=== PATIENT | female | born 1985 | race Caucasian/White ===

== ENCOUNTER → 2019-04-10 09:07 | Outpatient (CLI) | payer OTHER, SELFPAY ==
[2019-04-05 16:27] VITALS: BMI 31.4
[2019-04-10 12:51] LABS: CPK Total, Creatine Kinase 44 U/L (26-192)
== END ==
PROVIDERS: Family Provider Family Medicine; PCP Family Medicine; Referring Provider Family Medicine; Visit Provider Family Medicine
DX: M62.82 Rhabdomyolysis (principal)
CPT/HCPCS: 36415; 82550

== ENCOUNTER → 2020-04-15 12:32 | Outpatient (CLI) | payer OTHER, SELFPAY ==
[2019-06-19 09:33] VITALS: BMI 31.4
[2020-04-15 12:56] LABS: Absolute Neutrophil Count 2.8 X10^3/uL (2.0-7.7); Basophil# 0.04 X10^3/uL; Basophil% 0.8 % (0-1); Eosinophil# 0.08 X10^3/uL; Eosinophils% 1.6 % (0-5); Hematocrit 38.8 % (37-47); Hemoglobin 12.8 g/dL (12.0-15.0); Lymphocyte % 31.4 % (19-41); Mean Corpuscular Hgb 30.6 pg (27.0-32.0); Mean Corpuscular Volume 92.8 fL (81-99); Mean Platelet Vol. 9.9 fl (6.2-12.0); Monocyte# 0.53 X10^3/uL; Monocyte% 10.4 % (0-10); NRBC Flagged by Analyzer 0 % (0-5); Neutrophil # 2.83 X10^3/uL (2.7-7.7); Neutrophil % 55.6 % (47-70); Platelet Count 273 K/mm3 (150-450); RBC Distribution Width CV 12.4 % (11.6-14.6); RBC Distribution Width SD 42.5 fl (35.1-43.9); Red Blood Count 4.18 M/mm3 (4.2-5.4); White Blood Count 5.1 K/mm3 (4.4-11.0)
[2020-04-15 13:08] LABS: ALB/GLOB Ratio 0.9 RATIO (0.9-2.4); AST(SGOT) 15 U/L (15-37); Alanine Aminotransfer ALT/SGPT 20 U/L (13-56); Albumin, Serum 3.6 g/dL (3.2-5.0); Alkaline Phosphatase 44 U/L (45-117); Anion Gap 2 (5-15); BUN 17 mg/dL (7-18); BUN/Creat Ratio 17.6 RATIO (10-20); Calcium,Total 9.5 mg/dL (8.5-10.1); Chloride 107 mmol/L (98-107); Creatinine, Serum 0.97 mg/dL (0.55-1.02); EST Glomerular Filtration Rate 70 mL/min (>60); Est Glom Filt Rate - Afr Amer 85 mL/min (>60); Globulin 3.8 g/dL (2.2-4.2); Glucose 95 mg/dL (74-106); Lipase 114 U/L (73-393); Potassium 4.1 mmol/L (3.5-5.1); Protein, Total 7.4 g/dL (6.4-8.2); Sodium Level 138 mmol/L (136-145)
== END ==
PROVIDERS: PCP Family Medicine; Referring Provider Family Medicine; Visit Provider Family Medicine
DX: R10.9 Unspecified abdominal pain (principal)
CPT/HCPCS: 36415; 80053; 83690; 85025

== ENCOUNTER → 2020-04-22 08:20 | Outpatient (CLI) | payer OTHER, SELFPAY ==
[2019-06-19 09:33] VITALS: BMI 31.4
--- NOTE | 2020-04-22 08:22 | US_ITS ---
STUDY: ABDOMINAL ULTRASOUND REASON FOR EXAM: Female, 35 years old. Generalized abdominal pain. Nausea. TECHNIQUE: Transabdominal ultrasound was performed with real-time and static wyman scale imaging. TECHNICAL QUALITY: Adequate. COMPARISON: None. FINDINGS: Liver: The liver measures 11.8 cm. Small well-circumscribed echogenic lesions within both lobes on the right measuring 0.6 x 0.6 x 0.6 cm and on the left 0.8 x 0.6 x 0.6 cm very suggestive of hemangiomas. The bile ducts are within normal limits. There is hepatic color flow. The direction of portal flow is hepatopetal. There is no demonstrated mass lesion. Gallbladder: Normal distended gallbladder. The gallbladder wall measures 2 mm. There is a negative sonographic Colindres''s sign. There is no pericholecystic fluid. There are no gallstones. 5 mm echogenic polyp or less likely adherent sludge ball. Common Bile Duct (C.B.D.): The common bile duct measures 4 mm. Pancreas: Normal size of the head, body and tail of the pancreas. There is normal echogenicity of the pancreas. There is no demonstrated pancreatic mass or cyst. Spleen: Normal size of the spleen. The spleen measures 9.3 cm. Right Kidney: Normal size of the right kidney. The right kidney measures 10.1 cm. Normal renal cortex. The right cortex measures 1.9 cm. There is no demonstrated renal mass or cyst. There is no right hydronephrosis. Left Kidney: Normal size of the left kidney. The left kidney measures 10.2 cm. Normal renal cortex. The left cortex measures 1.5 cm. There is no demonstrated renal mass or cyst. There is no left hydronephrosis. Aorta: Not dilated I.V.C.: The IVC is patent. There is no ascites. US/Abdomen Complete IMPRESSION: No acute findings in the abdomen. Small gallbladder polyp or adherent sludge ball. Subcentimeter echogenic nodules in the liver suggestive of hemangiomas, very likely incidental findings. Electronically Signed: Ole Keys MD at 1:03 EDT , Service support ,
== END ==
PROVIDERS: PCP Family Medicine; Referring Provider Family Medicine; Visit Provider Family Medicine
DX: R10.9 Unspecified abdominal pain (principal)
CPT/HCPCS: 76700

== ENCOUNTER → 2020-05-09 10:26 | Outpatient (CLI) | payer OTHER, SELFPAY ==
[2019-06-19 09:33] VITALS: BMI 31.4
--- NOTE | 2020-05-09 10:29 | NM_ITS ---
CLINICAL: 35-year-old female with reported history of abdominal pain and postprandial nausea. RADIONUCLIDE HEPATOBILIARY SCINTIGRAPHY COMPARISON: Abdominal ultrasound report 04/22/2020 FINDINGS: Following the intravenous administration of 5.0 mCi of 99m Tc Mebrofenin, hepatobiliary images reveal:. 1. Relatively prompt and homogeneous radiopharmaceutical concentration is noted by a normal sized liver. No parenchymal defects are identified. 2. Gallbladder activity is identified at 15 minutes post radiopharmaceutical administration. 3. Small intestinal tract is observed at 30 minutes following tracer injection. 4. Washout of the radiopharmaceutical by the hepatic parenchyma appears qualitatively normal. Cholecystokinin (0.02 ug/kg) was administered intravenously over a 30-minute period. The post CCK gallbladder ejection fraction calculated at 20 minutes following Cholecystokinin administration was noted to be 48.0 % (normal greater than 35%). During 30 minutes of post CCK imaging, there is scintigraphic evidence of refilling of the gallbladder. NM/Hepatobilliary Img w/Pharm Int IMPRESSION: 1. A gallbladder ejection fraction calculated to be greater than 35% following the administration of Cholecystokinin makes the probability of functional hepatobiliary disease (gallbladder dyskinesia) and/or organic hepatobiliary disease (chronic acalculous cholecystitis and/or cystic duct syndrome) to be low. (Kavon Logan et al, Journal of Nuclear Medicine 32:1695, 1991). 2. 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 Correlation with Sphincter of Oddi manometry is recommended. (Gabriel and Gabriel, J Nucl Med 38:1824, 1997). Electronically Signed: Ja Santoyo DO at 21:10 EDT Tel , Service support ,
== END ==
PROVIDERS: PCP Family Medicine; Referring Provider Family Medicine; Visit Provider Family Medicine
DX: R10.9 Unspecified abdominal pain (principal)
CPT/HCPCS: 78227; A9537; J2805

== ENCOUNTER → 2020-10-20 16:53 | Outpatient (CLI) | payer OTHER, SELFPAY ==
[2020-10-20 08:11] VITALS: BMI 26.1
[2020-10-24 13:02] LABS: HPV APTIMA, High Risk Negative (Negative)
== END ==
PROVIDERS: PCP Family Medicine; Visit Provider Obstetrics & Gynecology
DX: Z12.4 Encounter for screening for malignant neoplasm of cervix (principal)
CPT/HCPCS: 87624; 88175; G0145

== ENCOUNTER 2020-12-24 16:30 | Outpatient (RCR) | payer OTHER, SELFPAY ==
[2020-10-20 08:11] VITALS: BMI 26.1
--- NOTE | 2020-11-27 12:11 | HP.PTEVAL_ITS ---
Patient's Visit Information NUPUR LAMB is a 35 year old F referred to Physical Therapy by Dr. Nakia Hopper DPM with a diagnosis of L peroneal tendinitis. Date of Evaluation: 11/26/20 Physical Therapist: Demarco Fagan DPT - Visit Plan Frequency: 1x/Week Duration: 4 Weeks Plan: The pt. is currently independent with her HEP of gentle ankle strengthening and gastroc/soleus stretching. Pt. would like to only come in 1x a week and perform most exercises on her own at home. Progress her ankle strength and mobility and DF ROM by gentle talocrural AP joint mobs. Pt. plans to go on vacation the last week of December and plans to hike there. - Subjective The pt. presents to the clinic today with pain in the left foot when walking, running, or exercising. The pt. states that she has been having this pain for a couple of months and was recommended a boot by Dr. Hopper. 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 She has been out of the boot for 2 weeks now and has not tried to go back to running because she is still having minimal pain along the peroneal tendons on the lateral aspect of the left foot. The pt. reported that prior to her pain, she increased her running mileage to about 15 miles per week and adopted a dog, which increased her activity level abruptly. She does not wear orthotics. Her dull and aching pain came on without a cause and is worse while standing for long periods of time or while walking for long periods of time. To relieve her pain, she has been icing periodically, but denies taking any pain medications. She is able to sleep throughout the night without pain and does not have pain when ascending/descending stairs. She would like to get back to running and doing her [employer] workouts without pain and plans to go on a hiking trip to [place] at the end of December. The pt. denies any swelling/inflammation in the ankle, as well as any N/T. - Pain Left foot Pain Intensity (Out of 10): 0 Pain Intensity Range: 2 - Objective Posture: All WNL in standing and sitting. The pt. sits with one of her legs crossband layer ssed over the other, making a figure 4 and pt. states that she sits in that position often while working. Observation: While performing a squat and ambulating, the pt. does have an increase in pronation bilaterally with weight acceptance. The pts. gait has not been affected from her pain. MMT: hip flexion bilat 5/5, knee flexion bilat 5/5, knee extension bilat 5/5, dorsiflexion/inversion bilat 5/5 with some pain on the lateral aspect of the L foot, eversion R 5/5, L 4-/5. ROM: eversion R 12deg, L 10deg, inversion R 36deg, L 25deg, dorsiflexion R 10deg, L 5deg, plantarflexion R 50deg, L 45deg. Palpation: TTP distal to the lateral malleolus, plantar surface of 1st metatarsal, and minimal tenderness to the 5th metatarsal. Special Tests: - Anterior drawer, - Talar tilt, - anterolateral impingement test - Goals Goal 1:: LTG: The pt. will be compliant and independent with her HEP. Goal Time Frame: 2-4 Weeks Goal 2:: LTG: The pt. will increase her dorsiflexion ROM by 5deg, so she can tolerate standing for longer than 30 minutes at a time. Goal 3:: LTG: The pt. will increase her eversion strength by 1-2 muscle grades, so she can tolerate her HIIT workouts. Goal 4:: LTG: The pt. will be able to run 1 mile with pain less than a 1/10. - Rehabilitation Potential Physical Therapy Diagnosis: The pt. is a 35 yo female who presents to the clinic with signs and symptoms consistent with left peroneal tendinitis. The pt. presents with decreased ankle mobility, decreased ankle strength, and pain along the peroneal longus and brevis tendons and their insertion sites. The pt. is needing PT to address the following limitations and impairments, so she can resume running and exercising without pain. Rehabilitation Potential: Good - Anticipated Interventions Patient/Client Instruction: Educate patient on: Condition, Plan of Care For the Purpose of:: To decrease pain, To decrease swelling/inflammation, To increase ROM, To improve muscle performance and motor function, To increase flexibility/ROM, To improve endurance, To assume or resume ADL's Therapeutic Exercise to Include: Strength training, Endurance training, Balance training, Flexibilty training, Passive ROM, Active ROM For the Purpose of:: To decrease pain, To increase ROM, To improve muscle performance and motor function, To improve ability to perform ADL's, To increase tolerance to activity/condition/position, To improve performance and independence with ADL's, To increase flexibility/ROM, To improve endurance, To improve balance, To assume or resume ADL's Manual Therapy Techniques to Include: Trigger point massage, Massage, Mobilization, Passive ROM For the Purpose of:: To decrease pain, To increase ROM, To improve muscle performance and motor function, To decrease soft tissue restriction, To increase flexibility/ROM Ultrasound (thermal/non thermal): Yes For the Purpose of:: To decrease pain, To increase ROM, To improve nutrient delivery to tissue, To improve muscle performance and motor function Thank you for the opportunity to evaluate your patient. For Medicare and Medicare HMO plans, please review the plan of care and approve it. It will need to be FAXED BACK to us at [phone] for Medicare purposes. For Medicare only, by signing this I certify the plan of care. Please let me know if there are questions or concerns regarding this plan of care. Physician Signature: Date:
--- NOTE | 2020-12-30 10:07 | HP.PTDCSUM ---
It has been my pleasure to treat NUPUR LAMB referred by Dr. Nakia Hopper DPM, with the diagnosis of L peroneal tendinitis for a total of 5 visit(s). Discharge Date: 12/24/20 Please see the following information for a summary of their discharge status. Subjective: Pt. reports she is doing 100% better. She is back to running without limitations. She reports being HEP compliant without limitations as well. Left foot Pain Intensity (Out of 10): 0 % Improvement: 100 Objective/Function: Pt. has full ROM of her L foot without increase in symptoms. NO pain with walking, no antalgic pattern. Normal running pattern, no antalgic pattern, short distances. Pt. has 5/5 strength throughout her L ankle/foot as well. Pt. is overall doing well and will be DC to [facility] at this point in time. Goal 1:: LTG: The pt. will be compliant and independent with her HEP. Goal Progress: Goal Met Goal 2:: LTG: The pt. will increase her dorsiflexion ROM by 5deg, so she can tolerate standing for longer than 30 minutes at a time. Goal Progress: Goal Met Goal 3:: LTG: The pt. will increase her eversion strength by 1-2 muscle grades, so she can tolerate her HIIT workouts. Goal Progress: Goal Met Goal 4:: LTG: The pt. will be able to run 1 mile with pain less than a 1/10. Goal Progress: Goal Met Plan: DC to HEP Discharge Comments: Pt. is overall doing very well. She is no longer having any issues with walking and running. She is to continue with her eccentric strengthening as able and progress back to all recreational activities as tolerated. If there are questions or concerns regarding this patient's physical therapy, please feel free to call me at [phone]. Thank you for the referral of this patient. Sincerely, Demarco Fagan DPT
== END 2020-12-24 19:00 | disposition home or self-care (01) ==
LOC: PT 16:30
PROVIDERS: PCP Family Medicine; Referring Provider Podiatrist Foot & Ankle Surgery; Visit Provider Podiatrist Foot & Ankle Surgery
DX: M76.72 Peroneal tendinitis, left leg (principal); M79.672 Pain in left foot; M25.572 Pain in left ankle and joints of left foot
CPT/HCPCS: 97110; 97161; 97164

== ENCOUNTER → 2021-01-27 16:54 | Outpatient (CLI) | payer OTHER, SELFPAY ==
[2020-10-20 08:11] VITALS: BMI 26.1
[2021-01-27 17:39] LABS: Absolute Lymphocyte Count 2.17 X10^3/uL (0.83-4.51); Absolute Neutrophil Count 2.4 X10^3/uL (2.0-7.7); Basophil# 0.04 X10^3/uL; Basophil% 0.8 % (0-1); Eosinophil# 0.19 X10^3/uL; Eosinophils% 3.6 % (0-5); Hemoglobin 11.8 g/dL (12.0-15.0); Lymphocyte # 2.17 X10^3/ul (0.83-4.51); Mean Corp Hgb Conc 32.8 g/dL (32-36); Mean Corpuscular Hgb 30.3 pg (27.0-32.0); Mean Corpuscular Volume 92.5 fL (81-99); Mean Platelet Vol. 10.1 fl (6.2-12.0); Monocyte# 0.44 X10^3/uL; Monocyte% 8.3 % (0-10); NRBC Flagged by Analyzer 0 % (0-5); Neutrophil # 2.44 X10^3/uL (2.7-7.7); Neutrophil % 46.1 % (47-70); Platelet Count 268 K/mm3 (150-450); RBC Distribution Width CV 12.6 % (11.6-14.6); Red Blood Count 3.89 M/mm3 (4.2-5.4); White Blood Count 5.3 K/mm3 (4.4-11.0)
[2021-01-27 18:06] LABS: Erythrocyte Sedimentation Rate 9 mm/hr (0-30)
[2021-01-27 18:31] LABS: CPK Total, Creatine Kinase 1164 U/L (26-192)
== END ==
PROVIDERS: PCP Family Medicine; Referring Provider Family Medicine; Visit Provider Family Medicine
DX: M79.606 Pain in leg, unspecified (principal)
CPT/HCPCS: 36415; 82550; 85025; 85652

== ENCOUNTER → 2021-01-30 07:51 | Outpatient (CLI) | payer OTHER, SELFPAY ==
[2021-01-29 16:12] VITALS: BMI 26.1
[2021-01-30 08:13] LABS: Absolute Lymphocyte Count 1.41 X10^3/uL (0.83-4.51); Absolute Neutrophil Count 3.5 X10^3/uL (2.0-7.7); Basophil# 0.04 X10^3/uL; Basophil% 0.7 % (0-1); Eosinophil# 0.14 X10^3/uL; Eosinophils% 2.5 % (0-5); Erythrocyte Sedimentation Rate 10 mm/hr (0-30); Hematocrit 38.5 % (37-47); Hemoglobin 12.6 g/dL (12.0-15.0); Lymphocyte # 1.41 X10^3/ul (0.83-4.51); Lymphocyte % 25.4 % (19-41); Mean Corp Hgb Conc 32.7 g/dL (32-36); Mean Corpuscular Hgb 30.1 pg (27.0-32.0); Mean Corpuscular Volume 91.9 fL (81-99); Mean Platelet Vol. 9.8 fl (6.2-12.0); Monocyte# 0.46 X10^3/uL; Monocyte% 8.3 % (0-10); NRBC Flagged by Analyzer 0 % (0-5); Neutrophil # 3.49 X10^3/uL (2.7-7.7); Neutrophil % 62.9 % (47-70); Platelet Count 238 K/mm3 (150-450); RBC Distribution Width CV 12.4 % (11.6-14.6); RBC Distribution Width SD 41.3 fl (35.1-43.9); Red Blood Count 4.19 M/mm3 (4.2-5.4); White Blood Count 5.6 K/mm3 (4.4-11.0)
[2021-01-30 08:37] LABS: CPK Total, Creatine Kinase 872 U/L (26-192)
== END ==
PROVIDERS: Family Medicine; PCP Family Medicine; Referring Provider Family Medicine; Visit Provider Family Medicine
DX: M79.606 Pain in leg, unspecified (principal)
CPT/HCPCS: 36415; 82550; 85025; 85652

== ENCOUNTER → 2021-03-02 12:40 | Outpatient (CLI) | payer OTHER, SELFPAY ==
[2021-03-02 13:08] LABS: Absolute Neutrophil Count 2.8 X10^3/uL (2.0-7.7); Basophil# 0.05 X10^3/uL; Basophil% 0.9 % (0-1); Eosinophil# 0.16 X10^3/uL; Hematocrit 36.4 % (37-47); Hemoglobin 11.7 g/dL (12.0-15.0); Lymphocyte % 33.4 % (19-41); Mean Corp Hgb Conc 32.1 g/dL (32-36); Mean Corpuscular Hgb 29.6 pg (27.0-32.0); Mean Corpuscular Volume 92.2 fL (81-99); Monocyte# 0.54 X10^3/uL; NRBC Flagged by Analyzer 0 % (0-5); Neutrophil # 2.83 X10^3/uL (2.7-7.7); Neutrophil % 52.5 % (47-70); Platelet Count 227 K/mm3 (150-450); RBC Distribution Width CV 12.4 % (11.6-14.6); RBC Distribution Width SD 41.8 fl (35.1-43.9); Red Blood Count 3.95 M/mm3 (4.2-5.4); White Blood Count 5.4 K/mm3 (4.4-11.0)
[2021-03-02 13:22] LABS: CPK Total, Creatine Kinase 297 U/L (26-192)
== END ==
PROVIDERS: PCP Family Medicine; Referring Provider Family Medicine; Visit Provider Family Medicine
DX: M79.606 Pain in leg, unspecified (principal); R74.8 Abnormal levels of other serum enzymes
CPT/HCPCS: 36415; 82550; 85025

== ENCOUNTER → 2021-05-08 07:53 | Outpatient (CLI) | payer OTHER, SELFPAY ==
[2021-05-08 08:51] LABS: CPK Total, Creatine Kinase 60 U/L (26-192)
== END ==
LOC: PAVLAB 07:53
PROVIDERS: PCP Family Medicine; Referring Provider Obstetrics & Gynecology; Visit Provider Obstetrics & Gynecology
DX: M62.82 Rhabdomyolysis (principal)
CPT/HCPCS: 36415; 82550

== ENCOUNTER → 2022-03-05 | Outpatient (CLI) | payer OTHER, SELFPAY ==
--- NOTE | 2022-03-05 13:37 | ST.MBS ---
Modified Barium Swallow - Patient Information Study Date: 03/05/22 Study Time: 13:00 Direct Billable Minutes: 75 Total Minutes procedure & reportin Diagnosis: Dysphagia, unspecified (R13.10) Referring Physician: Shelbi Naik NP Reason for Referral: Objectively assess swallow function, risk for aspiration, and determine recommendations for least restrictive diet textures and compensatory strategies to improve safety of swallow. Medical History: The patient is a 37-year-old female who has been waking at nighttime with the sensation of pills (taken before bed) stuck in her throat, burning sensation, and chest tightness. The first episode was in July of 2021. Recently, it happened 3X in one week. In the days following these episodes, she experiences odynophagia. She denies difficulty swallowing pills, food, or drinks. She takes medications whole with water. Current Diet Ordered: Regular / Thin, meds whole with water Dentition: Natural Teeth Mental Status: WNL Respiratory Status: Oxygenating on Room Air - Penetration-Aspiration Scale Penetration-Aspiration Scale: OBJECTIVE ASSESSMENT OF SWALLOW FUNCTION (QUANTITATIVE ? PER TRIAL): PENETRATION / ASPIRATION SCALE ([place]): 1 = does not enter airway 2 = enters airway/above vocal folds/ejected 3 = enters airway/above vocal folds/not ejected 4 = enters airway/contacts vocal folds/ejected 5 = enters airway/contacts vocal folds/not ejected 6 = enters airway/below vocal folds/ejected 7 = enters airway/below vocal folds/not ejected despite effort 8 = enters airway/below vocal folds/no effort VIDEOFLOROSCOPIC SCALE SCORE ([place]): Grade I = aspiration of material that has penetrated into the laryngeal vestibule, intact cough reflex Grade II = aspiration < 10 % of the bolus, intact cough reflex Grade III = aspiration of < 10 % of the bolus, reduced cough reflex or aspiration of > 10 % of the bolus, intact cough reflex Grade IV = aspiration of > 10 % of the bolus, reduced cough reflex - Penetration-Aspiration Scale Score Thin Liquid via teaspoon Result: 1= does not enter airway Thin Liquid via teaspoon Trial 2 Result: 1= does not enter airway Thin Liquid via small single sip from cup Result: 1= does not enter airway Thin Liquid via sequential sips from cup Result: 1= does not enter airway [place] Thick Liquid via small single sip from cup Result: 1= does not enter airway [place] Thick Liquid via small single sip from cup Result: 1= does not enter airway Pudding via teaspoon with esophageal screen Result: 1= does not enter airway - Retention in mid esophagus. Provided thin liquid wash - somewhat effective at clearing contrast. 1/2 Cookie with barium pudding coating Result: 1= does not enter airway Thin Liquid via single sip from straw Result: 1= does not enter airway Barium Tablet with water Result: 1= does not enter airway Comment: Retention of pill in mid esophagus. Provided liquid wash with water - not effective at clearing the tablet. Provided wash with tsp of pudding - effectively cleared the tablet. - Oral Phase Labial Seal: No Labial Escape Tongue Control During Bolus Hold: Posterior escape of greater than half of bolus Bolus Preparation/Mastication: Timely and efficient chewing and mashing Bolus Transport/Lingual Motion: Brisk tongue motion Oral Residue: Residue collection on oral structures - Piecemeal deglutition of cookie - Pharyngeal Phase Initiation of Pharyngeal Swallow: Bolus head in pyriforms Soft Palate Elevation: No bolus between soft palate and pharyngeal wall Laryngeal Elevation: Comp. Superior move thyroid cart w/comp. apprx arytenoid cart-epig pet Anterior Hyoid Excursion: Complete anterior movement Epiglottic Movement: Complete inversion Laryngeal Vestibule Closure at Height of Swallow: Complete; no air/contrast in laryngeal vestibule Pharyngeal Stripping Wave: Present - complete Pharyngoesophageal Segment Opening: Complete distension and complete duration; no obstruction of flow Tongue Base Retraction: Trace column of contrast between tongue base & post. pharyngeal wall Pharyngeal Residue: Collection of residue within or on pharyngeal structures - Esophageal Phase Esophageal Clearance: Esophageal retention - Treatment Strategies Effects of treatment strategies attemped:: Liquid wash = somewhat effective at clearing pudding, not effective at clearing barium tablet. - Diagnosis/Impression Diagnosis: Oropharyngeal swallow function grossly WNL Impression: The patient presents with overall oropharyngeal swallow function WNL. Timely mastication. Piecemeal deglutition with cookie. Delayed swallow initiation with >1/2 of various liquid and pudding trials initiating in the pyriform sinuses prior to swallow onset. She maintained excellent airway closure during the swallow throughout the study with no laryngeal penetration or aspiration observed. The patient demonstrated mild esophageal retention of pudding bolus in the mid esophagus, which somewhat cleared with use of thin liquid wash. Retention of barium tablet in mid esophagus, which did not clear with thin liquid wash. Tsp of pudding did clear the barium tablet. - Recommendations Diet: Regular Textures, Thin Liquids Comment: Crush medications in puree Compensatory Strategies: Small Bites, Small Sips, Slow Rate - Avoid rapid double swallows, Alternate bites/solids and sips/liquids, Sitting upright, Remain sitting upright for 30 minutes after PO intake Recommend Repeat Modified Barium Swallow: No Need for Skilled Speech Therapy Services: No Recommended Referrals: GI Consult - Esophageal retention evident during the evaluation. CREATIVE/ART DIRECTOR suspects the patient is experiencing reflux at nighttime. Education Completed: 1. Described result of evaluation., 5. Patient demonstrates recommended strategies. Comment: Additional reflux education provided, including food/drink to avoid, increasing hydration, avoiding eating close to bedtime, take medication in the AM if able. Education well received. - Status Active ST Patient: Active - Contact Information [facility] Speech Therapy:: Antonieta Graham M.A. [facility]-CREATIVE/ART DIRECTOR Speech-Language Pathologist [facility] [address] [place] [address] [email or web address] [phone] 03/05/22 13:48
== END | disposition home or self-care (01) ==
LOC: RAD 12:58
PROVIDERS: PCP Internal Medicine; Referring Provider Nurse Practitioner Family; Visit Provider Nurse Practitioner Family
DX: R13.10 Dysphagia, unspecified (principal)
CPT/HCPCS: 74230; 92611

== ENCOUNTER → 2022-03-22 | Outpatient (CLI) | payer OTHER, SELFPAY ==
[2022-03-22 11:43] LABS: Absolute Lymphocyte Count 2.31 X10^3/uL (0.83-4.51); Absolute Neutrophil Count 4.1 X10^3/uL (2.0-7.7); Basophil# 0.07 X10^3/uL; Eosinophil# 0.16 X10^3/uL; Eosinophils% 2.2 % (0-5); Hematocrit 37.9 % (37-47); Hemoglobin 12.3 g/dL (12.0-15.0); Lymphocyte # 2.31 X10^3/ul (0.83-4.51); Lymphocyte % 31.6 % (19-41); Mean Corp Hgb Conc 32.5 g/dL (32-36); Mean Corpuscular Hgb 28.1 pg (27.0-32.0); Mean Corpuscular Volume 86.5 fL (81-99); Mean Platelet Vol. 9.9 fl (6.2-12.0); Monocyte# 0.64 X10^3/uL; Monocyte% 8.8 % (0-10); NRBC Flagged by Analyzer 0 % (0-5); Neutrophil # 4.11 X10^3/uL (2.7-7.7); Neutrophil % 56.3 % (47-70); Platelet Count 294 K/mm3 (150-450); RBC Distribution Width CV 14.5 % (11.6-14.6); RBC Distribution Width SD 46.1 fl (35.1-43.9); Red Blood Count 4.38 M/mm3 (4.2-5.4); White Blood Count 7.3 K/mm3 (4.4-11.0)
[2022-03-22 12:21] LABS: ALB/GLOB Ratio 0.8 RATIO (0.9-2.4); AST(SGOT) 24 U/L (15-37); Alanine Aminotransfer ALT/SGPT 22 U/L (13-56); Albumin, Serum 3.6 g/dL (3.2-5.0); Alkaline Phosphatase 51 U/L (45-117); Anion Gap 6 (5-15); BUN 15 mg/dL (7-18); BUN/Creat Ratio 17.5 RATIO (10-20); Calcium,Total 9.3 mg/dL (8.5-10.1); Chloride 106 mmol/L (98-107); Creatinine, Serum 0.86 mg/dL (0.55-1.02); EST Glomerular Filtration Rate 80 mL/min (>60); Est Glom Filt Rate - Afr Amer 96 mL/min (>60); Globulin 4.3 g/dL (2.2-4.2); Glucose 92 mg/dL (74-106); Protein, Total 7.9 g/dL (6.4-8.2); Sodium Level 138 mmol/L (136-145); Thyroid Stim Hormone (TSH) 0.86 uIU/mL (0.358-3.74)
== END | disposition home or self-care (01) ==
LOC: PAVLAB 11:29
PROVIDERS: PCP Internal Medicine; Referring Provider Internal Medicine; Visit Provider Internal Medicine
DX: F41.9 Anxiety disorder, unspecified (principal); F32.A Depression, unspecified
CPT/HCPCS: 36415; 80053; 84439; 84443; 85025

== ENCOUNTER → 2022-03-23 | Outpatient (CLI) | payer OTHER, SELFPAY ==
--- NOTE | 2022-03-23 12:28 | US_ITS ---
STUDY: THYROID ULTRASOUND REASON FOR EXAM: Female, 37 years old. Anterior Neck Swelling TECHNIQUE: Ultrasound evaluation of the thyroid was performed with real-time and static wyman-scale imaging. COMPARISON: Comparison is made with prior study dated 09/10/2010. FINDINGS: RIGHT LOBE: The right lobe of the thyroid gland is enlarged and measures 5.6 cm x 2 cm x 2 cm. There is a homogeneous echotexture. In the midpole of the right lobe, there are 2 adjacent complex solid and cystic nodules posteriorly. The larger measures 6 mm x 5 mm x 4 mm. LEFT LOBE: The left lobe of the thyroid gland is enlarged and measures 5.5 cm x 2 cm x 1.6 cm. There is a homogeneous echotexture. There are no demonstrated solid, cystic or complex lesions. ISTHMUS: The isthmus measures 2 mm. The regional lymph nodes are normal. US/Thyroid IMPRESSION: Thyroid enlargement. There are 2 adjacent complex solid and cystic nodules in the mid pole of the right lobe of the thyroid. The larger measures 6 mm x 5 mm x 4 mm. Electronically Signed: Terrance Valiente MD at 14:32 EDT ,
== END | disposition home or self-care (01) ==
LOC: US 12:28
PROVIDERS: PCP Internal Medicine; Referring Provider Internal Medicine; Visit Provider Internal Medicine
DX: R13.10 Dysphagia, unspecified (principal); R22.1 Localized swelling, mass and lump, neck
CPT/HCPCS: 76536

== ENCOUNTER → 2022-03-25 | Outpatient (CLI) | payer OTHER, SELFPAY ==
[2022-03-26 21:06] LABS: Thyroid Peroxidase AB 11 IU/mL (0-34)
[2022-03-27 07:16] LABS: Thyroglobulin Antibody 1.2 IU/mL (0.0-0.9)
== END | disposition home or self-care (01) ==
LOC: PAVLAB 10:23
PROVIDERS: PCP Internal Medicine; Referring Provider Obstetrics & Gynecology; Visit Provider Obstetrics & Gynecology
DX: E01.0 Iodine-deficiency related diffuse (endemic) goiter (principal)
CPT/HCPCS: 36415; 86376; 86800

== ENCOUNTER → 2022-07-26 | Outpatient (CLI) | payer OTHER, SELFPAY ==
[2022-07-26 09:00] LABS: T4 Free Direct 1.15 ng/dL (0.76-1.46); Thyroid Stim Hormone (TSH) 0.41 uIU/mL (0.358-3.74)
== END | disposition home or self-care (01) ==
LOC: PAVLAB 07:47
PROVIDERS: PCP Internal Medicine; Referring Provider Internal Medicine Endocrinology, Diabetes & Metabolism; Visit Provider Internal Medicine Endocrinology, Diabetes & Metabolism
DX: E01.0 Iodine-deficiency related diffuse (endemic) goiter (principal)
CPT/HCPCS: 36415; 84439; 84443

== ENCOUNTER 2022-07-29 10:39 | Day surgery (SDC) | payer OTHER, SELFPAY ==
[2022-07-29] VITALS (7 sets, daily range): BP systolic 104–127; BP diastolic 75–79; PULSE 74–100; RESP 16; TEMP 36.5–36.8; O2SAT 94–100; BMI 26.9
--- NOTE | 2022-07-29 10:47 | PCM.HP.BLA ---
History and Physical Date of Admission: 07/29/22 REBECCA LAMB, is a 37 F who presents to the office today for Initial consult. Rebecca established with this clinic 05.31.22. Intermittent dysphagia with pain first noticed with pills earlier this year. Endocrinology follows for goiter and TG ab +. PMH thyromegaly, anxiety/depression; ADHD; back problems; rhabdomyolysis. FH brother and son celiac. US abdomen 04.22.20 noting hepatic hemangiomas; 5mm echogenic polyp versus adherent sludge ball. HIDA scan 05.09.20 with EF >35% Barium Swallow 03.05.22 and mild esophageal retention and trapping of tablet in mid esophagus. US thyroid 03.23.22 noting thyromegaly with cystic nodules. ROS Const Constitutional: No body ache, chills, excessive sweating, fatigue, fever(s), frequent falls, headache(s), snoring, weakness, weight change, sleep problems or change in appetite Eyes Eyes: No blurry vision, change in vision, eye pain or Light sensitivity ENT ENT: No abnormal hearing, ear or mastoid pain, tinnitus, nasal congestion, headache(s), neck pain or sore throat Resp Respiratory: No cough, shortness of breath, snoring or wheezing Cardio Cardiology: No chest pain at rest, chest pain with exertion, excessive sweating, shortness of breath, dyspnea on exertion, lightheadedness, orthopnea or palpitations Gastro GI: No abdominal pain, change in bowel habits, constipation, cramping, diarrhea, nausea/dyspepsia or vomiting Genitourinary-Female: No burning urination, painful urination, urinary incontinence, urinary frequency or abnormal vaginal bleeding Musc Musculoskeletal: No abnormal gait, joint pain, back pain, limited range of motion, neck pain, numbness or tingling Skin Skin: No dry skin, redness, lesions, itchy eyes, rash or wounds Neuro Neurology: No abnormal gait, abnormal hearing, abnormal speech, dizziness, weakness, frequent falls, headache(s), memory loss, numbness or tingling Psych Psychiatric: No anxiety, No change in appetite, No depression, No memory loss and No Thoughts of harming yourself/Others Endo Endocrine: No cold intolerance, excessive sweating, fatigue, flushing, heat intolerance, increased thirst/drinking, increased hunger or weight change Aller/Imm Allergy/Immunologic: No itchy eyes, seasonal allergy symptoms, hives or wheezing Jeromy/Lymp Hematologic/Lymphatic: No easy bleeding, easy bruising or enlarged lymph nodes Exam Const General: cooperative, healthy appearing, comfortable, no acute distress, well developed and not cushingoid Nutritional Appearance: well nourished Orientation: alert, awake and oriented x3 [facility] Head: normal to inspection Ears: hearing grossly normal bilaterally Nose: external nose normal Mouth: oral mucosae normal Eyes General: appearance normal, both eyes and all related structures Alignment and Position: alignment normal Periorbital: periorbital findings normal Eyelids: eyelids normal Conjunctivae: conjunctivae normal Neck Neck: normal visual inspection Neck mass: No Thyroid: asymmetrical (R>L enlarged) Lymphatic: no lymphadenopathy noted Chest Chest palpation & inspection: normal inspection of the chest Resp Effort & Inspection: normal respiratory effort, able to speak in complete sentences, symmetric chest movement, no audible wheezes and no cough Auscultation: Bilateral: Clear to Auscultation Cardio Rate: regular rate Rhythm: regular rhythm GI Inspection: normal to inspection Skin General: no rashes or lesions noted Neuro General: patient alert, patient awake and patient oriented x3 Cranial Nerves: CN's II-XI intact bilaterally Cognition: normal cognition Speech: speech normal Gait: normal gait Motor: muscle tone normal throughout Extrem General: no edema Psych Appearance: grossly normal Mental Status: mental status grossly normal Mood: congruent mood Affect: normal affect Speech and Movement: speech and movement normal Attitude: cooperative Thought Process: normal Thought Content: normal Judgment: judgment good Quality Reporting Tobacco Screening ([facility] 138) Smoking Status: Former smoker Assessment and Plan Assessment and Plan (1) Swallowing difficulty: ?Status:?Chronic ?Plan: The differential diagnosis for esophageal dysphagia does include eosinophilic esophagitis, cricopharyngeal achalasia, extrinsic compression from the thyroid, erosive esophagitis, esophageal dysmotility disorder.? She will need to undergo an upper endoscopy evaluate upper GI tract.? She was explained alternatives, risk, benefits including outstanding bleeding, infection, sepsis, perforation, need for discharge or .? Have an ASA of 1. I have examined the patient and the H&P has been reviewed. There are no clinical changes since date of exam.
[2022-07-29] MEDS: Lactated Ringers 1,000 ML 15 ML IV (11:12)
[2022-07-29 11:36] LABS: Internal QC Validated? YES +Cl - CLEAR BKGD; Pregnancy, Urine Negative Negative
--- NOTE | 2022-07-29 11:45 | EGD_PTH ---
PATIENT: NUPUR LAMB LOC: EN U#:[id number] AGE/SX: 37/F ROOM: RE07/29/[address]: Dr. Modesto Rodriguez DO : 1985 BED: DIS: 07/29/2022 SPEC #: [id number] RECD: 07/29/22 15:16 STATUS: BISHNU REMynor #: [id number] DONNA: 07/29/22 11:[address]: Modesto Rodriguez DEPT: SURGICAL PATHOLOGY RECD BY: Yasmine Kearns ENTERED: 07/30/22 09:33 SP TYPE: EGD BIOPSY VALENTIN DR: Dr. Shaneka Joyce MD Tissues: A - Duodenum, NOS B - Esophagus, NOS Procedures: Special Stain Group II Surgery Specimen Level IV Alcian Blue/PAS (control) HEADER OPERATION: EGD (MAC) biopsy, dilation PRE-OP DIAGNOSIS: Swallowing difficulty TISSUE SUBMITTED: A ? Duodenum biopsy, B ? Distal esophagus biopsy MICROSCOPIC DIAGNOSIS A. Duodenum, biopsy: Fragments of duodenal mucosa with moderate nonspecific chronic inflammation and focal villous blunting and mild increased intraepithelial lymphocytes, changes suggestive of celiac disease. See comment. B. Distal esophagus, biopsy: Fragments of gastric mucosa with mild chronic inflammation. Intestinal metaplasia (goblet cell metaplasia) not identified. See comment. SJ:rg 08/02/2022 COMMENT A. Correlation with clinical, laboratory and endoscopic findings and appropriate follow up are necessary. B. Alcian blue/PAS stain with matched control is used in the evaluation of the specimen. MICROSCOPIC DESCRIPTION Slides are reviewed. GROSS DESCRIPTION A - Received in fixative is one container labeled with the patient's name and designated duodenum biopsy. The specimen consists of two irregular fragments of light rebollar soft tissue that in aggregate measure 0.6 x 0.5 x 0.1 cm. The specimen is totally submitted in one cassette. B - Received in fixative is one container labeled with the patient's name and designated distal esophagus biopsy. The specimen consists of two irregular fragments of light rebollar soft tissue that in aggregate measure 0.4 x 0.5 x 0.1 cm. The specimen is totally submitted in one cassette. / ANJELICA:nicolás 07/30/2022 TC:3 CPT: 54533 x2, 79665
--- NOTE | 2022-07-29 11:49 | OP.EGD_ITS ---
Patient Name: Rebecca Tong Procedure Date: 07/29/2022 11:22 AM Date of : 1985 Age: 37 Procedure: Upper GI endoscopy Indications: Dysphagia Providers: Modesto Rodriguez DO Referring MD: Modesto Rodriguez DO Medicines: Propofol per Anesthesia, Monitored Anesthesia Care Patient Profile: This is a 37 year old female. Refer to note in patient chart for documentation of history and physical. Patient has symptoms of chronic dysphagia. Complications: No immediate complications. Procedure: Pre-Anesthesia Assessment: - Prior to the procedure, a History and Physical was performed, and patient medications and allergies were reviewed. The risks and benefits of the procedure and the sedation options and risks were discussed with the patient. All questions were answered and informed consent was obtained. Patient identification and proposed procedure were verified by the physician. Mental Status Examination: normal. Prophylactic Antibiotics: The patient does not require prophylactic antibiotics. Prior Anticoagulants: The patient has taken no previous anticoagulant or antiplatelet agents. ASA Grade Assessment: II - A patient with mild systemic disease. After reviewing the risks and benefits, the patient was deemed in satisfactory condition to undergo the procedure. The anesthesia plan was to use monitored anesthesia care (MAC). Immediately prior to administration of medications, the patient was re-assessed for adequacy to receive sedatives. The heart rate, respiratory rate, oxygen saturations, blood pressure, adequacy of pulmonary ventilation, and response to care were monitored throughout the procedure. The physical status of the patient was re-assessed after the procedure. After obtaining informed consent, the endoscope was passed under direct vision. Throughout the procedure, the patient's blood pressure, pulse, and oxygen saturations were monitored continuously. The Endoscope was introduced through the mouth, and advanced to the second part of duodenum. The upper GI endoscopy was accomplished without difficulty. The patient tolerated the procedure well. Scope In: 11:36:13 AM Scope Out: 11:43:18 AM Total Procedure Duration Time 0 hours 7 minutes 5 seconds Findings: Abnormal motility was noted at the cricopharyngeus. The cricopharyngeus was abnormal. There is spasticity and a decrease in motility of the esophageal body. The distal esophagus/lower esophageal sphincter is open. Primary peristaltic waves are noted. A guidewire was placed and the scope was withdrawn. Dilation was performed with a Savary dilator with no resistance at 51 Fr. The dilation site was examined and showed mild improvement in luminal narrowing. Estimated blood loss was minimal. The Z-line was irregular and was found 39 cm from the incisors. Biopsies were taken with a cold forceps for histology. Verification of patient identification for the specimen was done. Estimated blood loss was minimal. A small hiatal hernia was present. Patchy granular mucosa was found in the duodenal bulb. Biopsies were taken with a cold forceps for histology. Biopsies for histology were taken with a cold forceps for evaluation of celiac disease. Verification of patient identification for the specimen was done. Estimated blood loss was minimal. Impression: - Abnormal esophageal motility, suspicious for esophageal spasm. Dilated. - Z-line irregular, 39 cm from the incisors. Biopsied. - Small hiatal hernia. - Granular mucosa in the duodenal bulb. Biopsied. Recommendation: - Discharge patient to home. - Resume previous diet. - Continue present medications. - Await pathology results. Procedure Code(s): --- Professional --- 08187, Esophagogastroduodenoscopy, flexible, transoral; with insertion of guide wire followed by passage of dilator(s) through esophagus over guide wire 37030, 59, Esophagogastroduodenoscopy, flexible, transoral; with biopsy, single or multiple CPT copyright 2017 [employer]. All rights reserved. The codes documented in this report are preliminary and upon rubber down review may be revised to meet current compliance requirements. Modesto Rodriguez DO 07/29/2022 11:49:09 AM This report has been signed electronically. Number of Addenda: 0 Note Initiated On: 07/29/2022 11:22 AM
--- NOTE | 2022-07-29 11:50 | OP.CCLET_ITS ---
07/29/2022 Shaneka Joyce MD [address] [place] [address] [place] [address] Re : Upper GI endoscopy procedure for Rebecca Tong Dear Dr. Joyce This procedure was performed on July. My impressions and recommendations are as follows: Impressions : - Abnormal esophageal motility, suspicious for esophageal spasm. Dilated. - Z-line irregular, 39 cm from the incisors. Biopsied. - Small hiatal hernia. - Granular mucosa in the duodenal bulb. Biopsied. Recommendations : - Discharge patient to home. - Resume previous diet. - Continue present medications. - Await pathology results. My findings are described in the full procedure note, which is enclosed. If I can be of further assistance, please feel free to contact me at . Sincerely, Modesto Rodriguez, 07/29/2022 11:49:09 AM This report has been signed electronically.
== END 2022-07-29 12:34 | disposition home or self-care (01) ==
LOC: EN 10:39 → AC 10:44
PROVIDERS: Anesthesiology; PCP Internal Medicine; Referring Provider Internal Medicine Gastroenterology; Visit Provider Internal Medicine Gastroenterology
PROC: 0DJ08ZZ Inspection of Upper Intestinal Tract, Via Natural or Artificial Opening Endoscopic (ICD-10-PCS; CPT 43235; principal; 2022-07-29 11:40)
DX: K30 Functional dyspepsia (principal); K90.0 Celiac disease; K20.90 Esophagitis, unspecified without bleeding; K44.9 Diaphragmatic hernia without obstruction or gangrene; F41.9 Anxiety disorder, unspecified; F32.A Depression, unspecified; M54.16 Radiculopathy, lumbar region; M99.01 Segmental and somatic dysfunction of cervical region; M99.02 Segmental and somatic dysfunction of thoracic region; M99.03 Segmental and somatic dysfunction of lumbar region; M99.05 Segmental and somatic dysfunction of pelvic region; E07.9 Disorder of thyroid, unspecified; Z79.899 Other long term (current) drug therapy; Z87.891 Personal history of nicotine dependence
CPT/HCPCS: 43239; 43248; 81025; 88305; 88313; 88342; J7120; C1769; J2405

== ENCOUNTER 2022-08-13 08:26 | Day surgery (SDC) | payer OTHER, SELFPAY ==
[2022-08-13 08:41] VITALS: BP 116/72; PULSE 89; RESP 16; TEMP 36.7; O2SAT 100
[2022-08-13] MEDS: Lidocaine Jelly 2% 20 ML Syringe (URO-JET) 1 APPLIC (08:56)
== END 2022-08-13 09:10 | disposition home or self-care (01) ==
PROVIDERS: PCP Internal Medicine; Referring Provider Internal Medicine; Visit Provider Internal Medicine Gastroenterology
PROC: F00ZJWZ Instrumental Swallowing and Oral Function Assessment using Swallowing Equipment (ICD-10-PCS; CPT 43235; principal; 2022-08-13 08:25)
DX: K21.9 Gastro-esophageal reflux disease without esophagitis (principal); K22.4 Dyskinesia of esophagus
CPT/HCPCS: 91010

== ENCOUNTER 2022-10-21 17:00 | Outpatient (RCR) | payer OTHER, SELFPAY ==
--- NOTE | 2022-09-21 17:45 | HP.PTEVAL ---
Patient's Visit Information NUPUR LABM is a 37 year old F referred to Physical Therapy by Dr. Shaneka Joyce MD with a diagnosis of chronic LBP. Date of Evaluation: 09/21/22 Physical Therapist: Enrique Bustos, DPT, OCS, CSCS - Visit Plan Frequency: 2x /Week Duration: 4-6 Weeks Plan: 2x/week for 4 weeks for. 1. HS stretch and LB yoga streetches, hip stretches to HEP, L/S ext mobs PA as needed. 2. mat/floor based core strength progressing to I HEP. body mechanics with posture and lifting training. Postural focus with towel roll. - Subjective Intermittent severe back pain. Comes in episodes lasting a couple days of ko movement. Sneezes can bring it on. this last time was 3 weeks ago and just woke up stiff and tight and then got worse as the day went on. Loses ROM. Sitting at work is a big problem to stand up. 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 Sitting is worse. Sleeping is not an issue, bed transfers not an issue.,. No leg symptoms. Keeps her form working out alot. kids are 5/8 . Exercises when healthy including running or high intensity aerobics. - Pain LBP Pain Intensity (Out of 10): 0 Pain Intensity Range: 0, 7, 10 - Objective Posture is flat LB and some kyphosis in T/s. Tender to PA pressure throughout [place] region centrally. - slump, - SLR. Walks and trasnfers I and without pain today. HS min tight B. Core strngth 4/5 ext adn flexion. LB AROM extension slight discomfort end range adn minn deficits, flexion is full and SB are full and without pain. reflexes 2/3 patella and achilles. Sensation LE WNL to gross light touch. strength hips 4- abd, rotations and extension, 4 flexion, knee strength 4+, ankle strength 4+. - Balance/Special Test Scores Oswestry Low Back Score: 21 - Goals Goal 1:: Patient have full L/S AROM without pain Goal Time Frame: 2-4 Weeks Goal 2:: pt I in appropriate HS stretching, LB yoga stretches and core strength via HEP Goal Time Frame: 4-6 Weeks Goal 3:: Patient feel 99% better and manageable Goal Time Frame: 4-6 Weeks Goal 4:: Sit at work without pain arising from chair. Goal Time Frame: 4-6 Weeks Goal 5:: 4 or less oswestry Goal Time Frame: 4-6 Weeks - Rehabilitation Potential Physical Therapy Diagnosis: likely discal pathology intermittently effecting function. Rehabilitation Potential: Good - Anticipated Interventions Patient/Client Instruction: Educate patient on: Condition, Plan of Care For the Purpose of:: To decrease pain, To increase ROM, To improve nutrient delivery to tissue, To improve muscle performance and motor function, To increase tolerance to activity/condition/position Therapeutic Exercise to Include: Strength training, Postural training, Flexibilty training, Passive ROM, Active ROM, Dynamic Lumbar Stabilization For the Purpose of:: To decrease pain, To increase ROM, To improve nutrient delivery to tissue, To improve muscle performance and motor function, To increase tolerance to activity/condition/position, To improve ability of physical actions for home/community/work/leisure Manual Therapy Techniques to Include: Mobilization, Soft tissue mobilization For the Purpose of:: To decrease pain, To increase ROM Thank you for the opportunity to evaluate your patient. For Medicare and Medicare HMO plans, please review the plan of care and approve it. It will need to be FAXED BACK to us at [phone] for Medicare purposes. For Medicare only, by signing this I certify the plan of care. Please let me know if there are questions or concerns regarding this plan of care. Physician Signature: Date:
--- NOTE | 2022-10-21 17:46 | HP.PTDCSUM ---
It has been my pleasure to treat NUPUR LAMB referred by Dr. Shaneka Joyce MD, with the diagnosis of chronic LBP for a total of 6 visit(s). Discharge Date: Please see the following information for a summary of their discharge status. Subjective: been real busy and hard to make it in. back is doing really well. Changed up workout to more with weights and stretching vs just running. No flare up slately. If sits too long in car it might be sore. No pain at work. Doing HS stretches at home, bridges, yoga. LBP Pain Intensity (Out of 10): Unrated % Improvement: 90 Objective/Function: Full aROM with just slight end range extension tightness in middle of low back, otherwise full function and good presentation. Goal 1:: Patient have full L/S AROM without pain Goal Progress: Goal Met Goal 2:: pt I in appropriate HS stretching, LB yoga stretches and core strength via HEP Goal Progress: Goal Met Goal 3:: Patient feel 99% better and manageable Goal Progress: Progressing Goal 4:: Sit at work without pain arising from chair. Goal Progress: Goal Met Goal 5:: 4 or less oswestry Goal Progress: Goal Met Plan: d/c, pt to manage on own and contact doctor if pain returns. If there are questions or concerns regarding this patient's physical therapy, please feel free to call me at [phone]. Thank you for the referral of this patient. Sincerely, Enrique Bustos, DPT, OCS, CSCS Balance/Gait/Functional tests - Balance/Special Test Scores Oswestry Low Back Score: 1
== END 2022-10-21 19:00 | disposition home or self-care (01) ==
LOC: PT 17:00
PROVIDERS: PCP Internal Medicine; Referring Provider Internal Medicine; Visit Provider Internal Medicine
DX: M54.9 Dorsalgia, unspecified (principal); G89.29 Other chronic pain
CPT/HCPCS: 97110; 97161; 97164

== ENCOUNTER → 2023-01-31 | Outpatient (CLI) | payer OTHER, SELFPAY ==
[2023-01-31 12:17] LABS: Free T3 2.3 pg/mL (2.18-3.98); T4 Free Direct 0.99 ng/dL (0.76-1.46); Thyroid Stim Hormone (TSH) 0.64 uIU/mL (0.358-3.74)
== END | disposition home or self-care (01) ==
LOC: PAVLAB 11:22
PROVIDERS: PCP Internal Medicine; Referring Provider Advanced Practice Midwife; Visit Provider Advanced Practice Midwife
DX: E01.0 Iodine-deficiency related diffuse (endemic) goiter (principal); R41.89 Other symptoms and signs involving cognitive functions and awareness
CPT/HCPCS: 36415; 84439; 84443; 84481

== ENCOUNTER → 2023-03-21 | Outpatient (CLI) | payer OTHER, SELFPAY ==
[2023-03-21 13:36] LABS: Absolute Lymphocyte Count 2.46 X10^3/uL (0.83-4.51); Absolute Neutrophil Count 5.1 X10^3/uL (2.0-7.7); Basophil# 0.05 X10^3/uL; Basophil% 0.6 % (0-1); Eosinophil# 0.18 X10^3/uL; Eosinophils% 2.2 % (0-5); Hemoglobin 12.7 g/dL (12.0-15.0); Lymphocyte # 2.46 X10^3/ul (0.83-4.51); Lymphocyte % 29.6 % (19-41); Mean Corp Hgb Conc 32.6 g/dL (32-36); Mean Corpuscular Hgb 30.1 pg (27.0-32.0); Mean Corpuscular Volume 92.4 fL (81-99); Mean Platelet Vol. 9.8 fl (6.2-12.0); Monocyte# 0.51 X10^3/uL; Monocyte% 6.1 % (0-10); NRBC Flagged by Analyzer 0 % (0-5); Neutrophil # 5.09 X10^3/uL (2.7-7.7); Neutrophil % 61.1 % (47-70); Platelet Count 246 K/mm3 (150-450); RBC Distribution Width CV 12.5 % (11.6-14.6); RBC Distribution Width SD 42.4 fl (35.1-43.9); Red Blood Count 4.22 M/mm3 (4.2-5.4); White Blood Count 8.3 K/mm3 (4.4-11.0)
[2023-03-21 14:03] LABS: ALB/GLOB Ratio 0.8 RATIO (0.9-2.4); AST(SGOT) 59 U/L (15-37); Alanine Aminotransfer ALT/SGPT 35 U/L (13-56); Albumin, Serum 3.3 g/dL (3.2-5.0); Alkaline Phosphatase 46 U/L (45-117); Anion Gap 7 (5-15); BUN 12 mg/dL (7-18); BUN/Creat Ratio 14.3 RATIO (10-20); CPK Total, Creatine Kinase 935 U/L (26-192); Calcium,Total 8.8 mg/dL (8.5-10.1); Chloride 105 mmol/L (98-107); Creatinine, Serum 0.84 mg/dL (0.55-1.02); EST Glomerular Filtration Rate 81 mL/min (>60); Est Glom Filt Rate - Afr Amer 98 mL/min (>60); Globulin 3.9 g/dL (2.2-4.2); Glucose 106 mg/dL (74-106); Potassium 3.9 mmol/L (3.5-5.1); Protein, Total 7.2 g/dL (6.4-8.2); Sodium Level 138 mmol/L (136-145)
== END | disposition home or self-care (01) ==
PROVIDERS: PCP Internal Medicine; Referring Provider Internal Medicine; Visit Provider Internal Medicine
DX: F41.9 Anxiety disorder, unspecified (principal); F32.A Depression, unspecified; M62.82 Rhabdomyolysis
CPT/HCPCS: 36415; 80053; 82550; 85025

== ENCOUNTER → 2023-03-23 | Outpatient (CLI) | payer OTHER, SELFPAY ==
--- NOTE | 2023-03-23 12:28 | US_ITS ---
STUDY: THYROID ULTRASOUND REASON FOR EXAM: Female, 38 years old. Probably enlarged thyroid TECHNIQUE: Ultrasound evaluation of the thyroid was performed with real-time and static wyman-scale imaging. COMPARISON: Multiple previous studies, the most recent from 03/23/2022 FINDINGS: RIGHT LOBE: The right lobe of the thyroid gland measures 5.4 x 1.9 x 2.0 cm. There is a homogeneous echotexture. 2 several stable hypoechoic solid nodules larger measures 7 mm. LEFT LOBE: The left lobe of the thyroid gland measures 5.6 x 1.7 x 1.7 cm. There is a homogeneous echotexture. There are no demonstrated solid, cystic or complex lesions. ISTHMUS: The isthmus measures 2 mm. The regional lymph nodes are normal. US/Thyroid IMPRESSION: 2 separate hypoechoic solid nodules in the right lobe unchanged from previous studies, no specific follow-up needed. Thyroid gland is mildly enlarged and homogeneous No new suspicious nodule Electronically Signed: Benoit Mclaughlin MD at 13:44 EDT ,
== END | disposition home or self-care (01) ==
PROVIDERS: PCP Internal Medicine; Referring Provider Surgery; Visit Provider Surgery
DX: E01.0 Iodine-deficiency related diffuse (endemic) goiter (principal); R22.1 Localized swelling, mass and lump, neck; R13.10 Dysphagia, unspecified
CPT/HCPCS: 76536

== ENCOUNTER → 2023-03-24 | Outpatient (CLI) | payer OTHER, SELFPAY ==
[2023-03-24 08:38] LABS: CPK Total, Creatine Kinase 429 U/L (26-192)
== END | disposition home or self-care (01) ==
PROVIDERS: PCP Internal Medicine; Referring Provider Internal Medicine; Visit Provider Internal Medicine
DX: M62.82 Rhabdomyolysis (principal)
CPT/HCPCS: 36415; 82550

== ENCOUNTER → 2023-04-13 | Outpatient (CLI) | payer OTHER, SELFPAY ==
--- NOTE | 2023-04-13 07:45 | MRI_ITS ---
EXAM: MR LUMBAR SPINE WITHOUT INTRAVENOUS CONTRAST CLINICAL INDICATION: pain, low back pain on and off for over 15yrs, pain sometimes sharp, throbbing /dull TECHNIQUE: Multiplanar and multisequence MR images of the lumbar spine without intravenous contrast. COMPARISON: X-ray 03/09/2023. FINDINGS: VERTEBRAE: Unremarkable. Vertebral body heights are preserved. Normal vertebral bodies and posterior elements. Normal alignment. No spondylolisthesis. There is preservation of the normal lumbar lordosis. SPINAL CORD: Unremarkable. Normal position and signal intensity of the conus medullaris. SOFT TISSUES: Unremarkable. DISCS/SPINAL CANAL/NEURAL FORAMINA: T12-L1: Normal disc height and morphology. Normal bilateral facet joints. Normal central canal. Normal bilateral lateral recesses. Normal intervertebral neural foramina. L1-2: Normal disc height and morphology. Normal bilateral facet joints. Normal central canal. Normal bilateral lateral recesses. Normal intervertebral neural foramina. L2-3: Normal disc height and morphology. Normal bilateral facet joints. Normal central canal. Normal bilateral lateral recesses. Normal intervertebral neural foramina. L3-4: Normal disc height and morphology. Normal bilateral facet joints. Normal central canal. Normal bilateral lateral recesses. Normal intervertebral neural foramina. L4-5: Disc space narrowing. Small, central, noncompressive disc protrusion. Normal bilateral facet joints. Borderline canal stenosis. Normal bilateral lateral recesses. Mild foraminal encroachment due to spurring. L5-S1: Disc space narrowing. Small, central, noncompressive disc protrusion. No canal or foraminal stenosis. MRI/Spine Lumbar (Routine) IMPRESSION: Noncompressive disc protrusions at L4-5 and L5-S1. Electronically Signed: Lucrecia Zhong MD at 18:36 EDT Reading Location ID and State: [id number] / Tel , Service support ,
== END | disposition home or self-care (01) ==
LOC: MRI 07:36
PROVIDERS: PCP Internal Medicine; Referring Provider Orthopaedic Surgery; Visit Provider Orthopaedic Surgery
DX: M54.50 Low back pain, unspecified (principal)
CPT/HCPCS: 72148

== ENCOUNTER → 2023-09-23 | Outpatient (CLI) | payer OTHER, SELFPAY ==
--- OUTSIDE RECORDS SUMMARY | 2023-09-23 07:42 | XMS RPT_ITS | CCD ---
Author Name Unknown Address [address] [place] [address] Organization [facility] Care Team Providers Care Deep Fat Cook Fry Name Role Phone Unavailable Primary Care Provider Unavailnatalio e ABI GARCIA Attending Unavailable ABI GARCIA Attending Unavailable Allergies Allergy Classification Reported Allergen(s) Allergy Type Date of Onset Reaction(s) Facility (2 sources) Amphetamine aspartate / Amphetamine Sulfate / Dextroamphetamine saccharate / Dextroamphetamine Sulfate; Translations: [DEXTROAMPHETAMINE-AM PHETAMINE] Drug Allergy 4 Other [facility] (2 sources) Lisdexamfetamine; Translations: [LISDEXAMFETAMINE] Drug Allergy 4 Other [facility] Work Phone: Medications Current Medications Medication Drug Class(es) Dates Sig (Normalized) Sig (Original) acyclovir 400 mg oral tablet (1 source) Herpesvirus Nucleoside Analog DNA Polymerase Inhibitor, Herpes Simplex Virus Nucleoside Analog DNA Polymerase Inhibitor, Herpes Zoster Virus Nucleoside Analog DNA Polymerase Inhibitor take 1 tablet by mouth every twelve hours acyclovir (Zovirax) 400 mg tablet 1 tablet (400 mg) every 12 hours. 0 Active Ethinyl Estradiol / norgestimate (1 source) Progestin, Estrogen take 1 tablet by mouth once daily Sprintec, 28, 0.25-35 mg-mcg tablet Take 1 tablet by mouth once daily. 0 Active hyoscyamine sulfate 0.125 mg disintegrating oral tablet (1 source) hyoscyamine (Anaspaz) 0.[address] 1 tablet (0.125 mg) under the tongue if needed. 0 Active levothyroxine sodium 0.075 mg oral tablet (1 source) l-Thyroxine take 1 tablet by mouth once daily levothyroxine (Synthroid, Levoxyl) 75 mcg tablet Take 1 tablet (75 mcg) by mouth once daily. 0 Active magnesium gluconate 500 mg oral tablet (1 source) magnesium glucon ate (Magonate) 27.5 mg magne- sium (500 mg) tablet every 12 hours. 0 Active ifabxsjg-inr-lllum acid-biotin (Hair,Skin and Nails,FA-biotin,) 66.7-1,000 mcg tablet (1 source) take 66.7-1000 ug by mouth once daily ovcjufui-ymc-vsiau acid-biotin (Hair,Skin and Nails,FA-biotin,) 66.7-1,000 mcg tablet Take 1 tablet by mouth once daily. 0 Active sertraline 100 mg oral tablet (1 source) Serotonin Reuptake Inhibitor take 1 tablet by mouth once daily sertraline (Zoloft) 100 mg tablet Take 1 tablet (100 mg) by mouth once daily. 0 Active traZODone hydrochloride 50 mg oral tablet (1 source) Serotonin Reuptake Inhibitor Start: 08-29-2023 traZODone (Desyrel) 50 mg tablet 1 tablet (50 mg). 0 08/29/2023 Active Problems Problem Classification Problem Date Documented Da te Episodic/Chronic Other connective tissue disease (4 sources) Rhabdomyolysis; Translations: [Rhabdomyolysis] Onset: 09-19-2023 09-19-2023 Episodic Results Test Name Value Interpretation Reference Range Facil ity Vital Signs Date Time Vital Sign Value Performing Clinician Facility 09-14-2023 10:34-0500 Body height 162.6 cm Abi Garcia MD Work Phone: [facility] 09-14-2023 10:34-0500 Body mass index (BMI) [Ratio] 27.46 kg/m2 Abi Garcia MD Work Phone: [facility] 09-14-2023 10:34-0500 Body temperature 97.7 [degF] Abi Garcia MD Work Phone: [facility] 09-14-2023 10:34-0500 Body weight 72.58 kg Abi Garcia MD Work Phone: [facility] 09-14-2023 10:34-0500 Diastolic blood pressure 80 mm[Hg] Abi Garcia MD Work Phone: [facility] 09-14-2023 10:34-0500 Heart rate 90 /min Abi Garcia MD Work Phone: [facility] 09-14-2023 10:34-0500 Respiratory rate 18 /min Abi Garcia MD Work Phone: [facility] 09-14-2023 10:34-0500 Systolic blood pressure 135 mm[Hg] Abi Garcia MD Work Phone: [facility] Encounters Encounter Date Encounter Type Care Provider Facility Start: 09-21-[address] [facility] Start: 09-14-2023 End: 09-15-2023 ambulatory ABI GARCIA [facility] Start: 09-14-2023 End: 09-14-2023 Office outpatient new 60 minutes Abi Garcia MD Work Phone: [facility] Plan of Treatment Date Care Activity Detail Author Start: 02-07-2036 Zoster Vaccines (1 of 2) Zoste r Vaccines (1 of 2) [facility] Start: 05-16-2027 DTaP/Tdap/Td Vaccine s (2 - Td or Tdap) DTaP/Tdap/Td Vaccines (2 - Td or Tdap) [facility] Start: 09-21-2023 End: 09-21-2023 Patient encounter procedure 09/21/2023 11:45 AM EDT Office Visit [facility] [address] [place] [id number] [place] [address] [place] [address] [facility] Start: 03-11-2023 COVID-19 Vaccine () COVID-19 Vaccine () [facility] Start: 2007 Screening for malign ant neoplasm of cervix [facility] Start: 02-07-2004 Diabetes mellitus screening Diabetes Screening [facility] Start: 02-07-2004 Hepatitis C screening Hepatitis C Sc reening [facility] Start: 1987 MMR Vaccines (1 of 1 - Standard series) MMR Vaccines (1 of 1 - Standard series) [facility] Start: 1987 Varicella vaccination Varicell a Vaccines (1 of 2 - 2-dose childhood series) [facility] Start: 1986 Hepatitis B Vaccines (1 of 3 - 3-dose series) Hepatitis B Vaccines (1 of 3 - 3-dose series) [facility] Start: 1986 HIV screening HIV Screening [facility] Start: 1986 Lipid panel Lipid Panel [facility] Start: 1986 Thyroid stimulating hormone measurement TSH Level [facility] Start: 1986 Yearly Adult Physical Yearly Adult P hysical [facility] Payers Date Payer Category Payer Unknown [employer] [id number] 2023-Present [address] [place] [address] [id number] 2023 Unknown [id number] 2022 Unknown [id number] 1985 Unknown [id number] 1985 Unknown [id number] Social History Date Type Detail Facility Start: 09-14-2023 Tobacco smoking stat us NHIS Ex-smoker [facility] Work Phone: History of tobacco use Current smoker [facility] Work Phone: History of tobacco use Cigarette Smoker [facility] Work Phone: Start: 09-14-2023 Tobacco use and exposure Smokeless tobacco non-user [facility] Work Phone: Start: 09-14-2023 History of Social function [facility] Work Phone: Start: 09-14-2023 Tobacco use panel [facility] Work Phone: Start: 1985 [facility] Assigned At Not on file [facility] Work Phone: Start: 09-04-2023 End: 09-14-2023 Exposure to SARS-CoV-2 (event) Not sure [facility] History of Present illness Narrative 09-14-2023 Abi Garcia MD - 09/14/2023 10:30 AM EST Note Date & Type Note Facility 09-14-2023 History of Present illness Narrative Date of Service: 09/14/2023 Patient: Nupur Lamb History: History of Presenting Illness: Mrs. Nupur Lamb is a 38-year-old, right handed, woman with past medical history significant for hypothyroidism, celiac disease and depression who presents to the neuromuscular clinic with her to establish care for episodic rhabdomyolysis. She had 4 episodes starting in 2010. In 2010, she developed bilateral lower extremity soreness (very mild) and dark urine. Blood tests showed elevated CK to 30,000. She was admitted to the hospital and treated with IVIG. While in the hospital her symptoms worsened to whole body soreness and weakness but eventually she improved. She was referred to [facility] for further investigations. She had an EMG done as well as muscle (left biceps and quads) and skin biopsy. Reports for both are not available with the patient but she thinks every thing turned back normal. She was also tested for Duchenne and that was normal per her report. At that time she was not very active aside from regular daily physical activity. She was on Adderall at that time and rhabdomyolysis was attributed to that. Medication was stopped. CK normalized within 3 months. 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 She never experienced pain, cramps, spasms, weakness or darkening of her urine with running. In 2018, she was put on Adderall again and within weeks she developed bilateral calves soreness and dark urine. Her CK was checked and it was elevated to 400s. Medication was stopped and patient improved within few days of IV hydration. CK normalized again. In 2020, patient was in a foot boot for some foot problem. She was quit inactive during that period. She took of the boot and started working out. Within days, she developed bilateral calves soreness, generalized muscle fatigue and dark urine. CK was checked and found to be elevated to 400-500. She was treated with rest and PO hydration and CK normalized again. She was not on Adderall at that time. She can't recall any specific incident or new medication before this episode except starting working out after a period of inactivity. In March 2023, she again developed bilateral calves soreness, generalized muscle fatigue and dark urine. Knowing her condition, she checked her CK and was elevated to 935. She was treated with PO hydration and rest. Again, no specific incident before this episode that she can recall but she started omeprazole for GERD few days before this started. Patient used to do gymnastics as a kid with other different sports with no problems. She never had spasms, cramps or pain with exercising. In between attacks, she is normal and denies cramps, spasms, muscle pain or weakness. Review of Systems: All systems reviewed, negative except as stated above in HPI. Past Medical History: Hypothyroidism due to John Thyroiditis Celiac disease Depression Back pain Social History: reports that she has quit smoking. Her smoking use included cigarettes. She has never used smokeless tobacco. 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 Never a heavy drinker. - Illicit drug use: no Family History: Brothers with celiac disease and leukemia Sons with celiac Father with Celiac and blood clotting disorder Medications: Current Outpatient Medications: acyclovir (Zovirax) 400 mg tablet, 1 tablet (400 mg) every 12 hours., Disp: , Rfl: levothyroxine (Synthroid, Levoxyl) 75 mcg tablet, Take 1 tablet (75 mcg) by mouth once daily., Disp: , Rfl: magnesium gluconate (Magonate) 27.5 mg magne- sium (500 mg) tablet, every 12 hours., Disp: , Rfl: rxuwcdlc-lvj-idkfo acid-biotin (Hair,Skin and Nails,FA-biotin,) 66.7-1,000 mcg tablet, Take 1 tablet by mouth once daily., Disp: , Rfl: sertraline (Zoloft) 100 mg tablet, Take 1 tablet (100 mg) by mouth once daily., Disp: , Rfl: Sprintec, 28, 0.25-35 mg-mcg tablet, Take 1 tablet by mouth once daily., Disp: , Rfl: traZODone (Desyrel) 50 mg tablet, 1 tablet (50 mg)., Disp: , Rfl: hyoscyamine (Anaspaz) 0.125 mg disintegrating tablet, Place 1 tablet (0.125 mg) under the tongue if needed., Disp: , Rfl: Allergies: Adderall [dextroamphetamine-amphetamine] and Vyvanse [lisdexamfetamine] Physical Exam: Vital signs: BP 135/80 Pulse 90 Temp 36.5 C (97.7 F) Resp 18 Ht 1.626 m (5' 4 ) Wt 72.6 kg (160 lb) BMI 27.46 kg/m Neurological Exam: MENTAL STATUS: Awake, alert, cooperative and engaging. Oriented to time, place, person and condition. Expression, repetition, naming, comprehension intact. Follows commands. CRANIAL NERVES: - II/III: pupils equal and reactive to light - II: Visual fay intact to confrontation bilaterally - III, IV, : EOM movement intact in all direction without diplopia or nystagmus - V: V1-V3 sensation intact and symmetrical bilaterally - VII: Face muscles symmetric with smile and eye closure. Able to puff up cheeks with good seal. - VIII: Intact to conversation - IX, X: Palate elevated symmetrically bilaterally, no hoarseness or dysarthria - XI: 5/5 strength on shoulder shrugging bilaterally - XII: Tongue midline without atrophy or fasciculation. Strength is 5/5 bilaterally with normal bulk. MOTOR: Tone: normal in all four extremities Bulk: normal throughout Movement: no tremors or fasciculations noted No Scapular winging bilaterally Strength: Neck FLexion: 5/5 Neck Extension: 5/5 R L 5 5 Shoulder abduction 5 5 Shoulder adduction 5 5 Elbow flexion 5 5 Elbow extension 5 5 Wrist flexion 5 5 Wrist extension 5 5 Finger flexion 5 5 Finger extension 5 5 Finger abduction 5 5 Finger adduction 5 5 Thumb distal flexion 5 5 Thumb abduction 5 5 Hip flexion 5 5 Hip adduction 5 5 Hip abduction 5 5 Knee flexion 5 5 Knee extension 5 5 Ankle dorsiflexion 5 5 Ankle plantarflexion 5 5 Eversion 5 5 Inversion 5 5 Big toe extension 5 5 Toe flexion Deep Tendon Reflexes: R L 2 2 Biceps 2 2 Brachioradialis 2 2 Triceps 2 2 Patellar 2 2 Achilles Planter stimulation: down going toes bilaterally No Sherman, crossed adductors or clonus COORDINATION: Finger to nose, heel to sabillon, RRM and GOKUL intact bilaterally. SENSORY: Intact and symmetric to light touch, pin prick, vibration and temperature in BUE and BLE PROPRIOCEPTION: Intact in toes and fingers bilaterally ROMBERG: Negative GAIT: Normal narrow-based stance. Narrow-based standard gait with normal arms swing. Able to walk on toes, heels and to tandem. Results: The data of the scanned lab results were personally reviewed. Please refer to the scanned OSH documents from 05/11/2023. Recent labs from 05/2023 showed: CK 73, aldolase 3.1, TSH 0.5. Provider Impression: Impression: Nupur Lamb is a 38-year-old woman has episodic rhabdomyolysis and normal neurological exam. Episodic rhabdomyolysis is commonly seen with metabolic myopathies, specifically glycogen and lipid storage diseases. These are associated with exercise-induced rhabdomyolysis/hyperCkemia which is not strongly evident in Mrs. Lamb's case. Moreover, patient with glycogen-storage disease usually experience cramps and muscle pain/fatigue in between attacks. The fact that she had it twice while on Adderall raises suspicion for drug-induced rhabdomyolysis as well although it's not a well-known side effect of the medication. The reported normal muscle biopsy is very helpful in excluding some conditions but it is crucial for us to personally review the report and the slides if available before making that conclusion. We will perform the forearm exercise test which would be helpful even theough the clinical presentation does not fit very well with glycogen storage disease. We will decide on next step in care plan based on the result of the test. Plan: Scheduled for forearm exercise test Patient will try to reach out to [employer] to obtain the reports and slides of her muscle and skin biopsy Jacob Baker MD Neuromuscular Fellow [facility] Problem List Items Addressed This Visit Paroxysmal rhabdomyolysis - Primary ATTENDING NOTE - ABI GARCIA M.D. I saw patient with trainee and agree with the edits, history and exam that I helped formulate per above. She reported an episode, and 2011 of generalized muscle soreness and dark urine. Blood tests showed elevated CK to 30,000. She was seen soon after her first episode at [facility] and underwent an EMG and muscle biopsy which was reported as normal. None of these findings are available. Since then she has had few episodes of muscle soreness with slightly elevated CK up to 1000 that resolved. She is otherwise quite fit and had no difficulty playing sports during childhood or adolescence. She also is a runner and ran a marathon with no difficulties. There is no family history of muscular disease or muscular dystrophy. Her neurological examination is normal. Her recent labs showed normal CK and TSH. In summary, Mrs. Nupur Lamb has had several episodes of rhabdomyolysis, the first was severe and associated with myoglobinuria. Subsequent episode may have been triggered by exercise although she has had no difficulty running including running a marathon and denies any exercise-induced cramps. One of her episodes were thought to be caused by medications, specifically Adderall. There is no family history of similar disorder. With a normal CK between episodes, a muscular dystrophy such as dystrophinopathy is unlikely. The differential diagnoses include exercise-induced rhabdomyolysis drug-induced rhabdomyolysis, or metabolic myopathy most likely lipid storage rather than glycogen-storage disease. We will start by doing a forearm exercise test next week. We asked her to try to retrieve her muscle biopsy slides. We discussed this with her. Abi Garcia M.D., F.A.C.P. Director, Neuromuscular Center & EMG laboratory [facility] Professor of Neurology [facility] [employer] The total appointment time today was 60 minutes. Time included preparing to see the patient, obtaining the history, performing a medically necessary appropriate physical examination, counseling and educating the patient/family, ordering tests, referring and communicating with other providers, independently interpreting results to the patient/family and documenting clinical information in the medical record. documented in this encounter [facility] Work Phone: Progress note 09-09-2021 Note Date & Type Note Facility 09-09-2021 Note HNO ID: [id number] Author: Sahara Ramos Service: ? Author Type: ? Type: Progress Notes Filed: 09/09/2021 1:06 PM Note Text: POPULATION HEALTH NAVIGATION OUTREACH Action/FYI LM re: scheduling ORTHO consult dated 10/04/20 for FOOT PAIN, LEFT - sent MyChart Pt identified by name and : NO Outreach Outcome/Action Unable to reach patient: Left message MyChart message sent Reason for Outreach Care Gap or Scheduling/Wellness visits Payer: Payor: [employer] / Plan: [employer] PPO / Product Type: PPO / Care Gap Reviewed:: GAL Reminder: Reminder note to check Health Maintenance for items below Health Maintenance items due: HEPATITIS C SCREENING Never done HIV SCREENING Never done DTAP,TDAP,TD(1 - Tdap) Never done DEPRESSION SCREENING due on 03/28/2019 COVID-19 VACCINE(3 - Booster for Moderna series) due on 01/09/2021 INFLUENZA(1) due on 03/11/2021 Message Sent to Practice: No Navigation Signature: Sahara Ramos September 09, 2021 1:05 PM [facility] Clinical Note 09-09-2021 Note Date & Type Note Facility 09-09-2021 Note Patient Outreach (NE TNAV) NUPUR LAMB ([id number]) 1985 F Date Time Provider Department 09/09/21 NO PCP (HIST) NETNAV During your visit today, we recorded the following information about you: Sahara Ramos 09/09/2021 1:06 PM Signed POPULATION HEALTH NAVIGATION OUTREACH Action/MARJAN MEANS re: scheduling ORTHO consult dated 10/04/20 for FOOT PAIN, LEFT - sent MyChart Pt identified by name and : NO Outreach Outcome/Action Unable to reach patient: Left message MyChart message sent Reason for Outreach Care Gap or Scheduling/Wellness visits Payer: Payor: [employer] / Plan: [employer] PPO / Product Type: PPO / Care Gap Reviewed:: GAL Reminder: Reminder note to check Health Maintenance for items below Health Maintenance items due: HEPATITIS C SCREENING Never done HIV SCREENING Never done DTAP,TDAP,TD(1 - Tdap) Never done DEPRESSION SCREENING due on 03/28/2019 COVID-19 VACCINE(3 - Booster for Moderna series) due on 01/09/2021 INFLUENZA(1) due on 03/11/2021 Message Sent to Practice: No Navigation Signature: Sahara Ramos September 09, 2021 1:05 PM Allergies As of Date: 09/09/2021 Noted Allergy Reaction VYVANSE (LISDEXAMFETAMINE) 03/28/2018 14 - Other: See Comments Comments: rhabdomyolysis ADDERALL (DEXTROAMPHETAMINE-AMPHE*04/20/2018 14 - Other: See Comments Comments: raised CK level Date Reviewed: 10/04/2020 Reviewed by: Oanh Car Ma - Fully Assessed Prescriptions as of 09/09/2021 - norgestimate 0.25 mg-ethinyl estradiol 35 mcg (SPRINTEC, ORTHO-CYCLEN) 0.25-35 mg-mcg per tablet TAKE 1 TABLET BY MOUTH EVERY DAY Problem List As Of Date 09/09/2021 Noted Resolved 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] 03/29/2018 Attention deficit disorder (ADD) without hypera*03/29/2018 Encounter Status:Closed by SAHARA RAMOS on 09/09/21 [facility] Progress note 10-04-2020 Note Date & Type Note Facility 10-04-2020 Note HNO ID: [id number] Author: Alma Delia Ramos (Rt) Service: Radiology Author Type: Dance Costume Designer Type: Progress Notes Filed: 10/04/2020 9:12 AM Note Text: Radiology Service Progress Note PATIENT NAME: Nupur Lamb DATE OF SERVICE: October 04, 2020 TIME: 9:12 AM PATIENT IDENTITY VERIFICATION COMPLETED USING TWO (2) IDENTIFIERS: Name and Date of confirmed by patient verbally. FALL SCREENING: Has the patient had 2 falls in the last year or 1 fall with injury or currently using an Ambulatory Assistive Device (Walker, Cane, Wheelchair, Crutches, etc.)? No PATIENT GENDER DATA: Female. status: : No status: NO. PATIENT RELEVANT IMPLANT DATA REVIEWED: Not Applicable RADIOLOGY DEPARTMENT: General X-ray: Exam(s) Completed: Lower Extremity X-Ray(s): Foot, Left and Wt. Bearing: PERIPHERAL IV DATA: Not applicable SIGNED BY: RT Rachel October 04, 2020 9:12 AM [facility] Progress note 10-04-2020 Note Date & Type Note Facility 10-04-2020 Note HNO ID: [id number] Author: Daryl Renner Service: ? Author Type: Physician Type: Progress Notes Filed: 10/06/2020 6:24 AM Note Text: Patient presents with: Pain (foot): left, runner x 1 week HPI: Left foot pain: Duration: 1 week Location: Lateral left ankle below the malleolus Character: sharp Radiation: Starting to shoot into the mid foot and back of the heel Aggravating: Inversion, standing Relieving: ice Pain relievers: none Associated: chronic loose ankle clicking in the area of pain this week, walking dog more, slipped on step last week (was not painful at the time, not sure which foot) Pertinent negatives: Denies MEDICATIONS: norgestimate 0.25 mg-ethinyl estradiol 35 mcg (SPRINTEC, ORTHO-CYCLEN) 0.25-35 mg-mcg per tablet TAKE 1 TABLET BY MOUTH EVERY DAY ALLERGIES: ALLERGIES Allergen Reactions - Vyvanse [Lisdexamfe* Other: See Comments rhabdomyolysis - Adderall [Dextroamp* Other: See Comments raised CK level VITALS: BP 122/70 Pulse 90 Temp 36.8 ?C (98.2 ?F) (Tympanic) Resp 16 Wt 70.8 kg (156 lb) LMP 09/27/2018 SpO2 97% BMI 26.36 kg/m? PE: Pleasant, in no acute distress. ANKLE: left. Swelling not present. No erythema, ecchymosis, or deformity. Range of motion: inversion - painful, eversion - non-painful, anterior drawer- non-painful. non-painful to bear weight. normal gait. Palpation: Medial malleolus non-painful, lateral malleolus non-painful, Dorsal proximal midfoot - painful over cuboid, proximal 5th metatarsal discomfort, posterior calcaneus non-painful ASSESSMENT/PLAN: 1. Foot pain, left - ICD9: 729.5, ICD10: M79.672 - XR FOOT GENERAL 3V AP/LAT/OBL LT - negative. Reassured by no fracture. Supportive care. Daryl Renner MD [facility] Evaluation note Note Date & Type Note Facility documented in this encounter [facility] Work Phone: Summary Purpose Family History No Family History Records FoundNo Family History Records Found Advance Directives No Advanced Directives Records FoundNo Advanced Directives Records Found Additional Source Comments INFORMATION SOURCE (unrecogn ized section and content) DATE CREATED AUTHOR AUTHOR'S ORGANIZ ATION 09/22/[address] [facility] FOR RECORDS PERTAINING TO PATIENTS WHO ARE OR HAVE BEEN ENROLLED IN A CHEMICAL DEPENDENCY/SUBSTANCEABUSE PROGRAM, SOME INFORMATION MAY BE OMITTED. This clinical summary was aggregated from multiple sources. Caution should be exercised in using it in the provision of clinical care. This summary normalizes information from multiple sources, and as a consequence, information in this document may materially change the coding, format and clinical context of patient data. In addition, data may be omitted in some cases. CLINICAL DECISIONS SHOULD BE BASED ON THE PRIMARY CLINICAL RECORDS. [employer] provides no warranty or guarantee of the accuracy or completeness of information in this document.
[2023-09-23 08:35] LABS: CPK Total, Creatine Kinase 65 U/L (26-192); Cholesterol 201 mg/dL (200); Glucose 96 mg/dL (74-106); High Density Lipoprotein 92 mg/dL; Triglycerides 108 mg/dL; Very Low Density Lipoprotein 22 mg/dL (5-40)
[2023-09-23 08:37] LABS: Vitamin D,25 Hydroxy 32.3 ng/mL
[2023-09-23 08:55] LABS: Hemoglobin A1c 5.1 % (3.8-5.6)
== END | disposition home or self-care (01) ==
LOC: PAVLAB 07:39
PROVIDERS: Referring Provider Obstetrics & Gynecology; Visit Provider Obstetrics & Gynecology
DX: S39.012A Strain of muscle, fascia and tendon of lower back, initial encounter (principal); M62.82 Rhabdomyolysis; Z13.21 Encounter for screening for nutritional disorder; Z13.1 Encounter for screening for diabetes mellitus; Z13.220 Encounter for screening for lipoid disorders
CPT/HCPCS: 36415; 80061; 82306; 82550; 82947; 83036

== ENCOUNTER → 2024-02-02 | Outpatient (CLI) | payer OTHER, SELFPAY ==
[2024-02-02 08:10] LABS: Absolute Lymphocyte Count 1.74 X10^3/uL (0.83-4.51); Absolute Neutrophil Count 2.4 X10^3/uL (2.0-7.7); Basophil# 0.06 X10^3/uL; Basophil% 1.2 % (0-1); Eosinophil# 0.13 X10^3/uL; Eosinophils% 2.7 % (0-5); Hematocrit 39.2 % (37-47); Hemoglobin 12.9 g/dL (12.0-15.0); Lymphocyte # 1.74 X10^3/ul (0.83-4.51); Mean Corp Hgb Conc 32.9 g/dL (32-36); Mean Corpuscular Volume 91.2 fL (81-99); Mean Platelet Vol. 9.6 fl (6.2-12.0); Monocyte# 0.45 X10^3/uL; Monocyte% 9.3 % (0-10); NRBC Flagged by Analyzer 0 % (0-5); Neutrophil # 2.43 X10^3/uL (2.7-7.7); Neutrophil % 50.4 % (47-70); Platelet Count 209 K/mm3 (150-450); RBC Distribution Width CV 12.8 % (11.6-14.6); RBC Distribution Width SD 42.3 fl (35.1-43.9); White Blood Count 4.8 K/mm3 (4.4-11.0)
[2024-02-02 08:44] LABS: ALB/GLOB Ratio 0.9 RATIO (0.9-2.4); AST(SGOT) 25 U/L (15-37); Alanine Aminotransfer ALT/SGPT 26 U/L (13-56); Albumin, Serum 3.5 g/dL (3.2-5.0); Alkaline Phosphatase 41 U/L (45-117); Anion Gap 6 (5-15); BUN 15 mg/dL (7-18); BUN/Creat Ratio 16.6 RATIO (10-20); Calcium,Total 9.1 mg/dL (8.5-10.1); Chloride 110 mmol/L (98-107); Cholesterol 189 mg/dL (200); EST Glomerular Filtration Rate 74 mL/min (>60); Est Glom Filt Rate - Afr Amer 90 mL/min (>60); Glucose 97 mg/dL (74-106); High Density Lipoprotein 96 mg/dL; Potassium 3.7 mmol/L (3.5-5.1); Protein, Total 7.5 g/dL (6.4-8.2); Sodium Level 138 mmol/L (136-145); T4 Free Direct 1.09 ng/dL (0.76-1.46); Thyroid Stim Hormone (TSH) 0.72 uIU/mL (0.358-3.74); Triglycerides 104 mg/dL; Very Low Density Lipoprotein 21 mg/dL (5-40)
== END | disposition home or self-care (01) ==
LOC: PAVLAB 07:52
PROVIDERS: PCP Internal Medicine; Referring Provider Internal Medicine Endocrinology, Diabetes & Metabolism; Visit Provider Internal Medicine Endocrinology, Diabetes & Metabolism
DX: Z00.00 Encounter for general adult medical examination without abnormal findings (principal); E03.8 Other specified hypothyroidism; E06.3 Autoimmune thyroiditis
CPT/HCPCS: 36415; 80053; 80061; 84439; 84443; 85025

== ENCOUNTER 2024-05-22 10:00 | Day surgery (SDC) | payer OTHER, SELFPAY ==
--- NOTE | 2024-05-29 07:45 | EKG12_ITS ---
Test Reason : PALPITATIONS Blood Pressure : */* mmHG Vent. Rate : 76 BPM Atrial Rate : 76 BPM P-R Int : 110 ms QRS Dur : 82 ms QT Int : 354 ms P-R-T Axes : 44 61 17 degrees QTcB Int : 398 ms Sinus rhythm with short WA Otherwise normal ECG Confirmed by MEJIA YADAV, JO ([id number]), editorial project manager NADER PAT ([id number]) on 05/29/2024 1:55:38 PM Referred By: Padmini Santo Confirmed By: JO BA MD
[2024-05-29 10:20] LABS: Hemoglobin 12.1 g/dL (12.0-15.0); Mean Corp Hgb Conc 31.8 g/dL (32-36); Mean Corpuscular Hgb 29.7 pg (27.0-32.0); Mean Corpuscular Volume 93.1 fL (81-99); Mean Platelet Vol. 10.2 fl (6.2-12.0); Platelet Count 207 K/mm3 (150-450); RBC Distribution Width CV 12.9 % (11.6-14.6); RBC Distribution Width SD 44.1 fl (35.1-43.9); Red Blood Count 4.08 M/mm3 (4.2-5.4); White Blood Count 6.6 K/mm3 (4.4-11.0)
[2024-05-29 11:08] LABS: Thyroid Stim Hormone (TSH) 0.773 uIU/mL (0.358-3.740)
== END 2024-05-22 23:00 | disposition home or self-care (01) ==
LOC: PAT 11-02 16:33
PROVIDERS: Anesthesiology; PCP Internal Medicine; Referring Provider Obstetrics & Gynecology; Visit Provider Obstetrics & Gynecology
DX: R00.2 Palpitations (principal)
CPT/HCPCS: 36415; 84443; 85027; 86850; 86900; 86901; 93005

== ENCOUNTER → 2024-05-31 | Outpatient (CLI) | payer OTHER, SELFPAY ==
--- NOTE | 2024-05-31 16:28 | US_ITS ---
EXAM: US SOFT TISSUES HEAD AND NECK, THYROID CLINICAL INDICATION: thyromegaly TECHNIQUE: Greyscale and color doppler imaging was performed of the thyroid gland. COMPARISON: 03/23/2023 and 03/23/2022. FINDINGS: LEFT THYROID LOBE: The left thyroid lobe measures 5.8 x 1.8 x 1.4 cm. Homogeneous echotexture with normal vascularity. No thyroid nodules are present. RIGHT THYROID LOBE: The right thyroid lobe measures 5.8 x 1.8 x 1.7 cm. There is a 0.7 cm right thyroid nodule which is unchanged compared to the prior examination. This nodule is mixed cystic and solid, hypoechoic, [id number], smoothly marginated and contains no echogenic foci. TI-RADS points: 3. TI-RADS category: TR3. This nodule is mildly suspicious but no FNA or follow-up is necessary given the small size of this nodule. There is a spongiform nodule in the right thyroid lobe measuring 4 mm. TI-RADS points: 0. TI-RADS category: TR1. This nodule is benign and no FNA or follow-up is necessary. ISTHMUS: The thyroid isthmus measures 0.2 cm. No thyroid nodules are present. US/Thyroid IMPRESSION: 1. Mild thyromegaly. 2. Right thyroid nodules are unchanged. No follow-up or FNA is indicated. Electronically Signed: Nicolas Hayden DO at 23:01 EST ,
== END | disposition home or self-care (01) ==
LOC: US 16:27
PROVIDERS: PCP Internal Medicine; Referring Provider Obstetrics & Gynecology; Visit Provider Obstetrics & Gynecology
DX: E01.0 Iodine-deficiency related diffuse (endemic) goiter (principal)
CPT/HCPCS: 76536

== ENCOUNTER → 2024-06-08 | Outpatient (CLI) | payer OTHER, SELFPAY ==
--- NOTE | 2024-06-08 07:19 | ECHOD_ITS ---
Reason For Study: PALPITATIONS Procedure This was a 2D Doppler, Color Flow transthoracic echocardiogram. Exam performed in department. Left Ventricle Normal size and thickness. The left ventricular ejection fraction is 60 %. Normal diastololic function. Right Ventricle Normal right ventricle. Atria The left and right atria are normal. Mitral Valve Trivial mitral valve insufficiency. Tricuspid Valve Trivial tricuspid valve insufficiency. Normal pulmonary artery pressure. Aortic Valve Normal aortic valve. Pulmonic Valve Trivial pulmonic valve insufficiency. Great Vessels Normal sized aortic root. Pericardium/Pleural No pericardial effusion. MMode/2D Measurements & Calculations LVIDd: 4.4 cm IVSd: 0.86 cm Ao root diam: 2.7 cm LVIDs: 2.9 cm LVPWd: 0.91 cm RVDd: 2.6 cm FS: 34.6 % LAV(MOD-bp): 35.6 ml LVAd ap4: 23.3 cm2 SV(MOD-sp4): 36.4 ml LAV(MOD-bp) Indexed: 20.3 ml/m2 LVLd ap4: 7.2 cm SI(MOD-sp4): 20.8 ml/m2 LAV(MOD-sp2): 32.2 ml EDV(MOD-sp4): 63.0 ml LAV(MOD-sp4): 34.6 ml EDV(sp4-el): 64.4 ml LVAs ap4: 13.0 cm2 LVLs ap4: 5.6 cm ESV(MOD-sp4): 26.5 ml ESV(sp4-el): 25.6 ml EF(MOD-sp4): 57.9 % EF(sp4-el): 60.2 % SV(sp4-el): 38.8 ml LA A4 area: 14.2 cm2 LA dimension(2D): 3.5 cm RA A4 area: 11.6 cm2 TAPSE: 2.2 cm Time Measurements MV dec time: 0.17 sec Doppler Measurements & Calculations MV E max wero: 89.5 cm/sec Lat Peak E' Wero: 18.1 cm/sec Med Peak E' Wero: 14.0 cm/sec MV A max wero: 61.4 cm/sec E/E' lat: 4.9 E/E' med: 6.4 MV E/A: 1.5 MV V2 max: 106.3 cm/sec Ao V2 max: 133.4 cm/sec MV max P.5 mmHg MV dec slope: 525.8 cm/sec2 Ao max P.1 mmHg MV V2 mean: 68.7 cm/sec Ao V2 mean: 93.4 cm/sec MV mean P.2 mmHg Ao mean P.0 mmHg MV V2 VTI: 19.6 cm Ao V2 VTI: 29.6 cm AV (velocity ratio): 0.91 LV V1 max: 126.4 cm/sec PA V2 max: 97.9 cm/sec LV V1 max P.4 mmHg PA V2 mean: 72.2 cm/sec LV V1 mean P.5 mmHg LV V1 mean: 87.9 cm/sec LV V1 VTI: 27.1 cm ECHO/Echo Complete Interpretation Summary The left ventricular ejection fraction is 60 %. Ordering Physician: Padmini Santo Referring Physician: Padmini Santo Performed By: Ana Luisa Murcia and Student
--- NOTE | 2024-06-08 12:25 | STRESSREP ---
Stress Test Report Date: 06/08/2024 Procedure: Exercise tolerance test/imaging study Indications: Palpitations, dyspnea on exertion Consent: Per the patient Procedure: The patient exercised on a Darci protocol for 12 minutes achieving a peak heart rate of 157 bpm (86% predicted maximal heart rate) with a peak blood pressure 150/64 mmHg and a peak MET capacity of 13.4 METs. The baseline ECG demonstrated sinus rhythm. The peak exercise ECG demonstrated upsloping ST changes that did not fulfill criteria for ischemia. There were no cardiac dysrhythmias pretest, during exercise, or recovery. The functional capacity was considered very good. There was no complaints of chest discomfort. Mild dyspnea noted at peak exercise. The examination was discontinued secondary to target heart rate being achieved. The patient was injected with 11.1 mCi of technetium 99m Cardiolite and subsequently rest SPECT Cardiolite nuclear imaging was obtained in the horizontal long, vertical long, and short axis views. Post-exercise, the patient was injected with 34.1 mCi of technetium 99m Cardiolite and subsequently stress SPECT Cardiolite nuclear imaging was obtained in the horizontal long, vertical long, and short axis views. A gated Cardiolite study at peak stress was obtained. Rest and stress SPECT Cardiolite nuclear imaging status post realignment, normalization, and attenuation correction, demonstrates the appearance of relative uniform tracer uptake and myocardial perfusion appearing within normal limits. There is end systolic thickening and brightening. The gated Cardiolite study demonstrates myocardial thickening and inward wall motion. The reported LVEF is 80%. Impression: 1. Technically adequate (percent predicted maximal heart rate greater than 85%) exercise tolerance test 2. Peak exercise ECG with no diagnostic ischemic changes 3. There were no cardiac dysrhythmias pretest, during exercise, or recovery 4. Rest and stress SPECT Cardiolite nuclear imaging demonstrate relative uniform tracer uptake and myocardial perfusion appearing within normal limits. 5. The gated Cardiolite study reports an LVEF of 80%. This note was generated with [employer] software. It may contain incorrect words, spelling, and punctuation that were not noted in checking the note before signing.
== END | disposition home or self-care (01) ==
LOC: CVS 06:16
PROVIDERS: PCP Internal Medicine; Referring Provider Obstetrics & Gynecology; Visit Provider Obstetrics & Gynecology
DX: R94.31 Abnormal electrocardiogram [ECG] [EKG] (principal); R00.2 Palpitations; R53.83 Other fatigue
CPT/HCPCS: 78452; 93017; 93306; A9500; A4216

== ENCOUNTER → 2024-12-20 | Outpatient (CLI) | payer OTHER, SELFPAY ==
[2024-12-20 12:13] LABS: Absolute Lymphocyte Count 1.78 X10^3/uL (0.83-4.51); Basophil# 0.05 X10^3/uL; Basophil% 0.9 % (0-1); Eosinophil# 0.09 X10^3/uL; Eosinophils% 1.6 % (0-5); Hematocrit 39.9 % (37-47); Hemoglobin 12.9 g/dL (12.0-15.0); Lymphocyte # 1.78 X10^3/ul (0.83-4.51); Lymphocyte % 32.5 % (19-41); Mean Corp Hgb Conc 32.3 g/dL (32-36); Mean Corpuscular Hgb 30.4 pg (27.0-32.0); Mean Corpuscular Volume 93.9 fL (81-99); Mean Platelet Vol. 10.1 fl (6.2-12.0); Monocyte# 0.53 X10^3/uL; Monocyte% 9.7 % (0-10); NRBC Flagged by Analyzer 0 % (0-5); Neutrophil # 2.99 X10^3/uL (2.7-7.7); Neutrophil % 54.8 % (47-70); Platelet Count 245 K/mm3 (150-450); RBC Distribution Width CV 13.1 % (11.6-14.6); Red Blood Count 4.25 M/mm3 (4.2-5.4); White Blood Count 5.5 K/mm3 (4.4-11.0)
[2024-12-20 12:17] LABS: Internal QC Validated? YES +Cl - CLEAR BKGD; Pregnancy, Serum, hCG Quali. NEGATIVE Negative
[2024-12-25 15:08] LABS: H. PYLORI STOOL AG Negative (Negative)
== END | disposition home or self-care (01) ==
LOC: BWCLAB 10:34
PROVIDERS: PCP Internal Medicine; Referring Provider Physician Assistant; Visit Provider Physician Assistant
DX: R11.0 Nausea (principal); R10.13 Epigastric pain
CPT/HCPCS: 36415; 84703; 85025; 87338

== ENCOUNTER → 2024-12-24 | Outpatient (CLI) | payer OTHER, SELFPAY ==
--- NOTE | 2024-12-24 08:56 | US_ITS ---
PROCEDURE: ABDOMEN LIMITED 12/24/2024 REASON FOR EXAM: EPIGASTRIC PAIN Nausea. COMPARISON: Prior sonogram dated April 22, 2020. FINDINGS: Liver: Grossly normal size and echotexture. Once again, there is a 7 mm x 11 mm x 7 mm echogenic nodule in the left lobe of the liver suggestive of a hemangioma. A similar-appearing nodule is seen in the right lobe measuring 6 mm x 6 mm x 4 mm. This is essentially unchanged. Gallbladder: Small amount of sludge is seen in the gallbladder lumen. I suspect a 7 mm x 6 mm x 3 mm polyp adherent to the gallbladder wall. Common bile duct: Normal measuring 4.7 mm . Pancreas: Normal Other: Visualized portions of the right kidney are unremarkable except for a 2 mm x 2 mm x 3 mm nonobstructive renal calculus.. No right upper quadrant ascites. US/Abdomen Limited IMPRESSION: Stable small echogenic nodules in both lobes of the liver as described suggesti ve of hemangioma. Small amount of sludge is seen in the gallbladder lumen as well as a 7 mm x 6 m m x 3 mm gallbladder polyp. Nonobstructive right intrarenal calculus measuring 2 mm x 2 mm x 3 mm. Reading Location: [facility]
== END | disposition home or self-care (01) ==
LOC: OPUS 08:54
PROVIDERS: PCP Internal Medicine; Referring Provider Physician Assistant; Visit Provider Physician Assistant
DX: R10.13 Epigastric pain (principal); R19.8 Other specified symptoms and signs involving the digestive system and abdomen
CPT/HCPCS: 76705

== ENCOUNTER → 2025-01-10 | Outpatient (CLI) | payer OTHER, SELFPAY ==
--- NOTE | 2025-01-10 08:51 | NM_ITS ---
PROCEDURE: HEPATOBILLIARY IMG W/PHARM INT 01/10/2025 REASON FOR EXAM: PAIN AND NAUSEA TECHNIQUE: Intravenous Choletec with planar imaging of the abdomen. 1.5 mcg Kinevac intravenously approximately 60 minutes after the radiopharmaceutical with additional anterior imaging and a region of interest drawn around the gallbladder to calculate a time-activity curve. RADIOPHARMACEUTICAL: Technetium 99 M mebrofenin DOSE 5.5mCi intravenous. COMPARISON: None. FINDINGS: There is satisfactory uptake and excretion of the radiopharmaceutical by the liver. Normal gallbladder visualization with the gallbladder identified by 15 minutes. Small bowel activity is seen by the 15 minute film. No evidence of common duct obstruction. Gallbladder Ejection Fraction: 35 % (Normal is >35%) NM/Hepatobilliary Img w/Pharm Int IMPRESSION: 1. Low normal gallbladder ejection fraction. 2. Negative hepatobiliary scan, otherwise. Reading Location: [place] [id number]
--- NOTE | 2025-01-10 08:51 | NM_ITS ---
PROCEDURE: HEPATOBILLIARY IMG W/PHARM INT 01/10/2025 REASON FOR EXAM: PAIN AND NAUSEA TECHNIQUE: Intravenous Choletec with planar imaging of the abdomen. 1.5 mcg Kinevac intravenously approximately 60 minutes after the radiopharmaceutical with additional anterior imaging and a region of interest drawn around the gallbladder to calculate a time-activity curve. RADIOPHARMACEUTICAL: Technetium 99 M mebrofenin DOSE 5.5mCi intravenous. COMPARISON: None. FINDINGS: There is satisfactory uptake and excretion of the radiopharmaceutical by the liver. Normal gallbladder visualization with the gallbladder identified by 15 minutes. Small bowel activity is seen by the 15 minute film. No evidence of common duct obstruction. Gallbladder Ejection Fraction: 35 % (Normal is >35%) NM/Hepatobilliary Img w/Pharm Int IMPRESSION: 1. Low normal gallbladder ejection fraction. 2. Negative hepatobiliary scan, otherwise. Reading Location: [place] [id number]
--- OUTSIDE RECORDS SUMMARY | 2025-01-10 09:41 | XMS RPT_ITS | CCD ---
Author Organization [facility]ini[facility] Care Team Providers Care Shoulder Joiner Name Role Phone Dr. Stephen Hollingsworth Primary Care Provider Dr. Stephen Hollingsworth Referring Provider Dr. Fatemeh Dickens Attending Provider [phone] Kimmy Aranda Attending Provider Unavailable Dr. Shaneka Joyce Primary Care Provider [phone] Dr. Shaneka Joyce Attending Provider [phone] Dr. Shaneka Joyce Referring Provider [phone] Dr. Grant Hitchcock Attending Provider [phone] Shaneka Joyce Primary Care Provider 1(33 [phone]) Dr. Shaneka Joyce Referring Provider [phone] Dr. Grant Hitchcock Attending Provider Dr. Emanuel Moreau Attending Provider [phone] Dr. Modesto Rodriguez Attending Provider [phone] Antolin SHAH, ALYSSA Giles Attending Provider Dr. Fatemeh Dickens Attending Provider [phone] Dr. Modesto Rodriguez Referring Provider [phone] Dr. Modesto Rodriguez Other Provider [phone] Shaneka Joyce Primary Care Provider [phone]) Dr. Shaneka Joyce Referring Provider [phone] Dr. Shaneka Joyce Primary Care Provider 1(33 [phone]) Dr. Shaneka Joyce Referring Provider [phone] Dr. Fatemeh Dickens Attending Provider [phone] Friend, Dr. Salvador Attending Provider [phone] Friend, Dr. Salvador Referring Provider [phone] Friend, Dr. Salvador Other Provider [phone] Dr. Shaneka Joyce Attending Provider [phone] Dr. Shaneka Joyce Primary Care Provider [phone] [phone]) Dr. Shaneka Joyce Referring Provider [phone] Cee EGG BREAKING MACHINE OPERATOR, EGG BREAKING MACHINE OPERATOR-C Ryan Attending Provider [phone] Jesús EGG BREAKING MACHINE OPERATOR, EGG BREAKING MACHINE OPERATOR-C Agnieszka Giles Attending Provider [phone] Dr. Shaneka Joyce Primary Care Provider [phone] [phone]) Dr. Shaneka Joyce Referring Provider [phone] Dr. Fatemeh Dickens Attending Provider [phone] Dr. Elver Laws Attending Provider [phone] Shaneka Joyce Attending Provider [phone] Dr. Davie Barreto Attending Provider [phone] Unavailable Primary Care Provider Unavailnatalio e ABI GARCIA Attending Unavailable ABI GARCIA Attending Unavailable ALYSSA Arias Attending Provider Dr. Shaneka Joyce Referring Provider [phone] Dr. Emanuel Moreau Attending Provider Dr. Padmini Santo Attending Provider [phone] Aurea YADAV, Ki Rivas Primary Care Provider Dr. Shaneka Joyce MD Primary Care Provider Dr. Shaneka Joyce MD Referring Provider [phone] Dr. Padmini Santo MD Attending Provider Nando Adams Attending Provider [phone] Nando Adams Referring Provider [phone] Oleghe, Efewongbe Attending Unavailable Oleghe, Efewongbe Primary Care Unavailable Oleghe, Efewongbe Referring Unavailable DosFatemeh coelho Attending Unavailable DossiFatemeh Attending Unavailable Oleghe, Efewongbe Primary Care Unavailable Oleghe, Efewongbe Referring Unavailable Oleghe, Efewongbe Primary Care Unavailable Elver Laws Attending Unavailable Padmini Santo Referring Unavailable DosFatemeh coelho Attending Unavailable Oleghe, Efewongbe Primary Care Unavailable Oleghe, Efewongbe Referring Unavailable Oleghe, Efewongbe Primary Care Unavailable Oleghe, Efewongbe Referring Unavailable Padmini Santo Attending Unavailable Padmini Santo Referring Unavailable Grant Hammer Attending Unavailable Oleghe, Efewongbe Primary Care Unavailable Oleghe, Efewongbe Primary Care Unavailable Padmini Santo Attending Unavailable Oleghe, Efewongbe Referring Unavailable Oleghe, Efewongbe Primary Care Unavailable Oleghe, Efewongbe Referring Unavailable Nando Barbosa Attending Unavailable Fatemeh Dickens Attending Unavailable Oleghe, Efewongbe Primary Care Unavailable Oleghe, Efewongbe Referring Unavailable DosFatemeh coelho Attending Unavailable Oleghe, Efewongbe Primary Care Unavailable Oleghe, Efewongbe Referring Unavailable Roger Lazcano Attending Unavailable Oleghe, Efewongbe Primary Care Unavailable Padmini Santo Consulting Unavailable Padmini Santo Referring Unavailable Oleghe, Efewongbe Primary Care Unavailable WaytNando Referring Unavailable Nando Barbosa Attending Unavailable Padmini Santo Attending Unavailable Oleghe, Efewongbe Primary Care Unavailable Rohit Ennis Consulting Unavailable Padmini Santo Referring Unavailable Oleghe, Efewongbe Primary Care Unavailable WaytNando Attending Unavailable Wayt Nando Referring Unavailable Prieto, Emanuel Referring Unavailable Prieto Emanuel Attending Unavailable Oleghe, Efewongbe Primary Care Unavailable Oleghe, Efewongbe Primary Care Unavailable Padmini Santo Attending Unavailable Padmini Santo Referring Unavailable Oleghe, Efewongbe Primary Care Unavailable Wayt, Nando Referring Unavailable WaytNando Attending Unavailable Oleghe, Efewongbe Primary Care Unavailable Padmini Santo Attending Unavailable Padmini Santo Referring Unavailable Allergies Allergy Classification Reported Allergen(s) Allergy Type Date of Onset Reaction(s) Facility (15 sources) Amphetamine Drug Allergy 03-11-20 Other [facility] (15 sources) Dextroamphetamine Drug Allergy 03-11-20 Other [facility] (19 sources) Lisdexamfetamine; Translations: [LISDEXAMFETAMINE] Drug Allergy 03-28-20 18 Other, Other: See Comments [facility] (15 sources) Sulfamethoxazole Drug Allergy 03-11-20 [facility]) Trimethoprim Drug Allergy 03-11-20 [facility] Amphetamine aspartate / Amphetamine Sulfate / Dextroamphetamine saccharate / Dextroamphetamine Sulfate; Translations: [DEXTROAMPHETAMINE-AM PHETAMINE] Drug Allergy 04-20-20 Other, Other: See Comments [facility] (1 source) Amphetamine Drug Allergy 12-20-19 25 [facility] (1 source) Dextroamphetamine Drug Allergy 12-20-19 25 [facility] (1 source) Lisdexamfetamine Drug Allergy 12-20-19 25 [facility] (1 source) Sulfamethoxazole Drug Allergy 12-20-19 25 [facility] (1 source) Trimethoprim Drug Allergy 12-20-19 25 [facility] Medications Current Medications Medication Drug Class(es) Dates Sig (Normalized) Sig (Original) Norgestimate-Ethin yl Estradiol (20 sources) Progestin, Estrogen Start: 10-15-2024 take 1 tablet by mouth once daily Norgestimate-Ethi nyl Estradiol (Sprintec (28)) 0.25-35 mg-mcg tablet Active 1 {tbl} PO DAILY October 15, 2024 8:18am Take active pills only Start: 12-13-2023 End: 10-15-2024 take 1 tablet by mouth once daily Norgestimate-Ethinyl Estradiol (Sprintec (28)) 0.25-35 mg-mcg tablet Discontinued 1 {tbl} PO DAILY December 13, 2023 3:53pm October 15, 2024 8:19am Take active pills only Start: 12-03-2022 End: 12-13-2023 take 1 tablet by mouth once daily Norgestimate-Ethinyl Estradiol (Sprintec (28)) 0.25-35 mg-mcg tablet Discontinued 1 {tbl} PO DAILY December 03, 2022 10:26am December 13, 2023 3:53pm Take active pills only Start: 12-03-2022 take 1 tablet by donna th once daily Norgestimate-Ethinyl Estradiol (Sprintec (28)) 0.25-35 mg-mcg tablet Active 1 TABLET PO DAILY 84 December 03, 2022 10:26am Take active pills only Start: 08-01-2022 End: 12-03-2022 take 1 tablet by mouth once daily Norgestimate-Ethinyl Estradiol 0.25-35 mg-mcg tablet Discontinued 1 {tbl} PO DAILY August 01, 2022 10:35am December 03, 2022 10:27am Take active pills only Start: 08-01-2022 End: 12-03-2022 take 1 tablet by mouth once daily Norgestimate-Ethinyl Estradiol Discontinued 1 TABLET PO DAILY August 01, 2022 10:35am December 03, 2022 10:27am Take active pills only Start: 08-01-2022 take 1 tablet by donna th once daily Norgestimate-Ethinyl Estradiol Active 1 TABLET PO DAILY 84 August 01, 2022 10:35am Take active pills only Start: 08-01-2022 take 1 tablet by donna th once daily Norgestimate-Ethinyl Estradiol Active 1 TABLET PO DAILY August 01, 2022 9:35am Take active pills only Start: 11-05-2021 End: 08-01-2022 take 1 tablet by mouth once daily Norgestimate-Ethinyl Estradiol 0.25-35 mg-mcg tablet Discontinued 1 {tbl} PO DAILY November 05, 2021 11:59am August 01, 2022 10:35am Take active pills only Start: 11-05-2021 End: 08-01-2022 take 1 tablet by mouth once daily Norgestimate-Ethinyl Estradiol Discontinued 1 TABLET PO DAILY November 05, 2021 11:59am August 01, 2022 10:35am Take active pills only Start: 11-05-2021 End: 08-01-2022 take 1 tablet by mouth once daily Norgestimate-Ethinyl Estradiol Discontinued 1 TABLET PO DAILY 84 November 05, 2021 10:59am August 01, 2022 9:35am Take active pills only Start: 11-05-2021 take 1 tablet by donna th once daily Norgestimate-Ethinyl Estradiol Active 1 TABLET PO DAILY 84 November 05, 2021 10:59am Take active pills only Start: 11-05-2021 take 1 tablet by donna th once daily Norgestimate-Ethinyl Estradiol Active 1 TABLET PO DAILY 84 November 05, 2021 11:59am Take active pills only Start: 10-30-2020 End: 11-05-2021 take 1 tablet by mouth once daily Norgestimate-Ethinyl Estradiol 0.25-35 mg-mcg tablet Discontinued 1 {tbl} PO DAILY 84 October 30, 2020 9:36am November 05, 2021 12:00pm Take active pills only Start: 10-30-2020 End: 11-05-2021 take 1 tablet by mouth once daily Norgestimate-Ethinyl Estradiol Discontinued 1 TABLET PO DAILY October 30, 2020 8:36am November 05, 2021 11:00am Take active pills only Start: 10-30-2020 End: 11-05-2021 take 1 tablet by mouth once daily Norgestimate-Ethinyl Estradiol Discontinued 1 TABLET PO DAILY October 30, 2020 9:36am November 05, 2021 12:00pm Take active pills only Start: 12-06-2019 End: 10-30-2020 take 1 tablet by mouth once daily Norgestimate-Ethinyl Estradiol 0.25-35 mg-mcg tablet Discontinued 1 {tbl} PO DAILY December 06, 2019 2:26pm October 30, 2020 9:37am Take active pills only Start: 12-06-2019 End: 10-30-2020 take 1 tablet by mouth once daily Norgestimate-Ethinyl Estradiol Discontinued 1 TABLET PO DAILY December 06, 2019 1:26pm October 30, 2020 8:37am Take active pills only Start: 12-06-2019 End: 10-30-2020 take 1 tablet by mouth once daily Norgestimate-Ethinyl Estradiol Discontinued 1 TABLET PO DAILY December 06, 2019 2:26pm October 30, 2020 9:37am Take active pills only Start: 12-06-2019 End: 12-06-2019 Norgestimate-Ethinyl Estradi ol 0.25-35 mg-mcg tablet Discontinued 1 {tbl} PO DAILY December 06, 2019 12:00am December 06, 2019 2:26pm Take continuously Start: 12-06-2019 End: 12-06-2019 take 1 tablet by mouth once daily Norgestimate-Ethinyl Estradiol Discontinued 1 TABLET PO DAILY December 05, 2019 11:00pm December 06, 2019 1:26pm Take continuously Start: 12-06-2019 End: 12-06-2019 take 1 tablet by mouth once daily Norgestimate-Ethinyl Estradiol Discontinued 1 TABLET PO DAILY December 06, 2019 12:00am December 06, 2019 2:26pm Take continuously Start: 09-26-2019 take 1 tablet by donan th once daily norgestimate 0.25 mg-ethinyl estradiol 35 mcg (SPRINTEC, ORTHO-CYCLEN) 0.25-35 mg-mcg per tablet TAKE 1 TABLET BY MOUTH EVERY DAY 84 tablet 1 09/26/2019 Active take 1 tablet by donna th once daily Sprintec, 28, 0.25-35 mg-mcg tablet Take 1 tablet by mouth once daily. 0 Active famotidine 20 mg oral tablet (3 sources) Histamine-2 Receptor Antagonist Start: 12-19-2024 take 1 tablet by mouth at bedtime Famotidine 20 mg tablet Active 20 mg PO AT BEDTIME December 19, 2024 12:00am lactobacillus acidophilus 1.5 mg oral capsule (3 sources) Start: 05-22-2024 Lactobacillus Acidophilus (Probiotic Acidophilus) 250 million cell capsule Active 500 NMA PO DAILY May 22, 2024 1:00am magnesium gluconate 500 mg oral tablet (2 sources) magnesium glucon ate (Magonate) 27.5 mg magne- sium (500 mg) tablet every 12 hours. 0 Active magnesium oxide 500 mg oral capsule (7 sources) Start: 11-04-2022 take 1 capsule by mouth once daily Magnesium Oxide 500 mg capsule Active 500 mg PO DAILY November 04, 2022 12:00am [id number] acid-biotin (Hair,Skin and Nails,FA-biotin,) 66.7-1,000 mcg tablet (2 sources) take 66.7-1000 ug by mouth once daily qapphvrx-med-xvstt acid-biotin (Hair,Skin and Nails,FA-biotin,) 66.7-1,000 mcg tablet Take 1 tablet by mouth once daily. 0 Active Multivitamin With Minerals (Hair,Skin And Nails) tablet (4 sources) Start: 08-11-2023 Multivitamin With Minerals (Hair,Skin And Nails) tablet Active 1 {tbl} PO DAILY August 11, 2023 1:00am Start: 08-11-2023 take 1 tablet by donna th once daily Multivitamin With Minerals (Hair,Skin And Nails) tablet Active 1 TABLET PO DAILY August 11, 2023 1:00am mushroom (1 source) Start: 08-11-2023 mushroom Activ e PO DAILY August 11, 2023 1:00am Completed/Discontinued Medications Medication Drug Class(es) Dates Sig (Normalized) Sig (Original) acyclovir 400 mg oral tablet (20 sources) Herpesvirus Nucleoside Analog DNA Polymerase Inhibitor, Herpes Simplex Virus Nucleoside Analog DNA Polymerase Inhibitor, Herpes Zoster Virus Nucleoside Analog DNA Polymerase Inhibitor Start: 07-26-2022 End: 10-15-2024 take 1 tablet by mouth three times daily Acyclovir 400 mg tablet Discontinued 400 mg PO THREE TIMES A DAY 09 05April 03, 2024 9:14am May 22, 2024 10:56am Start: 04-05-2019 End: 04-01-2022 take 1 tablet by mouth twice daily Acyclovir 400 mg tablet Discontinued 400 mg PO TWICE A DAY April 05, 2019 12:00am April 01, 2022 1:28pm take 1 tablet by donna th every twelve hours acyclovir (Zovirax) 400 mg tablet 1 tablet (400 mg) every 12 hours. 0 Active amoxicillin 500 mg oral capsule (9 sources) Penicillin-class Antibacterial Start: 03-25-2023 End: 08-15-2023 take 1 capsule by mouth three times daily Amoxicillin 500 mg capsule Discontinued 500 mg PO THREE TIMES A DAY 30 August 05, 2023 1:00am August 14, 2023 1:00am August 15, 2023 1:04am betamethasone 0.5 mg/ml / clotrimazole 10 mg/ml topical cream (15 sources) Azole Antifungal, Corticosteroid Start: 01-09-2020 End: 10-20-2020 Clotrimazole-Beta methasone 1-0.05 % cream Discontinued 1 NMA TOPICAL TWICE A DAY January 09, 2020 12:00am October 20, 2020 8:12am until rash gone Start: 01-09-2020 End: 10-20-2020 Clotrimazole-Betamethasone D iscontinued 1 APPLIC TOPICAL TWICE A DAY 45 January 09, 2020 12:00am October 20, 2020 8:12am until rash gone control (15 sources) Start: 04-05-2019 End: 10-20-2020 control Discontinued P O April 04, 2019 11:00pm October 20, 2020 7:11am Start: 04-05-2019 End: 10-20-2020 control Discontinued P O April 05, 2019 12:00am October 20, 2020 8:11am calcium carbonate 1250 mg chewable tablet (3 sources) Start: 05-22-2024 End: 06-14-2024 take 1 tablet by mouth once daily Calcium Carbonate 500 mg calcium (1,250 mg) tablet,chewable Discontinued 1500 mg PO DAILY May 22, 2024 1:00am June 14, 2024 3:33pm ferrous sulfate 325 mg oral tablet (15 sources) Start: 07-29-2017 End: 04-05-2019 take 1 tablet by mouth twice daily at mealtime Ferrous Sulfate 325 MG tablet Discontinued 325 mg PO TWICE DAILY WITH MEALS 60 July 29, 2017 1:00am April 05, 2019 3:36pm fluconazole 150 mg oral tablet (3 sources) Azole Antifungal Start: 10-18-2024 End: 12-19-2024 Fluconazole 150 mg tablet Discontinued 150 mg PO Every 3 Days 2 0 October 18, 2024 12:00am December 19, 2024 3:45pm may repeat second dose 72 hrs after first dose if symptoms persist hyoscyamine sulfate 0.125 mg sublingual tablet (9 sources) Start: 12-10-2022 End: 12-19-2024 Hyoscyamine Sulfate 0.125 mg tablet, sublingual Discontinued 0.125 mg SL 2 to 4 times per day as needed for abdominal pain December 10, 2022 12:00am December 19, 2024 3:45pm hyoscyamine (Karey spaz) 0.[address] 1 tablet (0.125 mg) under the tongue if needed. 0 Active levothyroxine sodium 0.075 mg oral tablet (20 sources) l-Thyroxine Start: 05-27-2022 End: 06-01-2024 take 1 tablet by mouth once daily Levothyroxine 75 mcg tablet Discontinued 75 ug PO DAILY April 20, 2024 10:47am June 01, 2024 12:10pm linaclotide 0.145 mg oral capsule (8 sources) Guanylate Cyclase-C Agonist Start: 08-20-2022 End: 09-09-2022 take 1 capsule by mouth once daily Linaclotide (Linzess) 145 mcg capsule Discontinued 145 ug PO DAILY August 20, 2022 1:00am September 09, 2022 6:14pm mushroom tablet (3 sources) Start: 08-11-2023 End: 01-11-2024 take 1 tablet by mouth once daily mushroom tablet Discontinued PO DAILY August 11, 2023 1:00am January 11, 2024 5:25pm omeprazole 40 mg delayed release oral capsule (6 sources) Proton Pump Inhibitor Start: 03-16-2023 End: 03-21-2023 take 1 capsule by mouth once daily 30 minutes before breakfast Omeprazole 40 mg capsule,delayed release(DR/EC) Discontinued 40 mg PO DAILY March 16, 2023 12:00am March 21, 2023 5:21pm Take 30 minutes before breakfast 12 hr orphenadrine citrate 100 mg extended release oral tablet (15 sources) Muscle Relaxant Start: 05-25-2021 End: 02-25-2022 take 1 tablet by mouth twice daily Orphenadrine Citrate 100 mg tablet extended release Discontinued 100 mg PO TWICE A DAY May 25, 2021 1:00am February 25, 2022 11:23am predniSONE 10 mg oral tablet (20 sources) Start: 05-25-2021 End: 02-25-2022 take 4 tablets by mouth once daily, then take 3 tablets by mouth once daily, then take 2 tablets by mouth once daily, then take 1 tablet by mouth once daily Prednisone 10 mg tablet Discontinued 10 mg PO DAILY May 25, 2021 1:00am February 25, 2022 11:22am 4 tablets daily for 3 days, then 3 tablets daily for 3 days, then 2 tablets daily for 3 days, then 1 tablet daily for 3 days Start: 04-05-2019 End: 06-19-2019 take 3 tablets by mouth once daily, then take 2 tablets by mouth once daily, then take 1 tablet by mouth once daily Prednisone 20 mg tablet Discontinued 20 mg PO DAILY April 05, 2019 12:00am June 19, 2019 10:01am 3 tablets daily for 3 days, then 2 tablets daily for 3 days, then 1 tablet daily for 3 days saccharomyces boulardii 250 mg oral capsule (6 sources) Start: 03-23-2023 End: 01-11-2024 take 1 capsule by mouth twice daily Saccharomyces Boulardii (Daily Probiotic (S. Boulardii)) 250 mg capsule Discontinued 250 mg PO TWICE A DAY March 23, 2023 12:00am January 11, 2024 5:25pm sertraline 100 mg oral tablet (20 sources) Serotonin Reuptake Inhibitor Start: 09-09-2022 End: 10-15-2024 take 1 tablet by mouth at bedtime Sertraline 100 mg tablet Discontinued 100 mg PO AT BEDTIME September 05, 2024 11:27am October 15, 2024 8:18am Start: 02-01-2022 End: 09-09-2022 take 1 tablet by mouth once daily Sertraline (Zoloft) 50 mg tablet Discontinued 50 mg PO daily February 01, 2022 12:00am September 09, 2022 6:40pm topiramate 50 mg oral tablet (13 sources) Start: 05-17-2024 End: 12-19-2024 take 1 tablet by mouth twice daily before breakfast Topiramate 50 mg tablet Discontinued 50 mg PO TWICE A DAY 60 October 15, 2024 8:17am December 19, 2024 3:46pm take before breakfast and before dinner Start: 09-22-2023 End: 05-17-2024 take 1 tablet by mouth twice daily before breakfast Topiramate (Topamax) 25 mg tablet Discontinued 25 mg PO TWICE A DAY 60 May 08, 2024 4:20pm May 17, 2024 12:30pm take before breakfast and before dinner traZODone hydrochloride 50 mg oral tablet (15 sources) Serotonin Reuptake Inhibitor Start: 08-29-2023 End: 10-15-2024 take 1 tablet by mouth at bedtime Trazodone 50 mg tablet Discontinued 50 mg PO AT BEDTIME September 05, 2024 11:27am October 15, 2024 8:19am Turmeric extract (3 sources) Start: 05-22-2024 End: 10-15-2024 take 1 capsule by mouth once daily Turmeric 400 mg capsule Discontinued 1000 mg PO DAILY May 22, 2024 1:00am October 15, 2024 7:57am valACYclovir 1000 mg oral tablet (20 sources) Herpesvirus Nucleoside Analog DNA Polymerase Inhibitor, Herpes Simplex Virus Nucleoside Analog DNA Polymerase Inhibitor, Herpes Zoster Virus Nucleoside Analog DNA Polymerase Inhibitor Start: 11-21-2020 End: 02-25-2022 Valacyclovir (Valtrex) 1 gram tablet Discontinued 2000 mg PO TWICE A DAY 4 November 21, 2020 12:00am February 25, 2022 11:22am Start: 04-05-2019 End: 04-13-2019 Valacyclovir 1 gram tablet Discontinued 1000 mg PO THREE TIMES A DAY 28 01April 05, 2019 12:00am April 11, 2019 12:00am April 13, 2019 12:09am Start: 04-05-2019 End: 04-13-2019 take 1000 mg by mouth three times daily Valacyclovir Discontinued 1000 MG PO THREE TIMES A DAY 28 01April 05, 2019 12:00am April 13, 2019 12:09am Problems Active Problems Problem Classification Problem Date Documented Da te Episodic/Chronic Abdominal pain (9 sources) Epigastric pain; Translations: [Epigastric pain] Onset: 12-27-2024 12-19-2024 Episodic Anxiety disorders (20 sources) Mixed anxiety and depressive disorder; Translations: [Anxiety disorder, unspecified] Chronic Attention-deficit, conduct, and disruptive behavior disorders (15 sources) Attention deficit hyperactivity disorder; Translations: [Attention-deficit hyperactivity disorder, unspecified type] 07-28-2017 Chronic Cardiac dysrhythmias (5 sources) Palpitations; Translations: [Palpitations] Onset: 07-09-2024 05-30-2024 Episodic Contraceptive and procreative management (12 sources) Patient encounter status; Translations: [Encounter for contraceptive management, unspecified] Onset: 05-28-2024 12-03-2022 Episodic Comment on above: plan laparoscopic BS Disorders usually diagnosed in infancy, childhood, or adolescence (1 source) Attention deficit hyperactivity disorder, predominantly inattentive type; Translations: [Other specified behavioral and emotional disorders with onset usually occurring in childhood and adolescence] Onset: 03-29-2018 03-29-2018 Chronic Esophageal disorders (20 sources) Esophageal dysmotility; Translations: [Dyskinesia of esophagus] 08-19-2022 Chronic Influenza (14 sources) Influenza due to Influenza A virus; Translations: [Influenza due to other identified influenza virus with other respiratory manifestations] 06-07-2022 Episodic Miscellaneous mental health disorders (8 sources) Binge eating disorder; Translations: [Binge eating disorder] 09-22-2023 Chronic Comment on above: discussed CBT techni ques and topamax. not vyvanse candidate. discussed need for OCP and periodic testing Nausea and vomiting (8 sources) Nausea; Translations: [Nausea] Onset: 12-26-2024 12-19-2024 Episodic Other bone disease and musculoskeletal deformities (20 sources) Segmental and somatic dysfunction; Translations: [Segmental and somatic dysfunction of cervical region] 06-19-2019 Episodic Other connective tissue disease (7 sources) Rhabdomyolysis; Translations: [Rhabdomyolysis] Onset: 09-21-2023 03-21-2023 Episodic Other connective tissue disease (6 sources) Rhabdomyolysis; Translations: [Rhabdomyolysis] Onset: 09-19-2023 09-19-2023 Episodic Other connective tissue disease (1 source) Pain in left foot; Translations: [Pain in left foot] 10-04-2020 Episodic Other gastrointestinal disorders (7 sources) Celiac disease; Translations: [Celiac disease] 12-10-2022 Chronic Other gastrointestinal disorders (3 sources) Celiac disease; Translations: [Celiac disease] 12-10-2022 Chronic Other gastrointestinal disorders (15 sources) Dysphagia; Translations: [Dysphagia, unspecified] 03-11-2022 Episodic Comment on above: FOOD GETS STUCK Other gastrointestinal disorders (9 sources) Dysphagia, unspecified; Translations: [Dysphagia, unspecified] Episodic Other gastrointestinal disorders (8 sources) Constipation; Translations: [Constipation, unspecified] 08-19-2022 Episodic Other gastrointestinal disorders (4 sources) Constipation, unspecified; Translations: [Constipation, unspecified] 08-19-2022 Episodic Other gastrointestinal disorders (3 sources) Colindres's sign positive; Translations: [Other specified symptoms and signs involving the digestive system and abdomen] 12-19-2024 Episodic Other gastrointestinal disorders (1 source) Other specified symptoms and signs involving the digestive system and abdomen; Translations: [Other specified symptoms and signs involving the digestive system and abdomen] Onset: 12-19-2024 Episodic Other nervous system disorders (1 source) Other chronic pain; Translations: [Other chronic pain] Onset: 04-16-2024 Chronic Other nervous system disorders (7 sources) Impaired cognition; Translations: [Other symptoms and signs involving cognitive functions and awareness] 01-31-2023 Episodic Other nutritional; endocrine; and metabolic disorders (4 sources) Overweight in adulthood with body mass index of 25 or more but less than 30; Translations: [Body mass index (BMI) 28.0-28.9, adult] 09-22-2023 Episodic Other nutritional; endocrine; and metabolic disorders (1 source) Body mass index (BMI) 28.0-28.9, adult; Translations: [Body Mass Index 28.0-28.9, adult] 09-22-2023 Episodic Other skin disorders (15 sources) Neck swelling; Translations: [Localized swelling, mass and lump, neck] 03-11-2022 Episodic Other skin disorders (4 sources) Localized swelling, mass and lump, neck; Translations: [Swelling, mass, or lump in head and neck] Episodic Spondylosis; intervertebral disc disorders; other back problems (20 sources) Other intervertebral disc displacement, lumbar region; Translations: [Herniation of intervertebral disc of lumbar spine] Onset: 04-16-2024 03-23-2023 Chronic Comment on above: L4/L4,L5/S1 Sprains and strains (16 sources) Low back strain; Translations: [Strain of muscle, fascia and tendon of lower back, initial encounter] Onset: 10-15-2024 05-25-2021 Episodic Thyroid disorders (20 sources) Goiter; Translations: [Iodine-deficiency related diffuse (endemic) goiter] Onset: 01-11-2024 Chronic Unclassified (1 source) Other intervertebral disc degeneration, lumbosacral region with discogenic back pain only; Translations: [Other intervertebral disc degeneration, lumbosacral region with discogenic back pain only] Onset: 11-07-2024 Past or Other Problems Problem Classification Problem Date Documented Date Episodic/Chronic Malaise and fatigue (4 sources) Fatigue; Translations: [Other fatigue] Onset: 4 05-30-2024 Episodic Other bone disease and musculoskeletal deformities (13 sources) Segmental and somatic dysfunction of cervical region; Translations: [Nonallopathic lesions, cervical region] Onset: 4 Episodic Other bone disease and musculoskeletal deformities (13 sources) Segmental and somatic dysfunction of lumbar region; Translations: [Nonallopathic lesions, lumbar region] Onset: 4 Episodic Other bone disease and musculoskeletal deformities (9 sources) Segmental and somatic dysfunction of pelvic region; Translations: [Nonallopathic lesions, pelvic region] Onset: 4 Episodic Other bone disease and musculoskeletal deformities (13 sources) Segmental and somatic dysfunction of thoracic region; Translations: [Nonallopathic lesions, thoracic region] Onset: 4 Episodic Other connective tissue disease (1 source) History of disorder of soft tissue; Translations: [Personal history of other diseases of the musculoskeletal system and connective tissue] Onset: 8 03-29-2018 Episodic Other screening for suspected conditions (not mental disorders or infectious disease) (5 sources) Electrocardiogram abnormal; Translations: [Abnormal electrocardiogram [ECG] [EKG]] Onset: 4 05-30-2024 Episodic Spondylosis; intervertebral disc disorders; other back problems (20 sources) Lumbar radiculopathy; Translations: [Radiculopathy, lumbar region] Onset: 4 Episodic Results Test Name Value Interpretation Reference Range Facility H. PYLORI STOOL AGon 025 H PYLORI STL AG Negative Normal Negative [facility] Comment on above: Result Comment: Perf ormed at: CB - [facility] [address] [id number] Managed Care Analyst: Israel Johnson PhD, Phone: [phone] Performed By: #### L 3109.1950 ####[facility] [id number] [facility]. [place], [place], [id number] Abdomen Limitedon 12-24-2024 Abdomen Limited [facility] [address] [place] [address] Abdomen Limited MR#: [id number] Acct: [id number] Name: REBECCA LAMB Rep #: [id number] : 1985 F 39 From: Terrance reagan MD PCP: Dr. Shaneka Joyce MD Status: REG CLI Study: Abdomen Limited Date of Exam: 12/24/24 Exam# [id number] Ordering Dr: Nando Barbosa PROCEDURE: ABDOMEN LIMITED 12/24/2024 REASON FOR EXAM: EPIGASTRIC PAIN Nausea. COMPARISON: Prior sonogram dated April 22, 2020. FINDINGS: Liver: Grossly normal size and echotexture. Once again, there is a 7 mm x 11 mm x 7 mm echogenic nodule in the left lobe of the liver suggestive of a hemangioma. A similar-appearing nodule is seen in the right lobe measuring 6 mm x 6 mm x 4 mm. This is essentially unchanged. Gallbladder: Small amount of sludge is seen in the gallbladder lumen. I suspect a 7 mm x 6 mm x 3 mm polyp adherent to the gallbladder wall. Common bile duct: Normal measuring 4.7 mm . Pancreas: Normal Other: Visualized portions of the right kidney are unremarkable except for a 2 mm x 2 mm x 3 mm nonobstructive renal calculus.. No right upper quadrant ascites. US/Abdomen Limited IMPRESSION: Stable small echogenic nodules in both lobes of the liver as described suggestive of hemangioma. Small amount of sludge is seen in the gallbladder lumen as well as a 7 mm x 6 mm x 3 mm gallbladder polyp. Nonobstructive right intrarenal calculus measuring 2 mm x 2 mm x 3 mm. Reading Location: [facility] CC: Dr. Shaneka Joyce MD; ALYSSA Xiao Shroud Line Tier: Signed Normal [facility] Stool Helicobacter pylori an tigen detection by immunoassayOrdered By: Nando Barbosa on 12-24-2024 H. pylori Ag IA Ql (Stl) Negative Negative [facility] Comment on above: Performed at: [address] [id number] Director: Israel Johnson PhD, Phone: [phone] Absolute lymphocyte countOrd ered By: Nando Barbosa on 12-20-2024 Lymphocytes Auto (Unsp spec) [#/Vol] 1.78 10*3/uL 0.83-4.51 [facility] Absolute neutrophil countOrd ered By: Nando Barbosa on 12-20-2024 Neutrophils (Bld) [#/Vol] 3.0 10*3/uL 2.0-7.7 [facility] Automated lymphocyte count a s percentage of total leukocytesOrdered By: Nando Barbosa on 12-20-2024 Lymphocytes/100 WBC Auto (Unsp spec) 32.5 % 19-41 [facility] Basophil percentageOrdered B y: Nando Barbosa on 12-20-2024 Basophils/100 WBC (Bld) 0.9 % 0-1 [facility] CBC W/Diff, Automatedon 12-09-2024 Absolute Lymph 1.78 X10 3/uL Normal 0.83-4.51 [facility] Comment on above: Performed By: #### L 100.0100, L700.6800 #### [facility] [address] [place], [address] Absolute Neut 3.0 X10 3/uL Normal 2.0-7.7 [facility] Comment on above: Performed By: #### L 100.0100, L700.6800 #### [facility] [address] [place], [address] Basophils/100 WBC (Bld) 0.9 % Normal 0-1 [facility] Comment on above: Performed By: #### L 100.0100, L700.6800 #### [facility] [address] [place], [address] Eosinophils/100 WBC (Bld) 1.6 % Normal 0-5 [facility] Comment on above: Performed By: #### L 100.0100, L700.6800 #### [facility] [address] [place], [address] Erythrocyte distribution width (RBC) [Ratio] 13.1 % Normal 11.6-14.6 [facility] Comment on above: Performed By: #### L 100.0100, L700.6800 #### [facility] [address] [place], [address] Hematocrit (Bld) [Volume fraction] 39.9 % Normal 37-47 [facility] Comment on above: Performed By: #### L 100.0100, L700.6800 #### [facility] [address] [place], [address] Hemoglobin (Bld) [Mass/Vol] 12.9 g/dL Normal 12.0-15.0 [facility] Comment on above: Performed By: #### L 100.0100, L700.6800 #### [facility] [address] [place], [address] IG% 0.500 Normal 0.0-0.9 [facility] Comment on above: Result Comment: IG% - Immature Granulocytes (promyelocytes, myelocytes and metamyelocytes) > 1% indicates that a LEFT SHIFT is Present. Performed By: #### L 100.0100, L700.6800 #### [facility] [address] [place], [address] Lymphocytes/100 WBC (Bld) 32.5 % Normal 19-41 [facility] Comment on above: Performed By: #### L 100.0100, L700.6800 #### [facility] [address] [place], [address] MCH (RBC) [Entitic mass] 30.4 pg Normal 27.0-32.0 [facility] Comment on above: Performed By: #### L 100.0100, L700.6800 #### [facility] [address] [place], [address] MCHC (RBC) [Mass/Vol] 32.3 g/dL Normal 32-36 [facility] Comment on above: Performed By: #### L 100.0100, L700.6800 #### [facility] [address] [place], [address] MCV (RBC) [Entitic vol] 93.9 fL Normal 81-99 [facility] Comment on above: Performed By: #### L 100.0100, L700.6800 #### [facility] [address] [place], [address] Monocytes/100 WBC (Bld) 9.7 % Normal 0-10 [facility] Comment on above: Performed By: #### L 100.0100, L700.6800 #### [facility] [address] [place], [address] Neutrophils/100 WBC (Bld) 54.8 % Normal 47-70 [facility] Comment on above: Performed By: #### L 100.0100, L700.6800 #### [facility] [address] [place], [address] Nucleated RBC (Bld) [#/Vol] 0 10*3/uL Normal 0-5 [facility] Comment on above: Performed By: #### L 100.0100, L700.6800 #### [facility] [address] [place], [address] Platelet mean volume (Bld) [Entitic vol] 10.1 fL Normal 6.2-12.0 [facility] Comment on above: Performed By: #### L 100.0100, L700.6800 #### [facility] [address] [place], [address] Platelets (Bld) [#/Vol] 245 10*3/uL Normal 150-450 [facility] Comment on above: Performed By: #### L 100.0100, L700.6800 #### [facility] [address] [place], [address] RBC (Bld) [#/Vol] 4.25 10*6/uL Normal 4.2-5.4 [facility] Comment on above: Performed By: #### L 100.0100, L700.6800 #### [facility] [address] [place], [address] RDW SD 45.0 fl High 35.1-43.9 [facility] Comment on above: Performed By: #### L 100.0100, L700.6800 #### [facility] [address] [place], [address] WBC (Bld) [#/Vol] 5.5 10*3/uL Normal 4.4-11.0 [facility] Comment on above: Performed By: #### L 100.0100, L700.6800 #### [facility] [address] [place], [address] Eosinophil percentageOrdered By: Nando Barbosa on 12-20-2024 Eosinophils/100 WBC (Bld) 1.6 % 0-5 [facility] Erythrocyte distribution wid th ratioOrdered By: Nando Barbosa on 12-20-2024 Erythrocyte distribution width (RBC) [Ratio] 13.1 % 11.6-14.6 [facility] Erythrocyte distribution wid th standard deviationOrdered By: Nando Barbosa on 12-20-2024 Erythrocyte distribution width (RBC) [Ratio] 45.0 fl High 35.1-43.9 [facility] Hematocrit Auto (Bld) [Volum e fraction]Ordered By: Nando Barbosa on 12-20-2024 Hematocrit (Bld) [Volume fraction] 39.9 % 37-47 [facility] Hemoglobin measurementOrdere d By: Nando Barbosa on 12-20-2024 Hemoglobin (Bld) [Mass/Vol] 12.9 g/dL 12.0-15.0 [facility] Immature granulocytes/100 WB C Auto (Bld)Ordered By: Nando Barbosa on 12-20-2024 Immature granulocytes/100 WBC (Bld) 0.500 % 0.0-0.9 [facility] Comment on above: IG% - Immature Granu locytes (promyelocytes, myelocytes and metamyelocytes) > 1% indicates that a LEFT SHIFT is Present. MCV (mean corpuscular volume ) determinationOrdered By: Nando Barbosa on 12-20-2024 MCV (RBC) [Entitic vol] 93.9 fL 81-99 [facility] Mean corpuscular hemoglobin (MCH) determinationOrdered By: Nando Barbosa on 12-20-2024 MCH (RBC) [Entitic mass] 30.4 pg 27.0-32.0 [facility] Mean corpuscular hemoglobin concentration (MCHC) determinationOrdered By: Nando Barbosa on 12-20-2024 MCHC (RBC) [Mass/Vol] 32.3 g/dL 32-36 [facility] Mean platelet volume determi nationOrdered By: Nando Barbosa on 12-20-2024 Platelet mean volume (Bld) [Entitic vol] 10.1 fL 6.2-12.0 [facility] Monocyte percentageOrdered B y: Nando Barbosa on 12-20-2024 Monocytes/100 WBC (Bld) 9.7 % 0-10 [facility] Neutrophil percentageOrdered By: Nando Barbosa on 12-20-2024 Neutrophils/100 WBC (Bld) 54.8 % 47-70 [facility] Nucleated red blood cell per centageOrdered By: Nando Barbosa on 12-20-2024 Nucleated RBC/100 WBC (Bld) [Ratio] 0 % 0-5 [facility] Platelet countOrdered By: Cristina ttkarlene Barbosa on 12-20-2024 Platelets (Bld) [#/Vol] 245 10*3/uL 150-450 [facility] ,Serum,hCG Quali.on 12-20-2024 HCG, SERUM QUAL Negative Normal [facility] Comment on above: Performed By: #### L 100.0100, L700.6800 #### [facility] [place], [address] RBC Auto (Bld) [#/Vol]Ordere d By: Nando Barbosa on 12-20-2024 RBC (Bld) [#/Vol] 4.25 10*6/uL 4.2-5.4 [facility] Serum beta-hCG test, qualita tiveOrdered By: Nando Barbosa on 12-20-2024 Beta HCG ( test) Ql Negative [facility] White blood cell (WBC) count Ordered By: Nando Barbosa on 12-20-2024 WBC (Bld) [#/Vol] 5.5 10*3/uL 4.4-11.0 [facility] Internal Medicine Office Vis iton 12-19-2024 Internal Medicine Office Visit [facility] [address] [place] [address] [place] [address] OFFICE VISIT Date of Service: 12/19/24 MR#: [id number] Acct: [id number] Name: ZAINAB,REBECCAYANCI BARRON Rep #: [id number] : 1985 Provider: ALYSSA Xiao Age/Sex: 39/F Location: [facility] Status: Signed Intake Vital Signs 10/15/24 07:59 12/19/24 15:48 Height 5 ft 4 in 5 ft 4 in Weight: 159 lb 166 lb BMI 27.3 28.5 BP 103/70 124/80 H Blood Pressure Location Lt brachial Position Sitting Respiration 18 Pulse 89 Pulse Source Monitor Temp 97.6 F L Temp Source Temporal Pulse Oximetry (%) 97 Oxygen Delivery Method room air Intake Visit Reasons: STOMACH ISSUES / NAUSEA Shot Fireman Required: No Is patient in pain?: No Allergies amphetamine (From Adderall) Allergy (Verified 12/19/24 15:30) Other dextroamphetamine (From Adderall) Allergy (Verified 12/19/24 15:30) Other lisdexamfetamine (From Vyvanse) Allergy (Verified 12/19/24 15:30) Other sulfamethoxazole (From Bactrim) Allergy (Verified 12/19/24 15:30) Nausea/Vom/Diarrhea trimethoprim (From Bactrim) Allergy (Verified 12/19/24 15:30) Nausea/Vom/Diarrhea Medications ???Medication ???Instructions ???Recorded ???Confirmed ???Type magnesium oxide 500 mg capsule 500 mg PO DAILY 11/04/22 12/19/24 History multivitamin with minerals 1 tab PO DAILY 08/11/23 12/19/24 H istory (Hair,Skin and Nails tablet) Lactobacillus acidophilus 250 500 mmu cells PO DAILY 05/22/24 History million cell capsule (Probiotic Acidophilus) levothyroxine 75 mcg tablet 75 mcg PO DAILY #90 tabs 06/01/24 12/19/24 Rx acyclovir 400 mg tablet 400 mg PO TID PRN Outbreak #30 tab s 10/15/24 12/19/24 Rx norgestimate 0.25 mg-ethinyl 1 tab PO DAILY #84 tabs 10/15/24 0 12/19/24 Rx estradiol 0.035 mg tablet (Sprintec (28)) sertraline 100 mg tablet 100 mg PO QHS #30 tabs 10/15/24 Rx trazodone 50 mg tablet 50 mg PO QHS #30 tabs 10/15/2406/04 Rx famotidine 20 mg tablet 20 mg PO QHS #30 tabs 12/19/2406/04 Rx Nurse's Note: Pt has not been feeling good for 2 months has had nausea after eating, it occasionally comes immediately after eating, pt's reflux is still bothering her and is no longer taking omeprazole , is still using tums. Pt has not changed diet, and it is after anything she eats. Pt states that she was told by education supervisor it could be stress and to get checked out, pt does have some increased stress at work, however the stress was added around July . Pt has not vomited, c/o gurgling, not bowel changes as she always bounces from constipation, to diarrhea but has been ongoing. Pt has taken a test( negative) and maintains celiac diet, which helped w/ gastro issues in the past and has seen [facility], around 2 years ago. Has treated w/ tums, and pepto which sometimes helps. Pt states that it resolves within an hour typically. Pt states evenings seem to be worse w/ the nausea, but it will happen at least once a day. Occasionally gets pain in back w/ the heartburn, and LUQ pain describes as crampy. Pt states she is nauseated right now, and took tums 3ish hours ago. Denies difficulty swallowing, feeling full early/ feeling hungry, abnormal, flatulence, or bloating. Pt does c/o excess belching. Pt also wondering if it is stress related if she can discuss adhd treatment. 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 Chronic back pain Depression Alcohol use Thyroid disease Gastric reflux Former smoker Influenza A Thyromegaly Neck swelling Swallowing difficulty Anxiety and depression Lumbar radiculopathy Lumbar strain Abnormal Pap smear of cervix Rhabdomyolysis Surgical History History of esophagogastroduodenoscopy (EGD) History of wisdom tooth extraction H/O eye surgery History of Family History Mother Diabetes Supraventricular tachycardia Brother Leukemia Grandmother CVA (cerebral vascular accident) Parkinson disease Diabetes Father Bleeding disorder Social History adopted: No household members: spouse and children number of children: 2 current occupational status: employed current occupation: [employer] pets and animals: Yes (1) pets and animals: dog(s) sexually active: Yes Smoking Status: Former smoker quit date: 07/11/13 Tobacco: How many years used: 10 alcohol intake: current alcohol intake frequency: a few times a month substance use type: does not (more content not included)... Normal [facility] Tub Operator Office Visit Reporton 10-15-2024 Tub Operator Office Visit Report [facility] [address], [address] [place] [address] OFFICE VISIT Date of Service: 10/15/24 MR#: [id number] Acct: [id number] Name: REBECCA LAMB Rep #: [id number] : 1985 Provider: Dr. 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: Annual Shot Fireman Required: No Is patient in pain?: No Allergies amphetamine (From Adderall) Allergy (Verified 10/15/24 08:01) Other dextroamphetamine (From Adderall) Allergy (Verified 10/15/24 08:01) Other lisdexamfetamine (From Vyvanse) Allergy (Verified 10/15/24 08:01) Other sulfamethoxazole (From Bactrim) Allergy (Verified 10/15/24 08:01) Nausea/Vom/Diarrhea trimethoprim (From Bactrim) Allergy (Verified 10/15/24 08:01) Nausea/Vom/Diarrhea Medications ???Medication ???Instructions ???Recorded ???Confirmed ???Type magnesium oxide 500 mg capsule 500 mg PO DAILY 11/04/22 10/15/24 History hyoscyamine sulfate 0.125 mg 0.125 mg sublingual BID-QID PRN 10/15/24 Rx sublingual tablet abdominal pain #30 tabs multivitamin with minerals 1 tab PO DAILY 08/11/23 10/15/24 H istory (Hair,Skin and Nails tablet) Lactobacillus acidophilus 250 500 mmu cells PO DAILY 05/22/24 History million cell capsule (Probiotic Acidophilus) levothyroxine 75 mcg tablet 75 mcg PO DAILY #90 tabs 06/01/24 10/15/24 Rx acyclovir 400 mg tablet 400 mg PO TID PRN Outbreak #30 tab s 10/15/24 10/15/24 Rx norgestimate 0.25 mg-ethinyl 1 tab PO DAILY #84 tabs 10/15/24 0 10/15/24 Rx estradiol 35 mcg tablet (Sprintec (28)) sertraline 100 mg tablet 100 mg PO QHS #30 tabs 10/15/24 Rx topiramate 50 mg tablet 50 mg PO BID #60 tabs 04/07/25 04/ 07/25 Rx trazodone 50 mg tablet 50 mg PO QHS #30 tabs 10/15/2402/01 Rx Is last menstrual period known: No Post menopausal: No Patient : No : No PFSH Medical History Dietary restriction Celiac disease Preventative health care Health care maintenance 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 Chronic back pain Depression Alcohol use Thyroid disease Gastric reflux Former smoker Influenza A Thyromegaly Neck swelling Swallowing difficulty Anxiety and depression Lumbar radiculopathy Lumbar strain Abnormal Pap smear of cervix Rhabdomyolysis Surgical History History of esophagogastroduodenoscopy (EGD) History of wisdom tooth extraction H/O eye surgery History of Family History Mother Diabetes Supraventricular tachycardia Brother Leukemia Grandmother CVA (cerebral vascular accident) Parkinson disease Diabetes Father Bleeding disorder Social History adopted: No household members: spouse and children number of children: 2 current occupational status: employed current occupation: [employer] pets and animals: Yes (1) pets and animals: dog(s) sexually active: Yes Smoking Status: Former smoker quit date: 07/11/13 Tobacco: How many years used: 10 alcohol intake: current alcohol intake frequency: a few times a month substance use type: does not use diet: gluten free caffeine: Yes (4) Type: coffee what type of physical activity do you participate in: running and weight training frequency: 5-6 times per week seatbelt use: always do you feel safe at home: Yes additional social history: [place] Patient works at [employer] History 2 Elective abortions Hx Para 2 Spontaneous abortions Hx # Term Pregnancies Ectopic pregnancies Hx # Pregnancies Multiple births # of living children Past Pregnancies Del. Date Name GA/Weeks Outcome Route Bth Weight Gen Labor Lgth Anesthesia Del Locatn Provider FOB Unknown 2014 Phil 41 live - full term Male Raymon Unknown 2017 Juanito live - full term Male B enekos HPI Encounter for routine gynecological examination Details: REBECCA LAMB is a 39 year old who presents for annual exam. doing well Last PAP: 2020 History of abnormal PAP: yes mild Other preventative health care screenings: pcp Female Reproductive History Questions: metorrhagia: No, sexually active: Yes, dyspareunia: No and PCB: No Menopausal Symptoms: No hot flashes, No night sweats, No weight change, No mood changes, No difficulty concentrating, No sleep problems and No change in libido ROS Const C (more content not included)... Normal [facility] Cardiology Visit Reporton Cardiology Visit Report [facility] [address] [place] [address] OFFICE VISIT Date of Service: 06/14/24 MR#: [id number] Acct: [id number] Name: REBECCA LAMB Rep #: [id number] : 1985 Provider: Dr. Grant ye MD Age/Sex: 39/F Location: [facility] [place] Status: Signed HPI HPI History of Present Illness Details: The patient comes in today is a very pleasant 39-year-old white female for new patient visit for preop clearance. The patient is being seen for an abnormal EKG. His EKG was done as part of preop evaluation May 29, 2024 that shows normal sinus rhythm at 76 bpm with a short MI interval measuring 110 ms. Otherwise EKG is considered normal there is an RSR prime in V1. The patient has a history of hypothyroidism on replacement she also has a history of some occasional dizziness and palpitations without any elizabeth syncope. She does have an iWatch. She has not been notified of any atrial fibrillation. The patient had an evaluation done prior to being seen in the office where she had an echocardiogram done which showed an ejection fraction of 60% normal structural heart with no valve abnormalities. She also had a nuclear stress test done where she went 12 minutes on a Darci protocol achieving 13.4 METS with no EKG changes and a negative nuclear scan. There was no evidence of ischemia. The patient is being prepped for a tubal ligation. 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 Patient's past medical significant for multiple cases of rhabdomyolysis felt to be related to drug-induced issues. Intake Vital Signs 05/28/24 13:04 06/14/24 14:30 Height 5 ft 4 in 5 ft 4 in Weight: 162 lb BMI 27.8 BP 118/80 Blood Pressure Location Lt brachial Position Sitting Respiration 16 Pulse 76 Pulse Source Monitor Pulse Oximetry (%) 96 Oxygen Delivery Method room air Intake Visit Reasons: ABN EKG/ Cardiac Clearance (Hansa) Shot Fireman Required: No Accompanied by: Self Is patient in pain?: No Allergies amphetamine (From Adderall) Allergy (Verified 06/14/24 14:32) Other dextroamphetamine (From Adderall) Allergy (Verified 06/14/24 14:32) Other lisdexamfetamine (From Vyvanse) Allergy (Verified 06/14/24 14:32) Other sulfamethoxazole (From Bactrim) Allergy (Verified 06/14/24 14:32) Nausea/Vom/Diarrhea trimethoprim (From Bactrim) Allergy (Verified 06/14/24 14:32) Nausea/Vom/Diarrhea Medications ???Medication ???Instructions ???Recorded ???Confirmed ???Type magnesium oxide 500 mg capsule 500 mg PO DAILY 11/04/22 06/14/24 History hyoscyamine sulfate 0.125 mg 0.125 mg sublingual BID-QID PRN 12/10/22 06/14/24 Rx sublingual tablet abdominal pain #30 tabs multivitamin with minerals 1 tab PO DAILY 08/11/23 06/14/24 History (Hair,Skin and Nails tablet) norgestimate 0.25 mg-ethinyl 1 tab PO DAILY #84 tabs 12/13/23 06/14/24 Rx estradiol 35 mcg tablet (Sprintec (28)) topiramate 50 mg tablet 50 mg PO BID #60 tabs 05/17/24 06/14/24 Rx Lactobacillus acidophilus 250 500 mmu cells PO DAILY 05/22/24 06/14/24 History million cell capsule (Probiotic Acidophilus) acyclovir 400 mg tablet 400 mg PO TID PRN Outbreak 05/22/24 06/14/24 History sertraline 100 mg tablet 100 mg PO QHS 05/22/24 06/14/24 History trazodone 50 mg tablet 50 mg PO QHS 05/22/24 06/14/24 History turmeric 400 mg capsule 1,000 mg PO DAILY 05/22/24 06/14/24 History levothyroxine 75 mcg tablet 75 mcg PO DAILY #90 tabs 06/01/24 06/14/24 Rx Ejection fraction %: 60 Have you fallen in the past year?: No PFSH Medical History Dietary restriction Celiac disease Preventative health care Health care maintenance 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 Chronic back pain Depression Alcohol use Thyroid disease Gastric reflux Former smoker Influenza A Thyromegaly Neck swelling Swallowing difficulty Anxiety and depression Lumbar radiculopathy Lumbar strain Abnormal Pap smear of cervix Rhabdomyolysis Surgical History History of esophagogastroduodenoscopy (EGD) History of wisdom tooth extraction H/O eye surgery History of Family History Mother Diabetes Supraventricular tachycardia Brother Leukemia Grandmother CVA (cerebral vascular accident) Parkinson disease Diabetes Father Bleeding disorder Social History adopted: No household members: spouse and children number of children: 2 current occupational status: employed current occupation: [employer] pets and animals: Yes (1) pets an (more content not included)... Normal [facility] Echo Completeon 06-08-2024 Echo Complete [facility] [address] [place] [address] Echo Complete 06/08/24 0816 MR#: [id number] Acct: [id number] Name: REBECCA LAMB Rep #: [id number] : 1985 39 From: Roger Lazcano MD Attending Dr: Dr. Padmini Santo MD Status: REG CLI Ordering Dr: Padmini Santo MD Date: 06/08/24 Location: [facility] Sex: F C Admitted: Reason For Study: PALPITATIONS Procedure This was a 2D Doppler, Color Flow transthoracic echocardiogram. Exam performed in department. Left Ventricle Normal size and thickness. The left ventricular ejection fraction is 60 %. Normal diastololic function. Right Ventricle Normal right ventricle. Atria The left and right atria are normal. Mitral Valve Trivial mitral valve insufficiency. Tricuspid Valve Trivial tricuspid valve insufficiency. Normal pulmonary artery pressure. Aortic Valve Normal aortic valve. Pulmonic Valve Trivial pulmonic valve insufficiency. Great Vessels Normal sized aortic root. Pericardium/Pleural No pericardial effusion. MMode/2D Measurements Calculations LVIDd: 4.4 cm IVSd: 0.86 cm Ao root diam: 2.7 cm LVIDs: 2.9 cm LVPWd: 0.91 cm RVDd: 2.6 cm FS: 34.6 % LAV(MOD-bp): 35.6 ml LVAd ap4: 23.3 cm2 SV(MOD-sp4): 36.4 ml LAV(MOD-bp) Indexed: 20.3 ml/m2 LVLd ap4: 7.2 cm SI(MOD-sp4): 20.8 ml/m2 LAV(MOD-sp2): 32.2 ml EDV(MOD-sp4): 63.0 ml LAV(MOD-sp4): 34.6 ml EDV(sp4-el): 64.4 ml LVAs ap4: 13.0 cm2 LVLs ap4: 5.6 cm ESV(MOD-sp4): 26.5 ml ESV(sp4-el): 25.6 ml EF(MOD-sp4): 57.9 % EF(sp4-el): 60.2 % SV(sp4-el): 38.8 ml LA A4 area: 14.2 cm2 LA dimension(2D): 3.5 cm RA A4 area: 11.6 cm2 TAPSE: 2.2 cm Time Measurements MV dec time: 0.17 sec Doppler Measurements Calculations MV E max mari: 89.5 cm/sec Lat Peak E' Mari: 18.1 cm/sec Med Peak E' Mari: 14.0 cm/sec MV A max mari: 61.4 cm/sec E/E' lat: 4.9 E/E' med: 6.4 MV E/A: 1.5 MV V2 max: 106.3 cm/sec Ao V2 max: 133.4 cm/sec MV max P.5 mmHg MV dec slope: 525.8 cm/sec2 Ao max P.1 mmHg MV V2 mean: 68.7 cm/sec Ao V2 mean: 93.4 cm/sec MV mean P.2 mmHg Ao mean P.0 mmHg MV V2 VTI: 19.6 cm Ao V2 VTI: 29.6 cm AV (velocity ratio): 0.91 LV V1 max: 126.4 cm/sec PA V2 max: 97.9 cm/sec LV V1 max P.4 mmHg PA V2 mean: 72.2 cm/sec LV V1 mean P.5 mmHg LV V1 mean: 87.9 cm/sec LV V1 VTI: 27.1 cm ECHO/Echo Complete Interpretation Summary The left ventricular ejection fraction is 60 %. Ordering Physician: Padmini Santo Referring Physician: Padmini Santo Performed By: Ana Luisa Murcia and Student 06/08/24 1413 Date Roger Lazcano MD CC: Dr. Shaneka Joyce MD; Dr. Padmini Santo MD Date Dictated: 06/08/24815 Date Transcribed: 06/08/241412 Shroud Line Tier: Signed Normal [facility] Stress Reporton 06-08-2024 Stress Report [facility] [address] [place] [address] MR#: [id number] Acct: [id number] Name: REBECCA LAMB Rep #: [id number] : 1985 39 From: Roger Lazcano MD Primary Care: Dr. Shaneka Joyce MD Status: REG CLI Referring Dr: Padmini Santo MD Sex: F C Stress Test Report Date: 06/08/2024 Procedure: Exercise tolerance test/imaging study Indications: Palpitations, dyspnea on exertion Consent: Per the patient Procedure: The patient exercised on a Darci protocol for 12 minutes achieving a peak heart rate of 157 bpm (86% predicted maximal heart rate) with a peak blood pressure 150/64 mmHg and a peak MET capacity of 13.4 METs. The baseline ECG demonstrated sinus rhythm. The peak exercise ECG demonstrated upsloping ST changes that did not fulfill criteria for ischemia. There were no cardiac dysrhythmias pretest, during exercise, or recovery. The functional capacity was considered very good. There was no complaints of chest discomfort. Mild dyspnea noted at peak exercise. The examination was discontinued secondary to target heart rate being achieved. The patient was injected with 11.1 mCi of technetium 99m Cardiolite and subsequently rest SPECT Cardiolite nuclear imaging was obtained in the horizontal long, vertical long, and short axis views. Post-exercise, the patient was injected with 34.1 mCi of technetium 99m Cardiolite and subsequently stress SPECT Cardiolite nuclear imaging was obtained in the horizontal long, vertical long, and short axis views. A gated Cardiolite study at peak stress was obtained. Rest and stress SPECT Cardiolite nuclear imaging status post realignment, normalization, and attenuation correction, demonstrates the appearance of relative uniform tracer uptake and myocardial perfusion appearing within normal limits. There is end systolic thickening and brightening. The gated Cardiolite study demonstrates myocardial thickening and inward wall motion. The reported LVEF is 80%. Impression: 1. Technically adequate (percent predicted maximal heart rate greater than 85%) exercise tolerance test 2. Peak exercise ECG with no diagnostic ischemic changes 3. There were no cardiac dysrhythmias pretest, during exercise, or recovery 4. Rest and stress SPECT Cardiolite nuclear imaging demonstrate relative uniform tracer uptake and myocardial perfusion appearing within normal limits. 5. The gated Cardiolite study reports an LVEF of 80%. This note was generated with [employer] software. It may contain incorrect words, spelling, and punctuation that were not noted in checking the note before signing. 06/08/248 Date Roger Lazcano MD CC: Dr. Shaneka Joyce MD; Dr. Padmini Santo MD Date Dictated: 06/08/241224 Date Transcribed: 06/08/241224 Shroud Line Tier: EDWIGE Signed Normal [facility] Thyroidon 05-31-2024 Thyroid [facility] [address] [place], [place] [id number] Thyroid MR#: [id number] Acct: [id number] Name: REBECCA LAMB #: [id number] : 1985 F 39 From: Nicolas wells DO PCP: Dr. Shaneka Joyce MD Status: REG CLI Study: Thyroid Date of Exam: 05/31/24 Exam# [id number] Ordering Dr: Padmini Santo :[id number] EXAM: US SOFT TISSUES HEAD AND NECK, THYROID CLINICAL INDICATION: thyromegaly TECHNIQUE: Greyscale and color doppler imaging was performed of the thyroid gland. COMPARISON: 03/23/2023 and 03/23/2022. FINDINGS: LEFT THYROID LOBE: The left thyroid lobe measures 5.8 x 1.8 x 1.4 cm. Homogeneous echotexture with normal vascularity. No thyroid nodules are present. RIGHT THYROID LOBE: The right thyroid lobe measures 5.8 x 1.8 x 1.7 cm. There is a 0.7 cm right thyroid nodule which is unchanged compared to the prior examination. This nodule is mixed cystic and solid, hypoechoic, wutnc-yerm-ijdy, smoothly marginated and contains no echogenic foci. TI-RADS points: 3. TI-RADS category: TR3. This nodule is mildly suspicious but no FNA or follow-up is necessary given the small size of this nodule. There is a spongiform nodule in the right thyroid lobe measuring 4 mm. TI-RADS points: 0. TI-RADS category: TR1. This nodule is benign and no FNA or follow-up is necessary. ISTHMUS: The thyroid isthmus measures 0.2 cm. No thyroid nodules are present. US/Thyroid IMPRESSION: 1. Mild thyromegaly. 2. Right thyroid nodules are unchanged. No follow-up or FNA is indicated. Electronically Signed: Nicolas Hayden DO at 23:01 EST , CC: Dr. Shaneka Joyce MD; Dr. Padmini Santo MD Shroud Line Tier: Signed Normal [facility] 12 Lead EKGon 05-29-2024 12 Lead EKG [facility] [address] [place] [address] 12 Lead EKG 05/29/24 0746 MR#: [id number] Acct: [id number] Name: REBECCA LAMB Rep #: [id number] : 1985 39 From: Elver Laws MD Attending Dr: Dr. Padmini Santo MD Status: PRE [facility] [place] Ordering Dr: Padmini Santo MD Date: 05/29/24 Location: [facility] [place] Sex: F C Admitted: Test Reason : PALPITATIONS Blood Pressure : */* mmHG Vent. Rate : 76 BPM Atrial Rate : 76 BPM P-R Int : 110 ms QRS Dur : 82 ms QT Int : 354 ms P-R-T Axes : 44 61 17 degrees QTcB Int : 398 ms Sinus rhythm with short MI Otherwise normal ECG Confirmed by MEJIA YADAV, ELVER ([id number]), graphics editor NADER PAT ([id number]) on 05/29/2024 1:55:38 PM Referred By: Padmini Santo Confirmed By: ELVER LAWS MD 05/29/24 1350 Date Elver Laws MD CC: Dr. Shaneka Joyce MD; Dr. Padmini Santo MD Signed Normal [facility] CBC-Complete Blood Cnt No Di ffon 05-29-2024 Erythrocyte distribution width (RBC) [Ratio] 12.9 % Normal 11.6-14.6 [facility] Comment on above: Performed By: #### L 100.0500, BTSPAT ####[facility] [address] [place], [address] Hematocrit (Bld) [Volume fraction] 38.0 % Normal 37-47 [facility] Comment on above: Performed By: #### L 100.0500, BTSPAT ####[facility] [address] [place], [address] Hemoglobin (Bld) [Mass/Vol] 12.1 g/dL Normal 12.0-15.0 [facility] Comment on above: Performed By: #### L 100.0500, BTSPAT ####[facility] [address] [place], [address] MCH (RBC) [Entitic mass] 29.7 pg Normal 27.0-32.0 [facility] Comment on above: Performed By: #### L 100.0500, BTSPAT ####[facility] [address] [place], [address] MCHC (RBC) [Mass/Vol] 31.8 g/dL Low 32-36 [facility] Comment on above: Performed By: #### L 100.0500, BTSPAT ####[facility] [address] [place], [address] MCV (RBC) [Entitic vol] 93.1 fL Normal 81-99 [facility] Comment on above: Performed By: #### L 100.0500, BTSPAT ####[facility] [address] [place], [address] Platelet mean volume (Bld) [Entitic vol] 10.2 fL Normal 6.2-12.0 [facility] Comment on above: Performed By: #### L 100.0500, BTSPAT ####[facility] [address] [place], [address] Platelets (Bld) [#/Vol] 207 10*3/uL Normal 150-450 [facility] Comment on above: Performed By: #### L 100.0500, BTSPAT ####[facility] [address] [place], [address] RBC (Bld) [#/Vol] 4.08 10*6/uL Low 4.2-5.4 [facility] Comment on above: Performed By: #### L 100.0500, BTSPAT ####[facility] [address] [place], [address] RDW SD 44.1 fl High 35.1-43.9 [facility] Comment on above: Performed By: #### L 100.0500, BTSPAT ####[facility] [address] [place], [address] WBC (Bld) [#/Vol] 6.6 10*3/uL Normal 4.4-11.0 [facility] Comment on above: Performed By: #### L 100.0500, BTSPAT ####[facility] [address] [place], [address] Thyroid Stim Hormone (TSH)on 05-29-2024 TSH 0.773 uIU/mL Normal 0.358-3.74 0 [facility] Comment on above: Performed By: #### L 501.9520 #### [facility] Laboratory [address] [place], [address] Type AND Screen - PAT ONLYon 05-29-2024 Ab SCREEN GEL Negative Normal [facility] Comment on above: Order Comment: Surge ry Date: 06/05/24Reason for Laboratory Test [id number] BILAT SALPINGECTOMY Performed By: #### L 100.0500, BTSPAT ####[facility] [address] [place], [address] ABO and Rh group Nom (Bld) Blood group A Rh(D) positive Normal [facility] Comment on above: Order Comment: Surge ry Date: 06/05/24Reason for Laboratory Test [id number] BILAT SALPINGECTOMY Performed By: #### L 100.0500, BTSPAT ####[facility] [address] [place], [address] Tub Operator Office Visit Reporton 05-28-2024 Tub Operator Office Visit Report [facility] [address], [address] [place] [address] OFFICE VISIT Date of Service: 05/28/24 MR#: [id number] Acct: [id number] Name: REBECCA LAMB Rep #: [id number] : 1985 Provider: Dr. 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 Is patient in pain?: No Feel stressed/tense/nervous/anxio us/difficulty sleeping: not at all Allergies amphetamine (From Adderall) Allergy (Verified 05/22/24 09:53) Other dextroamphetamine (From Adderall) Allergy (Verified 05/22/24 09:53) Other lisdexamfetamine (From Vyvanse) Allergy (Verified 05/22/24 09:53) Other sulfamethoxazole (From Bactrim) Allergy (Verified 05/22/24 09:53) Nausea/Vom/Diarrhea trimethoprim (From Bactrim) Allergy (Verified 05/22/24 09:53) Nausea/Vom/Diarrhea Medications ???Medication ???Instructions ???Recorded ???Confirmed ???Type magnesium oxide 500 mg capsule 500 mg PO DAILY 11/04/22 05/28/24 History hyoscyamine sulfate 0.125 mg 0.125 mg sublingual BID-QID PRN 12/10/22 05/28/24 Rx sublingual tablet abdominal pain #30 tabs multivitamin with minerals 1 tab PO DAILY 08/11/23 05/28/24 History (Hair,Skin and Nails tablet) norgestimate 0.25 mg-ethinyl 1 tab PO DAILY #84 tabs 12/13/23 05/28/24 Rx estradiol 35 mcg tablet (Sprintec (28)) levothyroxine 75 mcg tablet 75 mcg PO DAILY #30 tabs 04/20/24 05/28/24 Rx topiramate 50 mg tablet 50 mg PO BID #60 tabs 05/17/24 05/28/24 Rx Lactobacillus acidophilus 250 500 mmu cells PO DAILY 05/22/24 05/28/24 History million cell capsule (Probiotic Acidophilus) acyclovir 400 mg tablet 400 mg PO TID PRN Outbreak 05/22/24 05/28/24 History calcium carbonate 1,500 mg PO DAILY 05/22/24 05/28/24 History sertraline 100 mg tablet 100 mg PO QHS 05/22/24 05/28/24 History trazodone 50 mg tablet 50 mg PO QHS 05/22/24 05/28/24 History turmeric 400 mg capsule 1,000 mg PO DAILY 05/22/24 05/28/24 History Post menopausal: No Patient : No : No PFSH Medical History Dietary restriction Celiac disease Preventative health care Health care maintenance 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 Chronic back pain Depression Alcohol use Thyroid disease Gastric reflux Former smoker Influenza A Thyromegaly Neck swelling Swallowing difficulty Anxiety and depression Lumbar radiculopathy Lumbar strain Abnormal Pap smear of cervix Rhabdomyolysis Surgical History History of esophagogastroduodenoscopy (EGD) History of wisdom tooth extraction H/O eye surgery History of Family History Mother Diabetes Brother Leukemia Grandmother CVA (cerebral vascular accident) Parkinson disease Diabetes Father Bleeding disorder Social History adopted: No household members: spouse and children number of children: 2 current occupational status: employed current occupation: [employer] pets and animals: Yes (1) pets and animals: dog(s) sexually active: Yes Smoking Status: Former smoker quit date: 07/11/13 Tobacco: How many years used: 10 alcohol intake: current alcohol intake frequency: a few times a month substance use type: does not use diet: gluten free caffeine: Yes (4) Type: coffee what type of physical activity do you participate in: running and weight training frequency: 5-6 times per week seatbelt use: always do you feel safe at home: Yes additional social history: [place] Patient works at [employer] BS Details: REBECCA LAMB is a 39 year old who presents for sterilization request. she has no menses, takes continuous OCP but wants additional reassurance for prevention. she denies any pelvic pain, some cramping intermittently cyclically. symptoms are mild she hasn't taken treatment for it. Female Reproductive History Menopausal Symptoms: No night sweats History 2 Elective abortions Hx Para 2 Spontaneous abortions Hx # Term Pregnancies Ectopic pregnancies Hx # Pregnancies Multiple births # of living children Past Pregnancies Del. Date Name GA/Weeks Outcome Route Bth Weight Gen Labor Lgth Anesthesia Del Locatn Provider FOB Unknown 2014 Phil 41 live - full term Male Raymon Unknown 2017 Juanito live - full term Male B enekos ROS Const Constitutional: Denies fatigue, night swea (more content not included)... Normal [facility] Chiropractic Reporton 2023 Chiropractic Report [facility] [address] [place] [address] OFFICE VISIT Date of Service: 05/17/24 MR#: [id number] Acct: [id number] Name: REBECCA LAMB Rep #: [id number] : 1985 Provider: LUL Virgen Age/Sex: 39/F Location: [facility] [place] [place] Status: Signed Intake Vital Signs 03/06/24 14:00 Height 5 ft 4 in Weight: 166 lb BMI 28.5 BP 118/64 Intake Visit Reasons: Back pain Chief Complaint: neck/mid and low back Is patient in pain?: Yes (Neck, back) Pain scale (1-10): 3 Allergies amphetamine (From Adderall) Allergy (Verified 05/17/24 17:09) Other dextroamphetamine (From Adderall) Allergy (Verified 05/17/24 17:09) Other lisdexamfetamine (From Vyvanse) Allergy (Verified 05/17/24 17:09) Other sulfamethoxazole (From Bactrim) Allergy (Verified 05/17/24 17:09) Nausea/Vom/Diarrhea trimethoprim (From Bactrim) Allergy (Verified 05/17/24 17:09) Nausea/Vom/Diarrhea Medications ???Medication ???Instructions ???Recorded ???Confirmed ???Type magnesium oxide 500 mg capsule 500 mg PO DAILY 11/04/22 05/17/24 History hyoscyamine sulfate 0.125 mg 0.125 mg sublingual BID-QID PRN 12/10/22 05/17/24 Rx sublingual tablet abdominal pain #30 tabs multivitamin with minerals 1 tab PO DAILY 08/11/23 05/17/24 History (Hair,Skin and Nails tablet) trazodone 50 mg tablet 50 mg PO DAILY #30 tabs 08/29/23 05/17/24 Rx norgestimate 0.25 mg-ethinyl 1 tab PO DAILY #84 tabs 12/13/23 05/17/24 Rx estradiol 35 mcg tablet (Sprintec (28)) sertraline 100 mg tablet 100 mg PO QDAY #90 tabs 01/11/24 05/17/24 Rx acyclovir 400 mg tablet 400 mg PO TID Outbreak 10 days #30 04/03/24 05/17/24 Rx tabs levothyroxine 75 mcg tablet 75 mcg PO DAILY #30 tabs 04/20/24 05/17/24 Rx topiramate 50 mg tablet 50 mg PO BID #60 tabs 05/17/24 05/17/24 Rx PFSH Medical History Preventative health care Health care maintenance 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 Chronic back pain Wears contact lenses Depression Alcohol use Thyroid disease Gastric reflux Former smoker Influenza A Thyromegaly Neck swelling Swallowing difficulty Anxiety and depression Lumbar radiculopathy Lumbar strain Abnormal Pap smear of cervix Rhabdomyolysis Surgical History History of wisdom tooth extraction H/O eye surgery History of Family History Mother Diabetes Brother Leukemia Grandmother CVA (cerebral vascular accident) Parkinson disease Diabetes Father Bleeding disorder Social History adopted: No household members: spouse and children number of children: 2 current occupational status: employed current occupation: [employer] pets and animals: Yes (1) pets and animals: dog(s) sexually active: Yes Smoking Status: Former smoker quit date: 07/11/13 Tobacco: How many years used: 10 alcohol intake: current alcohol intake frequency: a few times a month substance use type: does not use diet: gluten free caffeine: Yes (4) Type: coffee what type of physical activity do you participate in: running and weight training frequency: 5-6 times per week seatbelt use: always do you feel safe at home: Yes additional social history: Az Patient works at [employer] HPI Back pain Chief Complaint: R neck/trap Visit Number: 3 Details: Rebecca is a 39 year old female here for a follow up of neck and upper back pain. Pt. complains of neck pain and stiffness that radiates into her traps, the right is worse than the left. She does experience headaches. She complains of upper back pain and tightness. She is also experiencing low back pain that extends into her right hip and leg. She feels as though her right hip is out of alignment. She has noticed grinding in her pelvis. Her low back has been feeling pretty good overall. She has been using a TENS unit at home and applying ice as needed. She denies new injury, numbness or tingling. She reports previous chiropractic adjustments have been helpful in the past. 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 Normal [facility] Chiropractic Reporton 2023 Chiropractic Report [facility] [address] [place], [place] [id number] OFFICE VISIT Date of Service: 04/16/24 MR#: [id number] Acct: [id number] Name: REBECCA LAMB Rep #: [id number] : 1985 Provider: LUL Virgen Age/Sex: 39/F Location: [facility] Status: Signed Intake Vital Signs 03/06/24 14:00 Height 5 ft 4 in Weight: 166 lb BMI 28.5 BP 118/64 Intake Visit Reasons: Back pain Chief Complaint: neck/mid and low back Is patient in pain?: Yes Pain scale (1-10): 2 Allergies amphetamine (From Adderall) Allergy (Verified 04/16/24 16:33) Other dextroamphetamine (From Adderall) Allergy (Verified 04/16/24 16:33) Other lisdexamfetamine (From Vyvanse) Allergy (Verified 04/16/24 16:33) Other sulfamethoxazole (From Bactrim) Allergy (Verified 04/16/24 16:33) Nausea/Vom/Diarrhea trimethoprim (From Bactrim) Allergy (Verified 04/16/24 16:33) Nausea/Vom/Diarrhea PFSH Medical History Preventative health care Health care maintenance 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 Chronic back pain Wears contact lenses Depression Alcohol use Thyroid disease Gastric reflux Former smoker Influenza A Thyromegaly Neck swelling Swallowing difficulty Anxiety and depression Lumbar radiculopathy Lumbar strain Abnormal Pap smear of cervix Rhabdomyolysis Surgical History History of wisdom tooth extraction H/O eye surgery History of Family History Mother Diabetes Brother Leukemia Grandmother CVA (cerebral vascular accident) Parkinson disease Diabetes Father Bleeding disorder Social History adopted: No household members: spouse and children number of children: 2 current occupational status: employed current occupation: [employer] pets and animals: Yes (1) pets and animals: dog(s) sexually active: Yes Smoking Status: Former smoker quit date: 07/11/13 Tobacco: How many years used: 10 alcohol intake: current alcohol intake frequency: a few times a month substance use type: does not use diet: gluten free caffeine: Yes (4) Type: coffee what type of physical activity do you participate in: running and weight training frequency: 5-6 times per week seatbelt use: always do you feel safe at home: Yes additional social history: Az Patient works at [employer] HPI Back pain Chief Complaint: R neck/trap Visit Number: 2 Details: Rebecca is a 39 year old female here for a follow up of neck and upper back pain. Pt. advises her neck pain has improved since her last visit. She states that she is having pain and tightness on the R side of her neck that goes into her R trap. She does have occasional headaches but denies any radiculopathy into her arms. 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 She rates her neck pain at 2/10. She states that her upper back is not painful or tight today. Her low back has been feeling pretty good overall. She has been using a TENS unit at home and applying ice as needed. She denies new injury, numbness or tingling. She reports previous chiropractic adjustments have been helpful in the past. Onset: 02/07/24 Location: right neck/trap Duration: constant Aggravating or associated factors: sitting, computer work Relieving factors: chiro Pain Quality: aching and dull Exam Musc General: Yes joint tenderness and decreased range of motion; No normal posture or normal gait Cervical Spine: Yes normal cervical lordosis, Yes cervical muscular tenderness right greater than left lower , Yes cervical spasm right greater than left lower trapezius and paracervical muscles, left upper intrinsics and Yes misalignment misalignment: C2, C5 and C6 Thoracic/Lumber: Yes thoracic and lumbar spine normal to inspection, Yes paraspinal tenderness bilaterally in the lower lumbar and on the right greater than left (upper thoracic), Yes thoraco- lumbar spasm bilaterally (trap, levator) in the upper thoracic and in the mid thoracic and on the right greater than left (QL, piriformis) and Yes misalignment T3, T4, T5, L3, L4 and L5 Office Procedures Procedures - Chiropractic Procedures Manipulation: Cervical C2 and C6, Lumbar L3 and L5 and Thoracic T2 and T6 Manipulation: 3-4 regions Traction, Mechanical: Yes Patient Response: positive Assessment and Plan Assessment and Plan (1) DDD (degenerative disc disease), lumbosacral: Status: Chronic Qualifiers: Disc-related pain type: discogenic back pain only Qualified Code(s): M51.370 - Other intervertebral disc degeneration, lumbosacral region with disco (more content not included)... Normal [facility] Chiropractic Reporton 2023 Chiropractic Report [facility] [address] [place] [address] OFFICE VISIT Date of Service: 03/06/24 MR#: [id number] Acct: [id number] Name: REBECCA LAMB Rep #: [id number] : 1985 Provider: LUL Virgen Age/Sex: 39/F Location: [facility] [place] [place] Status: Signed Intake Vital Signs 01/11/24 17:27 03/06/24 14:00 Height 5 ft 4 in 5 ft 4 in Weight: 155 lb 166 lb BMI 26.6 28.5 BP 112/78 118/64 Blood Pressure Location Lt brachial Position Sitting Respiration 14 Pulse 86 Pulse Source Monitor Temp 97.4 F L Temp Source Temporal Pulse Oximetry (%) 99 Oxygen Delivery Method room air Intake Visit Reasons: Reeval Chief Complaint: Annual Is patient in pain?: Yes (neck ) Pain scale (1-10): 6 Allergies amphetamine (From Adderall) Allergy (Verified 03/06/24 14:09) Other dextroamphetamine (From Adderall) Allergy (Verified 03/06/24 14:09) Other lisdexamfetamine (From Vyvanse) Allergy (Verified 03/06/24 14:09) Other sulfamethoxazole (From Bactrim) Allergy (Verified 03/06/24 14:09) Nausea/Vom/Diarrhea trimethoprim (From Bactrim) Allergy (Verified 03/06/24 14:09) Nausea/Vom/Diarrhea Medications ???Medication ???Instructions ???Recorded ???Confirmed ???Type acyclovir 400 mg tablet 400 mg PO PRN PRN Outbreak 07/26/22 03/06/24 History magnesium oxide 500 mg capsule 500 mg PO DAILY 11/04/22 03/06/24 History hyoscyamine sulfate 0.125 mg 0.125 mg sublingual BID-QID PRN 12/10/22 03/06/24 Rx sublingual tablet abdominal pain #30 tabs levothyroxine 75 mcg tablet 75 mcg PO DAILY #90 tabs 08/11/23 03/06/24 Rx multivitamin with minerals 1 tab PO DAILY 08/11/23 03/06/24 History (Hair,Skin and Nails tablet) trazodone 50 mg tablet 50 mg PO DAILY #30 tabs 08/29/23 03/06/24 Rx topiramate 25 mg tablet (Topamax) 25 mg PO BID #60 tabs 09/22/23 03/06/24 Rx norgestimate 0.25 mg-ethinyl 1 tab PO DAILY #84 tabs 12/13/23 03/06/24 Rx estradiol 35 mcg tablet (Sprintec (28)) sertraline 100 mg tablet 100 mg PO QDAY #90 tabs 01/11/24 03/06/24 Rx PFSH Medical History Preventative health care Health care maintenance 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 Chronic back pain Wears contact lenses Depression Alcohol use Thyroid disease Gastric reflux Former smoker Influenza A Thyromegaly Neck swelling Swallowing difficulty Anxiety and depression Lumbar radiculopathy Lumbar strain Abnormal Pap smear of cervix Rhabdomyolysis Surgical History History of wisdom tooth extraction H/O eye surgery History of Family History Mother Diabetes Brother Leukemia Grandmother CVA (cerebral vascular accident) Parkinson disease Diabetes Father Bleeding disorder Social History adopted: No household members: spouse and children number of children: 2 current occupational status: employed current occupation: [employer] pets and animals: Yes (1) pets and animals: dog(s) sexually active: Yes Smoking Status: Former smoker quit date: 07/11/13 Tobacco: How many years used: 10 alcohol intake: current alcohol intake frequency: a few times a month substance use type: does not use diet: gluten free caffeine: Yes (4) Type: coffee what type of physical activity do you participate in: running and weight training frequency: 5-6 times per week seatbelt use: always do you feel safe at home: Yes additional social history: Az Patient works at [employer] HPI Reeval Chief Complaint: right neck and upper back pain Visit Number: 1 Details: Rebecca rivas a 39 year old female here for a re-evaluation of neck and upper back painpain. Pt. 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 She states they have also been sitting on bar stools because the new office chairs have not come in yet. She c/o right neck pain that extends into her right trap. She rates her neck pain 6/10. She states the rest of her back is tight from her neck to low back. She has been using a TENS unit at home and applying ice as needed. She denies new injury, numbness, tingling, or radiculopathy. She reports previous chiropractic adjustments have been helpful in the past. Onset: 02/07/24 Location: right neck/ trap Duration: constant Aggravating or associated factors: sitting, computer work Relieving factors: chiro Pain Quality: aching and dull Exam Musc General: Yes joint tenderness and decreased range of motion; No normal posture or normal gait Cervical Spine: Yes normal cervical lordosis, Yes cervical muscular tenderness right greater denny (more content not included)... Normal [facility] CBC W/Diff, Automatedon 07- Absolute Lymph 1.74 X10 3/uL Normal 0.83-4.51 [facility] Comment on above: Performed By: #### L 500.4100, L506.0400, L100.0100, L501.9520, L500.4050 ####[facility] [address] [place], [address] Absolute Neut 2.4 X10 3/uL Normal 2.0-7.7 [facility] Comment on above: Performed By: #### L 500.4100, L506.0400, L100.0100, L501.9520, L500.4050 ####[facility] [address] [place], [address] Basophils/100 WBC (Bld) 1.2 % High 0-1 [facility] Comment on above: Performed By: #### L 500.4100, L506.0400, L100.0100, L501.9520, L500.4050 ####[facility] [address] [place], [address] Eosinophils/100 WBC (Bld) 2.7 % Normal 0-5 [facility] Comment on above: Performed By: #### L 500.4100, L506.0400, L100.0100, L501.9520, L500.4050 ####[facility] [address] [place], [address] Erythrocyte distribution width (RBC) [Ratio] 12.8 % Normal 11.6-14.6 [facility] Comment on above: Performed By: #### L 500.4100, L506.0400, L100.0100, L501.9520, L500.4050 ####[facility] [address] [place], [address] Hematocrit (Bld) [Volume fraction] 39.2 % Normal 37-47 [facility] Comment on above: Performed By: #### L 500.4100, L506.0400, L100.0100, L501.9520, L500.4050 ####[facility] [address] [place], [address] Hemoglobin (Bld) [Mass/Vol] 12.9 g/dL Normal 12.0-15.0 [facility] Comment on above: Performed By: #### L 500.4100, L506.0400, L100.0100, L501.9520, L500.4050 ####[facility] [address] [place], [address] IG% 0.400 Normal 0.0-0.9 [facility] Comment on above: Result Comment: IG% - Immature Granulocytes (promyelocytes, myelocytes and metamyelocytes) > 1% indicates that a LEFT SHIFT is Present. Performed By: #### L 500.4100, L506.0400, L100.0100, L501.9520, L500.4050 ####[facility] [address] [place], [address] Lymphocytes/100 WBC (Bld) 36.0 % Normal 19-41 [facility] Comment on above: Performed By: #### L 500.4100, L506.0400, L100.0100, L501.9520, L500.4050 ####[facility] [address] [place], [address] MCH (RBC) [Entitic mass] 30.0 pg Normal 27.0-32.0 [facility] Comment on above: Performed By: #### L 500.4100, L506.0400, L100.0100, L501.9520, L500.4050 ####[facility] [address] [place], [address] MCHC (RBC) [Mass/Vol] 32.9 g/dL Normal 32-36 [facility] Comment on above: Performed By: #### L 500.4100, L506.0400, L100.0100, L501.9520, L500.4050 ####[facility] [address] [place], [address] MCV (RBC) [Entitic vol] 91.2 fL Normal 81-99 [facility] Comment on above: Performed By: #### L 500.4100, L506.0400, L100.0100, L501.9520, L500.4050 ####[facility] [address] [place], [address] Monocytes/100 WBC (Bld) 9.3 % Normal 0-10 [facility] Comment on above: Performed By: #### L 500.4100, L506.0400, L100.0100, L501.9520, L500.4050 ####[facility] [address] [place], [address] Neutrophils/100 WBC (Bld) 50.4 % Normal 47-70 [facility] Comment on above: Performed By: #### L 500.4100, L506.0400, L100.0100, L501.9520, L500.4050 ####[facility] [address] [place], [address] Nucleated RBC (Bld) [#/Vol] 0 10*3/uL Normal 0-5 [facility] Comment on above: Performed By: #### L 500.4100, L506.0400, L100.0100, L501.9520, L500.4050 ####[facility] [address] [place], [address] Platelet mean volume (Bld) [Entitic vol] 9.6 fL Normal 6.2-12.0 [facility] Comment on above: Performed By: #### L 500.4100, L506.0400, L100.0100, L501.9520, L500.4050 ####[facility] [address] [place], [address] Platelets (Bld) [#/Vol] 209 10*3/uL Normal 150-450 [facility] Comment on above: Performed By: #### L 500.4100, L506.0400, L100.0100, L501.9520, L500.4050 ####[facility] [address] [place], [address] RBC (Bld) [#/Vol] 4.30 10*6/uL Normal 4.2-5.4 [facility] Comment on above: Performed By: #### L 500.4100, L506.0400, L100.0100, L501.9520, L500.4050 ####[facility] [address] [place], [address] RDW SD 42.3 fl Normal 35.1-43.9 [facility] Comment on above: Performed By: #### L 500.4100, L506.0400, L100.0100, L501.9520, L500.4050 ####[facility] [address] [place], [address] WBC (Bld) [#/Vol] 4.8 10*3/uL Normal 4.4-11.0 [facility] Comment on above: Performed By: #### L 500.4100, L506.0400, L100.0100, L501.9520, L500.4050 ####[facility] [address] [place], [address] [facility] 02-02-2024 Albumin [Mass/Vol] 3.5 g/dL Normal 3.2-5.0 [facility] Comment on above: Performed By: #### L 500.4100, L506.0400, L100.0100, L501.9520, L500.4050 ####[facility] [address] [place], [address] Albumin/Globulin [Mass ratio] 0.9 {ratio} Normal 0.9-2.4 [facility] Comment on above: Performed By: #### L 500.4100, L506.0400, L100.0100, L501.9520, L500.4050 ####[facility] [address] [place], [address] ALK P 41 U/L Low 45-117 [facility] Comment on above: Performed By: #### L 500.4100, L506.0400, L100.0100, L501.9520, L500.4050 ####[facility] [address] [place], [address] ALT [Catalytic activity/Vol] 26 U/L Normal 13-56 [facility] Comment on above: Performed By: #### L 500.4100, L506.0400, L100.0100, L501.9520, L500.4050 ####[facility] [address] [place], [address] AST [Catalytic activity/Vol] 25 U/L Normal 15-37 [facility] Comment on above: Performed By: #### L 500.4100, L506.0400, L100.0100, L501.9520, L500.4050 ####[facility] [address] [place], [address] Bilirubin [Mass/Vol] 0.50 mg/dL Normal 0.20-1.00 [facility] Comment on above: Result Comment: For patients on eltrombopag therapy, use of Dimension Sherborn TBIL is not recommended. Performed By: #### L 500.4100, L506.0400, L100.0100, L501.9520, L500.4050 ####[facility] [address] [place], [address] BUN/CRE 16.6 RATIO Normal 10-20 [facility] Comment on above: Performed By: #### L 500.4100, L506.0400, L100.0100, L501.9520, L500.4050 ####[facility] [address] [place], [address] CA,Total 9.1 mg/dL Normal 8.5-10.1 [facility] Comment on above: Performed By: #### L 500.4100, L506.0400, L100.0100, L501.9520, L500.4050 ####[facility] [address] [place], [address] Chloride [Moles/Vol] 110 mmol/L High 98-107 [facility] Comment on above: Performed By: #### L 500.4100, L506.0400, L100.0100, L501.9520, L500.4050 ####[facility] [address] [place], [address] CO2 [Moles/Vol] 22.0 mmol/L Normal 21.0-32.0 [facility] Comment on above: Performed By: #### L 500.4100, L506.0400, L100.0100, L501.9520, L500.4050 ####[facility] [address] [place], [address] Creatinine [Mass/Vol] 0.90 mg/dL Normal 0.55-1.02 [facility] Comment on above: Result Comment: The validity of the calculated GFR GFRAA in patients over 70 years has not been determined. Clinical correlation is essential. Performed By: #### L 500.4100, L506.0400, L100.0100, L501.9520, L500.4050 ####[facility] [address] [place], [address] EST GFR - AA 90 mL/min Normal >60 [facility] Comment on above: Result Comment: Afri can Polish GFR Calc Performed By: #### L 500.4100, L506.0400, L100.0100, L501.9520, L500.4050 ####[facility] [address] [place], [address] GAP 6 Normal 5-15 [facility] Comment on above: Performed By: #### L 500.4100, L506.0400, L100.0100, L501.9520, L500.4050 ####[facility] [address] [place], [address] GFR/1.73 sq M.predicted among non-blacks MDRD (S/P/Bld) [Vol rate/Area] 74 mL/min/{1.73_m2} Normal >60 [facility] Comment on above: Result Comment: Non- GFR Calc Performed By: #### L 500.4100, L506.0400, L100.0100, L501.9520, L500.4050 ####[facility] [address] [place], [address] Globulin (S) [Mass/Vol] 4.0 g/dL Normal 2.2-4.2 [facility] Comment on above: Performed By: #### L 500.4100, L506.0400, L100.0100, L501.9520, L500.4050 ####[facility] [address] [place], [address] Glucose [Mass/Vol] 97 mg/dL Normal 74-106 [facility] Comment on above: Performed By: #### L 500.4100, L506.0400, L100.0100, L501.9520, L500.4050 ####[facility] [address] [place], [address] Potassium [Moles/Vol] 3.7 mmol/L Normal 3.5-5.1 [facility] Comment on above: Performed By: #### L 500.4100, L506.0400, L100.0100, L501.9520, L500.4050 ####[facility] [address] [place], [address] Sodium [Moles/Vol] 138 mmol/L Normal 136-145 [facility] Comment on above: Performed By: #### L 500.4100, L506.0400, L100.0100, L501.9520, L500.4050 ####[facility] [address] [place], [address] T PROT 7.5 g/dL Normal 6.4-8.2 [facility] Comment on above: Performed By: #### L 500.4100, L506.0400, L100.0100, L501.9520, L500.4050 ####[facility] [address] [place], [address] Urea nitrogen [Mass/Vol] 15 mg/dL Normal 7-18 [facility] Comment on above: Performed By: #### L 500.4100, L506.0400, L100.0100, L501.9520, L500.4050 ####[facility] [address] [place], [address] Lipid Profileon 02-02-2024 Cholesterol [Mass/Vol] 189 mg/dL Normal 200 [facility] Comment on above: Result Comment: <200 mg/dL Desirable 200-240 mg/dL Borderline >240 mg/dL High Risk Performed By: #### L 500.4100, L506.0400, L100.0100, L501.9520, L500.4050 ####[facility] [address] [place], [address] Cholesterol in HDL [Mass/Vol] 96 mg/dL Normal [facility] Comment on above: Result Comment: The drugs N-Acetylcysteine and Metamizole may falsely depress this assay. Reference Range HDL <40 mg/dL Low HDL Cholesterol HDL >or= 60 mg/dL High HDL Cholesterol Performed By: #### L 500.4100, L506.0400, L100.0100, L501.9520, L500.4050 ####[facility] [address] [place], [address] Cholesterol in LDL [Mass/Vol] 72 mg/dL Normal 0-130 [facility] Comment on above: Performed By: #### L 500.4100, L506.0400, L100.0100, L501.9520, L500.4050 ####[facility] [address] [place], [address] Cholesterol in VLDL [Mass/Vol] 21 mg/dL Normal 5-40 [facility] Comment on above: Performed By: #### L 500.4100, L506.0400, L100.0100, L501.9520, L500.4050 ####[facility] [address] [place], [address] Triglyceride [Mass/Vol] 104 mg/dL Normal [facility] Comment on above: Result Comment: The drugs N-Acetylcysteine and Metamizole may falsely depress this assay. Serum Triglycerides Reference Interval Normal <150 mg/dL Borderline high 150 - 199 mg/dL High 200 - 499 mg/dL Very High > or = 500 mg/dL Performed By: #### L 500.4100, L506.0400, L100.0100, L501.9520, L500.4050 ####[facility] [address] [place], [address] T4 Free Directon 02-02-2024 T4 FREE DIRECT 1.09 ng/dL Normal 0.76-1.46 [facility] Comment on above: Performed By: #### L 500.4100, L506.0400, L100.0100, L501.9520, L500.4050 ####[facility] [address] [place], [address] Thyroid Stim Hormone (TSH)on 02-02-2024 TSH 0.72 uIU/mL Normal 0.358-3.74 [facility] Comment on above: Performed By: #### L 500.4100, L506.0400, L100.0100, L501.9520, L500.4050 ####[facility] [address] [place], [address] Internal Medicine Office Vis shayna 01-11-2024 Internal Medicine Office Visit [facility] [address] [place] [address] [address] [place] [address] OFFICE VISIT Date of Service: 01/11/24 MR#: [id number] Acct: [id number] Name: REBECCA LAMB Rep #: [id number] : 1985 Provider: Dr. 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 Is patient in pain?: No Allergies amphetamine (From Adderall) Allergy (Verified 01/11/24 17:22) Other dextroamphetamine (From Adderall) Allergy (Verified 01/11/24 17:22) Other lisdexamfetamine (From Vyvanse) Allergy (Verified 01/11/24 17:22) Other sulfamethoxazole (From Bactrim) Allergy (Verified 01/11/24 17:22) Nausea/Vom/Diarrhea trimethoprim (From Bactrim) Allergy (Verified 01/11/24 17:22) Nausea/Vom/Diarrhea Medications ???Medication ???Instructions ???Recorded ???Confirmed ???Type acyclovir 400 mg tablet 400 mg PO PRN PRN Outbreak 07/26/22 01/11/24 History magnesium oxide 500 mg capsule 500 mg PO DAILY 11/04/22 01/11/24 History hyoscyamine sulfate 0.125 mg 0.125 mg sublingual BID-QID PRN 12/10/22 01/11/24 Rx sublingual tablet abdominal pain #30 tabs levothyroxine 75 mcg tablet 75 mcg PO DAILY #90 tabs 08/11/23 01/11/24 Rx multivitamin with minerals 1 tab PO DAILY 08/11/23 01/11/24 History (Hair,Skin and Nails tablet) trazodone 50 mg tablet 50 mg PO DAILY #30 tabs 08/29/23 01/11/24 Rx topiramate 25 mg tablet (Topamax) 25 mg PO BID #60 tabs 09/22/23 01/11/24 Rx norgestimate 0.25 mg-ethinyl 1 tab PO DAILY #84 tabs 12/13/23 01/11/24 Rx estradiol 35 mcg tablet (Sprintec (28)) sertraline 100 mg tablet 100 mg PO QDAY #90 tabs 01/11/24 01/11/24 Rx PFSH Medical History (Updated 01/11/24 @ 22:[address] 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 Chronic back pain Wears contact lenses Depression Alcohol use Thyroid disease Gastric reflux Former smoker Influenza A Thyromegaly Neck swelling Swallowing difficulty Anxiety and depression Lumbar radiculopathy Lumbar strain Abnormal Pap smear of cervix Rhabdomyolysis Surgical History History of wisdom tooth extraction H/O eye surgery History of Family History Mother Diabetes Brother Leukemia Grandmother CVA (cerebral vascular accident) Parkinson disease Diabetes Father Bleeding disorder Social History (Updated 01/11/24 @ 17:26 by Sommer Arreola MA) adopted: No household members: spouse and children number of children: 2 service: No current occupational status: employed current occupation: [employer] pets and animals: Yes (1) pets and animals: dog(s) sexually active: Yes do you think of yourself as: straight/heterosexual current gender identity: female Smoking Status: Former smoker quit date: 07/11/13 Tobacco: How many years used: 10 alcohol intake: current alcohol intake frequency: a few times a month substance use type: does not use diet: gluten free caffeine: Yes (4) Type: coffee what type of physical activity do you participate in: running and weight training frequency: 5-6 times per week seatbelt use: always do you feel safe at home: Yes additional social history: [place] Patient works at [employer] Chief Complaint: Annual Details: REBECCA LAMB, is a 38 F who presents to the office today for her annual exam. No acute concerns at this time. No significant family history of colon, breast or skin cancer. 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 Currently at a BMI of 26.6. Stays active. ROS Const Constitutional: No body ache, chills, excessive sweating, fatigue, fever(s), frequent falls, headache(s), snoring, weakness, sleep problems or change in appetite Eyes Eyes: No blurry vision, change in vision, eye pain or Light sensitivity ENT ENT: No abnormal hearing, ear or mastoid pain, tinnitus, nasal congestion, headache(s), neck pain or sore throat Resp Respiratory: No cough, shortness of breath, snoring or wheezing Cardio Cardiology: No chest pain at rest, chest pain with exertion, excessive sweating, shortness of breath, dyspnea on exertion, lightheadedness, orthopnea or palpitations Gastro GI: No abdominal pain, change in bowel habits, constipation, cramping, diarrhea, nausea/dyspepsia or vo (more content not included)... Normal [facility] Basophil percentageOrdered B y: Padmini Santo on 09-23-2023 Cholesterol [Mass/Vol] 201 mg/dL <200 [facility] Comment on above: <200 mg/dL Desirable 200-240 mg/dL Borderline >240 mg/dL High Risk Glucose [Mass/Vol] 96 mg/dL 74-106 [facility] Triglyceride [Mass/Vol] 108 mg/dL <199 [facility] Comment on above: The drugs N-Acetylcy steine and Metamizole may falsely depress this assay.Serum Triglycerides Reference Interval Normal <150 mg/dL Borderline high 150 - 199 mg/dL High 200 - 499 mg/dL Very High > or = 500 mg/dL Laboratory - Chemistry and C hemistry - challengeOrdered By: Padmini Santo on 09-23-2023 Cholesterol in HDL [Mass/Vol] 92 mg/dL >40 [facility] Comment on above: The drugs N-Acetylcy steine and Metamizole may falsely depress this assay. Reference Range HDL <40 mg/dL Low HDL Cholesterol HDL >or= 60 mg/dL High HDL Cholesterol Cholesterol in LDL [Mass/Vol] 87 mg/dL 0-130 [facility] CK [Catalytic activity/Vol] 65 U/L 26-192 [facility] No Panel InformationOrdered By: Padmini Santo on 09-23-2023 Vitamin D 25-Hydroxy 32.3 ng/mL [facility] Comment on above: Vitamin D 25(OH) Sta tus Range Deficiency <20 ng/mL (50nmol/L) Insufficiency 20 - 30 ng/mL (50 - 75 nmol/L) Sufficiency 30 - 100 ng/mL (75 - 250 nmol/L) Toxicity >100 ng/mL (>250 nmol/L) VLDL Cholesterol 22 mg/dL 5-40 [facility] Whole blood hemoglobin A1c/t otal hemoglobin ratio (mass fraction)Ordered By: Padmini Santo on 09-23-2023 HbA1c (Bld) [Mass fraction] 5.1 % 3.8-5.6 [facility] Comment on above: Normal < 5.7 % Predi abetic 5.7 - 6.4 % Diabetic >or= 6.5 % Please note range changes. Ammoniaon 09-21-2023 Ammonia (P) [Moles/Vol] 62 umol/L [address] Comment on above: Performed By: #### 1 6362-6 #### ANDERSON Garcia ([id number]) [facility] ([facility]) [address] [place] [address] Ammonia (P) [Moles/Vol] 89 umol/L [address] Comment on above: Performed By: #### 1 6362-6 #### ANDERSON Garcia ([id number]) [facility] ([facility]) [address] [place] [address] Ammonia (P) [Moles/Vol] 91 umol/L [address] Comment on above: Performed By: #### 1 6362-6 #### ANDERSON Garcia ([id number]) [facility] ([facility]) [address] [place] [address] Ammonia (P) [Moles/Vol] 93 umol/L [address] Comment on above: Performed By: #### 2 524-7 #### ANDERSON Garcia ([id number]) [facility] ([facility]) [address] [place] [address] Ammonia (P) [Moles/Vol] 44 umol/L Normal 16-53 [facility] Comment on above: Performed By: #### 1 6362-6 #### ANDERSON Garcia ([id number]) [facility] ([facility]) [id number] [place] [address] Ammonia (P) [Moles/Vol] 30 umol/L 16 - 53 umol/L [facility] Comment on above: Performed By: #### 2 524-7 #### ANDERSON Garcia ([id number]) [facility] ([facility]) [id number] [place] [address] Ammonia (P) [Moles/Vol] 93 umol/L High 16 - 53 umol/L [facility] Ammonia (P) [Moles/Vol] 62 umol/L High 16 - 53 umol/L [facility] Ammonia (P) [Moles/Vol] 44 umol/L 16 - 53 umol/L [facility] Ammonia (P) [Moles/Vol] 91 umol/L High 16 - 53 umol/L [facility] Ammonia (P) [Moles/Vol] 89 umol/L High 16 - 53 umol/L [facility] Ammonia (P) [Moles/Vol]on Interpretation and review of laboratory results Normal [facility] Interpretation and review of laboratory results Abnormal [facility] Interpretation and review of laboratory results Normal [facility] Interpretation and review of laboratory results Abnormal [facility] Lactateon 09-21-2023 Lactate [Moles/Vol] 2.3 mmol/L High 0.4-2.[address] [facility] Comment on above: Order Comment: Venip uncture immediately after or during the administration of Metamizole may lead to falsely low results. Testing should be performed immediately prior to Metamizole dosing. Performed By: #### 2 524-7 #### ANDERSON Garcia ([id number]) [facility] ([facility]) [id number] [place] [address] Lactate [Moles/Vol] 3.7 mmol/L High 0.4-2.[address] [facility] Comment on above: Order Comment: Venip uncture immediately after or during the administration of Metamizole may lead to falsely low results. Testing should be performed immediately prior to Metamizole dosing. Performed By: #### 2 524-7 #### ANDERSON Garcia ([id number]) [facility] ([facility]) [address] [place] [address] Lactate [Moles/Vol] 4.9 mmol/L Critically high 0.4-2.0 [facility] Comment on above: Order Comment: Venip uncture immediately after or during the administration of Metamizole may lead to falsely low results. Testing should be performed immediately prior to Metamizole dosing. Performed By: #### 2 524-7 #### ANDERSON Garcia ([id number]) [facility] ([facility]) [address] [place] [address] Lactate [Moles/Vol] 4.6 mmol/L Critically high 0.4-2.0 [facility] Comment on above: Order Comment: Venip uncture immediately after or during the administration of Metamizole may lead to falsely low results. Testing should be performed immediately prior to Metamizole dosing. Performed By: #### 2 524-7 #### ANDERSON Garcia ([id number]) [facility] ([facility]) [address] [place] [address] Lactate [Moles/Vol] 2.6 mmol/L High 0.4-2.[address] [facility] Comment on above: Order Comment: Venip uncture immediately after or during the administration of Metamizole may lead to falsely low results. Testing should be performed immediately prior to Metamizole dosing. Performed By: #### 2 524-7 #### ANDERSON Garcia ([id number]) [facility] ([facility]) [address] [place] [address] Lactate [Moles/Vol] 0.5 mmol/L 0.4 - 2. 0 mmol/L [facility] Comment on above: Order Comment: Venip uncture immediately after or during the administration of Metamizole may lead to falsely low results. Testing should be performed immediately prior to Metamizole dosing. Performed By: #### 2 524-7 #### ANDERSON Garcia ([id number]) [facility] ([facility]) [address] [place] [address] Lactate [Moles/Vol]on 2023 Interpretation and review of laboratory results Normal [facility] Interpretation and review of laboratory results Abnormal [facility] Venipuncture immedia tely after or during the administration of Metamizole may lead to falsely low results. Testing should be performed immediately prior to Metamizole dosing. [facility] Interpretation and review of laboratory results Abnormal [facility] Venipuncture immedia tely after or during the administration of Metamizole may lead to falsely low results. Testing should be performed immediately prior to Metamizole dosing. [facility] Lactic acid, plasmaon 2023 Lactate [Moles/Vol] 2.6 mmol/L High 0.4 - 2. 0 mmol/L [facility] Lactate [Moles/Vol] 4.6 mmol/L Critically high 0.4 - 2.0 mmol/L [facility] Lactate [Moles/Vol] 4.9 mmol/L Critically high 0.4 - 2.0 mmol/L [facility] Lactate [Moles/Vol] 2.3 mmol/L High 0.4 - 2. 0 mmol/L [facility] Lactate [Moles/Vol] 3.7 mmol/L High 0.4 - 2. 0 mmol/L [facility] Laboratory - Microbiology an d Antimicrobial susceptibilityon 08-05-2023 S. pyogenes Ag IA Ql (Unsp spec) Positive [facility] Laboratory - Chemistry and C hemistry - challengeOrdered By: Shaneka Joyce on 03-24-2023 CK [Catalytic activity/Vol] 429 U/L 26-192 [facility] Absolute lymphocyte countOrd ered By: Shaneka Joyce on 03-21-2023 Lymphocytes Auto (Unsp spec) [#/Vol] 2.46 10*3/uL 0.83-4.51 [facility] Basophil percentageOrdered B y: Shaneka Joyce on 03-21-2023 Basophils/100 WBC (Bld) 0.6 % 0-1 [facility] Bilirubin [Mass/Vol] 0.30 mg/dL 0.20-1.00 [facility] Comment on above: For patients on eltr ombopag therapy, use of Dimension [place] TBIL is not recommended. Chloride [Moles/Vol] 105 mmol/L 98-107 [facility] Eosinophils/100 WBC (Bld) 2.2 % 0-5 [facility] Glucose [Mass/Vol] 106 mg/dL 74-106 [facility] Comment on above: Fasting Glucose resu lt from 100 to 125 mg/dL suggests IMPAIRED HOMEOSTASIS per A.D.A. criteria. Neutrophils (Bld) [#/Vol] 5.1 10*3/uL 2.0-7.7 [facility] Neutrophils/100 WBC (Bld) 61.1 % 47-70 [facility] Potassium [Moles/Vol] 3.9 mmol/L 3.5-5.1 [facility] Protein [Mass/Vol] 7.2 g/dL 6.4-8.2 [facility] Sodium [Moles/Vol] 138 mmol/L 136-145 [facility] WBC (Bld) [#/Vol] 8.3 10*3/uL 4.4-11.0 [facility] Blood erythrocytes count (nu mber/volume)Ordered By: Shaneka Joyce on 03-21-2023 RBC (Bld) [#/Vol] 4.22 10*6/uL 4.2-5.4 [facility] Blood hemoglobin measurement (mass/volume)Ordered By: Shaneka Joyce on 03-21-2023 Hemoglobin (Bld) [Mass/Vol] 12.7 g/dL 12.0-15.0 [facility] Blood lymphocytes/100 leukoc ytesOrdered By: Shaneka Joyce on 03-21-2023 Lymphocytes/100 WBC (Bld) 29.6 % 19-41 [facility] Blood monocytes/100 leukocyt esOrdered By: Shaneka Joyce on 03-21-2023 Monocytes/100 WBC (Bld) 6.1 % 0-10 [facility] Blood platelet mean volumeOr dered By: Shaneka Joyce on 03-21-2023 Platelet mean volume (Bld) [Entitic vol] 9.8 fL 6.2-12.0 [facility] Determination of erythrocyte mean corpuscular volume (MCV)Ordered By: Shaneka Joyce on 03-21-2023 MCV (RBC) [Entitic vol] 92.4 fL 81-99 [facility] Hematocrit Auto (Bld) [Volum e fraction]Ordered By: [facility] Mayorgaxiomara on 03-21-2023 Hematocrit (Bld) [Volume fraction] 39.0 % 37-47 [facility] Laboratory - Chemistry and C hemistry - challengeOrdered By: [facility] Mukeshxiomara on 03-21-2023 ALP [Catalytic activity/Vol] 46 U/L 45-117 [facility] ALT [Catalytic activity/Vol] 35 U/L 13-56 [facility] CK [Catalytic activity/Vol] 935 U/L 26-192 [facility] CO2 [Moles/Vol] 26.0 mmol/L 21.0-32.0 [facility] Globulin (S) [Mass/Vol] 3.9 g/dL 2.2-4.2 [facility] Urea nitrogen/Creatinine [Mass ratio] 14.3 mg/mg 10-20 [facility] Laboratory - Hematology and Cell countsOrdered By: goranchaviesminesh Mayorgaxiomara on 03-21-2023 Erythrocyte distribution width (RBC) [Entitic vol] 42.4 fL 35.1-43.9 [facility] Erythrocyte distribution width (RBC) [Ratio] 12.5 % 11.6-14.6 [facility] Immature granulocytes/100 WBC (Bld) 0.400 % 0.0-0.9 [facility] Comment on above: IG% - Immature Granu locytes (promyelocytes, myelocytes and metamyelocytes) > 1% indicates that a LEFT SHIFT is Present. MCH (RBC) [Entitic mass] 30.1 pg 27.0-32.0 [facility] Nucleated RBC/100 WBC (Bld) [Ratio] 0 % 0-5 [facility] ([facility]BC) [Mass/Vol]Or dered By: Shaneka Joyce on 03-21-2023 MCHC (RBC) [Mass/Vol] 32.6 g/dL 32-36 [facility] No Panel InformationOrdered By: Shaneka Joyce on 03-21-2023 Estimated GFR (MDRD) Amer 98 mL/min >60 [facility] Comment on above: GFR Calc Estimated GFR (MDRD) Non-Af Amer 81 mL/min >60 [facility] Comment on above: Non- GFR Calc Platelets bldOrdered By: Hosea Joyce on 03-21-2023 Platelets (Bld) [#/Vol] 246 10*3/uL 150-450 [facility] Serum or plasma albumin juan francisco urement (mass/volume)Ordered By: Shaneka Joyce on 03-21-2023 Albumin [Mass/Vol] 3.3 g/dL 3.2-5.0 [facility] Serum or plasma albumin/glob ulin mass ratioOrdered By: Shaneka Joyce on 03-21-2023 Albumin/Globulin [Mass ratio] 0.8 {ratio} 0.9-2.4 [facility] Serum or plasma calcium juan francisco urement (mass/volume)Ordered By: Shaneka Joyce on 03-21-2023 Calcium [Mass/Vol] 8.8 mg/dL 8.5-10.1 [facility] Serum or plasma creatinine m easurement (mass/volume)Ordered By: Shaneka Joyce on 03-21-2023 Creatinine [Mass/Vol] 0.84 mg/dL 0.55-1.02 [facility] Comment on above: The validity of the calculated GFR & GFRAA in patients over 70 years has not been determined. Clinical correlation is essential. Serum or plasma urea nitroge n measurement (mass/volume)Ordered By: Shaneka Joyce on 03-21-2023 Urea nitrogen [Mass/Vol] 12 mg/dL 7-18 [facility] Thin prep Papanicolaou smear with manual screeningOrdered By: Shaneka Joyce on 03-21-2023 Thin prep Papanicolaou smear with manual screening 59 U/L 15-37 [facility] Thin prep Papanicolaou smear with manual screening 7 5-15 [facility] Laboratory - Chemistry and C hemistry - challengeOrdered By: Nakia Torres on 01-31-2023 Free T4 [Mass/Vol] 0.99 ng/dL 0.76-1.46 [facility] No Panel InformationOrdered By: Nakia Torres on 01-31-2023 Free Triiodothyronine (T3) pg/dL 2.3 pg/mL 2.18-3.98 [facility] Thyroid Stimulating Hormone (TSH) 0.64 uIU/mL 0.358-3.74 [facility] Laboratory - Chemistry and C hemistry - challengeOrdered By: Dr. Ennis on 07-29-2022 HCG ( test) Ql (U) Negative [facility] Comment on above: Very dilute urine sp ecimens, as indicated by a low specificgravity, may not contain exhibit display representative levels of hCG. If is still suspected, a first morning urinespecimen should be collected 48 hours later and tested. Laboratory - Chemistry and C hemistry - challengeOrdered By: Dr. Moreau on 07-26-2022 Free T4 [Mass/Vol] 1.15 ng/dL 0.76-1.46 [facility] No Panel InformationOrdered By: Dr. Moreau on 07-26-2022 Thyroid Stimulating Hormone (TSH) 0.41 uIU/mL 0.358-3.74 [facility] Laboratory - Microbiology an d Antimicrobial susceptibilityon 06-07-2022 SARS-CoV-2 (COVID-19) RNA ROBLES+probe Ql (Unsp spec) Not detected [facility] No Panel Informationon 06-07 POC Nasal Swab Influenza A,B Detected [facility] POC Nasal Swab RSV Not detected [facility] No Panel Informationon 03-25 Thyroglobulin Antibody 1.2 IU/mL 0.0-0.9 [facility] Work Phone: Comment on above: Thyroglobulin Antibo dy measured by [employer] DataMethodologyPerformed at: [facility] [id number] Director: Israel Johnson PhD, Phone: [phone] Serum or plasma thyroperoxid ase antibody assay (units/volume)on 03-25-2022 TPO Ab Qn 11 [IU]/mL 0-34 [facility] Work Phone: Absolute lymphocyte counton 03-22-2022 Lymphocytes Auto (Unsp spec) [#/Vol] 2.31 10*3/uL 0.83-4.51 [facility] Work Phone: Basophil percentageon 2021 Basophils/100 WBC (Bld) 1.0 % 0-1 [facility] Work Phone: Bilirubin [Mass/Vol] 0.40 mg/dL 0.20-1.00 [facility] Work Phone: Comment on above: For patients on eltr ombopag therapy, use of Dimension [place] TBIL is not recommended. Chloride [Moles/Vol] 106 mmol/L 98-107 [facility] Work Phone: Eosinophils/100 WBC (Bld) 2.2 % 0-5 [facility] Work Phone: Glucose [Mass/Vol] 92 mg/dL 74-106 [facility] Work Phone: Neutrophils (Bld) [#/Vol] 4.1 10*3/uL 2.0-7.7 [facility] Work Phone: Neutrophils/100 WBC (Bld) 56.3 % 47-70 [facility] Work Phone: Potassium [Moles/Vol] 4.0 mmol/L 3.5-5.1 [facility] Work Phone: Protein [Mass/Vol] 7.9 g/dL 6.4-8.2 [facility] Work Phone: Sodium [Moles/Vol] 138 mmol/L 136-145 [facility] Work Phone: WBC (Bld) [#/Vol] 7.3 10*3/uL 4.4-11.0 [facility] Work Phone: Blood erythrocytes count (nu mber/volume)on 03-22-2022 RBC (Bld) [#/Vol] 4.38 10*6/uL 4.2-5.4 [facility] Work Phone: Blood hemoglobin measurement (mass/volume)on 03-22-2022 Hemoglobin (Bld) [Mass/Vol] 12.3 g/dL 12.0-15.0 [facility] Work Phone: Blood lymphocytes/100 leukoc yteson 03-22-2022 Lymphocytes/100 WBC (Bld) 31.6 % 19-41 [facility] Work Phone: Blood monocytes/100 leukocyt eson 03-22-2022 Monocytes/100 WBC (Bld) 8.8 % 0-10 [facility] Work Phone: Blood platelet mean volumeon 03-22-2022 Platelet mean volume (Bld) [Entitic vol] 9.9 fL 6.2-12.0 [facility] Work Phone: Determination of erythrocyte mean corpuscular volume (MCV)on 03-22-2022 MCV (RBC) [Entitic vol] 86.5 fL 81-99 [facility] Work Phone: Hematocrit Auto (Bld) [Volum e fraction]on 03-22-2022 Hematocrit (Bld) [Volume fraction] 37.9 % 37-47 [facility] Work Phone: Laboratory - Chemistry and C hemistry - challengeon 03-22-2022 ALP [Catalytic activity/Vol] 51 U/L 45-117 [facility] Work Phone: ALT [Catalytic activity/Vol] 22 U/L 13-56 [facility] Work Phone: CO2 [Moles/Vol] 26.0 mmol/L 21.0-32.0 [facility] Work Phone: Free T4 [Mass/Vol] 0.90 ng/dL 0.76-1.46 [facility] Work Phone: Globulin (S) [Mass/Vol] 4.3 g/dL 2.2-4.2 [facility] Work Phone: Urea nitrogen/Creatinine [Mass ratio] 17.5 mg/mg 10-20 [facility] Work Phone: Laboratory - Hematology and Cell countson 03-22-2022 Erythrocyte distribution width (RBC) [Entitic vol] 46.1 fL 35.1-43.9 [facility] Work Phone: Erythrocyte distribution width (RBC) [Ratio] 14.5 % 11.6-14.6 [facility] Work Phone: Immature granulocytes/100 WBC (Bld) 0.100 % 0.0-0.9 [facility] Work Phone: Comment on above: IG% - Immature Granu locytes (promyelocytes, myelocytes and metamyelocytes) > 1% indicates that a LEFT SHIFT is Present. MCH (RBC) [Entitic mass] 28.1 pg 27.0-32.0 [facility] Work Phone: Nucleated RBC/100 WBC (Bld) [Ratio] 0 % 0-5 [facility] Work Phone: MCHC Auto (RBC) [Mass/Vol]on 03-22-2022 MCHC (RBC) [Mass/Vol] 32.5 g/dL 32-36 [facility] Work Phone: No Panel Informationon 03-22 Estimated GFR (MDRD) Amer 96 mL/min >60 [facility] Work Phone: Comment on above: GFR Calc Estimated GFR (MDRD) Non-Af Amer 80 mL/min >60 [facility] Work Phone: Comment on above: Non- GFR Calc Thyroid Stimulating Hormone (TSH) 0.86 uIU/mL 0.358-3.74 [facility] Work Phone: Platelets bldon 03-22-2022 Platelets (Bld) [#/Vol] 294 10*3/uL 150-450 [facility] Work Phone: Serum or plasma albumin juan francisco urement (mass/volume)on 03-22-2022 Albumin [Mass/Vol] 3.6 g/dL 3.2-5.0 [facility] Work Phone: Serum or plasma albumin/glob ulin mass ratioon 03-22-2022 Albumin/Globulin [Mass ratio] 0.8 {ratio} 0.9-2.4 [facility] Work Phone: Serum or plasma calcium juan francisco urement (mass/volume)on 03-22-2022 Calcium [Mass/Vol] 9.3 mg/dL 8.5-10.1 [facility] Work Phone: Serum or plasma creatinine m easurement (mass/volume)on 03-22-2022 Creatinine [Mass/Vol] 0.86 mg/dL 0.55-1.02 [facility] Work Phone: Comment on above: The validity of the calculated GFR & GFRAA in patients over 70 years has not been determined. Clinical correlation is essential. Serum or plasma urea nitroge n measurement (mass/volume)on 03-22-2022 Urea nitrogen [Mass/Vol] 15 mg/dL 7-18 [facility] Work Phone: Thin prep Papanicolaou smear with manual screeningon 03-22-2022 Thin prep Papanicolaou smear with manual screening 24 U/L 15-37 [facility] Work Phone: Thin prep Papanicolaou smear with manual screening 6 5-15 [facility] Work Phone: [facility] REBECCA LAMB ([id number]) 1985 F Date Time Provider Department 10/05/20 REBECCA NEAL (BOBBY) [facility] During your visit today, we recorded the following information about you: Rebecca Neal APRN.CNP 10/05/2020 8:47 AM Signed Informed patient of negative xrays. Govind wrap, RICE therap. Instructed her to follow up with ortho or sports medicine. Consult placed. Allergies As of Date: 10/05/2020 Noted Allergy Reaction VYVANSE (LISDEXAMFETAMINE) 03/28/2018 14 - Other: See Comments Comments: rhabdomyolysis ADDERALL (DEXTROAMPHETAMINE-AMPHE*05/2018 14 - Other: See Comments Comments: raised CK level Date Reviewed: 10/04/2020 Reviewed by: Oanh Car Ma - Fully Assessed Reason for Visit: Results [95] Primary Visit Diagnosis:Foot pain, left [M79.672] Order(s):CONSULT TO ORTHOPAEDICS [9026] Order #: [id number]: 1 FUTURE Prescriptions as of 10/05/2020 Sig: NORGESTIMATE 0.25 MG-ETHINYL * TAKE 1 TABLET BY MOUTH EVERY * Problem List As Of Date 10/05/2020 Noted Resolved 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] 03/29/2018 Attention deficit disorder (ADD) without hypera*03/29/2018 Encounter Status:Closed by REBCECA NAEL CNP on 10/05/20 [facility] CNOVon 10-04-2020 [facility]OV Office Visit (UCWSTR ) REBECCA LAMB ([id number]) 1985 F Date Time Provider Department 10/04/20 8:45 AM DARYL KEVIN [facility] During your visit today, we recorded the following information about you: Temperature Pulse Respiration Blood pressure 98.2 degrees 90/minute 16/minute 122/70 Weight 70.8 kg Daryl J Kevin, MD 10/06/2020 6:24 AM Signed Patient presents with: Pain (foot): left, runner [...] Reassured by no fracture. Supportive care. Daryl Kevin MD Referring Provider: SELF [[id number]] Allergies As of Date: 10/04/2020 Noted Allergy Reaction VYVANSE (LISDEXAMFETAMINE) 03/28/2018 14 - Other: See Comments Comments: rhabdomyolysis ADDERALL (DEXTROAMPHETAMINE-AMPHE*05/2018 14 - Other: See Comments Comments: raised CK level Date Reviewed: 10/04/2020 Reviewed by: Oanh Car Ma - Fully Assessed Reason for Visit: Pain (foot) [760] Cmt: left, runner x 1 week Primary Visit Diagnosis:Foot pain, left [M79.672] Order(s):XR FOOT GENERAL 3V AP/LAT/OBL LT [6822975] Order #: [id number] FUTURE Prescriptions as of 10/04/2020 Sig: NORGESTIMATE 0.25 MG-ETHINYL * TAKE 1 TABLET BY MOUTH EVERY * Problem List As Of Date 10/04/2020 Noted Resolved 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] 03/29/2018 Attention deficit disorder (ADD) without hypera*03/29/2018 Encounter Status:Closed by DARYL KEVIN MD on 10/06/20 Normal [facility] XR FOOT 3V AP/LAT/OBL LTon 0 10-04-2020 XR FOOT 3V AP/LAT/OBL LT * * *Final Report* * * DATE OF EXAM: Oct 04 2020 9:12AM WOX [id number] - XR FOOT 3V AP/LAT/OBL LT / PROCEDURE REASON: Foot pain, left * * * * Physician Interpretation * * * * LEFT foot EXAM DATE/TIME: 10/04/2020 9:12 AM HISTORY: 35 years old Clinical information: Foot pain, left pt states has been running and walking allot lately and now has pain porox 5th [place] area, feels like it needs to pop now and then. no inj TECHNIQUE: Images: XR FOOT 3V AP/LAT/OBL LT Comparison: None. RESULT: Findings: Right :No fractures or dislocations are seen. Left :No fractures or dislocations are seen. IMPRESSION: No acute pediatric speech therapist: BRE Transcribe Date/Time: Oct 04 2020 8:59P Dictated by : RUPERTO PALOMINO DO This examination was interpreted and the report reviewed and electronically signed by: RUPERTO PALOMINO DO on Oct 04 2020 9:00PM EST [id number] Normal [facility] XR Foot - left AP and Latera l and obliqueon 10-04-2020 IMPRESSION: No acute pediatric speech therapist: PSCB Transcribe Date/Time: Oct 04 2020 8:59P Dictated by : RUPERTO PALOMINO DO This examination was interpreted and the report reviewed and electronically signed by: RUPERTO PALOMINO DO on Oct 04 2020 9:00PM [facility] DIVISION OF RADIOLOGY * * *Final Report* * * DATE OF EXAM: Oct 04 2020 9:12AM WOX [id number] - XR FOOT 3V AP/LAT/OBL LT / PROCEDURE REASON: Foot pain, left * * * * Physician Interpretation * * * * LEFT foot EXAM DATE/TIME: 10/04/2020 9:12 AM HISTORY: 35 years old Clinical information: Foot pain, left pt states has been running and walking allot lately and now has pain porox 5th [place] area, feels like it needs to pop now and then. no inj TECHNIQUE: Images: XR FOOT 3V AP/LAT/OBL LT Comparison: None. RESULT: Findings: Right :No fractures or dislocations are seen. Left :No fractures or dislocations are seen. DIVISION OF RADIOLOGY Provider, [facility] - 10/04/2020 * * *Final Report* * * DATE OF EXAM: Oct 04 2020 9:12AM WOX [id number] - XR FOOT 3V AP/LAT/OBL LT / PROCEDURE REASON: Foot pain, left * * * * Physician Interpretation * * * * LEFT foot EXAM DATE/TIME: 10/04/2020 9:12 AM HISTORY: 35 years old Clinical information: Foot pain, left pt states has been running and walking allot lately and now has pain porox 5th [place] area, feels like it needs to pop now and then. no inj TECHNIQUE: Images: XR FOOT 3V AP/LAT/OBL LT Comparison: None. RESULT: Findings: Right :No fractures or dislocations are seen. Left :No fractures or dislocations are seen. IMPRESSION IMPRESSION: No acute pediatric speech therapist: BRE Transcribe Date/Time: Oct 04 2020 8:59P Dictated by : RUPERTO PALOMINO DO This examination was interpreted and the report reviewed and electronically signed by: RUPERTO PALOMINO DO on Oct 04 2020 9:00PM EST [facility] Radiology Study observation (narrative) [facility] XR Foot - left AP and Latera l and obliqueOrdered By: [facility] Provider on 10-04-2020 [facility] Vital Signs Date Time Vital Sign Value Performing Clinician Facility 12-19-2024 15:48-0400 Body height 162.[address] Shaneka Joyce MD Work Phone: [facility] 12-19-2024 15:48-0400 Body mass index (BMI) [Ratio] 28.5 kg/m2 Dr. Shaneka Joyce MD Work Phone: [facility] 12-19-2024 15:48-0400 Body temperature 97.6 [degF] Dr. Shaneka Joyce MD Work Phone: [facility] 12-19-2024 15:48-0400 Body weight 75.[address] Shaneka Joyce MD Work Phone: [facility] 12-19-2024 15:48-0400 Diastolic blood pressure 80 mm[Hg] Dr. Shaneka Joyce MD Work Phone: [facility] 12-19-2024 15:48-0400 Heart rate 89 /min Dr. Shaneka Joyce MD Work Phone: [facility] 12-19-2024 15:48-0400 Respiratory rate 18 /min Dr. Shaneka Joyce MD Work Phone: [facility] 12-19-2024 15:48-0400 SaO2% (BldA) [Mass fraction] 97 % Dr. Shaneka Joyce MD Work Phone: [facility] 12-19-2024 15:48-0400 Systolic blood pressure 124 mm[Hg] Dr. Shaneka Joyce MD Work Phone: [facility] 10-15-2024 07:59-0400 Body mass index (BMI) [Ratio] 27.3 kg/m2 Dr. Shaneka Joyce MD Work Phone: [facility] 10-15-2024 07:59-0400 Body weight 72.[address] Shaneka Joyce MD Work Phone: [facility] 10-15-2024 07:59-0400 Diastolic blood pressure 70 mm[Hg] Dr. Shaneka Joyce MD Work Phone: [facility] 10-15-2024 07:59-0400 Systolic blood pressure 103 mm[Hg] Dr. Shaneka Joyce MD Work Phone: [facility] 09-22-2023 16:08-0400 Body height 162.[address] Shaneka Joyce Work Phone: [facility] 09-22-2023 16:08-0400 Body mass index (BMI) [Ratio] 28.3 kg/m2 Dr. Shaneka Joyce Work Phone: [facility] 09-22-2023 16:08-0400 Body weight 74.[address] Shaneka Joyce Work Phone: [facility] 09-22-2023 16:08-0400 Diastolic blood pressure 72 mm[Hg] Dr. Shaneka Joyce Work Phone: [facility] 09-22-2023 16:08-0400 Systolic blood pressure 107 mm[Hg] Dr. Shaneka Joyce Work Phone: [facility] 09-21-2023 11:42-0400 Body height 162.6 cm Abi Garcia MD Work Phone: [facility] 09-21-2023 11:42-0400 Body mass index (BMI) [Ratio] 27.64 kg/m2 Abi Garcia MD Work Phone: [facility] 09-21-2023 11:42-0400 Body temperature 97.11 [degF] Abi Garcia MD Work Phone: [facility] 09-21-2023 11:42-0400 Body weight 73.03 kg Abi Garcia MD Work Phone: [facility] 09-21-2023 11:42-0400 Diastolic blood pressure 70 mm[Hg] Abi Garcia MD Work Phone: [facility] 09-21-2023 11:42-0400 Heart rate 74 /min Abi Garcia MD Work Phone: [facility] 09-21-2023 11:42-0400 Respiratory rate 18 /min Abi Garcia MD Work Phone: [facility] 09-21-2023 11:42-0400 Systolic blood pressure 120 mm[Hg] Abi Garcia MD Work Phone: [facility] 09-14-2023 10:34-0500 Body height 162.6 cm Abi Garcia MD Work Phone: [facility] 09-14-2023 10:34-0500 Body mass index (BMI) [Ratio] 27.46 kg/m2 Abi Garcia MD Work Phone: [facility] 09-14-2023 10:34-0500 Body temperature 97.7 [degF] Abi Garcia MD Work Phone: [facility] 09-14-2023 10:34-0500 Body weight 72.58 kg Abi Garcia MD Work Phone: [facility] 09-14-2023 10:34-0500 Diastolic blood pressure 80 mm[Hg] Abi Garcia MD Work Phone: [facility] 09-14-2023 10:34-0500 Heart rate 90 /min Abi Garcia MD Work Phone: [facility] 09-14-2023 10:34-0500 Respiratory rate 18 /min Abi Garcia MD Work Phone: [facility] 09-14-2023 10:34-0500 Systolic blood pressure 135 mm[Hg] Abi Garcia MD Work Phone: [facility] 08-11-2023 11:00-0500 Body mass index (BMI) [Ratio] 28.3 kg/m2 Dr. Shaneka Joyce Work Phone: [facility] 08-11-2023 11:00-0500 Body temperature 98.6 [degF] Dr. Shaneka Joyec Work Phone: [facility] 08-11-2023 11:00-0500 Body weight 74.[address] Shaneka Joyce Work Phone: [facility] 08-11-2023 11:00-0500 Diastolic blood pressure 76 mm[Hg] Dr. Shaneka Joyce Work Phone: [facility] 08-11-2023 11:00-0500 Heart rate 83 /min Dr. Shaneka Joyce Work Phone: [facility] 08-11-2023 11:00-0500 Respiratory rate 16 /min Dr. Shaneka Joyce Work Phone: [facility] 08-11-2023 11:00-0500 SaO2% (BldA) [Mass fraction] 97 % Dr. Shaneka Joyce Work Phone: [facility] 08-11-2023 11:00-0500 Systolic blood pressure 130 mm[Hg] Dr. Shaneka Joyce Work Phone: [facility] 08-05-2023 09:03-0500 Body temperature 98.2 [degF] Dr. Shaneka Joyce Work Phone: [facility] 08-05-2023 09:03-0500 Diastolic blood pressure 74 mm[Hg] Dr. Shaneka Joyce Work Phone: [facility] 08-05-2023 09:03-0500 Heart rate 126 /min Dr. Shaneka Joyce Work Phone: [facility] 08-05-2023 09:03-0500 Respiratory rate 16 /min Dr. Shaneka Joyce Work Phone: [facility] 08-05-2023 09:03-0500 SaO2% (BldA) [Mass fraction] 99 % Dr. Shaneka Joyce Work Phone: [facility] 08-05-2023 09:03-0500 Systolic blood pressure 112 mm[Hg] Dr. Shaneka Joyce Work Phone: [facility] 03-23-2023 08:36-0400 Body height 162.[address] Shaneka Joyce Work Phone: [facility] 03-23-2023 08:36-0400 Body mass index (BMI) [Ratio] 27.8 kg/m2 Dr. Shaneka Joyce Work Phone: [facility] 03-23-2023 08:36-0400 Body weight 73.[address] Shaneka Joyce Work Phone: [facility] 03-16-2023 09:19-0400 Body mass index (BMI) [Ratio] 26.9 kg/m2 Dr. Shaneka Joyce Work Phone: [facility] 03-16-2023 09:19-0400 Body temperature 98 [degF] Dr. Shaneka Joyce Work Phone: [facility] 03-16-2023 09:19-0400 Body weight 71.[address] Shaneka Joyce Work Phone: [facility] 03-16-2023 09:19-0400 Diastolic blood pressure 72 mm[Hg] Dr. Shaneka Joyce Work Phone: [facility] 03-16-2023 09:19-0400 Heart rate 66 /min Dr. Shaneka Joyce Work Phone: [facility] 03-16-2023 09:19-0400 Respiratory rate 16 /min Dr. Shaneka Joyce Work Phone: [facility] 03-16-2023 09:19-0400 SaO2% (BldA) [Mass fraction] 99 % Dr. Shaneka Joyce Work Phone: [facility] 03-16-2023 09:19-0400 Systolic blood pressure 110 mm[Hg] Dr. Shaneka Joyce Work Phone: [facility] 12-10-2022 08:37-0400 Body height 162.[address] Shaneka Joyce Work Phone: [facility] 12-10-2022 08:37-0400 Body mass index (BMI) [Ratio] 26.1 kg/m2 Dr. Shaneka Joyce Work Phone: [facility] 12-10-2022 08:37-0400 Body temperature 98.4 [degF] Dr. Shaneka Joyce Work Phone: [facility] 12-10-2022 08:37-0400 Body weight 68.[address] Shaneka Joyce Work Phone: [facility] 12-10-2022 08:37-0400 Diastolic blood pressure 77 mm[Hg] Dr. Shaneka Joyce Work Phone: [facility] 12-10-2022 08:37-0400 Heart rate 81 /min Dr. Shaneka Joyce Work Phone: [facility] 12-10-2022 08:37-0400 Respiratory rate 16 /min Dr. Shaneka Joyce Work Phone: [facility] 12-10-2022 08:37-0400 SaO2% (BldA) [Mass fraction] 96 % Dr. Shaneka Joyce Work Phone: [facility] 12-10-2022 08:37-0400 Systolic blood pressure 115 mm[Hg] Dr. Shaneka Joyce Work Phone: [facility] 11-04-2022 09:05-0400 Body mass index (BMI) [Ratio] 26.6 kg/m2 Dr. Shaneka Joyce Work Phone: [facility] 11-04-2022 09:05-0400 Body temperature 98 [degF] Dr. Shaneka Joyce Work Phone: [facility] 11-04-2022 09:05-0400 Body weight 70.[address] Shaneka Joyce Work Phone: [facility] 11-04-2022 09:05-0400 Diastolic blood pressure 72 mm[Hg] Dr. Shaneka Joyce Work Phone: [facility] 11-04-2022 09:05-0400 Heart rate 70 /min Dr. Shaneka Joyce Work Phone: [facility] 11-04-2022 09:05-0400 Respiratory rate 14 /min Dr. Shaneka Joyce Work Phone: [facility] 11-04-2022 09:05-0400 SaO2% (BldA) [Mass fraction] 99 % Dr. Shaneka Joyce Work Phone: [facility] 11-04-2022 09:05-0400 Systolic blood pressure 124 mm[Hg] Dr. Shaneka Joyce Work Phone: [facility] 09-09-2022 17:16-0500 Body height 162.[address] Shaneka Joyce Work Phone: [facility] 09-09-2022 17:16-0500 Body mass index (BMI) [Ratio] 26.7 kg/m2 Dr. Shaneka Joyce Work Phone: [facility] 09-09-2022 17:16-0500 Body temperature 98.5 [degF] Dr. Shaneka Joyce Work Phone: [facility] 09-09-2022 17:16-0500 Body weight 70.[address] Shaneka Joyce Work Phone: [facility] 09-09-2022 17:16-0500 Diastolic blood pressure 84 mm[Hg] Dr. Shaneka Joyce Work Phone: [facility] 09-09-2022 17:16-0500 Heart rate 78 /min Dr. Shaneka Joyce Work Phone: [facility] 09-09-2022 17:16-0500 Respiratory rate 14 /min Dr. Shaneka Joyce Work Phone: [facility] 09-09-2022 17:16-0500 SaO2% (BldA) [Mass fraction] 98 % Dr. Shaneka Joyce Work Phone: [facility] 09-09-2022 17:16-0500 Systolic blood pressure 122 mm[Hg] Dr. Shaneka Joyce Work Phone: [facility] 08-13-2022 08:41-0500 Body temperature 98.1 [degF] Dr. Shaneka Joyce Work Phone: [facility] 08-13-2022 08:41-0500 Diastolic blood pressure 72 mm[Hg] Dr. Shaneka Joyce Work Phone: [facility] 08-13-2022 08:41-0500 Heart rate 89 /min Dr. Shaneka Joyce Work Phone: [facility] 08-13-2022 08:41-0500 Respiratory rate 16 /min Dr. Shaneka Joyce Work Phone: [facility] 08-13-2022 08:41-0500 SaO2% (BldA) [Mass fraction] 100 % Dr. Shaneka Joyce Work Phone: [facility] 08-13-2022 08:41-0500 Systolic blood pressure 116 mm[Hg] Dr. Shaneka Joyce Work Phone: [facility] 07-29-2022 12:05-0500 Body temperature 97.8 [degF] Dr. Shaneka Joyce Work Phone: [facility] 07-29-2022 12:05-0500 Diastolic blood pressure 79 mm[Hg] Dr. Shaneka Joyce Work Phone: [facility] 07-29-2022 12:05-0500 Heart rate 74 /min Dr. Shaneka Joyce Work Phone: [facility] 07-29-2022 12:05-0500 Respiratory rate 16 /min Dr. Shaneka Joyce Work Phone: [facility] 07-29-2022 12:05-0500 SaO2% (BldA) [Mass fraction] 94 % Dr. Shaneka Joyce Work Phone: [facility] 07-29-2022 12:05-0500 Systolic blood pressure 109 mm[Hg] Dr. Shaneka Joyce Work Phone: [facility] 07-29-2022 10:54-0500 Body height 162.[address] Shaneka Joyce Work Phone: [facility] 07-29-2022 10:54-0500 Body mass index (BMI) [Ratio] 26.9 kg/m2 Dr. Shaneka Joyce Work Phone: [facility] 07-29-2022 10:54-0500 Body weight 71.[address] Shaneka Joyce Work Phone: [facility] 06-07-2022 10:05-0500 Body temperature 98.1 [degF] Dr. Shaneka Joyce Work Phone: [facility] 06-07-2022 10:05-0500 Diastolic blood pressure 72 mm[Hg] Dr. Shaneka Joyce Work Phone: [facility] 06-07-2022 10:05-0500 Heart rate 105 /min Dr. Shaneka Joyce Work Phone: [facility] 06-07-2022 10:05-0500 Respiratory rate 14 /min Dr. Shaneka Joyce Work Phone: [facility] 06-07-2022 10:05-0500 SaO2% (BldA) [Mass fraction] 99 % Dr. Shaneka Joyce Work Phone: [facility] 06-07-2022 10:05-0500 Systolic blood pressure 118 mm[Hg] Dr. Shaneka Joyce Work Phone: [facility] 05-17-2022 15:28-0500 Body mass index (BMI) [Ratio] 26.9 kg/m2 Dr. Shaneka Joyce Work Phone: [facility] 05-17-2022 15:28-0500 Body temperature 96.6 [degF] Dr. Shaneka Joyce Work Phone: [facility] 05-17-2022 15:28-0500 Body weight 71.[address] Shaneka Joyce Work Phone: [facility] 05-17-2022 15:28-0500 Diastolic blood pressure 80 mm[Hg] Dr. Shaneka Joyce Work Phone: [facility] 05-17-2022 15:28-0500 Heart rate 71 /min Dr. Shaneka Joyce Work Phone: [facility] 05-17-2022 15:28-0500 Respiratory rate 18 /min Dr. Shaneka Joyce Work Phone: [facility] 05-17-2022 15:28-0500 SaO2% (BldA) [Mass fraction] 98 % Dr. Shaneka Joyce Work Phone: [facility] 05-17-2022 15:28-0500 Systolic blood pressure 117 mm[Hg] Dr. Shaneka Joyce Work Phone: [facility] 04-01-2022 13:26-0400 Body height 162.[address] Stephen Hollingsworth Work Phone: [facility] Work Phone: 04-01-2022 13:26-0400 Body mass index (BMI) [Ratio] 26.4 kg/m2 Dr. Stephen Hollingsworth Work Phone: [facility] 04-01-2022 13:26-0400 Body temperature 98 [degF] Dr. Stephen Hollingsworth Work Phone: [facility] 04-01-2022 13:26-0400 Body weight 69.[address] Stephen Hollingsworth Work Phone: [facility] 04-01-2022 13:26-0400 Diastolic blood pressure 90 mm[Hg] Dr. Stephen Hollingsworth Work Phone: [facility] 04-01-2022 13:26-0400 Heart rate 87 /min Dr. Stephen Hollingsworth Work Phone: [facility] 04-01-2022 13:26-0400 Respiratory rate 16 /min Dr. Stephen Hollingsworth Work Phone: [facility] 04-01-2022 13:26-0400 SaO2% (BldA) [Mass fraction] 100 % Dr. Stephen Hollingsworth Work Phone: [facility] 04-01-2022 13:26-0400 Systolic blood pressure 124 mm[Hg] Dr. Stephen Hollingsworth Work Phone: [facility] 03-11-2022 17:38-0400 Body height 162.[address] Stephen Hollingsworth Work Phone: [facility] Work Phone: 03-11-2022 17:38-0400 Body mass index (BMI) [Ratio] 26.6 kg/m2 Dr. Stephen Hollingsworth Work Phone: [facility] Work Phone: 03-11-2022 17:38-0400 Body temperature 98.9 [degF] Dr. Stephen Hollingsworth Work Phone: [facility] Work Phone: 03-11-2022 17:38-0400 Body weight 70.[address] Stephen Hollingsworth Work Phone: [facility] Work Phone: 03-11-2022 17:38-0400 Diastolic blood pressure 84 mm[Hg] Dr. Stephen Hollingsworth Work Phone: [facility] Work Phone: 03-11-2022 17:38-0400 Heart rate 94 /min Dr. Stephen Hollingsworth Work Phone: [facility] Work Phone: 03-11-2022 17:38-0400 Respiratory rate 14 /min Dr. Stephen Hollingsworth Work Phone: [facility] Work Phone: 03-11-2022 17:38-0400 SaO2% (BldA) [Mass fraction] 99 % Dr. Stephen Hollingsworth Work Phone: [facility] Work Phone: 03-11-2022 17:38-0400 Systolic blood pressure 128 mm[Hg] Dr. Stephen Hollingsworth Work Phone: [facility] Work Phone: Encounters Encounter Date Encounter Type Care Provider Facility Start: 12-24-2024 End: 12-24-[address] Shaneka Joyce MD Work Phone: [facility] Work Phone: Start: 12-24-2024 End: 12-24-2024 Patient encounter procedure Nando SHAH [facility] Work Phone: Start: 12-24-2024 End: 12-24-2024 ambulatory [facility] Start: 12-20-2024 End: 12-20-[address] Shaneka Joyce MD Work Phone: [facility] Work Phone: Start: 12-20-2024 End: 12-20-2024 Patient encounter procedure Nando SHAH -Lab [facility] Start: 12-19-2024 End: 12-19-2024 Patient encounter procedure Nando SHAH -[facility] Work Phone: Start: 12-19-2024 End: 12-20-[address] Shaneka Joyce MD Work Phone: [facility] Work Phone: Start: 11-02-2024 Encounter for other preprocedural examination Padmini Santo [facility] Start: 10-15-2024 End: 10-15-[address] Padmini Santo MD -[facility] Work Phone: Start: 10-15-2024 End: 10-15-[address] Padmini Santo MD [facility] Start: 10-15-2024 End: 10-15-2024 ambulatory [facility] Start: 06-14-[address] Shaneka Joyce MD Work Phone: [facility] Start: 06-14-2024 End: 06-14-2024 ambulatory Padmini Santo Facility:[facility] Start: 06-12-2024 ambulatory Fatemeh Dossi [facility] Start: 06-08-2024 ambulatory Roger Neno [facility] Start: 06-08-2024 End: 06-08-2024 ambulatory [facility] Start: 05-31-2024 End: 05-31-2024 ambulatory Guillermochaviesminesh Joyce Facility:[facility] Start: 05-29-2024 End: 05-29-2024 ambulatory Shaneka Joyce Facility:[facility] Start: 05-28-2024 End: 05-28-2024 ambulatory Shaneka Joyce Facility:[facility] Start: 05-22-2024 End: 05-22-2024 ambulatory Padmini Santo Facility:[facility] Start: 05-17-2024 End: 05-17-2024 ambulatory Fatemeh Dickens Facility:[facility] Start: 04-16-2024 End: 04-16-2024 ambulatory Fatemeh Dossi Facility:[facility] Start: 03-29-2024 ambulatory Fatemeh Dickens [facility] Start: 03-06-2024 End: 03-06-2024 ambulatory Guillermochaviesminesh Joyce Facility:[facility] Start: 02-24-2024 Encounter for genera l adult medical examination without abnormal findings [facility] Start: 02-02-2024 End: 02-02-2024 ambulatory [facility] Facility:[facility] Start: 01-11-[address] Shaneka Joyce MD Work Phone: [facility] Start: 01-11-[address] Shaneka Joyce MD Work Phone: [facility] Start: 01-11-2024 End: 01-11-2024 ambulatory Shaneka Joyce Facility:[facility] Start: 09-23-2023 End: 09-23-[address] Shaneka Joyce Work Phone: [facility] Work Phone: Start: 09-23-2023 End: 09-23-[address] Shaneka Joyce Work Phone: [facility]atory, [facility] Start: 09-22-2023 End: 09-22-[address] Shaneka Joyce Work Phone: [facility] Work Phone: Start: 09-21-2023 End: 09-22-2023 ambulatory [facility] Start: 09-21-2023 End: 09-21-2023 Office outpatient visit 15 minutes Abi Garcia MD Work Phone: [facility] Comment on above: Paroxysmal rhabdomyo lysis (Primary Dx) Start: 09-14-2023 End: 09-15-2023 ambulatory [facility] Start: 09-14-2023 End: 09-14-2023 Office outpatient new 60 minutes Abi Garcia MD Work Phone: [facility] Comment on above: Paroxysmal rhabdomyo lysis (Primary Dx) Start: 08-11-2023 End: 08-11-[address] Shaneka Joyce Work Phone: [facility] Endocrinology Work Phone: Start: 08-05-2023 End: 08-05-[address] [facility] Work Phone: Start: 03-24-[address] Shaneka Joyce Work Phone: [facility] Start: 03-23-2023 End: 03-23-[address] Shaneka Joyce Work Phone: [facility] Work Phone: Start: 03-23-2023 End: 03-23-[address] Shaneka Joyce Work Phone: [facility]-Ultrasound, [facility] Work Phone: Start: 03-23-2023 End: 03-23-[address] Shaneka Joyce Work Phone: [facility] Work Phone: Start: 03-21-2023 End: 03-21-[address] Shaneka Joyce Work Phone: [facility] Work Phone: Start: 03-21-2023 End: 03-21-[address] [facility] Start: 03-16-2023 End: 03-16-[address] Shaneka Joyce Work Phone: [facility] Internal Medicine Work Phone: Start: 03-10-2023 Non-patient / Non-visit Dr. Jasper Joyce Work Phone: [facility] Work Phone: Start: 03-09-2023 End: 03-09-[address] Shaneka Joyce Work Phone: [facility] Radiology Start: 01-31-2023 End: 01-31-[address] Shaneka Joyce Work Phone: [facility] Work Phone: Start: 01-31-2023 End: 01-31-[address] [facility] Start: 12-10-2022 End: 12-10-[address] Shaneka Joyce Work Phone: [facility] Gastroenterology Work Phone: Start: 11-04-2022 End: 11-04-[address] Shaneka Joyce Work Phone: [facility] Internal Medicine Work Phone: Start: 10-21-2022 End: 10-21-[address] Shaneka Joyce Work Phone: [facility] Work Phone: Start: 10-21-2022 End: 10-21-[address] Shaneka Joyce Work Phone: [facility]-Physical Therapy Start: 09-09-2022 End: 09-09-[address] Shaneka Joyce Work Phone: [facility] Medicine Start: 09-02-2022 End: 09-02-[address] Shaneka Joyce Work Phone: [facility] Start: 08-19-2022 End: 08-19-[address] Shaneka Joyce Work Phone: [facility] Start: 08-19-2022 End: 08-19-[address] Shaneka Joyce Work Phone: [facility] Start: 08-13-2022 End: 08-13-2022 Admission to same day surgery center Dr. Shaneka Joyce Work Phone: [facility]-Endoscopy Start: 08-13-2022 End: 08-13-[address] Shaneka Joyce Work Phone: [facility] Work Phone: Start: 07-29-2022 Non-patient / Non-visit Dr. Jasper Joyce Work Phone: [facility] Start: 07-29-2022 End: 07-29-2022 Admission to same day surgery center Dr. Shaneka Joyce Work Phone: [facility]-End[facility] Start: 07-29-2022 End: 07-29-[address] Shaneka Joyce Work Phone: [facility] Work Phone: Start: 07-26-2022 End: 07-26-[address] Shaneka Joyce Work Phone: [facility] Work Phone: Start: 07-26-2022 End: 07-26-[address] Shaneka Joyce Work Phone: [facility] Start: 07-22-2022 End: 07-22-[address] Shaneka Joyce Work Phone: [facility] Start: 06-07-2022 End: 06-07-[address] Shaneka Joyce Work Phone: [facility] Start: 05-31-2022 End: 05-31-[address] Shaneka Joyce Work Phone: [facility] Start: 05-17-2022 End: 05-17-[address] Shaneka Joyce Work Phone: [facility] Start: 04-01-2022 End: 04-01-[address] Stephen Hollingsworth Work Phone: [facility] Start: 03-25-2022 End: 03-25-[address] Stephen Hollingsworth Work Phone: [facility] Work Phone: Start: 03-25-2022 End: 03-25-[address] Stephen Hollingsworth Work Phone: [facility] Start: 03-23-2022 End: 03-23-[address] Stephen Hollingsworth Work Phone: [facility] Work Phone: Start: 03-23-2022 End: 03-23-[address] Stephen Hollingsworth Work Phone: [facility], [facility] Start: 03-22-2022 End: 03-22-[address] Stephen Hollingsworth Work Phone: [facility] Work Phone: Start: 03-22-2022 End: 03-22-[address] Stephen Hollingsworth Work Phone: [facility] Start: 03-11-2022 End: 03-11-[address] Stephen Hollingsworth Work Phone: [facility] Start: 03-05-2022 End: 03-05-[address] Stephen Hollingsworth Work Phone: [facility]-Radiology, [facility] Start: 02-25-2022 Non-patient / Non-visit Dr. Tammie Hollingsworth Work Phone: [facility] Start: 01-13-2022 End: 01-13-[address] Stephen Hollingsworth Work Phone: [facility] Start: 10-04-2020 End: 10-04-2020 Subsequent hospital visit by physician Xr [facility] Work Phone: Radiology Comment on above: Foot pain, left [[id number] .[id number]] Procedures Date Procedure Procedure Detail Performing Clinician Start: 12-24-[address] Shaneka Joyce MD Work Phone: Start: 09-21-2023 Ammonia [Mass/volume] in Plasma [facility] Start: 09-21-2023 Lactate [Moles/volume] in Serum or Plasma [facility] Start: 09-21-2023 End: 09-21-2023 Assay of ammonia Jacob Baker MD Work Phone: Start: 03-23-2023 US scan of thyroid Dr. Shaneka Joyce Work Phone: Start: 03-09-2023 X-ray of lumbosacral spine Dr. Shaneka Joyce Work Phone: Start: 08-13-[address] Shaneka Joyce Work Phone: Start: 07-29-[address] Shaneka Joyce Work Phone: Start: 03-23-2022 US scan of thyroid Dr. Stephen Hollingsworth Work Phone: Start: 03-05-[address] Stephen oHllingsworth Work Phone: Start: 10-04-2020 Radex foot complete minimum 3 views Lizzie Kevin MD Work Phone: Plan of Treatment Date Care Activity Detail Author Start: 02-07-2036 Zoster Vaccines (1 of 2) Zoster Vaccines (1 of 2) [facility] Start: 05-16-2027 DTaP/Tdap/Td Vaccines (2 - Td or Tdap) DTaP/Tdap/Td Vaccines (2 - Td or Tdap) [facility] Start: 05-16-2027 Urine microalbumin profile DTaP,Tdap,Td Vaccine (2 - Td or Tdap) [facility] Start: 01-10-2025 ambulatory Ambulatory Facility:[facility] Start: 12-24-2024 Ultrasonography of abdomen Abdomen Limited [facility] Start: 12-24-2024 US Abdomen limited [facility] Start: 03-11-2024 Covid-19 Vaccine ( season) Covid-19 Vaccine ( season) [facility] Start: 03-11-2024 Influenza vaccination Influenza Vaccine (#1) [facility] Start: 09-21-2023 End: 09-21-2023 Patient encounter procedure 09/21/2023 11:45 AM EDT Office Visit [facility] [id number] [facility] [address] [place] [address] [place] [address] [place] [address] [facility] Start: 03-11-2023 COVID-19 Vaccine () COVID-19 Vaccine () [facility] Start: 09-09-2022 Patient referral [facility] Work Phone: Start: 08-13-2022 Esophageal motility study w/interp&rpt ESOPHAGUS MOTILITY STUDY [facility] Start: 08-13-2022 Patient discharge [facility] Start: 07-29-2022 Egd insert guide wire dilator passage esophagus EGD GUIDE WIRE INSERTION [facility] Start: 07-29-2022 Egd transoral biopsy single/multiple EGD BIOPSY SINGLE/MULTIPLE [facility] Start: 07-29-2022 Patient discharge [facility] Start: 03-11-2022 Patient referral [facility] Work Phone: Start: 10-13-2021 Screening for malignant neoplasm of cervix Cervical Cancer Screening [facility] Start: 2007 Screening for malignant neoplasm of cervix [facility] Start: 2005 Hepatitis B Vaccine (1 of 3 - 19+ 3-dose series) Hepatitis B Vaccine (1 of 3 - 19+ 3-dose series) [facility] Start: 02-07-2004 Anxiety Screening Anxiety Screening [facility] Start: 02-07-2004 Depression Screening Depression Screening [facility] Start: 02-07-2004 Diabetes mellitus screening Diabetes Screening [facility] Start: 02-07-2004 Hepatitis C screening Hepatitis C Screening [facility] Start: 02-07-2004 HIV screening HIV Screening [facility] Start: 1987 MMR Vaccines (1 of 1 - Standard series) MMR Vaccines (1 of 1 - Standard series) [facility] Start: 1987 Varicella vaccination Varicella Vaccines (1 of 2 - 2-dose childhood series) [facility] Start: 1986 Hepatitis B Vaccines (1 of 3 - 3-dose series) Hepatitis B Vaccines (1 of 3 - 3-dose series) [facility] Start: 1986 HIV screening HIV Screening [facility] Start: 1986 Lipid panel Lipid Panel [facility] Start: 1986 Thyroid stimulating hormone measurement TSH Level [facility] Start: 1986 Yearly Adult Physical Yearly Adult Physical [facility] CBC W Auto Different ial panel - Blood [facility] Choriogonadotropin.b eta subunit ( test) [Presence] in Serum or Plasma [facility] Helicobacter pylori Ag [Presence] in Stool by Immunoassay [facility] MR Lumbar spine [facility] Patient referral [facility] Work Phone: Radionuclide study o f abdomen [facility] T4 free measurement [facility] Thyroid stimulating hormone measurement [facility] US Abdomen limited [facility] US Thyroid gland [facility] Work Phone: [place] Thyroid gland [facility] Immunizations Immunization Date Immunization Notes Care Provider Fa [facility] 04-05-2024 influenza, seasonal, injectable, preservative free Dr. Shaneka Joyce MD Work Phone: [facility] 04-07-2023 influenza, injectabl e, quadrivalent, preservative free Dr. Shaneka Joyce Work Phone: [facility] 04-28-2022 influenza, injectabl e, quadrivalent, preservative free Dr. Shaneka Joyce Work Phone: [facility] 04-28-2022 influenza, seasonal, injectable Dr. Shaneka Joyce Work Phone: [facility] 06-24-2021 Covid (Moderna) Dr. Stephen feliciano Work Phone: [facility] 04-07-2021 influenza, injectabl e, quadrivalent, preservative free Dr. Shaneka Joyce Work Phone: [facility] 04-07-2021 influenza, seasonal, injectable Dr. Stephen Hollingsworth Work Phone: [facility] 08-12-2020 Covid (Moderna) Dr. Stephen feliciano Work Phone: [facility] 07-15-2020 Covid (Moderna) Dr. Stephen feliciano Work Phone: [facility] 04-28-2020 influenza, injectabl e, quadrivalent, preservative free Dr. Shaneka Joyce Work Phone: [facility] 04-28-2020 influenza, seasonal, injectable Dr. Stephen Hollingsworth Work Phone: [facility] 04-28-2020 influenza virus vaccine, unspecified formulation [facility] [place] Work Phone: [facility] 04-25-2019 influenza, injectabl e, quadrivalent, preservative free Dr. Shaneka Joyce Work Phone: [facility] 04-25-2019 influenza, seasonal, injectable Dr. Stephen Hollingsworth Work Phone: [facility] 05-03-2018 influenza virus vaccine, unspecified formulation [facility] [place] Work Phone: [facility] 05-03-2018 influenza, injectabl e, quadrivalent, contains preservative [facility] [place] Work Phone: [facility] Payers Date Payer Category Payer Self-pay [id number] 2023 Unknown [id number] 2022 Unknown [id number] 2020 Unknown [id number]. [id number] 1985 Unknown [id number] 2.16.8 40.1.759708.3.579.2.1245 1985 Unknown [id number] 2.16.8 40.1.077874.3.579.2.1245 Unknown [id number] 2.16.8 40.1.617261.3.579.2.462 Unknown [id number] 2.16.8 40.1.091157.3.579.2.462 Unknown [id number] 2.16.8 40.1.668721.3.579.2.462 Unknown [id number] 2.16.8 40.1.541553.3.579.2.462 Unknown [id number] 2.16.8 40.1.791900.3.579.2.462 Unknown [id number] 2.16.8 40.1.592857.3.579.2.462 Unknown [id number] 2.16.8 40.1.986781.3.579.2.462 Unknown [id number] 2.16.8 40.1.563449.3.579.2.462 Unknown [id number] 2.16.8 40.1.725875.3.579.2.462 Unknown [id number] 2.16.8 40.1.971303.3.579.2.462 Unknown [id number] 2.16.8 40.1.700119.3.579.2.462 Unknown [id number] 2.16.8 40.1.639112.3.579.2.462 Unknown [id number] 2.16.8 40.1.067422.3.579.2.462 Unknown [id number] 2.16.8 40.1.529206.3.579.2.462 Unknown [id number] 2.16.8 40.1.764918.3.579.2.462 Unknown [id number] 2.16.8 40.1.351003.3.579.2.462 Unknown [id number] 2.16.8 40.1.270214.3.579.2.462 Unknown [id number] 2.16.8 40.1.866255.3.579.2.462 Unknown [id number] 2.16.8 40.1.732871.3.579.2.462 Social History Date Type Detail Facility Start: 03-11-2022 End: 09-22-2023 Tobacco smoking status NYIS Unknown if ever smoked [facility] Start: 05-11-2021 Occasional [facility] Start: 05-11-2021 None [facility] Start: 05-11-2021 Cigarettes [facility] Start: 1985 Sex Assigned At Female [facility] Start: 09-14-2023 End: 05-22-2024 Tobacco smoking status NHIS Ex-smoker [facility] Work Phone: End: 03-28-2013 History of tobacco use Current smoker [facility] Work Phone: End: 03-28-2013 History of tobacco use Cigarette Smoker [facility] Work Phone: Start: 03-28-2018 End: 09-14-2023 Tobacco use and exposure Smokeless tobacco non-user [facility] Work Phone: Start: 06-18-2020 End: 09-14-2023 History of Social function [facility] Start: 06-18-2020 End: 09-14-2023 Tobacco use panel [facility] Start: 1985 Sex Assigned At Not on file U [facility] Work Phone: Start: 09-04-2020 End: 09-21-2023 Exposure to SARS-CoV-2 (event) Not sure [facility] Start: 10-04-2020 Alcoholic beverage intake Current non-drinker of alcohol (finding) [facility] Adult Depression Screening Assessment 0 [facility] NEGATED: Highlighted row [facility] Goals Date Patient Goal Desired Activity /State Mental Status Date Assessment Result Facility 08-13-2022 Cognitive function Level Of Cons ciousness Awake;Alert;Appropriate;Follow s Commands [facility] Work Phone: 07-29-2022 Cognitive function Voice/Name [facility] Work Phone: Clinical Notes 10-04-2020 to 12-27-2024 Note Date & Type Note Facility 12-27-2024 Radiology Diagnostic study note [facility] Imaging Services [address] [place] [address] Abdomen Limited MR#: [id number] Acct: [id number] Name: REBECCA LAMB Rep #: [id number] : 1985 F 39 From: Orlando Valiente MD PCP: Dr. Shaneka Joyce MD Status: R EG CLI Study:Abdomen Limited Date of Exam: 12/09 01/02 Exam# [id number] Ordering Dr: Narendra Barbosa PROCEDURE: ABDOMEN LIMITED 12/24/2024 REASON FOR EXAM: EPIGASTRIC PAIN Nausea. COMPARISON: Prior sonogram dated April 22, 2020. FINDINGS: Liver: Grossly normal size and echotexture. Once again, there is a 7 mm x 11 mmx 7 mm echogenic nodule in the left lobe of the liver suggestive of a hemangioma. A similar-appearing nodule is seen in the right lobe measuring 6 mm x 6 mm x 4 mm. This is essentially unchanged. Gallbladder: Small amount of sludge is seen in the gallbladder lumen. I suspecta 7 mm x 6 mm x 3 mm polyp adherent to the gallbladder wall. Common bile duct: Normal measuring 4.7 mm . Pancreas: Normal Other: Visualized portions of the right kidney are unremarkable except for a 2 mm x 2 mm x 3 mm nonobstructive renal calculus.. No right upper quadrant ascites. US/Abdomen Limited IMPRESSION: Stable small echogenic nodules in both lobes of the liver as described suggestive of hemangioma. Small amount of sludge is seen in the gallbladder lumen as well as a 7 mm x 6 mmx 3 mm gallbladder polyp. Nonobstructive right intrarenal calculus measuring 2 mm x 2 mm x 3 mm. [facility] CC: Dr. Shaneka Joyce MD; ALYSSA Xiao ~ Shroud Line Tier: Signed [facility] 10-15-2024 Evaluation note Diagnosis Onset Date Resolution Mild binge-eating disorder acute October 15, 2024 7:48am Thyromegaly acute October 15 7:48am Anxiety and depression chronic Ap ril 2024 7:48am Encounter for routine gynecological examination noneactive October 15, 2024 7:48am Nausea acute December 19 3:23pm [facility] Work Phone: [phone]) [phone] Evaluation note* Diagnosis Onset Date Resolution Status Admit Date Mild binge-eating disorder acute October 15, 2024 7:48am Thyromegaly acute October 15 7:48am Anxiety and depression chronic Ap ril 2024 7:48am Encounter for routine gynecological examination noneactive October 15, 2024 7:48am Nausea acute December 19 3:23pm RUQ pain acute December 19 3:23pm [facility] Work Phone: 1(922) 886-482903-13-2024 History of Present illness Narrative* Abi Garcia MD - 09/21/2023 11:45 AM EDT Neuromuscular Clinic Follow-Up visit Date of Service: 09/21/2023 Patient: Rebecca Lamb Referring Provider: No ref. provider found Primary Care Physician: No primary care provider on file. 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 She was last seen in the clinic on September 13 2022. To recap, In 2010, Rebecca developed bilateral lower extremity soreness and dark urine. Blood tests showed elevated CK to 30,000. She was admitted to the hospital and treated with IVIG and resting until improved. She was referred to [facility] for further investigations. She had an EMG done as well as muscle (left biceps and quads) and skin biopsy. Reports for both are not available with the patient yet but she thinks everything was normal. She was also tested for Duchenne and that was normal per her report as well. At that time she was not very active aside from regular daily physical activity. She was on Adderall at that time and rhabdomyolysis was attributed to that. Medication was stopped. CK normalized within 3 months. 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 She never experienced pain, cramps, spasms, weakness or darkening of her urine with running. In 2017, she was put on Adderall again and within weeks she developed bilateral calves sorenessand dark urine. Her CK was checked and it was elevated to 400s. Medication was stopped and patient i mproved within few days of IV hydration and resting. CK normalized again. In 2020, patient was in afoot boot for a while and she was quit inactive during that period. She [...] this episode that she can recall but shestarted omeprazole for GERD few days before this started. In between attacks, she is normal and denies cramps, spasms, muscle pain or weakness even with vigorous exercising. Interval history: Rebecca continues to do well with no signs or symptoms of recurrent rhabdomyolysis. [facility] and should receive the report shortly. During this visit, the forearm exercise test was done and was normal. Prior history: Past medical history, past surgical history, social history and family history remain unchanged since last visit. Allergies: Allergies Allergen Reactions Adderall [Dextroamphetamine-Amphetamine] Other Vyvanse [Lisdexamfetamine] Other Procedure: We performed forearm exercise test at rest and following exercise from right antecubital vein with no complication. Results: The data of the following labs, imaging, and results were personally reviewed and demonstrated: Labs: Office Visit on 09/21/2023 Component Date Value Ref Range Status Ammonia 09/21/2023 30 16 - 53 umol/L Final Ammonia 09/21/2023 44 16 - 53 umol/L Final Ammonia 09/21/2023 93 (H) 16 - 53 umol/L Final Ammonia 09/21/2023 91 (H) 16 - 53 umol/L Final Ammonia 09/21/2023 89 (H) 16 - 53 umol/L Final Ammonia 09/21/2023 62 (H) 16 - 53 umol/L Final Lactate 09/21/2023 0.5 0.4 - 2.0 mmol/L Final Lactate 09/21/2023 2.6 (H) 0.4 - 2.0 mmol/L Final Lactate 09/21/2023 4.6 (HH) 0.4 - 2.0 mmol/L Final Lactate 09/21/2023 4.9 (HH) 0.4 - 2.0 mmol/L Final Lactate 09/21/2023 3.7 (H) 0.4 - 2.0 mmol/L Final Lactate 09/21/2023 2.3 (H) 0.4 - 2.0 mmol/L Final We reviewed the results of her forearm exercise test: 1. Lactate results were as follows: Time baseline 0 min 1 min 3 min 6 min 10 min Lactate 0.5 2.6 4.6 4.9 3.7 2.3 2. Ammonia results are as follows: Time Baseline 0 min 1 min 3 min 6 min 10 min Ammonia 30 44 93 91 89 62 Provider Impression: Impression: Rebecca Lamb is a 38-year-old woman has episodic rhabdomyolysis since 2010 with complete resolutionof symptoms and normal CK in between attacks for which she follows with neuromuscular clinic. Neurological exam has been normal. It's clearly that rhabdomyolysis in this case is not exercise induced and likely not drug-induced despite the 2 episodes with Adderall. We suspected metabolic myopathyeven though in majority of the cases exercise intolerance is the main symptoms. The forearm exercise test today showed appropriate increment and decrement in both lactate and ammonia which is not consistent with glycogen storage disease. The etiology remains unknown but the patient was able to contact the [facility] regarding her biopsy and well get the reports and hopefully the slides soon. Reviewing the muscle biopsy will be very helpful in ruling out or confirming some of the differential diagnoses we suspect. Plan: Pending muscle biopsy review. Jacob Baker MD Neuromuscular Fellow [facility] Problem List Items Addressed This Visit Musculoskeletal and Injuries Paroxysmal rhabdomyolysis - Primary Relevant Orders Ammonia (Completed) Lactic acid, plasma (Completed) Orders Placed This Encounter Procedures Ammonia Standing Status: Standing Number of Occurrences: 6 Standing Expiration Date: 09/20/2024 Order Specific Question: Release result to MyChart Answer: Immediate [1] Lactic acid, plasma Standing Status: Standing Number of Occurrences: 6 Standing Expiration Date: 09/20/2024 Order Specific Question: Release result to MyChart Answer: Immediate [1] ATTENDING NOTE - ABI GARCIA M.D. I saw patient with trainee and agree with the edits, history and exam that I helped formulate per above. She is unchanged. Her forearm exercise test today showed normal rise in ammonia and lactate. We will review of muscle biopsy from [facility]. Abi Garcia M.D., F.A.C.P. Director, Neuromuscular Center & EMG laboratory [facility] Professor of Neurology [facility] [employer] The total appointment time today was 20 minutes. Time included preparing to see the patient, obtaining the history, performing a medically necessary appropriate physical examination, ordering and reviewing tests, referring and communicating with other providers, independently interpreting results to the patient/family and documenting clinical information in the medical record. [facility] Work Phone: 1([phone]) 898-379203-06-2024 History of Present illness Narrative* Abi Garcia MD - 09/14/2023 10:30 AM EST Date of Service: 09/14/2023 Patient: Rebecca Lamb History: History of Presenting Illness: Mrs. Rebecca Lamb is a 38-year-old, right handed, woman [...] eventually she improved. She was referred to [facility] for further investigations. She had an EMG done as well as muscle (left biceps and quads) and skin biopsy. Reports for both are not available withthe patient but she thinks every thing turned back normal. She was also tested for Duchenne and that was normal per her report. At that time she was not very active aside from regular daily physical a ctivity. She was on Adderall at that time and rhabdomyolysis was attributed to that. Medication wasstopped. CK normalized within 3 months. 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 She never experienced pain, cramps, spasms, weakness or darkening of her urine with running. In 2017, she was put on Adderall again and [...] and found to be elevated to 400-500. Shewas treated with rest and PO hydration and [...] elevated to 935. She was treated with POhydration and rest. Again, no specific incident before this episode that she can recall but she started omeprazole for GERD few days before this started. Patient used to do gymnastics as a kid with other different sports with no problems. She never had spasms, cramps or pain with exercising. In between attacks, she is normal and denies cramps, spasms,muscle pain or weakness. Review of Systems: All [...] tablet, every 12 hours., Disp: , Rfl: [id number] acid-biotin (Hair,Skin and Nails,FA-biotin,) 66.7-1,000 mcg tablet, [...] 1 tablet (0.125 mg) under the tongue ifneeded., Disp: , Rfl: Allergies: Adderall [dextroamphetamine-amphetamine] and Vyvanse [lisdexamfetamine] Physical Exam: Vital signs: BP 135/80 Pulse 90 Temp 36.5 C (97.7 F) Resp 18 Ht 1.626 m (5' 4) Wt 72.6 kg (160 lb) BMI 27.46 [...] aldolase 3.1, TSH 0.5. Provider Impression: Impression: Rebecca Lamb is a 38-year-old woman has episodic rhabdomyolysis and normal neurological exam. Episodic rhabdomyolysis is commonly seen with metabolic myopathies, specifically glycogen and lipid storage diseases. These are associated with exercise-induced rhabdomyolysis/hyperCkemia which is not stron gly evident in Mrs. Lamb's case. Moreover, patient with glycogen-storage disease usually experiencecramps and muscle pain/fatigue in between attacks. The fact that she had it twice while on Adderallraises suspicion for drug-induced rhabdomyolysis as well although it's not a well-known side effectof the medication. The reported normal muscle biopsy [...] reports and slides of her muscle and skinbiopsy Jacob Baker MD Neuromuscular Fellow [facility] Problem List Items Addressed This Visit Paroxysmal rhabdomyolysis - Primary ATTENDING NOTE - ABI GARCIA M.D. I saw patient with trainee and agree with the edits, history and exam that I helped formulate per above. She reported an episode, and 2011 of generalized muscle soreness and dark urine. Blood tests showedelevated CK to 30,000. She was seen soon after her first episode at [facility] and underwent an EMG and muscle biopsy [...] normal CK and TSH. In summary, Mrs. Rebecca Lamb has had several episodes of rhabdomyolysis, [...] most likely lipid storage rather than glycogen-storage dis ease. We will start by doing a forearm exercise test next week. We asked her to try to retrieve her muscle biopsy slides. We discussed this with her. Abi Garcia M.D., F.A.C.P. Director, Neuromuscular Center & EMG laboratory [facility] Professor of Neurology [facility] The total appointment time today was 60 minutes. Time included preparing to see the patient, obtaining the history, performing a medically necessary appropriate physical examination, counseling and educating the patient/family, ordering tests, referring and communicating with other providers, independently interpreting results to the patient/family and documenting clinical information in the medical record. [facility] Work Phone: 1(358) 473-417504-13-2023 Discharge summary Author Enrique Bustos [facility] October 21, 2022 5:47pm Note Date/Time October 21, 2022 5:4 7pm [facility] Physical Therapy [facility] [place] [address] / REHABILITATION SERVICES DISCHARGE SUMMARY MR#: [id number] Acct: [id number] Name: REBECCA LAMB Rep #: [id number] : 1985 37 From: Enrique Bustos DPT, OCS, CSCS Referring Dr.: Dr. Shaneka Joyce MD Status : REG R Insurance: [employer] It has been my pleasure to treat REBECCA LAMB referred by Dr. Shaneka Joyce MD, with the diagnosis of chronic LBP for a total of 6 visit(s). Discharge Date: Please see the following information for a summary of their discharge status. Subjective: been real busy and hard to make it in. back is doing really well. Changed up workout to more with weights and stretching vs just running. No flareup slately. If sits too long in car it might be sore. No pain at work. Doing HS stretches at home, bridges, yoga. LBP Pain Intensity (Out of 10): Unrated % Improvement: 90 Objective/Function: Full aROM with just slight end range extension tightness in middle of low back, otherwise full function and good presentation. Goal 1:: Patient have full L/S AROM without pain Goal Progress: Goal Met Goal 2:: pt I in appropriate HS stretching, LB yoga stretches and core strength via HEP Goal Progress: Goal Met Goal 3:: Patient feel 99% better and manageable Goal Progress: Progressing Goal 4:: Sit at work without pain arising from chair. Goal Progress: Goal Met Goal 5:: 4 or less oswestry Goal Progress: Goal Met Plan: d/c, pt to manage on own and contact doctor if pain returns. If there are questions or concerns regarding this patient's physical therapy, please feel free to call me at [phone]. Thank you for the referral of thispatient. Sincerely, Enrique Bustos, SANTIAGO, OCS, CSCS Balance/Gait/Functional tests - Balance/Special Test Scores Oswestry Low Back Score: 1 <Electronically signed by Enrique Bustos DPT, HIGINIO, CSCS> 10/21/22 1745 CC: Dr. Shaneka Joyce MD ~ EBG Signed [facility] Work Phone: 1(907) 836-114301-19-2023 Procedure [facility] 07-29-2022 Procedure [facility]03-02-2022 NoteHNO ID: [id number] Author: Sahara Lee Service: ? Author Type: ? Type: Progress [...] Sent to Practice: No Navigation Signature: Sahara Lee September 09, 2021 1:05 [facility]03-02-2022 NotePatient Outreach (NETNAV) REBECCA LAMB ([id number]) 1985 F Date Time Provider Department 09/09/21 NO PCP (HIST) NETNAV During your visit today, we recorded the following information about you: Sahara Lee 09/09/2021 1:06 PM Signed [facility] NAVIGATION OUTREACH Action/FYI re: scheduling ORTHO consult dated 10/04/20 for [...] Sent to Practice: No Navigation Signature: Sahara Lee September 09, 2021 1:05 PM Allergies As [...] (ADD) without hypera*03/29/2018 Encounter Status:Closed by SAHARA LEE on 09/09/21[facility] 10-04-2020 NoteHNO ID: [id number] Author: Keshia Gamboa (Rt) Alma Delia Kelley Service: Radiology Author Type: Chief Operator Reformer Type: Progress Notes Filed: 10/04/2020 9:12 AM Note Text: Radiology Service Progress Note PATIENT NAME: Rebecca Lamb DATE OF SERVICE: October 04, 2020 [...] BY: RT Rachel October 04, 2020 9:12 [facility]03-27-2021 NoteHNO ID: [id number] Author: Daryl Kevin Service: ? Author Type: Physician Type: Progress [...] Reassured by no fracture. Supportive care. Daryl Kevin, [facility]03-27-2021 History of Present illness Narrative* Keshia Kelley (Rt), Tech - 10/04/2020 9:00 AM EDT Radiology Service Progress Note PATIENT NAME: Rebecca Lamb DATE OF SERVICE: October 04, 2020 TIME: 9:12 AM PATIENT IDENTITY VERIFICATION COMPLETED USING TWO (2) IDENTIFIERS: Name and Date of confirmedby patient verbally. FALL SCREENING: Has the patient had 2 falls in the last year or 1 fall with injury or currently using an Ambulatory Assistive Device (Walker, Cane, Wheelchair, Crutches, etc.)? No PATIENT GENDER DATA: Female. status: : No status: NO. PATIENT RELEVANT IMPLANT DATA REVIEWED: Not Applicable RADIOLOGY DEPARTMENT: General X-ray: Exam(s) Completed: Lower Extremity X- Ray(s): Foot, Left and Wt. Bearing: PERIPHERAL IV DATA: Not applicable SIGNED BY: RT Rachel October 04, 2020 9:12 AM documented in this encounterOur [facility] HospitalEvaluation note* Diagnosis Onset Date Resolution Status Lumbar radiculopathy acute Segmental and somatic dysfunction of cervical region acute Segmental and somatic dysfunction of lumbar region acute Segmental and somatic dysfunction of pelvic region acute Segmental and somatic dysfunction of thoracic region acute Neck pain noneactive Neck swelling acute Anxiety and depression chron ic Swallowing difficulty chroni c [facility] Work Phone: Evaluation note* Diagnosis Onset Date Resolution Status Lumbar radiculopathy acute Segmental and somatic dysfunction of cervical region acute Segmental and somatic dysfunction of lumbar region acute Segmental and somatic dysfunction of pelvic region acute Segmental and somatic dysfunction of thoracic region acute Neck pain noneactive Neck swelling acute Anxiety and depression chron ic Swallowing difficulty chroni c Thyromegaly acute Swallowing difficulty chroni c [facility] Work Phone: Evaluation note* Diagnosis Onset Date Resolution Status Thyromegaly acute Swallowing difficulty chroni c Thyromegaly acute Swallowing difficulty chroni c Influenza A acute Segmental and somatic dysfunction of cervical region acute Segmental and somatic dysfunction of lumbar region acute Segmental and somatic dysfunction of thoracic region acute Neck pain noneactive [facility] Work Phone: Evaluation note* Diagnosis Onset Date Resolution Status Thyromegaly acute Swallowing difficulty chroni c Influenza A acute Segmental and somatic dysfunction of cervical region acute Segmental and somatic dysfunction of lumbar region acute Segmental and somatic dysfunction of thoracic region acute Neck pain noneactive [facility] Work Phone: Evaluation note* Diagnosis Onset Date Resolution Status Segmental and somatic dysfunction of cervical region acute Segmental and somatic dysfunction of lumbar region acute Segmental and somatic dysfunction of thoracic region acute Neck pain noneactive Acid reflux chronic Constipation chronic Esophageal dysmotility chron ic Segmental and somatic dysfunction of cervical region acute Segmental and somatic dysfunction of lumbar region acute Segmental and somatic dysfunction of pelvic region acute Segmental and somatic dysfunction of thoracic region acute Neck pain noneactive Segmental and somatic dysfunction of cervical region acute Segmental and somatic dysfunction of lumbar region acute Segmental and somatic dysfunction of pelvic region acute Segmental and somatic dysfunction of thoracic region acute Neck pain noneactive Anxiety and depression chron ic Chronic back pain chronic Constipation chronic [facility] Work Phone: Evaluation note* Diagnosis Onset Date Resolution Status Anxiety and depression chron ic Chronic back pain chronic Celiac disease chronic [facility] Work Phone: Evaluation note* Diagnosis Onset Date Resolution Status Celiac disease chronic Segmental and somatic dysfunction of cervical region acute Segmental and somatic dysfunction of lumbar region acute Segmental and somatic dysfunction of pelvic region acute Segmental and somatic dysfunction of thoracic region acute DDD (degenerative disc disease), lumbosacral chronic Acid reflux chronic Anxiety and depression chron ic Chronic back pain chronic Constipation chronic Herniated intervertebral disc of lumbar spine acute [facility] Work Phone: Evaluation note* Diagnosis Paroxysmal rhabdomyolysis- Primary documented in this encounter [facility] Work Phone: Evaluation note* Diagnosis Paroxysmal rhabdomyolysis- Primary documented in this encounter [facility] Work Phone: Evaluation note* Diagnosis Onset Date Resolution Status 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 BMI 28.0-28.9,adult acute Mild binge-eating disorder a cute Rhabdomyolysis acute Thyromegaly acute Anxiety and depression chron ic Encounter for routine gynecological examination noneactive [facility] Work Phone: Evaluation note* Diagnosis Foot pain, left Pain in limb [facility] Author Modesto Rodriguez [facility] July 29, 2022 10:48am Note Date/Time July 29, 2022 1 0:48am [facility] Medical Records Department [address] [place] [address] History & Physical Exam 07/29/22 1047 MR#: [id number] Acct: [id number] Name: REBECCA LAMB Rep #:[id number] : 1985 37 From: Modesto Rodriguez DO PCP: Dr. Shaneka Joyce MD Status:R EG [facility] Location: [place] [address] History and Physical Date of Admission: 07/29/22 REBECCA LAMB, is a 37 F who presents to the office today for Initial consult. Rebecca established with this clinic 05.31.22. Intermittent dysphagia with pain first noticed with pills earlier this year. Endocrinology follows for goiter and TG ab +. PMH thyromegaly, anxiety/depression; ADHD; back problems; rhabdomyolysis. FH brother and son celiac. US abdomen 04.22.20 noting hepatic hemangiomas; 5mm echogenic polyp versus adherent sludge ball. HIDA scan 05.09.20 with EF >35% Barium Swallow 03.05.22 and mild esophageal retention and trapping of tablet in mid esophagus. US thyroid 03.23.22 noting thyromegaly with cystic nodules. ROS Const Constitutional: No body ache, chills, excessive sweating, fatigue, fever(s), frequent falls, headache(s), snoring, weakness, weight change, sleep problems orchange in appetite Eyes Eyes: No blurry vision, change in vision, eye pain or Light sensitivity ENT ENT: No abnormal hearing, ear or mastoid pain, tinnitus, nasal congestion, headache(s), neck pain or sore throat Resp Respiratory: No cough, shortness of breath, snoring or wheezing Cardio Cardiology: No chest pain at rest, chest pain with exertion, excessive sweating,shortness of breath, dyspnea on exertion, lightheadedness, orthopnea or palpitations Gastro GI: No abdominal pain, change in bowel habits, constipation, cramping, diarrhea,nausea/dyspepsia or vomiting Genitourinary-Female: No burning urination, painful urination, urinary incontinence, urinary frequency or abnormal vaginal bleeding Musc Musculoskeletal: No abnormal gait, joint pain, back pain, limited range of motion, neck pain, numbness or tingling Skin Skin: No dry skin, redness, lesions, itchy eyes, rash or wounds Neuro Neurology: No abnormal gait, abnormal hearing, abnormal speech, dizziness, weakness, frequent falls, headache(s), memory loss, numbness or tingling Psych Psychiatric: No anxiety, No change in appetite, No depression, No memory loss and No Thoughts of harming yourself/Others Endo Endocrine: No cold intolerance, excessive sweating, fatigue, flushing, heat intolerance, increased thirst/drinking, increased hunger or weight change Aller/Imm Allergy/Immunologic: No itchy eyes, seasonal allergy symptoms, hives or wheezing Jeromy/Lymp Hematologic/Lymphatic: No easy bleeding, easy bruising or enlarged lymph nodes Exam Const General: cooperative, healthy appearing, comfortable, no acute distress, well developed and not cushingoid Nutritional Appearance: well nourished Orientation: alert, awake and oriented x3 [facility] Head: normal to inspection Ears: hearing grossly normal bilaterally Nose: external nose normal Mouth: oral mucosae normal Eyes General: appearance normal, both eyes and all related structures Alignment and Position: alignment normal Periorbital: periorbital findings normal Eyelids: eyelids normal Conjunctivae: conjunctivae normal Neck Neck: normal visual inspection Neck mass: No Thyroid: asymmetrical (R>L enlarged) Lymphatic: no lymphadenopathy noted Chest Chest palpation & inspection: normal inspection of the chest Resp Effort & Inspection: normal respiratory effort, able to speak in complete sentences, symmetric chest movement, no audible wheezes and no cough Auscultation: Bilateral: Clear to Auscultation Cardio Rate: regular rate Rhythm: regular rhythm GI Inspection: normal to inspection Skin General: no rashes or lesions noted Neuro General: patient alert, patient awake and patient oriented x3 Cranial Nerves: CN's II-XI intact bilaterally Cognition: normal cognition Speech: speech normal Gait: normal gait Motor: muscle tone normal throughout Extrem General: no edema Psych Appearance: grossly normal Mental Status: mental status grossly normal Mood: congruent mood Affect: normal affect Speech and Movement: speech and movement normal Attitude: cooperative Thought Process: normal Thought Content: normal Judgment: judgment good Quality Reporting Tobacco Screening ([facility] 138) Smoking Status: Former smoker Assessment and Plan Assessment and Plan (1) Swallowing difficulty: ?Status:?Chronic ?Plan: The differential diagnosis for esophageal dysphagia does include eosinophilic esophagitis, cricopharyngeal achalasia, extrinsic compression from the thyroid, erosive esophagitis, esophageal dysmotility disorder.? She will need to undergo an upper endoscopy evaluate upper GI tract.? She was explained alternatives, risk, benefits including outstanding bleeding, infection, sepsis, perforation, need for discharge or .? Have an ASA of 1. I have examined the patient andthe H&P has been reviewed. There are no clinical changes since date of exam. 07/29/22 1048 <Electronically signed by Modesto Rodriguez DO> Cosigner Signature (if applicable): CC: Dr. Shaneka Joyce MD; Modesto Rodriguez DO~ Signed [facility] Work Phone: Reason for referral (narrative)No reason for referral [facility] Work Phone: Summary Purpose Family History No Family History Records Found Relationship Condition Age at Onset Recorded Date/T nahed mother Diabetes mellitus Unknown brother Leukemia Unknown grandmother Cerebrovascular accident (CVA) Unknown Parkinson's disease Unknown Relationship Condition Age at Onset Recorded Date/T nahed mother Diabetes mellitus Unknown brother Leukemia Unknown grandmother Cerebrovascular accident (CVA) Unknown Parkinson's disease Unknown Diabetes mellitus Unknown Relationship Condition Age at Onset Recorded Date/T nahed mother Diabetes mellitus Unknown brother Leukemia Unknown grandmother Cerebrovascular accident (CVA) Unknown Parkinson's disease Unknown Diabetes mellitus Unknown father Hemorrhagic disorder Unknown Relationship Condition Age at Onset Recorded Date/T nahed mother Diabetes mellitus Unknown Supraventricular tachycardia Unknown brother Leukemia Unknown grandmother Cerebrovascular accident (CVA) Unknown Parkinson's disease Unknown Diabetes mellitus Unknown father Hemorrhagic disorder Unknown Advance Directives No Advanced Directives Records Found Advance Directive Response Recorded Date/ Time Living Will No May 11 4:24pm Power of Radiation Control Specialist No May 11, 2021 4:24pm Advance Directive Response Recorded Date/ Time Living Will No July 26 2:15pm Power of Radiation Control Specialist No July 26, 2022 2:15pm Advance Directive Response Recorded Date/ Time Living Will No July 26 3:15pm Power of Radiation Control Specialist No July 26, 2022 3:15pm Advance Directive Response Recorded Date/ Time Living Will No July 26 3:15pm Do you have a Healthcare Power of Radiation Control Specialist? 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 Adjustment Reason for Visit Thyromegaly Swallowing difficulty Thyromegaly Swallowing difficulty Influenza A Segmental and somatic dysfunction of cervical region Segmental and somatic dysfunction of lumbar region Segmental and somatic dysfunction of thoracic region Neck pain Chief Complaint Goiter FOOD GETTING STUCK WHEN SWALLOWING COVID TEST/[employer]MS EMPLOYEE FLU SYMPTOMS/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 TEST/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 EMPLOYEE Adjustment Reason for Visit Thyromegaly Swallowing difficulty Influenza A Segmental and somatic dysfunction of cervical region Segmental and somatic dysfunction of lumbar region Segmental and somatic dysfunction of thoracic region Neck pain Chief Complaint Adjustment 2 WK FU BACK PAIN Back pain lower back pain LBP/RX HERE Reason for Visit Segmental and somati c dysfunction of cervical region Segmental and somatic dysfunction of lumbar region Segmental and somatic dysfunction of thoracic region Neck pain Acid reflux Constipation Esophageal dysmotility Segmental and somatic dysfunction of cervical region Segmental and somatic dysfunction of lumbar region Segmental and somatic dysfunction of pelvic region Segmental and somatic dysfunction of thoracic region Neck pain Segmental and somatic dysfunction of cervical region Segmental and somatic dysfunction of lumbar region Segmental and somatic dysfunction of pelvic region Segmental and somatic dysfunction of thoracic region Neck pain Anxiety and depression Chronic back pain Constipation Chief Complaint LBP/RX HERE 6-8 wk fu 4 MO FU Reason for Visit Anxiety and depressi on Chronic back pain Celiac disease Chief Complaint 4 MO FU Back pain XRAY med refill LUMBAR SPINE NECK SWELLING Reason for Visit Celiac disease Segmental and somatic dysfunction of cervical region Segmental and somatic dysfunction of lumbar region Segmental and somatic dysfunction of pelvic region Segmental and somatic dysfunction of thoracic region DDD (degenerative disc disease), lumbosacral Acid reflux Anxiety and depression Chronic back pain Constipation Herniated intervertebral disc of lumbar spine Chief Complaint SORE THROAT 14 M FU, RS 11/10 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) Reason for Visit Hypothyroidism due t o John's thyroiditis BMI 28.0-28.9,adult Mild binge-eating disorder Rhabdomyolysis Thyromegaly Anxiety and depression Encounter for routine gynecological examination Chief Complaint Admit Date 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) October 15, 2024 7:48 am STOMACH ISSUES / NAUSEA December 19, 2024 3:23pm Reason for Visit Admit Date Mild binge-eating disorder October 15 7:48am Thyromegaly October 15, 2024 7:48 am Anxiety and depression October 15, 2024 7 :48am Encounter for routine gynecological exam ination October 15, 2024 7:48am Nausea December 19, 2024 3:23 pm Chief Complaint Admit Date 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) October 15, 2024 7:48 am STOMACH ISSUES / NAUSEA December 19, 2024 3:23pm EPIGASTRIC PAIN December 24, 2024 8:48 am Reason for Visit Admit Date Mild binge-eating disorder October 15 7:48am Thyromegaly October 15, 2024 7:48 am Anxiety and depression October 15, 2024 7 :48am Encounter for routine gynecological exam ination October 15, 2024 7:48am Nausea December 19, 2024 3:23 pm RUQ pain December 19, 2024 3:23 pm Additional Source Comments INFORMATION SOURCE (unrecogn ized section and content) DATE CREATED AUTHOR 09/29/2021 [facility] DATE CREATED AUTHOR AUTHOR'S ORGANIZ ATION 09/25/2023 [facility] DATE CREATED AUTHOR AUTHOR'S ORGANIZ ATION 01/04/2025 [facility] Care Teams (unrecognized sec tion and content) Team Status: Active Member Role Status Dates Dr. Chano Castillo MD Family Provider Active Dr. Shaneka Joyce MD Primary Care Provider Active Team Status: Inactive Member Role Status Dates Dr. Shaneka Joyce MD Primary Care Provider, Refer ring Provider Active Dr. Modesto Rodriguez DO Attending Provider Active Team Status: Inactive Member Role Status Dates Dr. Shaneka Joyce MD Primary Care Provider, Refer ring Provider Active Dr. Grant Hitchcock MD Attending Provider Active Team Status: Inactive Member Role Status Dates Dr. Shaneka Joyce MD Primary Care Provider, Refer ring Provider Active Dr. Emanuel Moreau MD Attending Provider Active Team Status: Inactive Member Role Status Dates Dr. Shaneka Joyce MD Primary Care Provider, Refer ring Provider Active Khang Dangelo PA, PA Attending Provider Active Team Status: Inactive Member Role Status Dates Dr. Shaneka Joyce MD Primary Care Provider, Refer ring Provider Active Dr. Fatemeh Dickens DC Attending Provider Active Team Status: Active Member Role Status Dates Dr. Shaneka Joyce MD Primary Care Provider Active Dr. Modesto Rodriguez DO Attending Provid er, Referring Provider, Other Provider Active Team Status: Inactive Member Role Status Dates Dr. Shaneka Joyce MD Primary Care Provider Active Dr. Modesto Rodriguez DO Attending Provider, Referring Provider Active Team Status: Active Member Role Status Dates Dr. Shaneka Joyce MD Primary Care Provider Active Dr. Emanuel Moreau MD Attending Provider, Referring Provi robert Active Team Status: Inactive Member Role Status Dates Dr. Shaneka Joyce MD Primary Care Provider Active Dr. Emanuel Moreau MD Attending Provider, Referring Provi robert Active Team Status: Inactive Member Role Status Dates Dr. Shaneka Joyce MD Primary Care P rovider, Attending Provider, Referring Provider Active Team Status: Inactive Member Role Status Dates Dr. Shaneka Joyce MD Primary Care Provider, Refer ring Provider Active Agnieszka Espinosa EGG BREAKING MACHINE OPERATOR, EGG BREAKING MACHINE OPERATOR-C Attending Provider Active Team Status: Inactive Member Role Status Dates Dr. Shaneka Joyce MD Primary Care Provider, Refer ring Provider Active Ryan Mike EGG BREAKING MACHINE OPERATOR, EGG BREAKING MACHINE OPERATOR-C Attending Provider Active Team Status: Inactive Member Role Status Dates Dr. Shaneka Joyce MD Primary Care Provider Active Nakia Torres CNM Attending Provider, Referring Pro vider Active Team Status: Inactive Member Role Status Dates Dr. Shaneka Joyce MD Primary Care Provider, Refer ring Provider Active Dr. Davie Barreto DO Attending Provider Active Team Status: Inactive Member Role Status Dates Dr. Shaneka Joyce MD Primary Care Provider Active Dr. Elver Laws MD Attending Provider Active Team Status: Active Member Role Status Dates Dr. Shaneka Joyce MD Primary Care Provider Active Dr. Fatemeh Dickens DC Attending Provider Active Team Status: Active Member Role Status Dates Dr. Shaneka Joyce MD Primary Care Provider Active Dr. Grant Hitchcock MD Attending Provider, Referring P rovider Active Team Status: Active Member Role Status Dates Dr. Shaneka Joyce MD Primary Care P rovider, Attending Provider, Referring Provider Active Team Status: Inactive Member Role Status Dates Dr. Shaneka Joyce MD Primary Care Provider Active Dr. Grant Hitchcock MD Attending Provider, Referring P cammy Active Team Status: Active Member Role Status Dates Dr. Chano Castillo MD Family Provider Active Team Status: Inactive Member Role Status Dates Dr. Shaneka Joyce MD Referring Provider Active Dr. Emanuel Moreau MD Attending Provider Active Team Status: Inactive Member Role Status Dates Khang SHAH PA Attending Provider Active Team Status: Inactive Member Role Status Dates Dr. Padmini Santo MD Attending Provider Active Team Status: Inactive Member Role Status Dates Dr. Padmini Santo MD Attending Provider, Referr ing Provider Active Shoulder Joiner Relationship Specialty Start Date End Date Ki Villar MD [address] [place] [address] PCP - General Family Medicine 03/29/18 Team Status: Inactive Member Role Status Dates Dr. Shankea Joyce MD Primary Care Provider Active Start: October 15, 2024 End: October 15, 2024 Dr. Shaneka Joyce MD Referring Provider Active Start: October 15, 2024 End: October 15, 2024 Dr. Padmini Santo MD Attending Provider Active Start: October 15, 2024 End: October 15, 2024 Team Status: Inactive Member Role Status Dates Dr. Shaneka Joyce MD Primary Care Provider Active Start: December 19, 2024 End: December 19, 2024 Dr. Shaneka Joyce MD Referring Provider Active Start: December 19, 2024 End: December 19, 2024 ALYSSA Root Attending Provider Active St art: December 19, 2024 End: December 19, 2024 Team Status: Active Member Role Status Dates Dr. Shaneka Joyce MD Primary Care Provider Active Team Status: Inactive Member Role Status Dates Dr. Shaneka Joyce MD Primary Care Provider Active Start: December 20, 2024 End: December 20, 2024 ALYSSA Root Attending Provider Active St art: December 20, 2024 End: December 20, 2024 ALYSSA Root Referring Provider Active St art: December 20, 2024 End: December 20, 2024 Team Status: Active Member Role Status Dates Dr. Shaneka Joyce MD Primary Care Provider Active Start: December 24, 2024 ALYSSA Root Attending Provider Active St art: December 24, 2024 ALYSSA Root Referring Provider Active St art: December 24, 2024 Team Status: Inactive Member Role Status Dates Dr. Shaneka Joyce MD Primary Care Provider Active Start: December 24, 2024 End: December 24, 2024 ALYSSA Root Attending Provider Active St art: December 24, 2024 End: December 24, 2024 ALYSSA Root Referring Provider Active St art: December 24, 2024 End: December 24, 2024 Source Comments (unrecognize d section and content) In the event this informatio n is protected by the Federal Confidentiality of Alcohol and Drug Abuse Patient Records regulations: The Federal rules restrict any use of the information to criminally investigate or prosecute any alcohol or drug abuse patient.[facility] Reason for Visit (unrecogniz ed section and content) Specialty Diagnoses / Procedures Referred By Clari alvarado Referred To Contact Radiology / [facility] Diagnoses Left foot pain FOOT XR Procedures X-RAY FOOT MINIMUM 3 VIEWS XR GENERAL 7 Daryl Kevin MD [address] [place] [address] [facility] [address] [place] [address] Referral ID Status Reason Start Date Expiration Date Visits Re quested Visits Authorized [id number] Closed 10/04/2020 10/04/2021 99 99 FOR RECORDS PERTAINING TO PATIENTS WHO ARE [...] BE BASED ON THE PRIMARY CLINICAL RECORDS. [facility]. provides no warranty or guarantee of the accuracy or completeness of information in this document.
--- OUTSIDE RECORDS SUMMARY | 2025-01-10 09:41 | XMS RPT_ITS | CCD ---
Author Organization [facility] CliniSyne Care Team Providers Care Clay Pigeon Loader Name Role Phone Dr. Stephen Hollingsworth Primary Care Provider Dr. Stephen Hollingsworth Referring Provider Dr. Fatemeh Dickens Attending Provider [phone] Kimmy Aranda Attending Provider Unavailable Dr. Shaneka Joyce Primary Care Provider [phone] Dr. Shaneka Joyce Attending Provider [phone] Dr. Shaneka Joyce Referring Provider [phone] Dr. Grant Hitchcock Attending Provider [phone] Shaneka Joyce Primary Care Provider [phone]) Dr. Shaneka Joyce Referring Provider [phone] Dr. Grant Hitchcock Attending Provider Dr. Emanuel Moreau Attending Provider [phone] Dr. Modesto Rodriguez Attending Provider [phone] Antolin SHAH, ALYSSA Giles Attending Provider Dr. [...] Dr. Shaneka Joyce Referring Provider [phone] Cee UPHOLSTERED GOODS CRAFTER, UPHOLSTERED GOODS CRAFTER-C Ryan Attending Provider [phone] Jesús UPHOLSTERED GOODS CRAFTER, UPHOLSTERED GOODS CRAFTER-C Agnieszka Giles Attending Provider [phone] Dr. [...] MD Referring Provider [phone] Dr. Padmini Sanot MD Attending Provider Nando Adams Attending Provider [...] (15 sources) Amphetamine Drug Allergy 03-11-20 Other [facility] (15 sources) Dextroamphetamine Drug Allergy 03-11-20 Other [facility] (19 sources) Lisdexamfetamine; Translations: [LISDEXAMFETAMINE] Drug Allergy 03-28-20 18 Other, Other: See Comments [facility] (15 sources) Sulfamethoxazole Drug Allergy 03-11-20 [facility] [place] [facility] sources) Trimethoprim Drug Allergy 03-11-20 Nausea/Vom/[facility] [place] (4 sources) Amphetamine aspartate / Amphetamine Sulfate / Dextroamphetamine saccharate / Dextroamphetamine Sulfate; Translations: [DEXTROAMPHETAMINE-AM PHETAMINE] Drug Allergy 04-20-20 Other, Other: See Comments [facility] (1 source) Amphetamine Drug Allergy 12-20-19 25 [facility] (1 source) Dextroamphetamine Drug Allergy 12-20-19 25 [facility] (1 source) Lisdexamfetamine Drug Allergy 12-20-19 25 [facility] (1 source) Sulfamethoxazole Drug Allergy 12-20-19 25 [facility] (1 source) Trimethoprim Drug Allergy 12-20-19 25 [facility] Medications Current Medications Medication Drug Class(es) [...] continuously Start: 09-26-2019 take 1 tablet by donna th once daily norgestimate 0.25 mg-ethinyl estradiol [...] mg PO DAILY November 04, 2022 12:00am xdabltbx-yyr-qjjrp acid-biotin (Hair,Skin and Nails,FA-biotin,) 66.7-1,000 mcg tablet (2 sources) take 66.7-1000 ug by mouth once daily hakcamgm-gov-grcfu acid-biotin (Hair,Skin and Nails,FA-biotin,) 66.7-1,000 mcg tablet [...] H PYLORI STL AG Negative Normal Negative [facility] Comment on above: Result Comment: Perf ormed at: CB - [facility] [address] [id number] Staple Shear Operator: Israel Johnson PhD, Phone: [phone] Performed By: #### L 3108.1950 ####[facility] [address] [facility] [place], [place], [id number] Abdomen Limitedon 12-24-2024 Abdomen Limited [facility] Imaging Services [address] [place] [address] Abdomen Limited MR#: [id number] Acct: [id number] Name: REBECCA LAMB Rep #: [id number] : 1985 F 39 From: Terrance reagan MD PCP: Dr. Shaneka Joyce MD Status: REG CLI Study: Abdomen Limited Date of Exam: 12/24/24 Exam# [id number] Ordering Dr: Nando Barbosa PROCEDURE: ABDOMEN LIMITED [...] 2 mm x 3 mm. Reading Location: [facility] CC: Dr. Shaneka Joyce MD; ALYSSA Xiao Coal Carrier: Signed Normal [facility] Stool Helicobacter pylori an tigen detection by immunoassayOrdered By: Nando Barbosa on 12-24-2024 H. pylori Ag IA Ql (Stl) Negative Negative [facility] Comment on above: Performed at: [address] [id number] Director: Israel Johnson PhD, Phone: [phone] Absolute lymphocyte countOrd ered By: Nando Barbosa on 12-20-2024 Lymphocytes Auto (Unsp spec) [#/Vol] 1.78 10*3/uL 0.83-4.51 [facility] Absolute neutrophil countOrd ered By: Nando Barbosa on 12-20-2024 Neutrophils (Bld) [#/Vol] 3.0 10*3/uL 2.0-7.7 [facility] Automated lymphocyte count a s percentage of total leukocytesOrdered By: Nando Barbosa on 12-20-2024 Lymphocytes/100 WBC Auto (Unsp spec) 32.5 % 19-41 [facility] Basophil percentageOrdered B y: Nando Barbosa on 12-20-2024 Basophils/100 WBC (Bld) 0.9 % 0-1 [facility] CBC W/Diff, Automatedon 12-09-2024 Absolute Lymph 1.78 X10 3/uL Normal 0.83-4.51 [facility] Comment on above: Performed By: #### L 100.0100, L700.6800 #### [facility] [address] [place], [address] Absolute Neut 3.0 X10 3/uL Normal 2.0-7.7 [facility] Comment on above: Performed By: #### L 100.0100, L700.6800 #### [facility] [address] [place], [address] Basophils/100 WBC (Bld) 0.9 % Normal 0-1 [facility] Comment on above: Performed By: #### L 100.0100, L700.6800 #### [facility] [address] [place], [address] Eosinophils/100 WBC (Bld) 1.6 % Normal 0-5 [facility] Comment on above: Performed By: #### L 100.0100, L700.6800 #### [facility] [address] [place], [address] Erythrocyte distribution width (RBC) [Ratio] 13.1 % Normal 11.6-14.6 [facility] Comment on above: Performed By: #### L 100.0100, L700.6800 #### [facility] [address] [place], [address] Hematocrit (Bld) [Volume fraction] 39.9 % Normal 37-47 [facility] Comment on above: Performed By: #### L 100.0100, L700.6800 #### [facility] [address] [place], [address] Hemoglobin (Bld) [Mass/Vol] 12.9 g/dL Normal 12.0-15.0 [facility] Comment on above: Performed By: #### L 100.0100, L700.6800 #### [facility] [address] [place], [address] IG% 0.500 Normal 0.0-0.9 [facility] Comment on above: Result Comment: IG% - Immature Granulocytes (promyelocytes, myelocytes and metamyelocytes) > 1% indicates that a LEFT SHIFT is Present. Performed By: #### L 100.0100, L700.6800 #### [facility] [address] [place], [address] Lymphocytes/100 WBC (Bld) 32.5 % Normal 19-41 [facility] Comment on above: Performed By: #### L 100.0100, L700.6800 #### [facility] [address] [place], [address] MCH (RBC) [Entitic mass] 30.4 pg Normal 27.0-32.0 [facility] Comment on above: Performed By: #### L 100.0100, L700.6800 #### [facility] [address] [place], [address] MCHC (RBC) [Mass/Vol] 32.3 g/dL Normal 32-36 [facility] Comment on above: Performed By: #### L 100.0100, L700.6800 #### [facility] [address] [place], [address] MCV (RBC) [Entitic vol] 93.9 fL Normal 81-99 [facility] Comment on above: Performed By: #### L 100.0100, L700.6800 #### [facility] [address] [place], [address] Monocytes/100 WBC (Bld) 9.7 % Normal 0-10 [facility] Comment on above: Performed By: #### L 100.0100, L700.6800 #### [facility] [address] [place], [address] Neutrophils/100 WBC (Bld) 54.8 % Normal 47-70 [facility] Comment on above: Performed By: #### L 100.0100, L700.6800 #### [facility] [address] [place], [address] Nucleated RBC (Bld) [#/Vol] 0 10*3/uL Normal 0-5 [facility] Comment on above: Performed By: #### L 100.0100, L700.6800 #### [facility] [address] [place], [address] Platelet mean volume (Bld) [Entitic vol] 10.1 fL Normal 6.2-12.0 [facility] Comment on above: Performed By: #### L 100.0100, L700.6800 #### [facility] [address] [place], [address] Platelets (Bld) [#/Vol] 245 10*3/uL Normal 150-450 [facility] Comment on above: Performed By: #### L 100.0100, L700.6800 #### [facility] [address] [place], [address] RBC (Bld) [#/Vol] 4.25 10*6/uL Normal 4.2-5.4 [facility] Comment on above: Performed By: #### L 100.0100, L700.6800 #### [facility] [address] [place], [address] RDW SD 45.0 fl High 35.1-43.9 [facility] Comment on above: Performed By: #### L 100.0100, L700.6800 #### [facility] [address] [place], [address] WBC (Bld) [#/Vol] 5.5 10*3/uL Normal 4.4-11.0 [facility] Comment on above: Performed By: #### L 100.0100, L700.6800 #### [facility] [address] [place], [address] Eosinophil percentageOrdered By: Nando Barbosa on 12-20-2024 Eosinophils/100 WBC (Bld) 1.6 % 0-5 [facility] Erythrocyte distribution wid th ratioOrdered By: Nando Barbosa on 12-20-2024 Erythrocyte distribution width (RBC) [Ratio] 13.1 % 11.6-14.6 [facility] Erythrocyte distribution wid th standard deviationOrdered By: Nando Barbosa on 12-20-2024 Erythrocyte distribution width (RBC) [Ratio] 45.0 fl High 35.1-43.9 [facility] Hematocrit Auto (Bld) [Volum e fraction]Ordered By: Nando Barbosa on 12-20-2024 Hematocrit (Bld) [Volume fraction] 39.9 % 37-47 [facility] Hemoglobin measurementOrdere d By: Nando Barbosa on 12-20-2024 Hemoglobin (Bld) [Mass/Vol] 12.9 g/dL 12.0-15.0 [facility] Immature granulocytes/100 WB C Auto (Bld)Ordered By: Nando Barbosa on 12-20-2024 Immature granulocytes/100 WBC (Bld) 0.500 % 0.0-0.9 [facility] Comment on above: IG% - Immature Granu locytes (promyelocytes, myelocytes and metamyelocytes) > 1% indicates that a LEFT SHIFT is Present. MCV (mean corpuscular volume ) determinationOrdered By: Nando Barbosa on 12-20-2024 MCV (RBC) [Entitic vol] 93.9 fL 81-99 [facility] Mean corpuscular hemoglobin (MCH) determinationOrdered By: Nando Barbosa on 12-20-2024 MCH (RBC) [Entitic mass] 30.4 pg 27.0-32.0 [facility] Mean corpuscular hemoglobin concentration (MCHC) determinationOrdered By: Nando Barbosa on 12-20-2024 MCHC (RBC) [Mass/Vol] 32.3 g/dL 32-36 [facility] Mean platelet volume determi nationOrdered By: Nando Barbosa on 12-20-2024 Platelet mean volume (Bld) [Entitic vol] 10.1 fL 6.2-12.0 [facility] Monocyte percentageOrdered B y: Nando Barbosa on 12-20-2024 Monocytes/100 WBC (Bld) 9.7 % 0-10 [facility] Neutrophil percentageOrdered By: Nando Barbosa on 12-20-2024 Neutrophils/100 WBC (Bld) 54.8 % 47-70 [facility] Nucleated red blood cell per centageOrdered By: Nando Barbosa on 12-20-2024 Nucleated RBC/100 WBC (Bld) [Ratio] 0 % 0-5 [facility] Platelet countOrdered By: Cristina ttkarlene Barbosa on 12-20-2024 Platelets (Bld) [#/Vol] 245 10*3/uL 150-450 [facility] ,Serum,hCG Quali.on 12-20-2024 HCG, SERUM QUAL Negative Normal [facility] Comment on above: Performed By: #### L 100.0100, L700.6800 #### [facility] [place], [address] RBC Auto (Bld) [#/Vol]Ordere d By: Nando Barbosa on 12-20-2024 RBC (Bld) [#/Vol] 4.25 10*6/uL 4.2-5.4 [facility] Serum beta-hCG test, qualita tiveOrdered By: Nando Barbosa on 12-20-2024 Beta HCG ( test) Ql Negative [facility] White blood cell (WBC) count Ordered By: Nando Barbosa on 12-20-2024 WBC (Bld) [#/Vol] 5.5 10*3/uL 4.4-11.0 [facility] Internal Medicine Office Vis iton 12-19-2024 Internal Medicine Office Visit [facility] [address] [place] [address] [place] [address] OFFICE VISIT Date of Service: 12/19/24 MR#: [id number] Acct: [id number] Name: ZAINAB,REBECCAYANCI BARRON Rep #: [id number] : 1985 Provider: ALYSSA Xiao Age/Sex: 39/F Location: [facility] Status: Signed Intake Vital Signs 10/15/24 07:59 [...] Intake Visit Reasons: STOMACH ISSUES / NAUSEA Jig Filler Required: No Is patient in pain?: No [...] Pt states that 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 Has treated [...] related if she can discuss adhd treatment. REPLACED BY [facility] Medical History Dietary restriction Celiac disease Preventative [...] 2 current occupational status: employed current occupation: [employer] pets and animals: Yes (1) pets and animals: dog(s) sexually active: Yes Smoking Status: Former smoker quit date: 07/11/13 Tobacco: How many years used: 10 alcohol intake: current alcohol intake frequency: a few times a month substance use type: does not (more content not included)... Normal [facility] Fund Raiser Office Visit Reporton 10-15-2024 Fund Raiser Office Visit Report [facility] [address], [address] [place] [address] OFFICE VISIT Date of Service: 10/15/24 MR#: [id number] Acct: [id number] Name: REBECCA LAMB Rep #: [id number] : 1985 Provider: Dr. Padmini earl MD Age/Sex: 39/F Location: 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 Normal [facility] Cardiology Visit Reporton Cardiology Visit Report [facility] [address] [place] [address] OFFICE VISIT Date of Service: 06/14/24 MR#: [id number] Acct: [id number] Name: REBECCA LAMB Rep #: [id number] : 1985 Provider: Dr. Grant ye MD Age/Sex: 39/F Location: [facility] Status: Signed HPI HPI History of Present Illness Details: The patient comes in today is a very pleasant 39-year-old white female for new patient visit for preop clearance. The patient is being seen for an abnormal EKG. His EKG was done as part of preop evaluation May 29, 2024 that shows normal sinus rhythm at 76 bpm with a short CO interval measuring 110 ms. Otherwise EKG is [...] [facility]. Patient's past medical significant for multiple [...] Visit Reasons: ABN EKG/ Cardiac Clearance (Hansa) Jig Filler Required: No Accompanied by: Self Is patient [...] 2 current occupational status: employed current occupation: [employer] pets and animals: Yes (1) pets an (more content not included)... Normal [facility] Echo Completeon 06-08-2024 Echo Complete [facility] [address] [place] [address] Echo Complete 06/08/24 0816 MR#: [id number] Acct: [id number] Name: REBECCA LAMB Rep #: [id number] : 1985 39 From: Roger Lazcano MD [...] MD Date Dictated: 06/08/24815 Date Transcribed: 06/08/241412 Coal Carrier: Signed Normal [facility] Stress Reporton 06-08-2024 Stress Report [facility] [address] [place] [address] MR#: [id number] Acct: [id number] Name: REBECCA LAMB Rep #: [id number] : 1985 39 From: Roger Lazcano MD [...] of 80%. This note was generated with [employer] software. It may contain incorrect words, spelling, and punctuation that were not noted in checking the note before signing. 06/08/248 Date Roger Lazcano MD CC: Dr. Shaneka Joyce MD; Dr. Padmini Santo MD Date Dictated: 06/08/241224 Date Transcribed: 06/08/241224 Coal Carrier: EDWIGE Signed Normal [facility] Thyroidon 05-31-2024 Thyroid [facility] [address] [place], [place] [id number] Thyroid MR#: [id number] Acct: [id number] Name: REBECCA LAMB #: [id number] : 1985 F 39 From: Nicolas wells DO PCP: Dr. Shaneka Joyce MD Status: REG CLI Study: Thyroid Date of Exam: 05/31/24 Exam# [id number] Ordering Dr: Padmini Santo :[id number] EXAM: US SOFT TISSUES HEAD AND NECK, [...] nodule is mixed cystic and solid, hypoechoic, lkxkd-audf-fizy, smoothly marginated and contains no echogenic foci. [...] Shaneka Joyce MD; Dr. Padmini Santo MD Coal Carrier: Signed Normal [facility] 12 Lead EKGon 05-29-2024 12 Lead EKG [facility] Cardi[facility] Services [address] [place] [address] 12 Lead EKG 05/29/24 0746 MR#: [id number] Acct: [id number] Name: REBECCA LAMB Rep #: [id number] : 1985 39 From: Elver Laws MD Attending Dr: Dr. Padmini Santo MD Status: PRE [facility] Ordering Dr: Padmini Santo MD Date: 05/29/24 Location: [facility] Sex: F C Admitted: Test Reason : PALPITATIONS Blood Pressure : */* mmHG Vent. Rate : 76 BPM Atrial Rate : 76 BPM P-R Int : 110 ms QRS Dur : 82 ms QT Int : 354 ms P-R-T Axes : 44 61 17 degrees QTcB Int : 398 ms Sinus rhythm with short CO Otherwise normal ECG Confirmed by MEJIA YADAV, ELVER ([id number]), newspaper photo editor NADER PAT ([id number]) on 05/29/2024 1:55:38 PM Referred By: Padmini Santo Confirmed By: ELVER LAWS MD 05/29/24 1357 Date Elver Laws MD CC: Dr. Shaneka Joyce MD; Dr. Padmini Santo MD Signed Normal [facility] CBC-Complete Blood Cnt No Di ffon 05-29-2024 Erythrocyte distribution width (RBC) [Ratio] 12.9 % Normal 11.6-14.6 [facility] Comment on above: Performed By: #### L 100.0500, BTSPAT ####[facility] [address] [place], [address] Hematocrit (Bld) [Volume fraction] 38.0 % Normal 37-47 [facility] Comment on above: Performed By: #### L 100.0500, BTSPAT ####[facility] [address] [place], [address] Hemoglobin (Bld) [Mass/Vol] 12.1 g/dL Normal 12.0-15.0 [facility] Comment on above: Performed By: #### L 100.0500, BTSPAT ####[facility] [address] [place], [address] MCH (RBC) [Entitic mass] 29.7 pg Normal 27.0-32.0 [facility] Comment on above: Performed By: #### L 100.0500, BTSPAT ####[facility] [address] [place], [address] MCHC (RBC) [Mass/Vol] 31.8 g/dL Low 32-36 [facility] Comment on above: Performed By: #### L 100.0500, BTSPAT ####[facility] [address] [place], [address] MCV (RBC) [Entitic vol] 93.1 fL Normal 81-99 [facility] Comment on above: Performed By: #### L 100.0500, BTSPAT ####[facility] [address] [place], [address] Platelet mean volume (Bld) [Entitic vol] 10.2 fL Normal 6.2-12.0 [facility] Comment on above: Performed By: #### L 100.0500, BTSPAT ####[facility] [address] [place], [address] Platelets (Bld) [#/Vol] 207 10*3/uL Normal 150-450 [facility] Comment on above: Performed By: #### L 100.0500, BTSPAT ####[facility] [address] [place], [address] RBC (Bld) [#/Vol] 4.08 10*6/uL Low 4.2-5.4 [facility] Comment on above: Performed By: #### L 100.0500, BTSPAT ####[facility] [address] [place], [address] RDW SD 44.1 fl High 35.1-43.9 [facility] Comment on above: Performed By: #### L 100.0500, BTSPAT ####[facility] [address] [place], [address] WBC (Bld) [#/Vol] 6.6 10*3/uL Normal 4.4-11.0 [facility] Comment on above: Performed By: #### L 100.0500, BTSPAT ####[facility] [address] [place], [address] Thyroid Stim Hormone (TSH)on 05-29-2024 TSH 0.773 uIU/mL Normal 0.358-3.74 0 [facility] Comment on above: Performed By: #### L 501.9520 #### [facility] Laboratory [address] [place], [address] Type AND Screen - PAT ONLYon 05-29-2024 Ab SCREEN GEL Negative Normal [facility] Comment on above: Order Comment: Surge ry Date: 06/05/24Reason for Laboratory Test [id number] BILAT SALPINGECTOMY Performed By: #### L 100.0500, BTSPAT ####[facility] [address] [place], [address] ABO and Rh group Nom (Bld) Blood group A Rh(D) positive Normal [facility] Comment on above: Order Comment: Surge ry Date: 06/05/24Reason for Laboratory Test [id number] BILAT SALPINGECTOMY Performed By: #### L 100.0500, BTSPAT ####[facility] [address] [place], [address] Fund Raiser Office Visit Reporton 05-28-2024 Fund Raiser Office Visit Report [facility] [address], [address] [place] [address] OFFICE VISIT Date of Service: 05/28/24 MR#: [id number] Acct: [id number] Name: REBECCA LAMB Rep #: [id number] : 1985 Provider: Dr. Padmini earl MD Age/Sex: 39/F Location: [facility] [facility] Status: Signed Intake Vital Signs 03/06/24 14:00 05/28/24 12:59 05/28/24 13:04 Height 5 ft 4 in 5 ft 4 in 5 ft 4 in Weight: 166 lb 157 lb BMI 28.5 26.9 BP 118/64 123/72 H Intake Visit Reasons: BS Jig Filler Required: No Is patient in pain?: No [...] 2 current occupational status: employed current occupation: [employer] pets and animals: Yes (1) pets and [...] additional social history: Az Patient works at [employer] BS Details: REBECCA LAMB is a 39 [...] night swea (more content not included)... Normal [facility] Chiropractic Reporton 2023 Chiropractic Report [facility] [address] [place] [address] OFFICE VISIT Date of Service: 05/17/24 MR#: [id number] Acct: [id number] Name: REBECCA LAMB Rep #: [id number] : 1985 Provider: LUL Virgen Age/Sex: 39/F [place] [facility] [place] Status: Signed Intake Vital Signs 03/06/24 14:00 [...] 2 current occupational status: employed current occupation: [employer] pets and animals: Yes (1) pets and [...] additional social history: Az Patient works at [employer] HPI Back pain Chief Complaint: R neck/trap [...] T5, L3 (more content not included)... Normal [facility] Chiropractic Reporton 2023 Chiropractic Report [facility] [address] [place], [place] [address] OFFICE VISIT Date of Service: 04/16/24 MR#: [id number] Acct: [id number] Name: REBECCA LAMB Rep #: [id number] : 1985 Provider: LUL Virgen Age/Sex: 39/F Location: [facility] Status: Signed Intake Vital Signs 03/06/24 14:00 [...] 2 current occupational status: employed current occupation: [employer] pets and animals: Yes (1) pets and [...] additional social history: Az Patient works at [employer] HPI Back pain Chief Complaint: R neck/trap [...] with disco (more content not included)... Normal [facility] Chiropractic Reporton 2023 Chiropractic Report [facility] [address] [place] [address] OFFICE VISIT Date of Service: 03/06/24 MR#: [id number] Acct: [id number] Name: REBECCA LAMB Rep #: [id number] : 1985 Provider: LUL Virgen Age/Sex: 39/F Location: [facility] MANGUM Status: Signed Intake Vital Signs 01/11/24 17:27 [...] 2 current occupational status: employed current occupation: [place] [employer] pets and animals: Yes (1) pets and [...] additional social history: Az Patient works at [employer] HPI Reeval Chief Complaint: right neck and [...] greater denny (more content not included)... Normal [facility] CBC W/Diff, Automatedon 07- Absolute Lymph 1.74 X10 3/uL Normal 0.83-4.51 [facility] Comment on above: Performed By: #### L 500.4100, L506.0400, L100.0100, L501.9520, L500.4050 ####[facility] [address] [place], [address] Absolute Neut 2.4 X10 3/uL Normal 2.0-7.7 [facility] Comment on above: Performed By: #### L 500.4100, L506.0400, L100.0100, L501.9520, L500.4050 ####[facility] [address] [place], [address] Basophils/100 WBC (Bld) 1.2 % High 0-1 [facility] Comment on above: Performed By: #### L 500.4100, L506.0400, L100.0100, L501.9520, L500.4050 ####[facility] [address] [place], [address] Eosinophils/100 WBC (Bld) 2.7 % Normal 0-5 [facility] Comment on above: Performed By: #### L 500.4100, L506.0400, L100.0100, L501.9520, L500.4050 ####[facility] [address] [place], [address] Erythrocyte distribution width (RBC) [Ratio] 12.8 % Normal 11.6-14.6 [facility] Comment on above: Performed By: #### L 500.4100, L506.0400, L100.0100, L501.9520, L500.4050 ####[facility] [address] [place], [address] Hematocrit (Bld) [Volume fraction] 39.2 % Normal 37-47 [facility] Comment on above: Performed By: #### L 500.4100, L506.0400, L100.0100, L501.9520, L500.4050 ####[facility] [address] [place], [address] Hemoglobin (Bld) [Mass/Vol] 12.9 g/dL Normal 12.0-15.0 [facility] Comment on above: Performed By: #### L 500.4100, L506.0400, L100.0100, L501.9520, L500.4050 ####[facility] [address] [place], [address] IG% 0.400 Normal 0.0-0.9 [facility] Comment on above: Result Comment: IG% - Immature Granulocytes (promyelocytes, myelocytes and metamyelocytes) > 1% indicates that a LEFT SHIFT is Present. Performed By: #### L 500.4100, L506.0400, L100.0100, L501.9520, L500.4050 ####[facility] [address] [place], [address] Lymphocytes/100 WBC (Bld) 36.0 % Normal 19-41 [facility] Comment on above: Performed By: #### L 500.4100, L506.0400, L100.0100, L501.9520, L500.4050 ####[facility] [address] [place], [address] MCH (RBC) [Entitic mass] 30.0 pg Normal 27.0-32.0 [facility] Comment on above: Performed By: #### L 500.4100, L506.0400, L100.0100, L501.9520, L500.4050 ####[facility] [address] [place], [address] MCHC (RBC) [Mass/Vol] 32.9 g/dL Normal 32-36 [facility] Comment on above: Performed By: #### L 500.4100, L506.0400, L100.0100, L501.9520, L500.4050 ####[facility] [address] [place], [address] MCV (RBC) [Entitic vol] 91.2 fL Normal 81-99 [facility] Comment on above: Performed By: #### L 500.4100, L506.0400, L100.0100, L501.9520, L500.4050 ####[facility] [address] [place], [address] Monocytes/100 WBC (Bld) 9.3 % Normal 0-10 [facility] Comment on above: Performed By: #### L 500.4100, L506.0400, L100.0100, L501.9520, L500.4050 ####[facility] [address] [place], [address] Neutrophils/100 WBC (Bld) 50.4 % Normal 47-70 [facility] Comment on above: Performed By: #### L 500.4100, L506.0400, L100.0100, L501.9520, L500.4050 ####[facility] [address] [place], [address] Nucleated RBC (Bld) [#/Vol] 0 10*3/uL Normal 0-5 [facility] Comment on above: Performed By: #### L 500.4100, L506.0400, L100.0100, L501.9520, L500.4050 ####[facility] [address] [place], [address] Platelet mean volume (Bld) [Entitic vol] 9.6 fL Normal 6.2-12.0 [facility] Comment on above: Performed By: #### L 500.4100, L506.0400, L100.0100, L501.9520, L500.4050 ####[facility] [address] [place], [address] Platelets (Bld) [#/Vol] 209 10*3/uL Normal 150-450 [facility] Comment on above: Performed By: #### L 500.4100, L506.0400, L100.0100, L501.9520, L500.4050 ####[facility] [address] [place], [address] RBC (Bld) [#/Vol] 4.30 10*6/uL Normal 4.2-5.4 [facility] Comment on above: Performed By: #### L 500.4100, L506.0400, L100.0100, L501.9520, L500.4050 ####[facility] [address] [place], [address] RDW SD 42.3 fl Normal 35.1-43.9 [facility] Comment on above: Performed By: #### L 500.4100, L506.0400, L100.0100, L501.9520, L500.4050 ####[facility] [address] [place], [address] WBC (Bld) [#/Vol] 4.8 10*3/uL Normal 4.4-11.0 [facility] Comment on above: Performed By: #### L 500.4100, L506.0400, L100.0100, L501.9520, L500.4050 ####[facility] [address] [place], [address] Comprehensive Metabolic [facility] 02-02-2024 Albumin [Mass/Vol] 3.5 g/dL Normal 3.2-5.0 [facility] Comment on above: Performed By: #### L 500.4100, L506.0400, L100.0100, L501.9520, L500.4050 ####[facility] [address] [place], [address] Albumin/Globulin [Mass ratio] 0.9 {ratio} Normal 0.9-2.4 [facility] Comment on above: Performed By: #### L 500.4100, L506.0400, L100.0100, L501.9520, L500.4050 ####[facility] [address] [place], [address] ALK P 41 U/L Low 45-117 [facility] Comment on above: Performed By: #### L 500.4100, L506.0400, L100.0100, L501.9520, L500.4050 ####[facility] [address] [place], [address] ALT [Catalytic activity/Vol] 26 U/L Normal 13-56 [facility] Comment on above: Performed By: #### L 500.4100, L506.0400, L100.0100, L501.9520, L500.4050 ####[facility] [address] [place], [address] AST [Catalytic activity/Vol] 25 U/L Normal 15-37 [facility] Comment on above: Performed By: #### L 500.4100, L506.0400, L100.0100, L501.9520, L500.4050 ####[facility] [address] [place], [address] Bilirubin [Mass/Vol] 0.50 mg/dL Normal 0.20-1.00 [facility] Comment on above: Result Comment: For patients on eltrombopag therapy, use of Dimension [place] TBIL is not recommended. Performed By: #### L 500.4100, L506.0400, L100.0100, L501.9520, L500.4050 ####[facility] [address] [place], [address] BUN/CRE 16.6 RATIO Normal 10-20 [facility] Comment on above: Performed By: #### L 500.4100, L506.0400, L100.0100, L501.9520, L500.4050 ####[facility] [address] [place], [address] CA,Total 9.1 mg/dL Normal 8.5-10.1 [facility] Comment on above: Performed By: #### L 500.4100, L506.0400, L100.0100, L501.9520, L500.4050 ####[facility] [address] [place], [address] Chloride [Moles/Vol] 110 mmol/L High 98-107 [facility] Comment on above: Performed By: #### L 500.4100, L506.0400, L100.0100, L501.9520, L500.4050 ####[facility] [address] [place], [address] CO2 [Moles/Vol] 22.0 mmol/L Normal 21.0-32.0 [facility] Comment on above: Performed By: #### L 500.4100, L506.0400, L100.0100, L501.9520, L500.4050 ####[facility] [address] [place], [address] Creatinine [Mass/Vol] 0.90 mg/dL Normal 0.55-1.02 [facility] Comment on above: Result Comment: The validity of the calculated GFR GFRAA in patients over 70 years has not been determined. Clinical correlation is essential. Performed By: #### L 500.4100, L506.0400, L100.0100, L501.9520, L500.4050 ####[facility] [address] [place], [address] EST GFR - AA 90 mL/min Normal >60 [facility] Comment on above: Result Comment: Afri can Macanese GFR Calc Performed By: #### L 500.4100, L506.0400, L100.0100, L501.9520, L500.4050 ####[facility] [address] [place], [address] GAP 6 Normal 5-15 [facility] Comment on above: Performed By: #### L 500.4100, L506.0400, L100.0100, L501.9520, L500.4050 ####[facility] [address] [place], [address] GFR/1.73 sq M.predicted among non-blacks MDRD (S/P/Bld) [Vol rate/Area] 74 mL/min/{1.73_m2} Normal >60 [facility] Comment on above: Result Comment: Non- GFR Calc Performed By: #### L 500.4100, L506.0400, L100.0100, L501.9520, L500.4050 ####[facility] [address] [place], [address] Globulin (S) [Mass/Vol] 4.0 g/dL Normal 2.2-4.2 [facility] Comment on above: Performed By: #### L 500.4100, L506.0400, L100.0100, L501.9520, L500.4050 ####[facility] [address] [place], [address] Glucose [Mass/Vol] 97 mg/dL Normal 74-106 [facility] Comment on above: Performed By: #### L 500.4100, L506.0400, L100.0100, L501.9520, L500.4050 ####[facility] [address] [place], [address] Potassium [Moles/Vol] 3.7 mmol/L Normal 3.5-5.1 [facility] Comment on above: Performed By: #### L 500.4100, L506.0400, L100.0100, L501.9520, L500.4050 ####[facility] [address] [place], [address] Sodium [Moles/Vol] 138 mmol/L Normal 136-145 [facility] Comment on above: Performed By: #### L 500.4100, L506.0400, L100.0100, L501.9520, L500.4050 ####[facility] [address] [place], [address] T PROT 7.5 g/dL Normal 6.4-8.2 [facility] Comment on above: Performed By: #### L 500.4100, L506.0400, L100.0100, L501.9520, L500.4050 ####[facility] [address] [place], [address] Urea nitrogen [Mass/Vol] 15 mg/dL Normal 7-18 [facility] Comment on above: Performed By: #### L 500.4100, L506.0400, L100.0100, L501.9520, L500.4050 ####[facility] [address] [place], [address] Lipid Profileon 02-02-2024 Cholesterol [Mass/Vol] 189 mg/dL Normal 200 [facility] Comment on above: Result Comment: <200 mg/dL Desirable 200-240 mg/dL Borderline >240 mg/dL High Risk Performed By: #### L 500.4100, L506.0400, L100.0100, L501.9520, L500.4050 ####[facility] [address] [place], [address] Cholesterol in HDL [Mass/Vol] 96 mg/dL Normal [facility] Comment on above: Result Comment: The drugs N-Acetylcysteine and Metamizole may falsely depress this assay. Reference Range HDL <40 mg/dL Low HDL Cholesterol HDL >or= 60 mg/dL High HDL Cholesterol Performed By: #### L 500.4100, L506.0400, L100.0100, L501.9520, L500.4050 ####[facility] [address] [place], [address] Cholesterol in LDL [Mass/Vol] 72 mg/dL Normal 0-130 [facility] Comment on above: Performed By: #### L 500.4100, L506.0400, L100.0100, L501.9520, L500.4050 ####[facility] [address] [place], [address] Cholesterol in VLDL [Mass/Vol] 21 mg/dL Normal 5-40 [facility] Comment on above: Performed By: #### L 500.4100, L506.0400, L100.0100, L501.9520, L500.4050 ####[facility] [address] [place], [address] Triglyceride [Mass/Vol] 104 mg/dL Normal [facility] Comment on above: Result Comment: The drugs N-Acetylcysteine and Metamizole may falsely depress this assay. Serum Triglycerides Reference Interval Normal <150 mg/dL Borderline high 150 - 199 mg/dL High 200 - 499 mg/dL Very High > or = 500 mg/dL Performed By: #### L 500.4100, L506.0400, L100.0100, L501.9520, L500.4050 ####[facility] [address] [place], [address] T4 Free Directon 02-02-2024 T4 FREE DIRECT 1.09 ng/dL Normal 0.76-1.46 [facility] Comment on above: Performed By: #### L 500.4100, L506.0400, L100.0100, L501.9520, L500.4050 ####[facility] [address] [place], [address] Thyroid Stim Hormone (TSH)on 02-02-2024 TSH 0.72 uIU/mL Normal 0.358-3.74 [facility] Comment on above: Performed By: #### L 500.4100, L506.0400, L100.0100, L501.9520, L500.4050 ####[facility] [address] [place], [address] Internal Medicine Office Vis shayna 01-11-2024 Internal Medicine Office Visit [facility] [address] [place] [address] [address] [place] [address] OFFICE VISIT Date of Service: 01/11/24 MR#: [id number] Acct: [id number] Name: REBECCA LAMB Rep #: [id number] : 1985 Provider: Dr. Shaneka mata MD Age/Sex: 38/F Location: [facility] Status: Signed Intake Vital Signs 09/22/23 16:08 01/11/24 17:27 Height 5 ft 4 in 5 ft 4 in Weight: 155 lb BMI 26.6 BP 112/78 Blood Pressure Location Lt brachial Position Sitting Respiration 14 Pulse 86 Pulse Source Monitor Temp 97.4 F L Temp Source Temporal Pulse Oximetry (%) 99 Oxygen Delivery Method room air Intake Visit Reasons: ANNUAL Chief Complaint: Annual Jig Filler Required: No Is patient in pain?: No [...] No current occupational status: employed current occupation: [place] [employer] pets and animals: Yes (1) pets and [...] additional social history: Az Patient works at [employer] Chief Complaint: Annual Details: REBECCA LAMB, is a 38 F who presents to the office today for her annual exam. No acute concerns at this time. No significant family history of colon, breast or skin cancer. Follows routinely with her [employer]. Currently at a BMI of 26.6. Stays [...] or vo (more content not included)... Normal [facility] Basophil percentageOrdered B y: Padmini Santo on 09-23-2023 Cholesterol [Mass/Vol] 201 mg/dL <200 [facility] Comment on above: <200 mg/dL Desirable 200-240 mg/dL Borderline >240 mg/dL High Risk Glucose [Mass/Vol] 96 mg/dL 74-106 [facility] Triglyceride [Mass/Vol] 108 mg/dL <199 [facility] Comment on above: The drugs N-Acetylcy steine and Metamizole may falsely depress this assay.Serum Triglycerides Reference Interval Normal <150 mg/dL Borderline high 150 - 199 mg/dL High 200 - 499 mg/dL Very High > or = 500 mg/dL Laboratory - Chemistry and C hemistry - challengeOrdered By: Padmini Santo on 09-23-2023 Cholesterol in HDL [Mass/Vol] 92 mg/dL >40 [facility] Comment on above: The drugs N-Acetylcy steine and Metamizole may falsely depress this assay. Reference Range HDL <40 mg/dL Low HDL Cholesterol HDL >or= 60 mg/dL High HDL Cholesterol Cholesterol in LDL [Mass/Vol] 87 mg/dL 0-130 [facility] CK [Catalytic activity/Vol] 65 U/L 26-192 [facility] No Panel InformationOrdered By: Padmini Santo on 09-23-2023 Vitamin D 25-Hydroxy 32.3 ng/mL [facility] Comment on above: Vitamin D 25(OH) Sta tus Range Deficiency <20 ng/mL (50nmol/L) Insufficiency 20 - 30 ng/mL (50 - 75 nmol/L) Sufficiency 30 - 100 ng/mL (75 - 250 nmol/L) Toxicity >100 ng/mL (>250 nmol/L) VLDL Cholesterol 22 mg/dL 5-40 [facility] Whole blood hemoglobin A1c/t otal hemoglobin ratio (mass fraction)Ordered By: Padmini Santo on 09-23-2023 HbA1c (Bld) [Mass fraction] 5.1 % 3.8-5.6 [facility] Comment on above: Normal < 5.7 % Predi abetic 5.7 - 6.4 % Diabetic >or= 6.5 % Please note range changes. Ammoniaon 09-21-2023 Ammonia (P) [Moles/Vol] 62 umol/L [address] Comment on above: Performed By: #### 1 6362-6 #### ANDERSON Garcia ([id number]) [facility] ([facility]) [address] [place] [address] Ammonia (P) [Moles/Vol] 89 umol/L [address] Comment on above: Performed By: #### 1 6362-6 #### ANDERSON Garcia ([id number]) [facility] ([facility]) [address] [place] [address] Ammonia (P) [Moles/Vol] 91 umol/L [address] Comment on above: Performed By: #### 1 6362-6 #### ANDERSON Garcia ([id number]) [facility] ([facility]) [address] [place] [address] Ammonia (P) [Moles/Vol] 93 umol/L [address] Comment on above: Performed By: #### 2 524-7 #### ANDERSON Garcia ([id number]) [facility] ([facility]) [address] [place] [address] Ammonia (P) [Moles/Vol] 44 umol/L Normal 16-53 [facility] Comment on above: Performed By: #### 1 6362-6 #### ANDERSON Garcia ([id number]) [facility] ([facility]) [id number] [place] [address] Ammonia (P) [Moles/Vol] 30 umol/L 16 - 53 umol/L [facility] Comment on above: Performed By: #### 2 524-7 #### ANDERSON Garcia ([id number]) [facility] ([facility]) [id number] [place] [address] Ammonia (P) [Moles/Vol] 93 umol/L High 16 - 53 umol/L [facility] Ammonia (P) [Moles/Vol] 62 umol/L High 16 - 53 umol/L [facility] Ammonia (P) [Moles/Vol] 44 umol/L 16 - 53 umol/L [facility] Ammonia (P) [Moles/Vol] 91 umol/L High 16 - 53 umol/L [facility] Ammonia (P) [Moles/Vol] 89 umol/L High 16 - 53 umol/L [facility] Ammonia (P) [Moles/Vol]on Interpretation and review of laboratory results Normal [facility] Interpretation and review of laboratory results Abnormal [facility] Interpretation and review of laboratory results Normal [facility] Interpretation and review of laboratory results Abnormal [facility] Lactateon 09-21-2023 Lactate [Moles/Vol] 2.3 mmol/L High 0.4-2.0 [facility] Comment on above: Order Comment: Venip uncture immediately after or during the administration of Metamizole may lead to falsely low results. Testing should be performed immediately prior to Metamizole dosing. Performed By: #### 2 524-7 #### ANDERSON Garcia ([id number]) [facility] ([facility]) [id number] [place] [address] Lactate [Moles/Vol] 3.7 mmol/L High 0.4-2.0 [facility] Comment on above: Order Comment: Venip uncture immediately after or during the administration of Metamizole may lead to falsely low results. Testing should be performed immediately prior to Metamizole dosing. Performed By: #### 2 524-7 #### ANDERSON Garcia ([id number]) [facility] ([facility]) [address] [place] [address] Lactate [Moles/Vol] 4.9 mmol/L Critically high 0.4-2.0 [facility] Comment on above: Order Comment: Venip uncture immediately after or during the administration of Metamizole may lead to falsely low results. Testing should be performed immediately prior to Metamizole dosing. Performed By: #### 2 524-7 #### ANDERSON Garcia ([id number]) [facility] ([facility]) [address] [place] [address] Lactate [Moles/Vol] 4.6 mmol/L Critically high 0.4-2.0 [facility] Comment on above: Order Comment: Venip uncture immediately after or during the administration of Metamizole may lead to falsely low results. Testing should be performed immediately prior to Metamizole dosing. Performed By: #### 2 524-7 #### ANDERSON Garcia ([id number]) [facility] ([facility]) [address] [place] [address] Lactate [Moles/Vol] 2.6 mmol/L High 0.4-2.0 [facility] Comment on above: Order Comment: Venip uncture immediately after or during the administration of Metamizole may lead to falsely low results. Testing should be performed immediately prior to Metamizole dosing. Performed By: #### 2 524-7 #### ANDERSON Garcia ([id number]) [facility] ([facility]) [address] [place] [address] Lactate [Moles/Vol] 0.5 mmol/L 0.4 - 2. 0 mmol/L [facility] Comment on above: Order Comment: Venip uncture immediately after or during the administration of Metamizole may lead to falsely low results. Testing should be performed immediately prior to Metamizole dosing. Performed By: #### 2 524-7 #### ANDERSON Garcia ([id number]) [facility] ([facility]) [address] [place] [address] Lactate [Moles/Vol]on 2023 Interpretation and review of laboratory results Normal [facility] Interpretation and review of laboratory results Abnormal [facility] Venipuncture immedia tely after or during the administration of Metamizole may lead to falsely low results. Testing should be performed immediately prior to Metamizole dosing. [facility] Interpretation and review of laboratory results Abnormal [facility] Venipuncture immedia tely after or during the administration of Metamizole may lead to falsely low results. Testing should be performed immediately prior to Metamizole dosing. [facility] Lactic acid, plasmaon 2023 Lactate [Moles/Vol] 2.6 mmol/L High 0.4 - 2. 0 mmol/L [facility] Lactate [Moles/Vol] 4.6 mmol/L Critically high 0.4 - 2.0 mmol/L [facility] Lactate [Moles/Vol] 4.9 mmol/L Critically high 0.4 - 2.0 mmol/L [facility] Lactate [Moles/Vol] 2.3 mmol/L High 0.4 - 2. 0 mmol/L [facility] Lactate [Moles/Vol] 3.7 mmol/L High 0.4 - 2. 0 mmol/L [facility] Laboratory - Microbiology an d Antimicrobial susceptibilityon 08-05-2023 S. pyogenes Ag IA Ql (Unsp spec) Positive [facility] Laboratory - Chemistry and C hemistry - challengeOrdered By: Shaneka Joyce on 03-24-2023 CK [Catalytic activity/Vol] 429 U/L 26-192 [facility] Absolute lymphocyte countOrd ered By: Shaneka Joyce on 03-21-2023 Lymphocytes Auto (Unsp spec) [#/Vol] 2.46 10*3/uL 0.83-4.51 [facility] Basophil percentageOrdered B y: Shaneka Joyce on 03-21-2023 Basophils/100 WBC (Bld) 0.6 % 0-1 [facility] Bilirubin [Mass/Vol] 0.30 mg/dL 0.20-1.00 [facility] Comment on above: For patients on eltr ombopag therapy, use of Dimension [place] TBIL is not recommended. Chloride [Moles/Vol] 105 mmol/L 98-107 [facility] Eosinophils/100 WBC (Bld) 2.2 % 0-5 [facility] Glucose [Mass/Vol] 106 mg/dL 74-106 [facility] Comment on above: Fasting Glucose resu lt from 100 to 125 mg/dL suggests IMPAIRED HOMEOSTASIS per A.D.A. criteria. Neutrophils (Bld) [#/Vol] 5.1 10*3/uL 2.0-7.7 [facility] Neutrophils/100 WBC (Bld) 61.1 % 47-70 [facility] Potassium [Moles/Vol] 3.9 mmol/L 3.5-5.1 [facility] Protein [Mass/Vol] 7.2 g/dL 6.4-8.2 [facility] Sodium [Moles/Vol] 138 mmol/L 136-145 [facility] WBC (Bld) [#/Vol] 8.3 10*3/uL 4.4-11.0 [facility] Blood erythrocytes count (nu mber/volume)Ordered By: Shaneka Joyce on 03-21-2023 RBC (Bld) [#/Vol] 4.22 10*6/uL 4.2-5.4 [facility] Blood hemoglobin measurement (mass/volume)Ordered By: Shaneka Joyce on 03-21-2023 Hemoglobin (Bld) [Mass/Vol] 12.7 g/dL 12.0-15.0 [facility] Blood lymphocytes/100 leukoc ytesOrdered By: Shaneka Joyce on 03-21-2023 Lymphocytes/100 WBC (Bld) 29.6 % 19-41 [facility] Blood monocytes/100 leukocyt esOrdered By: Shaneka Joyce on 03-21-2023 Monocytes/100 WBC (Bld) 6.1 % 0-10 [facility] Blood platelet mean volumeOr dered By: Shaneka Joyce on 03-21-2023 Platelet mean volume (Bld) [Entitic vol] 9.8 fL 6.2-12.0 [facility] Determination of erythrocyte mean corpuscular volume (MCV)Ordered By: Shaneka Joyce on 03-21-2023 MCV (RBC) [Entitic vol] 92.4 fL 81-99 [facility] Hematocrit Auto (Bld) [Volum e fraction]Ordered By: [facility] May[facility]iom[facility] on 03-21-2023 Hematocrit (Bld) [Volume fraction] 39.0 % 37-47 [facility] Laboratory - Chemistry and C hemistry - challengeOrdered By: [facility] Mukeshxiomara on 03-21-2023 ALP [Catalytic activity/Vol] 46 U/L 45-117 [facility] ALT [Catalytic activity/Vol] 35 U/L 13-56 [facility] CK [Catalytic activity/Vol] 935 U/L 26-192 [facility] CO2 [Moles/Vol] 26.0 mmol/L 21.0-32.0 [facility] Globulin (S) [Mass/Vol] 3.9 g/dL 2.2-4.2 [facility] Urea nitrogen/Creatinine [Mass ratio] 14.3 mg/mg 10-20 [facility] Laboratory - Hematology and Cell countsOrdered By: goranlovejoyminesh Mayorgaxiomara on 03-21-2023 Erythrocyte distribution width (RBC) [Entitic vol] 42.4 fL 35.1-43.9 [facility] Erythrocyte distribution width (RBC) [Ratio] 12.5 % 11.6-14.6 [facility] Immature granulocytes/100 WBC (Bld) 0.400 % 0.0-0.9 [facility] Comment on above: IG% - Immature Granu locytes (promyelocytes, myelocytes and metamyelocytes) > 1% indicates that a LEFT SHIFT is Present. MCH (RBC) [Entitic mass] 30.1 pg 27.0-32.0 [facility] Nucleated RBC/100 WBC (Bld) [Ratio] 0 % 0-5 [facility] [Mass/Vol]Or dered By: Shaneka Joyce on 03-21-2023 MCHC (RBC) [Mass/Vol] 32.6 g/dL 32-36 [facility] No Panel InformationOrdered By: Shaneka Joyce on 03-21-2023 Estimated GFR (MDRD) Amer 98 mL/min >60 [facility] Comment on above: GFR Calc Estimated GFR (MDRD) Non-Af Amer 81 mL/min >60 [facility] Comment on above: Non- GFR Calc Platelets bldOrdered By: Hosea Joyce on 03-21-2023 Platelets (Bld) [#/Vol] 246 10*3/uL 150-450 [facility] Serum or plasma albumin juan francisco urement (mass/volume)Ordered By: Shaneka Joyce on 03-21-2023 Albumin [Mass/Vol] 3.3 g/dL 3.2-5.0 [facility] Serum or plasma albumin/glob ulin mass ratioOrdered By: Shaneka Joyce on 03-21-2023 Albumin/Globulin [Mass ratio] 0.8 {ratio} 0.9-2.4 [facility] Serum or plasma calcium juan francisco urement (mass/volume)Ordered By: Shaneka Joyce on 03-21-2023 Calcium [Mass/Vol] 8.8 mg/dL 8.5-10.1 [facility] Serum or plasma creatinine m easurement (mass/volume)Ordered By: Shaneka Joyce on 03-21-2023 Creatinine [Mass/Vol] 0.84 mg/dL 0.55-1.02 [facility] Comment on above: The validity of the calculated GFR & GFRAA in patients over 70 years has not been determined. Clinical correlation is essential. Serum or plasma urea nitroge n measurement (mass/volume)Ordered By: Shaneka Joyce on 03-21-2023 Urea nitrogen [Mass/Vol] 12 mg/dL 7-18 [facility] Thin prep Papanicolaou smear with manual screeningOrdered By: Shaneka Joyce on 03-21-2023 Thin prep Papanicolaou smear with manual screening 59 U/L 15-37 [facility] Thin prep Papanicolaou smear with manual screening 7 5-15 [facility] Laboratory - Chemistry and C hemistry - challengeOrdered By: Nakia Torres on 01-31-2023 Free T4 [Mass/Vol] 0.99 ng/dL 0.76-1.46 [facility] No Panel InformationOrdered By: Nakia Torres on 01-31-2023 Free Triiodothyronine (T3) pg/dL 2.3 pg/mL 2.18-3.98 [facility] Thyroid Stimulating Hormone (TSH) 0.64 uIU/mL 0.358-3.74 [facility] Laboratory - Chemistry and C hemistry - challengeOrdered By: Dr. Ennis on 07-29-2022 HCG ( test) Ql (U) Negative [facility] Comment on above: Very dilute urine sp ecimens, as indicated by a low specificgravity, may not contain customer field representative levels of hCG. If is still suspected, a first morning urinespecimen should be collected 48 hours later and tested. Laboratory - Chemistry and C hemistry - challengeOrdered By: Dr. Moreau on 07-26-2022 Free T4 [Mass/Vol] 1.15 ng/dL 0.76-1.46 [facility] No Panel InformationOrdered By: Dr. Moreau on 07-26-2022 Thyroid Stimulating Hormone (TSH) 0.41 uIU/mL 0.358-3.74 [facility] Laboratory - Microbiology an d Antimicrobial susceptibilityon 06-07-2022 SARS-CoV-2 (COVID-19) RNA ROBLES+probe Ql (Unsp spec) Not detected [facility] No Panel Informationon 06-07 POC Nasal Swab Influenza A,B Detected [facility] POC Nasal Swab RSV Not detected [facility] No Panel Informationon 03-25 Thyroglobulin Antibody 1.2 IU/mL 0.0-0.9 [facility] Work Phone: Comment on above: Thyroglobulin Antibo dy measured by greenovation BiotechMethodologyPerformed at: [facility] [id number] Director: Israel Johnson PhD, Phone: [phone] Serum or plasma thyroperoxid ase antibody assay (units/volume)on 03-25-2022 TPO Ab Qn 11 [IU]/mL 0-34 [facility] Work Phone: Absolute lymphocyte counton 03-22-2022 Lymphocytes Auto (Unsp spec) [#/Vol] 2.31 10*3/uL 0.83-4.51 [facility] Work Phone: Basophil percentageon 2021 Basophils/100 WBC (Bld) 1.0 % 0-1 [facility] Work Phone: Bilirubin [Mass/Vol] 0.40 mg/dL 0.20-1.00 [facility] Work Phone: Comment on above: For patients on eltr ombopag therapy, use of Dimension [place] TBIL is not recommended. Chloride [Moles/Vol] 106 mmol/L 98-107 [facility] Work Phone: Eosinophils/100 WBC (Bld) 2.2 % 0-5 [facility] Work Phone: Glucose [Mass/Vol] 92 mg/dL 74-106 [facility] Work Phone: Neutrophils (Bld) [#/Vol] 4.1 10*3/uL 2.0-7.7 [facility] Work Phone: Neutrophils/100 WBC (Bld) 56.3 % 47-70 [facility] Work Phone: Potassium [Moles/Vol] 4.0 mmol/L 3.5-5.1 [facility] Work Phone: Protein [Mass/Vol] 7.9 g/dL 6.4-8.2 [facility] Work Phone: Sodium [Moles/Vol] 138 mmol/L 136-145 [facility] Work Phone: WBC (Bld) [#/Vol] 7.3 10*3/uL 4.4-11.0 [facility] Work Phone: Blood erythrocytes count (nu mber/volume)on 03-22-2022 RBC (Bld) [#/Vol] 4.38 10*6/uL 4.2-5.4 [facility] Work Phone: Blood hemoglobin measurement (mass/volume)on 03-22-2022 Hemoglobin (Bld) [Mass/Vol] 12.3 g/dL 12.0-15.0 [facility] Work Phone: Blood lymphocytes/100 leukoc yteson 03-22-2022 Lymphocytes/100 WBC (Bld) 31.6 % 19-41 [facility] Work Phone: Blood monocytes/100 leukocyt eson 03-22-2022 Monocytes/100 WBC (Bld) 8.8 % 0-10 [facility] Work Phone: Blood platelet mean volumeon 03-22-2022 Platelet mean volume (Bld) [Entitic vol] 9.9 fL 6.2-12.0 [facility] Work Phone: Determination of erythrocyte mean corpuscular volume (MCV)on 03-22-2022 MCV (RBC) [Entitic vol] 86.5 fL 81-99 [facility] Work Phone: Hematocrit Auto (Bld) [Volum e fraction]on 03-22-2022 Hematocrit (Bld) [Volume fraction] 37.9 % 37-47 [facility] Work Phone: Laboratory - Chemistry and C hemistry - challengeon 03-22-2022 ALP [Catalytic activity/Vol] 51 U/L 45-117 [facility] Work Phone: ALT [Catalytic activity/Vol] 22 U/L 13-56 [facility] Work Phone: CO2 [Moles/Vol] 26.0 mmol/L 21.0-32.0 [facility] Work Phone: Free T4 [Mass/Vol] 0.90 ng/dL 0.76-1.46 [facility] Work Phone: Globulin (S) [Mass/Vol] 4.3 g/dL 2.2-4.2 [facility] Work Phone: Urea nitrogen/Creatinine [Mass ratio] 17.5 mg/mg 10-20 [facility] Work Phone: Laboratory - Hematology and Cell countson 03-22-2022 Erythrocyte distribution width (RBC) [Entitic vol] 46.1 fL 35.1-43.9 [facility] Work Phone: Erythrocyte distribution width (RBC) [Ratio] 14.5 % 11.6-14.6 [facility] Work Phone: Immature granulocytes/100 WBC (Bld) 0.100 % 0.0-0.9 [facility] Work Phone: Comment on above: IG% - Immature Granu locytes (promyelocytes, myelocytes and metamyelocytes) > 1% indicates that a LEFT SHIFT is Present. MCH (RBC) [Entitic mass] 28.1 pg 27.0-32.0 [facility] Work Phone: Nucleated RBC/100 WBC (Bld) [Ratio] 0 % 0-5 [facility] Work Phone: MCHC Auto (RBC) [Mass/Vol]on 03-22-2022 MCHC (RBC) [Mass/Vol] 32.5 g/dL 32-36 [facility] Work Phone: No Panel Informationon 03-22 Estimated GFR (MDRD) Amer 96 mL/min >60 [facility] Work Phone: Comment on above: GFR Calc Estimated GFR (MDRD) Non-Af Amer 80 mL/min >60 [facility] Work Phone: Comment on above: Non- GFR Calc Thyroid Stimulating Hormone (TSH) 0.86 uIU/mL 0.358-3.74 [facility] Work Phone: Platelets bldon 03-22-2022 Platelets (Bld) [#/Vol] 294 10*3/uL 150-450 [facility] Work Phone: Serum or plasma albumin juan francisco urement (mass/volume)on 03-22-2022 Albumin [Mass/Vol] 3.6 g/dL 3.2-5.0 [facility] Work Phone: Serum or plasma albumin/glob ulin mass ratioon 03-22-2022 Albumin/Globulin [Mass ratio] 0.8 {ratio} 0.9-2.4 [facility] Work Phone: Serum or plasma calcium juan francisco urement (mass/volume)on 03-22-2022 Calcium [Mass/Vol] 9.3 mg/dL 8.5-10.1 [facility] Work Phone: Serum or plasma creatinine m easurement (mass/volume)on 03-22-2022 Creatinine [Mass/Vol] 0.86 mg/dL 0.55-1.02 [facility] Work Phone: Comment on above: The validity of the calculated GFR & GFRAA in patients over 70 years has not been determined. Clinical correlation is essential. Serum or plasma urea nitroge n measurement (mass/volume)on 03-22-2022 Urea nitrogen [Mass/Vol] 15 mg/dL 7-18 [facility] Work Phone: Thin prep Papanicolaou smear with manual screeningon 03-22-2022 Thin prep Papanicolaou smear with manual screening 24 U/L 15-37 [facility] Work Phone: Thin prep Papanicolaou smear with manual screening 6 5-15 [facility] Work Phone: [facility]AMB ([id number]) 1985 F Date Time Provider Department 10/05/20 REBECCA NELA (BOBBY) [facility] During your visit today, we recorded [...] [M79.672] Order(s):CONSULT TO ORTHOPAEDICS [9026] Order #: [id number]: 1 FUTURE Prescriptions as of 10/05/2020 Sig: NORGESTIMATE 0.25 MG-ETHINYL * TAKE 1 TABLET BY MOUTH EVERY * Problem List As Of Date 10/05/2020 Noted Resolved 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] 03/29/2018 Attention deficit disorder (ADD) without hypera*03/29/2018 Encounter Status:Closed by REBECCA NEAL CNP on 10/05/20 [facility] CNOVon 10-04-2020 CNOV Office Visit (UCWSTR ) REBECCA LAMB ([id number]) 1985 F Date Time Provider Department 10/04/20 8:45 AM DARYL KEVIN [facility] During your visit today, we recorded [...] [M79.672] Order(s):XR FOOT GENERAL 3V AP/LAT/OBL LT [5829730] Order #: [id number] FUTURE Prescriptions as of 10/04/2020 Sig: NORGESTIMATE 0.25 MG-ETHINYL * TAKE 1 TABLET BY MOUTH EVERY * Problem List As Of Date 10/04/2020 Noted Resolved 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] 03/29/2018 Attention deficit disorder (ADD) without hypera*03/29/2018 Encounter Status:Closed by DARYL KEVIN MD on 10/06/20 Normal [facility] XR FOOT 3V AP/LAT/OBL LTon 0 10-04-2020 [...] lately and now has pain porox 5th SC area, feels like it needs to pop now and then. no inj TECHNIQUE: Images: XR FOOT 3V AP/LAT/OBL LT Comparison: None. RESULT: Findings: Right :No fractures or dislocations are seen. Left :No fractures or dislocations are seen. IMPRESSION: No acute shellac polisher: BRE Transcribe Date/Time: Oct 04 2020 8:59P Dictated by : RUPERTO PALOMINO DO This examination was interpreted and the report reviewed and electronically signed by: RUPERTO PALOMINO DO on Oct 04 2020 9:00PM EST [id number] Normal [facility] XR Foot - left AP and Latera l and obliqueon 10-04-2020 IMPRESSION: No acute shellac polisher: PSCB Transcribe Date/Time: Oct 04 2020 8:59P Dictated by : RUPERTO PALOMINO DO This examination was interpreted and the report reviewed and electronically signed by: RUPERTO PALOMINO DO on Oct 04 2020 9:00PM [facility] DIVISION OF RADIOLOGY * * *Final Report* [...] dislocations are seen. DIVISION OF RADIOLOGY Provider, [facility] - 10/04/2020 * * *Final Report* [...] dislocations are seen. IMPRESSION IMPRESSION: No acute shellac polisher: BRE Transcribe Date/Time: Oct 04 2020 8:59P Dictated by : RUPERTO PALOMINO DO This examination was interpreted and the report reviewed and electronically signed by: RUPERTO PALOMINO DO on Oct 04 2020 9:00PM EST [facility] Radiology Study observation (narrative) [facility] XR Foot - left AP and Latera l and obliqueOrdered By: [facility] Provider on 10-04-2020 [facility] Vital Signs Date Time Vital Sign Value Performing Clinician Facility 12-19-2024 15:48-0400 Body height 162.[address] Shaneka Joyce MD Work Phone: [facility] 12-19-2024 15:48-0400 Body mass index (BMI) [Ratio] 28.5 kg/m2 Dr. Shaneka Joyce MD Work Phone: [facility] 12-19-2024 15:48-0400 Body temperature 97.6 [degF] Dr. Shaneka Joyce MD Work Phone: [facility] 12-19-2024 15:48-0400 Body weight 75.[address] Shaneka Joyce MD Work Phone: [facility] 12-19-2024 15:48-0400 Diastolic blood pressure 80 mm[Hg] Dr. Shaneka Joyce MD Work Phone: [facility] 12-19-2024 15:48-0400 Heart rate 89 /min Dr. Shaneka Joyce MD Work Phone: [facility] 12-19-2024 15:48-0400 Respiratory rate 18 /min Dr. Shaneka Joyce MD Work Phone: [facility] 12-19-2024 15:48-0400 SaO2% (BldA) [Mass fraction] 97 % Dr. Shaneka Joyce MD Work Phone: [facility] 12-19-2024 15:48-0400 Systolic blood pressure 124 mm[Hg] Dr. Shaneka Joyce MD Work Phone: [facility] 10-15-2024 07:59-0400 Body mass index (BMI) [Ratio] 27.3 kg/m2 Dr. Shaneka Joyce MD Work Phone: [facility] 10-15-2024 07:59-0400 Body weight 72.[address] Shaneka Joyce MD Work Phone: [facility] 10-15-2024 07:59-0400 Diastolic blood pressure 70 mm[Hg] Dr. Shaneka Joyce MD Work Phone: [facility] 10-15-2024 07:59-0400 Systolic blood pressure 103 mm[Hg] Dr. Shaneka Joyce MD Work Phone: [facility] 09-22-2023 16:08-0400 Body height 162.[address] Shaneka Joyce Work Phone: [facility] 09-22-2023 16:08-0400 Body mass index (BMI) [Ratio] 28.3 kg/m2 Dr. Shaneka Joyce Work Phone: [facility] 09-22-2023 16:08-0400 Body weight 74.[address] Shaneka Joyce Work Phone: [facility] 09-22-2023 16:08-0400 Diastolic blood pressure 72 mm[Hg] Dr. Shaneka Joyce Work Phone: [facility] 09-22-2023 16:08-0400 Systolic blood pressure 107 mm[Hg] Dr. Shaneka Joyce Work Phone: [facility] 09-21-2023 11:42-0400 Body height 162.6 cm Abi Garcia MD Work Phone: [facility] 09-21-2023 11:42-0400 Body mass index (BMI) [Ratio] 27.64 kg/m2 Abi Garcia MD Work Phone: [facility] 09-21-2023 11:42-0400 Body temperature 97.11 [degF] Abi Garcia MD Work Phone: [facility] 09-21-2023 11:42-0400 Body weight 73.03 kg Abi Garcia MD Work Phone: [facility] 09-21-2023 11:42-0400 Diastolic blood pressure 70 mm[Hg] Abi Garcia MD Work Phone: [facility] 09-21-2023 11:42-0400 Heart rate 74 /min Abi Garcia MD Work Phone: [facility] 09-21-2023 11:42-0400 Respiratory rate 18 /min Abi Garcai MD Work Phone: [facility] 09-21-2023 11:42-0400 Systolic blood pressure 120 mm[Hg] Abi Garcia MD Work Phone: [facility] 09-14-2023 10:34-0500 Body height 162.6 cm Abi Garcia MD Work Phone: [facility] 09-14-2023 10:34-0500 Body mass index (BMI) [Ratio] 27.46 kg/m2 Abi Garcia MD Work Phone: [facility] 09-14-2023 10:34-0500 Body temperature 97.7 [degF] Abi Garcia MD Work Phone: [facility] 09-14-2023 10:34-0500 Body weight 72.58 kg Abi Garcia MD Work Phone: [facility] 09-14-2023 10:34-0500 Diastolic blood pressure 80 mm[Hg] Abi Garcia MD Work Phone: [facility] 09-14-2023 10:34-0500 Heart rate 90 /min Abi Garcia MD Work Phone: [facility] 09-14-2023 10:34-0500 Respiratory rate 18 /min Abi Garcia MD Work Phone: [facility] 09-14-2023 10:34-0500 Systolic blood pressure 135 mm[Hg] Abi Garcia MD Work Phone: [facility] 08-11-2023 11:00-0500 Body mass index (BMI) [Ratio] 28.3 kg/m2 Dr. Shaneka Joyce Work Phone: [facility] 08-11-2023 11:00-0500 Body temperature 98.6 [degF] Dr. Shaneka Joyce Work Phone: [facility] 08-11-2023 11:00-0500 Body weight 74.[address] Shaneka Joyce Work Phone: [facility] 08-11-2023 11:00-0500 Diastolic blood pressure 76 mm[Hg] Dr. Shaneka Joyce Work Phone: [facility] 08-11-2023 11:00-0500 Heart rate 83 /min Dr. Shaneka Joyce Work Phone: [facility] 08-11-2023 11:00-0500 Respiratory rate 16 /min Dr. Shaneka Joyce Work Phone: [facility] 08-11-2023 11:00-0500 SaO2% (BldA) [Mass fraction] 97 % Dr. Shaneka Joyce Work Phone: [facility] 08-11-2023 11:00-0500 Systolic blood pressure 130 mm[Hg] Dr. Shaneka Joyce Work Phone: [facility] 08-05-2023 09:03-0500 Body temperature 98.2 [degF] Dr. Shaneka Joyce Work Phone: [facility] 08-05-2023 09:03-0500 Diastolic blood pressure 74 mm[Hg] Dr. Shaneka Joyce Work Phone: [facility] 08-05-2023 09:03-0500 Heart rate 126 /min Dr. Shaneka Joyce Work Phone: [facility] 08-05-2023 09:03-0500 Respiratory rate 16 /min Dr. Shaneka Joyce Work Phone: [facility] 08-05-2023 09:03-0500 SaO2% (BldA) [Mass fraction] 99 % Dr. Shaneka Joyce Work Phone: [facility] 08-05-2023 09:03-0500 Systolic blood pressure 112 mm[Hg] Dr. Shaneka Joyce Work Phone: [facility] 03-23-2023 08:36-0400 Body height 162.[address] Shaneka Joyce Work Phone: [facility] 03-23-2023 08:36-0400 Body mass index (BMI) [Ratio] 27.8 kg/m2 Dr. Shaneka Joyce Work Phone: [facility] 03-23-2023 08:36-0400 Body weight 73.[address] Shaneka Joyce Work Phone: [facility] 03-16-2023 09:19-0400 Body mass index (BMI) [Ratio] 26.9 kg/m2 Dr. Shaneka Joyce Work Phone: [facility] 03-16-2023 09:19-0400 Body temperature 98 [degF] Dr. Shaneka Joyce Work Phone: [facility] 03-16-2023 09:19-0400 Body weight 71.[address] Shaneka Joyce Work Phone: [facility] 03-16-2023 09:19-0400 Diastolic blood pressure 72 mm[Hg] Dr. Shaneka Joyce Work Phone: [facility] 03-16-2023 09:19-0400 Heart rate 66 /min Dr. Shaneka Joyce Work Phone: [facility] 03-16-2023 09:19-0400 Respiratory rate 16 /min Dr. Shaneka Joyce Work Phone: [facility] 03-16-2023 09:19-0400 SaO2% (BldA) [Mass fraction] 99 % Dr. Shaneka Joyce Work Phone: [facility] 03-16-2023 09:19-0400 Systolic blood pressure 110 mm[Hg] Dr. Shaneka Joyce Work Phone: [facility] 12-10-2022 08:37-0400 Body height 162.[address] Shaneka Joyce Work Phone: [facility] 12-10-2022 08:37-0400 Body mass index (BMI) [Ratio] 26.1 kg/m2 Dr. Shaneka Joyce Work Phone: [facility] 12-10-2022 08:37-0400 Body temperature 98.4 [degF] Dr. Shaneka Joyce Work Phone: [facility] 12-10-2022 08:37-0400 Body weight 68.[address] Shaneka Joyce Work Phone: [facility] 12-10-2022 08:37-0400 Diastolic blood pressure 77 mm[Hg] Dr. Shaneka Joyce Work Phone: [facility] 12-10-2022 08:37-0400 Heart rate 81 /min Dr. Shaneka Joyce Work Phone: [facility] 12-10-2022 08:37-0400 Respiratory rate 16 /min Dr. Shaneka Joyce Work Phone: [facility] 12-10-2022 08:37-0400 SaO2% (BldA) [Mass fraction] 96 % Dr. Shaneka Joyce Work Phone: [facility] 12-10-2022 08:37-0400 Systolic blood pressure 115 mm[Hg] Dr. Shaneka Joyce Work Phone: [facility] 11-04-2022 09:05-0400 Body mass index (BMI) [Ratio] 26.6 kg/m2 Dr. Shaneka Joyce Work Phone: [facility] 11-04-2022 09:05-0400 Body temperature 98 [degF] Dr. Shaneka Joyce Work Phone: [facility] 11-04-2022 09:05-0400 Body weight 70.[address] Shaneka Joyce Work Phone: [facility] 11-04-2022 09:05-0400 Diastolic blood pressure 72 mm[Hg] Dr. Shaneka Joyce Work Phone: [facility] 11-04-2022 09:05-0400 Heart rate 70 /min Dr. Shaneka Joyce Work Phone: [facility] 11-04-2022 09:05-0400 Respiratory rate 14 /min Dr. Shaneka Joyce Work Phone: [facility] 11-04-2022 09:05-0400 SaO2% (BldA) [Mass fraction] 99 % Dr. Shaneka Joyce Work Phone: [facility] 11-04-2022 09:05-0400 Systolic blood pressure 124 mm[Hg] Dr. Shaneka Joyce Work Phone: [facility] 09-09-2022 17:16-0500 Body height 162.[address] Shaneka Joyce Work Phone: [facility] 09-09-2022 17:16-0500 Body mass index (BMI) [Ratio] 26.7 kg/m2 Dr. Shaneka Joyce Work Phone: [facility] 09-09-2022 17:16-0500 Body temperature 98.5 [degF] Dr. Shaneka Joyce Work Phone: [facility] 09-09-2022 17:16-0500 Body weight 70.[address] Shaneka Joyce Work Phone: [facility] 09-09-2022 17:16-0500 Diastolic blood pressure 84 mm[Hg] Dr. Shaneka Joyce Work Phone: [facility] 09-09-2022 17:16-0500 Heart rate 78 /min Dr. Shaneka Joyce Work Phone: [facility] 09-09-2022 17:16-0500 Respiratory rate 14 /min Dr. Shaneka Joyce Work Phone: [facility] 09-09-2022 17:16-0500 SaO2% (BldA) [Mass fraction] 98 % Dr. Shaneka Joyce Work Phone: [facility] 09-09-2022 17:16-0500 Systolic blood pressure 122 mm[Hg] Dr. Shaneka Joyce Work Phone: [facility] 08-13-2022 08:41-0500 Body temperature 98.1 [degF] Dr. Shaneka Joyce Work Phone: [facility] 08-13-2022 08:41-0500 Diastolic blood pressure 72 mm[Hg] Dr. Shaneka Joyce Work Phone: [facility] 08-13-2022 08:41-0500 Heart rate 89 /min Dr. Shaneka Joyce Work Phone: [facility] 08-13-2022 08:41-0500 Respiratory rate 16 /min Dr. Shaneka Joyce Work Phone: [facility] 08-13-2022 08:41-0500 SaO2% (BldA) [Mass fraction] 100 % Dr. Shaneka Joyce Work Phone: [facility] 08-13-2022 08:41-0500 Systolic blood pressure 116 mm[Hg] Dr. Shaneka Joyce Work Phone: [facility] 07-29-2022 12:05-0500 Body temperature 97.8 [degF] Dr. Shaneka Joyce Work Phone: [facility] 07-29-2022 12:05-0500 Diastolic blood pressure 79 mm[Hg] Dr. Shaneka Joyce Work Phone: [facility] 07-29-2022 12:05-0500 Heart rate 74 /min Dr. Shaneka Joyce Work Phone: [facility] 07-29-2022 12:05-0500 Respiratory rate 16 /min Dr. Shaneka Joyce Work Phone: [facility] 07-29-2022 12:05-0500 SaO2% (BldA) [Mass fraction] 94 % Dr. Shaneka Joyce Work Phone: [facility] 07-29-2022 12:05-0500 Systolic blood pressure 109 mm[Hg] Dr. Shaneka Joyce Work Phone: [facility] 07-29-2022 10:54-0500 Body height 162.[address] Shaneka Joyce Work Phone: [facility] 07-29-2022 10:54-0500 Body mass index (BMI) [Ratio] 26.9 kg/m2 Dr. Shaneka Joyce Work Phone: [facility] 07-29-2022 10:54-0500 Body weight 71.[address] Shaneka Joyce Work Phone: [facility] 06-07-2022 10:05-0500 Body temperature 98.1 [degF] Dr. Shaneka Joyce Work Phone: [facility] 06-07-2022 10:05-0500 Diastolic blood pressure 72 mm[Hg] Dr. Shaneka Joyce Work Phone: [facility] 06-07-2022 10:05-0500 Heart rate 105 /min Dr. Shaneka Joyce Work Phone: [facility] 06-07-2022 10:05-0500 Respiratory rate 14 /min Dr. Shaneka Joyce Work Phone: [facility] 06-07-2022 10:05-0500 SaO2% (BldA) [Mass fraction] 99 % Dr. Shaneka Joyce Work Phone: [facility] 06-07-2022 10:05-0500 Systolic blood pressure 118 mm[Hg] Dr. Shaneka Joyce Work Phone: [facility] 05-17-2022 15:28-0500 Body mass index (BMI) [Ratio] 26.9 kg/m2 Dr. Shaneka Joyce Work Phone: [facility] 05-17-2022 15:28-0500 Body temperature 96.6 [degF] Dr. Shaneka Joyce Work Phone: [facility] 05-17-2022 15:28-0500 Body weight 71.[address] Shaneka Joyce Work Phone: [facility] 05-17-2022 15:28-0500 Diastolic blood pressure 80 mm[Hg] Dr. Shaneka Joyce Work Phone: [facility] 05-17-2022 15:28-0500 Heart rate 71 /min Dr. Shaneka Joyce Work Phone: [facility] 05-17-2022 15:28-0500 Respiratory rate 18 /min Dr. Shaneka Joyce Work Phone: [facility] 05-17-2022 15:28-0500 SaO2% (BldA) [Mass fraction] 98 % Dr. Shaneka Joyce Work Phone: [facility] 05-17-2022 15:28-0500 Systolic blood pressure 117 mm[Hg] Dr. Shaneka Joyce Work Phone: [facility] 04-01-2022 13:26-0400 Body height 162.[address] Stephen Hollingsworth Work Phone: [facility] Work Phone: 04-01-2022 13:26-0400 Body mass index (BMI) [Ratio] 26.4 kg/m2 Dr. Stephen Hollingsworth Work Phone: [facility] 04-01-2022 13:26-0400 Body temperature 98 [degF] Dr. Stephen Hollingsworth Work Phone: [facility] 04-01-2022 13:26-0400 Body weight 69.[address] Stephen Hollingsworth Work Phone: [facility] 04-01-2022 13:26-0400 Diastolic blood pressure 90 mm[Hg] Dr. Stephen Hollingsworth Work Phone: [facility] 04-01-2022 13:26-0400 Heart rate 87 /min Dr. Stephen Hollingsworth Work Phone: [facility] 04-01-2022 13:26-0400 Respiratory rate 16 /min Dr. Stephen Hollingsworth Work Phone: [facility] 04-01-2022 13:26-0400 SaO2% (BldA) [Mass fraction] 100 % Dr. Stephen Hollingsworth Work Phone: [facility] 04-01-2022 13:26-0400 Systolic blood pressure 124 mm[Hg] Dr. Stephen Hollingsworth Work Phone: [facility] 03-11-2022 17:38-0400 Body height 162.[address] Stephen Hollingsworth Work Phone: [facility] Work Phone: 03-11-2022 17:38-0400 Body mass index (BMI) [Ratio] 26.6 kg/m2 Dr. Stephen Hollingsworth Work Phone: [facility] Work Phone: 03-11-2022 17:38-0400 Body temperature 98.9 [degF] Dr. Stephen Hollingsworth Work Phone: [facility] Work Phone: 03-11-2022 17:38-0400 Body weight 70.[address] Stephen Hollingsworth Work Phone: [facility] Work Phone: 03-11-2022 17:38-0400 Diastolic blood pressure 84 mm[Hg] Dr. Stephen Hollingsworth Work Phone: [facility] Work Phone: 03-11-2022 17:38-0400 Heart rate 94 /min Dr. Stephen Hollingsworth Work Phone: [facility] Work Phone: 03-11-2022 17:38-0400 Respiratory rate 14 /min Dr. Stephen Hollingsworth Work Phone: [facility] Work Phone: 03-11-2022 17:38-0400 SaO2% (BldA) [Mass fraction] 99 % Dr. Stephen Hollingsworth Work Phone: [facility] Work Phone: 03-11-2022 17:38-0400 Systolic blood pressure 128 mm[Hg] Dr. Stephen Hollingsworth Work Phone: [facility] Work Phone: Encounters Encounter Date Encounter Type Care Provider Facility Start: 12-24-2024 End: 12-24-[address] Shaneka Joyce MD Work Phone: [facility] Work Phone: Start: 12-24-2024 End: 12-24-2024 Patient encounter procedure Nando SHAH [facility] Work Phone: Start: 12-24-2024 End: 12-24-2024 ambulatory [facility] Facility:[facility] Start: 12-20-2024 End: 12-20-[address] Shaneka Joyce MD Work Phone: [facility] Work Phone: Start: 12-20-2024 End: 12-20-2024 Patient encounter procedure Nando SHAH -Lab [facility] Start: 12-19-2024 End: 12-19-2024 Patient encounter procedure Nando SHAH -[facility] Work Phone: Start: 12-19-2024 End: 12-20-[address] Shaneka Joyce MD Work Phone: [facility] Work Phone: Start: 11-02-2024 Encounter for other preprocedural examination Padmini Santo [facility] Start: 10-15-2024 End: 10-15-[address] Padmini Santo MD -[facility] Work Phone: Start: 10-15-2024 End: 10-15-[address] Padmini Santo MD [facility] Start: 10-15-2024 End: 10-15-2024 ambulatory [facility] Facility:[facility] Start: 06-14-[address] Shaneka Joyce MD Work Phone: [facility] Start: 06-14-2024 End: 06-14-2024 ambulatory Padmini Santo Facility:[facility] Start: 06-12-2024 ambulatory Fatemeh Dossi [facility] Start: 06-08-2024 ambulatory Roger Neno [facility] Start: 06-08-2024 End: 06-08-2024 ambulatory [facility] Facility:[facility] Start: 05-31-2024 End: 05-31-2024 ambulatory Guillermolovejoyminesh Joyce Facility:[facility] Start: 05-29-2024 End: 05-29-2024 ambulatory Shaneka Joyce Facility:[facility] Start: 05-28-2024 End: 05-28-2024 ambulatory Shaneka Joyce Facility:[facility] Start: 05-22-2024 End: 05-22-2024 ambulatory Padmini Santo Facility:[facility] Start: 05-17-2024 End: 05-17-2024 ambulatory Fatemeh Dickens Facility:[facility] Start: 04-16-2024 End: 04-16-2024 ambulatory Fatemeh Dossi Facility:[facility] Start: 03-29-2024 ambulatory Fatemeh Dickens [facility] Start: 03-06-2024 End: 03-06-2024 ambulatory Guillermolovejoyminesh Joyce Facility:[facility] Start: 02-24-2024 Encounter for genera l adult medical examination without abnormal findings [facility] Start: 02-02-2024 End: 02-02-2024 ambulatory [facility] Facility:[facility] Start: 01-11-[address] Shaneka Joyce MD Work Phone: [facility] Start: 01-11-[address] Shaneka Joyce MD Work Phone: [facility] Start: 01-11-2024 End: 01-11-2024 ambulatory Shaneka Joyce Facility:[facility] Start: 09-23-2023 End: 09-23-[address] Shaneka Joyce Work Phone: [facility] Work Phone: Start: 09-23-2023 End: 09-23-[address] Shaneka Joyce Work Phone: [facility] Start: 09-22-2023 End: 09-22-[address] Shaneka Joyce Work Phone: [facility] Work Phone: Start: 09-21-2023 End: 09-22-2023 ambulatory [facility] Start: 09-21-2023 End: 09-21-2023 Office outpatient visit 15 minutes Abi Garcia MD Work Phone: [facility] Comment on above: Paroxysmal rhabdomyo lysis (Primary Dx) Start: 09-14-2023 End: 09-15-2023 ambulatory [facility] Start: 09-14-2023 End: 09-14-2023 Office outpatient new 60 minutes Abi Garcia MD Work Phone: [facility] Comment on above: Paroxysmal rhabdomyo lysis (Primary Dx) Start: 08-11-2023 End: 08-11-[address] Shaneka Joyce Work Phone: [facility] Work Phone: Start: 08-05-2023 End: 08-05-[address] [facility] Work Phone: [facility] Work Phone: Start: 03-24-[address] Shaneka Joyce Work Phone: [facility] Start: 03-23-2023 End: 03-23-[address] Shaneka Joyce Work Phone: [facility] Work Phone: Start: 03-23-2023 End: 03-23-[address] Shaneka Joyce Work Phone: [facility]-Ultrasound, [facility] Work Phone: Start: 03-23-2023 End: 03-23-[address] Shaneka Joyce Work Phone: [facility] Work Phone: Start: 03-21-2023 End: 03-21-[address] Shaneka Joyec Work Phone: [facility] Work Phone: Start: 03-21-2023 End: 03-21-[address] [facility] Start: 03-16-2023 End: 03-16-[address] Shaneka Joyce Work Phone: [facility] Work Phone: Start: 03-10-2023 Non-patient / Non-visit Dr. Jasper Joyce Work Phone: [facility] Work Phone: Start: 03-09-2023 End: 03-09-[address] Shaneka Joyce Work Phone: [facility] Start: 01-31-2023 End: 01-31-[address] Shaneka Joyce Work Phone: [facility] Work Phone: Start: 01-31-2023 End: 01-31-[address] [facility] Start: 12-10-2022 End: 12-10-[address] Shaneka Joyce Work Phone: [facility] Work Phone: Start: 11-04-2022 End: 11-04-[address] Shaneka Joyce Work Phone: [facility] Work Phone: Start: 10-21-2022 End: 10-21-[address] Shaneka Joyce Work Phone: [facility] Work Phone: Start: 10-21-2022 End: 10-21-[address] Shaneka Joyce Work Phone: [facility]-Physical Therapy Start: 09-09-2022 End: 09-09-[address] Shaneka Joyce Work Phone: [facility] Start: 09-02-2022 End: 09-02-[address] Shaneka Joyce Work Phone: [facility] Start: 08-19-2022 End: 08-19-[address] Shaneka Joyce Work Phone: [facility] Start: 08-19-2022 End: 08-19-[address] Shaneka Joyce Work Phone: [facility] Start: 08-13-2022 End: 08-13-2022 Admission to same day surgery center Dr. Shaneka Joyce Work Phone: [facility]-Endoscopy Start: 08-13-2022 End: 08-13-[address] Shaneka Joyce Work Phone: [facility] Work Phone: Start: 07-29-2022 Non-patient / Non-visit Dr. Jasper Joyce Work Phone: [facility] Start: 07-29-2022 End: 07-29-2022 Admission to same day surgery center Dr. Shaneka Joyce Work Phone: [facility]-Endoscopy Start: 07-29-2022 End: 07-29-[address] Shaneka Joyce Work Phone: [facility] Work Phone: Start: 07-26-2022 End: 07-26-[address] Shaneka Joyce Work Phone: [facility] Work Phone: Start: 07-26-2022 End: 07-26-[address] Shaneka Joyce Work Phone: [facility] Start: 07-22-2022 End: 07-22-[address] Shaneka Joyce Work Phone: [facility] Start: 06-07-2022 End: 06-07-[address] Shaneka Joyce Work Phone: [facility] Start: 05-31-2022 End: 05-31-[address] Shaneka Joyce Work Phone: [facility] Start: 05-17-2022 End: 05-17-[address] Shaneka Joyce Work Phone: [facility] Start: 04-01-2022 End: 04-01-[address] Stephen Hollingsworth Work Phone: [facility] Start: 03-25-2022 End: 03-25-[address] Stephen Hollingsworth Work Phone: [facility] Work Phone: Start: 03-25-2022 End: 03-25-[address] Stephen Hollingsworth Work Phone: [facility] Start: 03-23-2022 End: 03-23-[address] Stephen Hollingsworth Work Phone: [facility] Work Phone: Start: 03-23-2022 End: 03-23-[address] Stephen Hollingsworth Work Phone: [facility]-Ultrasound, [facility] Start: 03-22-2022 End: 03-22-[address] Stephen Hollingsworth Work Phone: [facility] Work Phone: Start: 03-22-2022 End: 03-22-[address] Stephen Hollingsworth Work Phone: [facility] Start: 03-11-2022 End: 03-11-[address] Stephen Hollingsworth Work Phone: [facility] Start: 03-05-2022 End: 03-05-[address] Stephen Hollingsworth Work Phone: [facility]-Radiology, [facility] Start: 02-25-2022 Non-patient / Non-visit Dr. Tammie Hollingsworth Work Phone: [facility] Start: 01-13-2022 End: 01-13-[address] Stephen Hollingsworth Work Phone: [facility] Start: 10-04-2020 End: 10-04-2020 Subsequent hospital visit by physician Xr [facility] Work Phone: Radiology Comment on above: Foot [...] Work Phone: Start: 03-05-[address] Stephen Hollingsworth Work Phone: Start: 10-04-2020 Radex foot complete minimum 3 views Lizzie Kevin MD Work Phone: Plan of Treatment Date Care Activity Detail Author Start: 02-07-2036 Zoster Vaccines (1 of 2) Zoster Vaccines (1 of 2) [facility] Start: 05-16-2027 DTaP/Tdap/Td Vaccines (2 - Td or Tdap) DTaP/Tdap/Td Vaccines (2 - Td or Tdap) [facility] Start: 05-16-2027 Urine microalbumin profile DTaP,Tdap,Td Vaccine (2 - Td or Tdap) [facility] Start: 01-10-2025 ambulatory Ambulatory Facility:[facility] Start: 12-24-2024 Ultrasonography of abdomen Abdomen Limited [facility] Start: 12-24-2024 US Abdomen limited [facility] Start: 03-11-2024 Covid-19 Vaccine ( season) Covid-19 Vaccine ( season) [facility] Start: 03-11-2024 Influenza vaccination Influenza Vaccine (#1) [facility] Start: 09-21-2023 End: 09-21-2023 Patient encounter procedure 09/21/2023 11:45 AM EDT Office [facility] [id number] [address] [facility] [address] [place] [address] [place] [address] [address] [place] [address] [facility] Start: 03-11-2023 COVID-19 Vaccine () COVID-19 Vaccine () [facility] Start: 09-09-2022 Patient referral [facility] Work Phone: Start: 08-13-2022 Esophageal motility study w/interp&rpt ESOPHAGUS MOTILITY STUDY [facility] Start: 08-13-2022 Patient discharge [facility] Start: 07-29-2022 Egd insert guide wire dilator passage esophagus EGD GUIDE WIRE INSERTION [facility] Start: 07-29-2022 Egd transoral biopsy single/multiple EGD BIOPSY SINGLE/MULTIPLE [facility] Start: 07-29-2022 Patient discharge [facility] Start: 03-11-2022 Patient referral [facility] Work Phone: Start: 10-13-2021 Screening for malignant neoplasm of cervix Cervical Cancer Screening [facility] Start: 2007 Screening for malignant neoplasm of cervix [facility] Start: 2005 Hepatitis B Vaccine (1 of 3 - 19+ 3-dose series) Hepatitis B Vaccine (1 of 3 - 19+ 3-dose series) [facility] Start: 02-07-2004 Anxiety Screening Anxiety Screening [facility] Start: 02-07-2004 Depression Screening Depression Screening [facility] Start: 02-07-2004 Diabetes mellitus screening Diabetes Screening [facility] Start: 02-07-2004 Hepatitis C screening Hepatitis C Screening [facility] Start: 02-07-2004 HIV screening HIV Screening [facility] Start: 1987 MMR Vaccines (1 of 1 - Standard series) MMR Vaccines (1 of 1 - Standard series) [facility] Start: 1987 Varicella vaccination Varicella Vaccines (1 of 2 - 2-dose childhood series) [facility] Start: 1986 Hepatitis B Vaccines (1 of 3 - 3-dose series) Hepatitis B Vaccines (1 of 3 - 3-dose series) [facility] Start: 1986 HIV screening HIV Screening [facility] Start: 1986 Lipid panel Lipid Panel [facility] Start: 1986 Thyroid stimulating hormone measurement TSH Level [facility] Start: 1986 Yearly Adult Physical Yearly Adult Physical [facility] CBC W Auto Different ial panel - Blood [facility] Choriogonadotropin.b eta subunit ( test) [Presence] in Serum or Plasma [facility] Helicobacter pylori Ag [Presence] in Stool by Immunoassay [facility] MR Lumbar spine [facility] Patient referral [facility] Work Phone: Radionuclide study o f abdomen [facility] T4 free measurement [facility] Thyroid stimulating hormone measurement [facility] US Abdomen limited [facility] US Thyroid gland [facility] Work Phone: US Thyroid gland [facility] Immunizations Immunization Date Immunization Notes Care Provider Fa [facility] 04-05-2024 influenza, seasonal, injectable, preservative free Dr. Shaneka Joyce MD Work Phone: [facility] 04-07-2023 influenza, injectabl e, quadrivalent, preservative free Dr. Shaneka Joyce Work Phone: [facility] 04-28-2022 influenza, injectabl e, quadrivalent, preservative free Dr. Shaneka Joyce Work Phone: [facility] 04-28-2022 influenza, seasonal, injectable Dr. Shaneka Joyce Work Phone: [facility] 06-24-2021 Covid (Moderna) Dr. Stephen feliciano Work Phone: [facility] 04-07-2021 influenza, injectabl e, quadrivalent, preservative free Dr. Shaneka Joyce Work Phone: [facility] 04-07-2021 influenza, seasonal, injectable Dr. Stephen Hollingsworth Work Phone: [facility] 08-12-2020 Covid (Moderna) Dr. Stephen feliciano Work Phone: [facility] 07-15-2020 Covid (Moderna) Dr. Stephen feliciano Work Phone: [facility] 04-28-2020 influenza, injectabl e, quadrivalent, preservative free Dr. Shaneka Joyce Work Phone: [facility] 04-28-2020 influenza, seasonal, injectable Dr. Stephen Hollingsworth Work Phone: [facility] 04-28-2020 influenza virus vaccine, unspecified formulation [facility] [place] Work Phone: [facility] 04-25-2019 influenza, injectabl e, quadrivalent, preservative free Dr. Shaneka Joyce Work Phone: [facility] 04-25-2019 influenza, seasonal, injectable Dr. Stephen Hollingsworth Work Phone: [facility] 05-03-2018 influenza virus vaccine, unspecified formulation [facility] [place] Work Phone: [facility] 05-03-2018 influenza, injectabl e, quadrivalent, contains preservative [facility] [place] Work Phone: [facility] Payers Date Payer Category Payer Self-pay [id number] 2023 Unknown [id number] 2022 Unknown [id number] 2020 Unknown [id number] 1985 Unknown [id number] 2.16.8 [id number] 1986 Unknown [id number] 2.16.8 [id number] Unknown [id number] 2.16.8 [id number] Unknown [id number] 2.16.8 [id number] Unknown [id number] 2.16.8 [id number] Unknown [id number] 2.16.8 [id number] Unknown [id number] 2.16.8 [id number] Unknown [id number] 2.16.8 40.1.201323.3.579.2.462 Unknown [id number] 2.16.8 40.1.954719.3.579.2.462 Unknown [id number] 2.16.8 [id number] Unknown [id number] 2.16.8 40.1.188970.3.579.2.462 Unknown [id number] 2.16.8 [id number] Unknown [id number] 2.16.8 40.1.846383.3.579.2.462 Unknown [id number] 2.16.8 40.1.402660.3.579.2.462 Unknown [id number] 2.16.8 40.1.560067.3.579.2.462 Unknown [id number] 2.16.8 [id number] Unknown [id number] 2.16.8 40.1.051482.3.579.2.462 Unknown [id number] 2.16.8 [id number] Unknown [id number] 2.16.8 [id number] Unknown [id number] 2.16.8 [id number] Unknown [id number] 2.16.8 [id number] Social History Date Type Detail Facility Start: 03-11-2022 End: 09-22-2023 Tobacco smoking status MAIS Unknown if ever smoked [facility] Start: 05-11-2021 [facility] Start: 05-11-2021 None [place] [facility] Start: 05-11-2021 Cigarettes [facility] Start: 1985 Sex Assigned At Female [facility] Start: 09-14-2023 End: 05-22-2024 Tobacco smoking status NHIS Ex-smoker [facility] Work Phone: End: 03-28-2013 History of tobacco use Current smoker [facility] Work Phone: End: 03-28-2013 History of tobacco use Cigarette Smoker [facility] Work Phone: Start: 03-28-2018 End: 09-14-2023 Tobacco use and exposure Smokeless tobacco non-user [facility] Work Phone: Start: 06-18-2020 End: 09-14-2023 History of Social function [facility] Start: 06-18-2020 End: 09-14-2023 Tobacco use panel [facility] Start: 1985 Sex Assigned At Not on file [facility] Work Phone: Start: 09-04-2020 End: 09-21-2023 Exposure to SARS-CoV-2 (event) Not sure [facility] Start: 10-04-2020 Alcoholic beverage intake Current non-drinker of alcohol (finding) [facility] Adult Depression Screening Assessment 0 [facility] NEGATED: Highlighted row [facility] Goals Date Patient Goal Desired Activity /State Mental Status Date Assessment Result Facility 08-13-2022 Cognitive function Level Of Cons ciousness Awake;Alert;Appropriate;Follow s Commands [facility] Work Phone: 07-29-2022 Cognitive function Voice/Name [facility] Work Phone: Clinical Notes 10-04-2020 to 12-27-2024 Note Date & Type Note Facility 12-27-2024 Radiology Diagnostic study note [facility] [address] [place] [address] Abdomen Limited MR#: [id number] Acct: [id number] Name: REBECCA LAMB Rep #: [id number] : 1985 F 39 From: Orlando Valiente MD PCP: Dr. Shaneka Joyce MD Status: R EG CLI Study:Abdomen Limited Date of Exam: 12/09 01/02 Exam# [id number] Ordering Dr: Narendra Barbosa PROCEDURE: ABDOMEN LIMITED [...] 2 mm x 3 mm. [facility]: Dr. Shaneka Joyce MD; ALYSSA Xiao ~ [employer]: Signed [facility] 10-15-2024 Evaluation note Diagnosis Onset Date Resolution Mild binge-eating disorder acute October 15, 2024 7:48am Thyromegaly acute October 15 7:48am Anxiety and depression chronic Ap ril 2024 7:48am Encounter for routine gynecological examination noneactive October 15, 2024 7:48am Nausea acute December 19 3:23pm [facility] Work Phone: [phone] Evaluation note* Diagnosis Onset Date Resolution Status Admit Date Mild binge-eating disorder acute October 15, 2024 7:48am Thyromegaly acute October 15 7:48am Anxiety and depression chronic Ap ril 2024 7:48am Encounter for routine gynecological examination noneactive October 15, 2024 7:48am Nausea acute December 19 3:23pm RUQ pain acute December 19 3:23pm [facility] Work Phone: 1([phone]) 738-974903-13-2024 History of Present illness Narrative* Abi Garcia [...] resting until improved. She was referred to [facility] for further investigations. She had an EMG [...] symptoms of recurrent rhabdomyolysis. [facility] and should [...] the patient was able to contact the [facility] regarding her biopsy and well get the reports and hopefully the slides soon. Reviewing the muscle biopsy will be very helpful in ruling out or confirming some of the differential diagnoses we suspect. Plan: Pending muscle biopsy review. Jacob Baker MD Neuromuscular Fellow [facility] Problem List Items Addressed This Visit Musculoskeletal [...] We will review of muscle biopsy from [facility]. Abi Garcia M.D., F.A.C.P. Director, Neuromuscular Center & EMG laboratory [facility] Professor of Neurology [facility] [employer] The total appointment time today was 20 minutes. Time included preparing to see the patient, obtaining the history, performing a medically necessary appropriate physical examination, ordering and reviewing tests, referring and communicating with other providers, independently interpreting results to the patient/family and documenting clinical information in the medical record. [facility] Work Phone: [phone]) 852-585403-06-2024 History of Present illness Narrative* Abi Garcia [...] eventually she improved. She was referred to [facility] for further investigations. She had an EMG [...] tablet, every 12 hours., Disp: , Rfl: [id number] acid-biotin (Hair,Skin and Nails,FA-biotin,) 66.7-1,000 mcg tablet, [...] and skinbiopsy Jacob Baker MD Neuromuscular Fellow [facility] Problem List Items Addressed This Visit Paroxysmal rhabdomyolysis - Primary ATTENDING NOTE - ABI GARCIA M.D. I saw patient with trainee and agree with the edits, history and exam that I helped formulate per above. She reported an episode, and 2011 of generalized muscle soreness and dark urine. Blood tests showedelevated CK to 30,000. She was seen soon after her first episode at [facility] and underwent an EMG and muscle [...] Neuromuscular Center & EMG laboratory [facility] Professor of Neurology [facility] [employer] The total appointment time today was 60 minutes. Time included preparing to see the patient, obtaining the history, performing a medically necessary appropriate physical examination, counseling and educating the patient/family, ordering tests, referring and communicating with other providers, independently interpreting results to the patient/family and documenting clinical information in the medical record. [facility] Work Phone: [phone]) 241-370404-13-2023 Discharge summary Author Enrique Bustos [facility] October 21, 2022 5:47pm Note Date/Time October 21, 2022 5:4 7pm [facility] Physical Therapy [facility] [place] [address] / REHABILITATION SERVICES DISCHARGE SUMMARY MR#: [id number] Acct: [id number] Name: REBECCA LAMB Rep #: [id number] : 1985 37 From: Enrique Bustos DPT, [...] please feel free to call me at [phone]. Thank you for the referral of thispatient. Sincerely, Enrique Bustos, SANTIAGO, OCS, CSCS Balance/Gait/Functional tests - Balance/Special Test Scores Oswestry Low Back Score: 1 <Electronically signed by Enrique Bustos DPT, HIGINIO, CSCS> 10/21/22 1746 CC: Dr. Shaneka Joyce MD ~ EBG Signed [facility] Work Phone: 1(214) 562-545201-19-2023 Procedure [facility] 07-29-2022 Procedure [facility]03-02-2022 NoteHNO ID: [id number] Author: Sahara Lee Service: ? 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 Author Type: [...] by no fracture. Supportive care. Daryl Kevin, [facility]03-27-2021 History of Present illness Narrative* Keshia [...] 04, 2020 9:12 AM documented in this encounterFlower HospitalEvaluation note* Diagnosis Onset Date Resolution Status Lumbar radiculopathy acute Segmental and somatic dysfunction of cervical region acute Segmental and somatic dysfunction of lumbar region acute Segmental and somatic dysfunction of pelvic region acute Segmental and somatic dysfunction of thoracic region acute Neck pain noneactive Neck swelling acute Anxiety and depression chron ic Swallowing difficulty chroni c [facility] Work Phone: Evaluation note* Diagnosis Onset Date [...] c Thyromegaly acute Swallowing difficulty chroni c [facility] Work Phone: Evaluation note* Diagnosis Onset Date Resolution Status Thyromegaly acute Swallowing difficulty chroni c Thyromegaly acute Swallowing difficulty chroni c Influenza A acute Segmental and somatic dysfunction of cervical region acute Segmental and somatic dysfunction of lumbar region acute Segmental and somatic dysfunction of thoracic region acute Neck pain noneactive [facility] Work Phone: Evaluation note* Diagnosis Onset Date Resolution Status Thyromegaly acute Swallowing difficulty chroni c Influenza A acute Segmental and somatic dysfunction of cervical region acute Segmental and somatic dysfunction of lumbar region acute Segmental and somatic dysfunction of thoracic region acute Neck pain noneactive [facility] Work Phone: Evaluation note* Diagnosis Onset Date [...] ic Chronic back pain chronic Constipation chronic [facility] Work Phone: Evaluation note* Diagnosis Onset Date Resolution Status Anxiety and depression chron ic Chronic back pain chronic Celiac disease chronic [facility] Work Phone: Evaluation note* Diagnosis Onset Date [...] Herniated intervertebral disc of lumbar spine acute [facility] Work Phone: Evaluation note* Diagnosis Paroxysmal rhabdomyolysis- Primary documented in this encounter [facility] Work Phone: Evaluation note* Diagnosis Paroxysmal rhabdomyolysis- Primary documented in this encounter [facility] Work Phone: Evaluation note* Diagnosis Onset Date Resolution Status 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 BMI 28.0-28.9,adult acute Mild binge-eating disorder a cute Rhabdomyolysis acute Thyromegaly acute Anxiety and depression chron ic Encounter for routine gynecological examination noneactive [facility] Work Phone: Evaluation note* Diagnosis Foot pain, left Pain in limb documented in this encounter [facility] Author Modesto Rodriguez [facility] July 29, 2022 10:48am Note Date/Time July 29, 2022 1 0:48am [facility] Medical Records Department [address] [place] [address] History & Physical Exam 07/29/22 1047 MR#: [id number] Acct: [id number] Name: REBECCA LAMB Rep #:[id number] : 1985 37 From: Modesto Rodriguez DO PCP: Dr. Shaneka Joyce MD Status:R EG [facility] Location: [place] [address] History and Physical Date of Admission: 07/29/22 [...] nourished Orientation: alert, awake and oriented x3 [facility] Head: normal to inspection Ears: hearing [...] Judgment: judgment good Quality Reporting Tobacco Screening ([facility] 138) Smoking Status: Former smoker Assessment [...] Shaneka Joyce MD; Modesto Rodriguez DO~ Signed [facility] Work Phone: Reason for referral (narrative)No reason for referral information availableOr[facility]oindy [facility] Work Phone: Summary Purpose Family [...] Will No May 11 4:24pm Power of Power Reactor Operator No May 11, 2021 4:24pm Advance Directive Response Recorded Date/ Time Living Will No July 26 2:15pm Power of Power Reactor Operator No July 26, 2022 2:15pm Advance Directive Response Recorded Date/ Time Living Will No July 26 3:15pm Power of Power Reactor Operator No July 26, 2022 3:15pm Advance Directive Response Recorded Date/ Time Living Will No July 26 3:15pm Do you have a Healthcare Power of Power Reactor Operator? 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) October 15, 2024 7:48 am STOMACH ISSUES / NAUSEA December 19, 2024 3:23pm Reason for Visit Admit Date Mild binge-eating disorder October 15 7:48am Thyromegaly October 15, 2024 7:48 am Anxiety and depression October 15, 2024 7 :48am Encounter for routine gynecological exam ination October 15, 2024 7:48am Nausea December 19, 2024 3:23 pm Chief Complaint Admit Date 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 Shaneka Joyce MD Primary Care Provider, Refer ring Provider Active Ryan Mike UPHOLSTERED GOODS CRAFTER, UPHOLSTERED GOODS CRAFTER-C Attending Provider Active Team Status: Inactive Member [...] MD Attending Provider, Referr ing Provider Active Clay Pigeon Loader Relationship Specialty Start Date End Date Ki Villar MD [address] [place] [address] PCP - General Family Medicine 03/29/18 Team [...] or prosecute any alcohol or drug abuse patient.[facility] Reason for Visit (unrecogniz ed section and content) Specialty Diagnoses / Procedures Referred By Clari alvarado Referred To Contact Radiology / [facility] Diagnoses Left foot pain FOOT XR Procedures X-RAY FOOT MINIMUM 3 VIEWS XR GENERAL 7 Daryl Kevin MD [address] [place] [address] Radio General [facility] [address] [place] [address] Referral ID Status Reason Start Date Expiration Date Visits Re quested Visits Authorized [id number] Closed 10/04/2020 10/04/2021 99 99 FOR RECORDS [...] BE BASED ON THE PRIMARY CLINICAL RECORDS. [facility] [employer] [facility]. provides no warranty or guarantee of the accuracy or completeness of information in this document.
== END | disposition home or self-care (01) ==
LOC: NM 08:51
PROVIDERS: PCP Internal Medicine; Referring Provider Physician Assistant; Visit Provider Physician Assistant
DX: R10.13 Epigastric pain (principal); R11.0 Nausea
CPT/HCPCS: 78227; A9537; J2805

== ENCOUNTER 2025-03-07 09:28 | Day surgery (SDC) | payer OTHER, SELFPAY ==
--- NOTE | 2025-02-21 16:30 | PAT.ANESEVAL ---
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 When Was Last Pacemaker Check QUESTION #4 FULL TEXT: You/Your Family Experience fever (hyperthermia) with Anesthesia Last Oral Intake Last Oral intake: Last Oral Intake NPO since Meds taken in AM with sips of water? 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 Has anyone observed you stop No 02/21/25 08:18 breathing during sleep? STOP Results Negative 02/21/25 08:18 QUESTION #5 FULL TEXT : Do you snore loudly (louder than talking or can be heard through closed doors)? 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 Specify any problems Hx of Preganancy in last 3 N/A 02/21/25 08:18 Months Nurse Filling Out Transfusion NBUCHER 02/21/25 08:18 & Questions: Date: 02/21/25 02/21/25 08:18 Time: 08:20 02/21/25 08:18 Patient unable to answer at this time (ie. 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 Chronic back pain Depression Alcohol use Thyroid disease Gastric reflux Former smoker Influenza A Thyromegaly Neck swelling Swallowing difficulty Anxiety and depression Lumbar radiculopathy Lumbar strain Abnormal Pap smear of cervix Rhabdomyolysis Home Medications ?Medication ?Instructions ?Recorded ?Last Taken ?Type multivitamin with minerals 1 tab PO DAILY 08/11/23 Unknown History (Hair,Skin and Nails tablet) Lactobacillus acidophilus 250 500 mmu cells PO DAILY 05/22/24 Unknown History million cell capsule (Probiotic Acidophilus) levothyroxine 75 mcg tablet 75 mcg PO DAILY #90 tabs 06/01/24 Unknown Rx acyclovir 400 mg tablet 400 mg PO TID PRN Outbreak #30 tabs 10/15/24 Unknown Rx norgestimate 0.25 mg-ethinyl 1 tab PO DAILY #84 tabs 10/15/24 Unknown Rx estradiol 0.035 mg tablet (Sprintec (28)) sertraline 100 mg tablet 100 mg PO QHS #30 tabs 10/15/24 Unknown Rx trazodone 50 mg tablet 50 mg PO QHS #30 tabs 10/15/24 Unknown Rx calcium carbonate (Tums) 300 mg PO DAILY PRN dyspepsia 02/21/25 Unknown History magnesium glycinate 100 mg (as 500 mg PO DAILY 02/21/25 Unknown History glycinate) tablet (Mag Glycinate) Allergy/AdvReac Type Severity Reaction Status Date / Time amphetamine (From Adderall) Allergy Other Verified 02/21/25 08:15 dextroamphetamine (From Allergy Other Verified 02/21/25 08:15 Adderall) lisdexamfetamine (From Allergy Other Verified 02/21/25 08:15 Vyvanse) sulfamethoxazole (From Allergy Nausea/Vom/ Verified 02/21/25 08:15 Bactrim) Diarrhea trimethoprim (From Bactrim) Allergy Nausea/Vom/ Verified 02/21/25 08:15 Diarrhea gluten AdvReac Other Verified 02/21/25 08:16 Family History Mother Diabetes Supraventricular tachycardia Brother Leukemia Grandmother CVA (cerebral vascular accident) Parkinson disease Diabetes Father Bleeding disorder Surgical History (Updated 02/21/25 @ 08:25 by Sommer Marrufo) History of esophagogastroduodenoscopy (EGD) History of wisdom tooth extraction H/O eye surgery History of Social History (Updated 02/19/25 @ 14:16 by Kristina Antunez) adopted: No household members: spouse and children number of children: 2 current occupational status: employed pets and animals: Yes (1) pets and animals: dog(s) sexually active: Yes Smoking Status: Former smoker quit date: 07/11/13 Tobacco: How many years used: 10 alcohol intake: current alcohol intake frequency: a few times a month substance use type: does not use diet: gluten free caffeine: Yes (4) Type: coffee what type of physical activity do you participate in: running and weight training frequency: 5-6 times per week seatbelt use: always do you feel safe at home: Yes additional social history: [place] Audit: Pertinent Findings Pertinent Findings EKG Perinent findings: 05/29/2024. Sinus rhythm with short CA Stress test pertinent findings: June 08, 2024. Patient achieved a METS of 13.4. EF of 80%. Rest and stress SPECT nuclear imaging demonstrate relatively uniform tracer uptake and myocardial perfusion appearing within normal limits. Echo (EF%) pertinent findings: June 08, 2024. EF of 60%. Normal PA pressure. No aortic stenosis noted. Consult pertinent findings: June 14, 2024. Dr. Hammer. 1. Heart palpitations-history of heart palpitations with some dizziness. Denies any elizabeth syncope. Patient has bought a iWatch and will print out the palpitations as rhythm strips and bring them to us. Palpitations are not likely significant given her normal LV function, no valvular heart disease, and normal stress test. 2. Abnormal EKG-EKG with short CA interval is benign. 2. Preop evaluation-from cardiovascular standpoint patient can proceed with surgical intervention for tubal ligation. Recommendation Anesthesia Recommendation Anesthesia recommendation: OPTIMIZED for anesthesia
[2025-03-07] VITALS (13 sets, daily range): BP systolic 90–120; BP diastolic 57–82; PULSE 68–82; RESP 14–18; TEMP 36.3–37.4; O2SAT 94–100; BMI 28.2
--- NOTE | 2025-03-07 09:56 | PCM.HP.BLA ---
History and Physical Date of Admission: 03/07/25 Intake Vital Signs 12/19/2514:48 01/17/2508:33 Height 5 ft 4 in 5 ft 4 in Weight: 166 lb 165 lb 2 oz BMI 28.5 28.3 BP 124/80 H 109/73 Blood Pressure Location Lt brachial Rt brachial Position Sitting Sitting Respiration 18 17 Pulse 89 79 Pulse Source Monitor Monitor Temp 97.6 F L 97.2 F L Temp Source Temporal Temporal Pulse Oximetry (%) 97 100 Oxygen Delivery Method room air room air Intake Visit Reasons: gallbladder Chief Complaint: gallbladder Is patient in pain?: No Allergies amphetamine (From Adderall) Allergy (Verified 01/16/25 08:34) Otherdextroamphetamine (From Adderall) Allergy (Verified 01/16/25 08:34) Otherlisdexamfetamine (From Vyvanse) Allergy (Verified 01/16/25 08:34) Othersulfamethoxazole (From Bactrim) Allergy (Verified 01/16/25 08:34) Nausea/Vom/Diarrheatrimethoprim (From Bactrim) Allergy (Verified 01/16/25 08:34) Nausea/Vom/Diarrhea Medications ?Medication ?Instructions ?Recorded ?Confirmed ?Type magnesium oxide 500 mg capsule 500 mg PO DAILY 11/04/22 01/16/25 History multivitamin with minerals 1 tab PO DAILY 08/11/23 01/16/25 History (Hair,Skin and Nails tablet) Lactobacillus acidophilus 250 500 mmu cells PO DAILY 05/22/24 01/16/25 History million cell capsule (Probiotic Acidophilus) levothyroxine 75 mcg tablet 75 mcg PO DAILY #90 tabs 06/01/24 01/16/25 Rx acyclovir 400 mg tablet 400 mg PO TID PRN Outbreak #30 tabs 10/15/24 01/16/25 Rx norgestimate 0.25 mg-ethinyl 1 tab PO DAILY #84 tabs 10/15/24 01/16/25 Rx estradiol 0.035 mg tablet (Sprintec (28)) sertraline 100 mg tablet 100 mg PO QHS #30 tabs 10/15/24 01/16/25 Rx trazodone 50 mg tablet 50 mg PO QHS #30 tabs 10/15/24 01/16/25 Rx famotidine 20 mg tablet 20 mg PO QHS #30 tabs 12/19/24 01/16/25 Rx PFSH Medical History (Updated 01/16/25 @ 08:33 by Carolina Catherine LPN) Gallbladder sludge Dietary restriction Celiac disease Preventative health care Health care maintenance 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 Chronic back pain Depression Alcohol use Thyroid disease Gastric reflux Former smoker Influenza A Thyromegaly Neck swelling Swallowing difficulty Anxiety and depression Lumbar radiculopathy Lumbar strain Abnormal Pap smear of cervix Rhabdomyolysis Surgical History History of esophagogastroduodenoscopy (EGD) History of wisdom tooth extraction H/O eye surgery History of Family History Mother Diabetes Supraventricular tachycardiaBrother LeukemiaGrandmother CVA (cerebral vascular accident) Parkinson disease DiabetesFather Bleeding disorder Social History adopted: No household members: spouse and children number of children: 2 current occupational status: employed current occupation: [employer] pets and animals: Yes (1) pets and animals: dog(s) sexually active: Yes Smoking Status: Former smoker quit date: 07/11/13 Tobacco: How many years used: 10 alcohol intake: current alcohol intake frequency: a few times a month substance use type: does not use diet: gluten free caffeine: Yes (4) Type: coffee what type of physical activity do you participate in: running and weight training frequency: 5-6 times per week seatbelt use: always do you feel safe at home: Yes additional social history: [place] Patient works at [employer] HPI HPI HPI: Patient is a 39-year-old female here for nausea and pain. She reports the pain is usually in her right shoulder although occasionally could be of the right upper quadrant. She denies vomiting but she does have chronic nausea she reports that eating makes her symptoms worse ROS General General: No weight change, appetite, fatigue, colon cancer, breast cancer or weakness HEENT HEENT: Yes difficulty swallowing, eye surgery and swollen glands; No eye injury or hoarseness Endo Endocrine: Yes thyroid disease; No diabetes mellitus, thyroid cancer, Hair loss, heat intolerance or cold intolerance Skin Skin: No rash or changing moles Musc Musculoskeletal: Yes back problems; No arthritis, rheumatoid arthritis, gout or joint pain Cardio Cardiovascular: No murmur, pacemaker, heart disease, atrial fibrillation, high blood pressure, heart attack, heart stent, palpitations, shortness of breath with exertion or chest pain Psych Psychiatric: Yes depression and anxiety; No hearing voices Resp Respiratory: No shortness of breath, No sleep apnea, No cough, No COPD, No asthma, No emphysema and No wheezing Gastro Gastrointestinal: Yes abdominal pain, Yes nausea or vomiting, Yes diarrhea, Yes constipation, No blood in stool, Yes acid reflux, No hemorrhoids, No ulcers, Yes gallbladder problem and No black,tarry stools Jeromy Hematologic: No blood thinners, No blood disorders, No bleeding, No anemia and No blood clots Neuro Neurologic: No numbness, No tingling and No weakness Exam Const General: cooperative Orientation: alert and oriented x3 HENMT Head: normal to inspection Neck Neck: normal visual inspection and full ROM Chest Chest palpation & inspection: normal inspection of the chest Resp Effort & Inspection: normal respiratory effort Auscultation: clear to auscultation bilaterally Cardio Rate: regular rate Rhythm: regular rhythm GI Inspection: non-distended Palpation: soft and nontender Skin General: no rashes or lesions noted Neuro General: patient alert and patient oriented x3 Extrem General: full ROM Psych Appearance: grossly normal Mental Status: mental status grossly normal Assessment and Plan Assessment and Plan (1) Gallbladder sludge: Status: Acute (2) RUQ pain: Status: Acute Plan The patient has right upper quadrant pain radiating to the right shoulder. She had an ultrasound of the gallbladder which showed sludge and a polyp. She also had a HIDA which showed ejection fraction of 35%. I explained that cholecystectomy may not relieve her symptoms and she understands. She would like to proceed with laparoscopic cholecystectomy with cholangiograms. I discussed the procedure in detail with the patient. I discussed the risks, benefits, and alternatives of the procedure. I discussed the risks including but not limited to bleeding, infection, injury to surrounding organs such as the liver, bile duct, bowels. I did discuss the possibility of having to convert to an open procedure as well as the possibility that if any injuries occurred this may necessitate further surgery at a tertiary care center. The patient will also have a tubal ligation by Dr. Santo at the same time. Brenden Weiner MD Pager: [facility] [address] [place] [address], [address] [place] [address] Office: I have examined the patient and the H&P has been reviewed. There are no clinical changes since date of exam.
--- NOTE | 2025-03-07 10:18 | EKG12_ITS ---
Test Reason : P Blood Pressure : */* mmHG Vent. Rate : 67 BPM Atrial Rate : 67 BPM P-R Int : 114 ms QRS Dur : 88 ms QT Int : 382 ms P-R-T Axes : 56 68 33 degrees QTcB Int : 403 ms Normal sinus rhythm Normal ECG When compared with ECG of 29-May-2024 07:46, No significant change was found Confirmed by Grant Hammer ([id number]), desk editor NADER PAT ([id number]) on 03/12/2025 11:15:54 AM Referred By: Brenden Weiner Confirmed By: Grant Hammer
[2025-03-07 10:27] LABS: Internal QC Validated? YES +Cl - CLEAR BKGD; Pregnancy, Urine Negative Negative; Record Kit Lot#,Urine Preg 0000962302
[2025-03-07] MEDS: Lactated Ringers 1,000 ML 15 ML IV (10:31)
--- NOTE | 2025-03-07 10:58 | PCM.HP.BLA ---
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 Is patient in pain?: No Feel stressed/tense/nervous/anxious/difficulty sleeping: not at all Allergies amphetamine (From Adderall) Allergy (Verified 02/19/25 14:13) Otherdextroamphetamine (From Adderall) Allergy (Verified 02/19/25 14:13) Otherlisdexamfetamine (From Vyvanse) Allergy (Verified 02/19/25 14:13) Othersulfamethoxazole (From Bactrim) Allergy (Verified 02/19/25 14:13) Nausea/Vom/Diarrheatrimethoprim (From Bactrim) Allergy (Verified 02/19/25 14:13) Nausea/Vom/Diarrhea Medications ?Medication ?Instructions ?Recorded ?Confirmed ?Type magnesium oxide 500 mg capsule 500 mg PO DAILY 11/04/22 02/19/25 History multivitamin with minerals 1 tab PO DAILY 08/11/23 02/19/25 History (Hair,Skin and Nails tablet) Lactobacillus acidophilus 250 500 mmu cells PO DAILY 05/22/24 02/19/25 History million cell capsule (Probiotic Acidophilus) levothyroxine 75 mcg tablet 75 mcg PO DAILY #90 tabs 06/01/24 02/19/25 Rx acyclovir 400 mg tablet 400 mg PO TID PRN Outbreak #30 tabs 10/15/24 02/19/25 Rx norgestimate 0.25 mg-ethinyl 1 tab PO DAILY #84 tabs 10/15/24 02/19/25 Rx estradiol 0.035 mg tablet (Sprintec (28)) sertraline 100 mg tablet 100 mg PO QHS #30 tabs 10/15/24 02/19/25 Rx trazodone 50 mg tablet 50 mg PO QHS #30 tabs 10/15/24 02/19/25 Rx Post menopausal: No Patient : No : No PFSH Medical History Gallbladder sludge Dietary restriction Celiac disease Preventative health care Health care maintenance 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 Chronic back pain Depression Alcohol use Thyroid disease Gastric reflux Former smoker Influenza A Thyromegaly Neck swelling Swallowing difficulty Anxiety and depression Lumbar radiculopathy Lumbar strain Abnormal Pap smear of cervix Rhabdomyolysis Surgical History History of esophagogastroduodenoscopy (EGD) History of wisdom tooth extraction H/O eye surgery History of Family History Mother Diabetes Supraventricular tachycardiaBrother LeukemiaGrandmother CVA (cerebral vascular accident) Parkinson disease DiabetesFather Bleeding disorder Social History (Updated 02/19/25 @ 14:16 by Kristina Antunez) adopted: No household members: spouse and children number of children: 2 current occupational status: employed pets and animals: Yes (1) pets and animals: dog(s) sexually active: Yes Smoking Status: Former smoker quit date: 07/11/13 Tobacco: How many years used: 10 alcohol intake: current alcohol intake frequency: a few times a month substance use type: does not use diet: gluten free caffeine: Yes (4) Type: coffee what type of physical activity do you participate in: running and weight training frequency: 5-6 times per week seatbelt use: always do you feel safe at home: Yes additional social history: [place] HPI BS pre op Details: NUPUR LAMB is a 40 year old who presents for sterilization request. she has no menses, takes continuous OCP but wants additional reassurance for prevention. she denies any pelvic pain, some cramping intermittently cyclically. symptoms are mild she hasn't taken treatment for it. Female Reproductive History Menopausal Symptoms: No night sweats History 2 Elective abortions Hx Para 2 Spontaneous abortions Hx # Term Pregnancies Ectopic pregnancies Hx # Pregnancies Multiple births # of living children Past Pregnancies Del. Date Name GA/Weeks Outcome Route Bth Weight Infant Gen Labor Lgth Anesthesia Del Locatn Provider FOB Unknown 2014 Phil 41 live - full term Male Raymon Unknown 2018 Juanito live - full term Male Shadi ROLON Const Constitutional: Denies fatigue, night sweats, weight gain or weight loss ENT ENT: Reports system reviewed and no additional complaints, except as documented Cardio Card: Denies chest pain Resp Resp: Denies cough or dyspnea GI GI: Reports as per HPI; Denies abdominal pain, constipation, nausea or vomiting : Denies nipple discharge, urinary frequency, urinary incontinence, urinary hesitancy, urinary urgency, vaginal discharge, vaginal dryness, vaginal odor or vaginal pruritus Musc Musc: Reports arthralgias and back pain; Denies muscle weakness Skin Skin/Breast: Denies alopecia, change in hair, dry skin, breast mass, breast pain, breast skin changes or nipple discharge Neuro Neuro: Reports system reviewed and no additional complaints, except as documented Psych Psych: Reports system reviewed and no additional complaints, except as documented Endo Endo: Denies cold intolerance, excessive sweating, heat intolerance or polydipsia Jeromy/Lymph Hematologic/Lymphatic: Denies easy bleeding, Denies easy bruising and Denies lymphadenopathy Exam Const General: cooperative, healthy appearing, comfortable and no acute distress Orientation: alert HENAL Head: normal to inspection and normocephalic Ears: hearing grossly normal bilaterally and external ears normal Nose: external nose normal and nares normal Face and sinus: normal facial exam Neck Neck: normal visual inspection and no lymphadenopathy Thyroid: thyroid normal Chest Chest palpation & inspection: normal inspection of the chest Resp Effort & Inspection: normal respiratory effort Auscultation: clear to auscultation bilaterally Cardio Rate: regular rate Rhythm: regular rhythm Heart Sounds: S1 normal and S2 normal GI Inspection: normal to inspection and non-distended Palpation: soft and no hepatosplenomegaly Musc Other: gross motor intact no deficits, full bilateral strength Skin General: no rashes or lesions noted Neuro General: patient alert, patient awake, moves all extremities and no focal motor deficits Motor: muscle tone normal throughout Extrem General: normal to inspection and no pedal edema Psych Appearance: grossly normal Mental Status: mental status grossly normal Affect: normal affect Speech and Movement: speech and movement normal Coding Level of Care Code No Charge Diagnoses Sterilization Z30.2 Assessment and Plan Assessment and Plan (1) Sterilization: Status: Acute Comment: plan laparoscopic BS Plan After discussing the patient's diagnosis and treatment plan options, patient wishes to proceed with surgical management. I have discussed with the patient the risks, benefits, and alternatives of the procedure which include but are not limited to risks of anesthesia, bleeding, infection, possible damage to bowel, bladder, or surrounding vasculature which could lead to additional surgery to evaluate any complications. Patient agrees to procedure and wishes to proceed. ACOG/uptodate references given for additional information regarding procedure. UPDATE- I have seen the patient and performed any clinically relevant updates to the history and physical exam. Padmini Santo MD
--- NOTE | 2025-03-07 11:00 | FALS_PTH ---
PATIENT: NUPUR LAMB LOC: [facility] [place] U#:[id number] AGE/SX: 40/F ROOM: RE03/07/[address]: Dr. Brenden Weiner MD : 1985 BED: DIS: 03/07/2025 SPEC #: [id number] RECD: 03/07/25 13:20 STATUS: BISHNU GRAY #: [id number] DONNA: 03/07/25 11:[address]: Brenden Weiner DEPT: SURGICAL PATHOLOGY RECD BY: Dennis Pearson ENTERED: 03/07/25 14:18 SP TYPE: FALL TUBES OTHR DR: MD Dr. Padmini Dee MD Tissues: A - Fallopian tube B - Gallbladder, NOS Procedures: Surgery Specimen Level II Surgery Specimen Level III HEADER OPERATION: Laparoscopic cholecystectomy PRE-OP DIAGNOSIS: Gallbladder sludge, right upper quadrant pain TISSUE SUBMITTED: A- Bilateral fallopian tubes, B- Gallbladder MICROSCOPIC DIAGNOSIS A. Fallopian tubes, laparoscopic bilateral salpingectomy: No specific pathologic change (complete luminal cross-section confirmed) x2. B. Gallbladder, laparoscopic cholecystectomy: Cholesterolosis with cholesterol polyp. MICROSCOPIC DESCRIPTION Slides are reviewed. GROSS DESCRIPTION Received in 2 formalin containers labeled with the patient's name and date of . Designated as: A. Bilateral tubes are 2 pink, undesignated fimbriated fallopian tubes averaging 8.0 cm in length by 0.3 cm in diameter. Few paratubal cyst are identified, measuring up to 0.7 cm. Talent Specialist sections are submitted in 2 cassettes. B. Gallbladder is a 5.5 x 3.4 x 2.9 cm rebollar-pink to yellow, edematous and intact gallbladder with attached patent cystic duct (inked black, shaved). A lymph node is not present. Opening reveals yellow-green, tenacious bile and devoid of choleliths; there is a 0.5 cm cholesterol polyp within the bile. The mucosa is rebollar-red and granular with a maximum wall thickness of 0.2 cm. Cholesterolosis is present. Talent Specialist sections are submitted in 1 cassette. TN 03/07/2025 CPT:[id number]
--- NOTE | 2025-03-07 11:03 | PCM.PRE.AN2 ---
ASA Classification* ASA Classification ASA Classification: 2 Assessment & Plan Anesthesia* Anesthesia Assessment Anesthesia Assessment: Discussed sedation and/or anesthesia options, risks, benefits, and alternatives with patient/parents/legal guardian/POA. Questions invited. The patient/parents/legal guardian/POA seems to understand and agrees to proceed with anesthesia plan. Reviewed the physical assessment, medical history, allergy history and patient home medications list prior to surgery/procedure/anesthetic and documented any changes. Performed airway and anesthesia risk assessments. Anesthesia Type Anesthesia Type: General History Source History Obtained from:: Patient and Chart Anesthesia Focused Assessment* Temperature: 99.3 F Pulse Rate: 74 Blood Pressure: 120/82 Respiratory Rate: 16 Pulse Ox: 100 Oxygen Delivery Method: Room Air Airway Assessment Mouth opens: >3 cm Mallampati Score: I Teeth Condition: Intact Neck Range of motion (ROM): Full ROM Labs Anesthesia Preop lab: CBC WBC 5.5 K/mm3 (4.4-11.0) 12/20/24 10:34 12/20/24 RBC 4.25 M/mm3 (4.2-5.4) 12/20/24 10:34 12/20/24 Hgb 12.9 g/dL (12.0-15.0) 12/20/24 10:34 12/20/24 Hct 39.9 % (37-47) 12/20/24 10:34 12/20/24 Plt Count 245 K/mm3 (150-450) 12/20/24 10:34 12/20/24 CHEMISTRY Potassium 3.7 mmol/L (3.5-5.1) 02/02/24 07:55 02/02/24 Sodium 138 mmol/L (136-145) 02/02/24 07:55 02/02/24 BUN 15 mg/dL (7-18) 02/02/24 07:55 02/02/24 Creatinine 0.90 mg/dL (0.55-1.02) 02/02/24 07:55 02/02/24 Glucose 97 mg/dL (74-106) 02/02/24 07:55 02/02/24 TSH 0.413 uIU/mL (0.300-4.200) 03/06/25 11:00 03/06/25 COAG Urine Test Negative Negative 03/07/25 10:10 03/07/25 Pre-Assessment Diagnosis/Proposed Procedure Planned Operative Procedure(s): (N/A) Laparoscopic, Cholecystectomy with IOC *combo case with Bill Wilcox (B) Laparoscopic, Bilateral Salpingectomy Anesthesia History Anesthesia History - electron gun inspector: Anesthesia History - electron gun inspector Hx Hospitalization No 02/21/25 08:18 Any Problems With Anesthesia No 02/21/25 08:18 Cholinesterase deficiency No 02/21/25 08:18 You/Your Family Experience No 02/21/25 08:18 fever (hyperthermia) with Relationship Recent Exposure to Contagious No 03/07/25 10:43 Disease Does patient have nerve No 02/21/25 08:18 stimulator Patient instructed to have device shut off --Does patient have Pacemaker No 03/07/25 10:41 or ICD? When Was Last Pacemaker Check QUESTION #4 FULL TEXT: You/Your Family Experience fever (hyperthermia) with Anesthesia Last Oral Intake Last Oral intake: Last Oral Intake NPO since 07:00 03/07/25 10:41 Meds taken in AM with sips of Yes 03/07/25 10:41 water? Meds patient instructed to take am of surgery Any additional information?: Yes NPO since: 07:00 Meds taken in AM with sips of water?: Yes Meds patient instructed to take am of surgery: Levothyroxine PONV PONV - electron gun inspector: PONV - electron gun inspector Female Yes 02/21/25 08:18 HX of Motion Sickness Yes 02/21/25 08:18 HX of N/V After Surgery No 02/21/25 08:18 Non-Smoker Yes 02/21/25 08:18 Duration of Surgery greater Yes 02/21/25 08:18 than 60 minutes Number of Risk Factors 4 02/21/25 08:18 PONV Score Severe Risk 02/21/25 08:18 Height & Weight Height & Weight: Anesthesia: Height & Weight Height 5 ft 3 in 03/07/25 10:41 Weight: 72.3 kg 03/07/25 10:41 Body Mass Index (BMI) 28.2 03/07/25 10:41 Respiratory Assessment Respiratory Assessment - electron gun inspector: Respiratory Tract Infection Hx - electron gun inspector Hx Respiratory Tract Infection No 02/21/25 08:18 STOP Sleep Apnea STOP Sleep Apnea - electron gun inspector: STOP Sleep Apnea - electron gun inspector Hx Hypertension No 02/21/25 08:18 Hx Sleep Apnea No 02/21/25 08:18 CPAP BIPAP Do you snore loudly (louder No 02/21/25 08:18 than talking or can be heard Do you often feel tired/ No 02/21/25 08:18 fatigued/ sleepy during daytime? Has anyone observed you stop No 02/21/25 08:18 breathing during sleep? STOP Results Negative 02/21/25 08:18 QUESTION #5 FULL TEXT : Do you snore loudly (louder than talking or can be heard through closed doors)? Tobacco Use History Tobacco Use History - electron gun inspector: Tobacco Use History - electron gun inspector Tobacco Use Cigarettes 05/11/21 16:24 Smoking Status Former smoker 02/21/25 08:18 Hx Tobacco Use No 02/21/25 08:18 Years Smoking Packs Smoked per Day Smoking Cessation Date was Yes - quit smoking within 15 02/21/25 08:18 within the last 15 years years Hx Smoking Cessation Date 07/11/13 02/21/25 08:18 Hx Smoking Cessation Counseling Hematologic Medial History Hematologic Hx - electron gun inspector: Hematologic Medical Hx - senior clinical data manager Hx of Blood Transfusion No 02/21/25 08:18 Hx of Transfusion in last 3 No 02/21/25 08:18 Months Date of Last Transfusion (if within last 3 months) Ever experience any problems No 02/21/25 08:18 with transfusion(s)? Specify any problems Hx of Preganancy in last 3 N/A 02/21/25 08:18 Months Nurse Filling Out Transfusion NBUCHER 02/21/25 08:18 & Questions: Date: 02/21/25 02/21/25 08:18 Time: 08:20 02/21/25 08:18 Patient unable to answer at this time (ie. confused, unrespo /Reproduction History /Reproductive History - electron gun inspector: /Reproductive Hx- electron gun inspector Hx Now No 02/21/25 08:18 Gestational Age (in weeks): EDC: Hx Hx Para Hx Section SAB No 02/21/25 08:18 Active Medications Active Medications: Current Medications Generic Name Dose Route Start Last Admin Trade Name Freq PRN Reason Stop Dose Admin Cefotetan Disodium 2 gm/ 100 mls @ 200 mls/hr 03/07/25 11:00 Sodium Chloride IV 03/07/25 11:29 INTRAOP ONE Lactated Ringer's 1,000 mls @ 15 mls/hr 03/07/25 10:00 03/07/25 10:31 IV 15 mls/hr .Q48H RICHARD Administration PFSH Medical History Wears glasses Anxiety Hypothyroid History of hiatal hernia Heartburn History of echocardiogram History of stress test Cardiology follow-up encounter Gallbladder sludge Dietary restriction Celiac disease Preventative health care Health care maintenance 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 Chronic back pain Depression Alcohol use Thyroid disease Gastric reflux Former smoker Influenza A Thyromegaly Neck swelling Swallowing difficulty Anxiety and depression Lumbar radiculopathy Lumbar strain Abnormal Pap smear of cervix Rhabdomyolysis Home Medications ?Medication ?Instructions ?Recorded ?Last Taken ?Type multivitamin with minerals 1 tab PO DAILY 08/11/23 Unknown History (Hair,Skin and Nails tablet) Lactobacillus acidophilus 250 500 mmu cells PO DAILY 05/22/24 Unknown History million cell capsule (Probiotic Acidophilus) levothyroxine 75 mcg tablet 75 mcg PO DAILY #90 tabs 06/01/24 03/07/25 07:00 Rx acyclovir 400 mg tablet 400 mg PO TID PRN Outbreak #30 tabs 10/15/24 Unknown Rx norgestimate 0.25 mg-ethinyl 1 tab PO DAILY #84 tabs 10/15/24 Unknown Rx estradiol 0.035 mg tablet (Sprintec (28)) sertraline 100 mg tablet 100 mg PO QHS #30 tabs 10/15/24 Unknown Rx trazodone 50 mg tablet 50 mg PO QHS #30 tabs 10/15/24 Unknown Rx calcium carbonate (Tums) 300 mg PO DAILY PRN dyspepsia 02/21/25 Unknown History magnesium glycinate 100 mg (as 500 mg PO DAILY 02/21/25 Unknown History glycinate) tablet (Mag Glycinate) Allergy/AdvReac Type Severity Reaction Status Date / Time amphetamine (From Adderall) Allergy Other Verified 02/21/25 08:15 dextroamphetamine (From Allergy Other Verified 02/21/25 08:15 Adderall) lisdexamfetamine (From Allergy Other Verified 02/21/25 08:15 Vyvanse) sulfamethoxazole (From Allergy Nausea/Vom/ Verified 02/21/25 08:15 Bactrim) Diarrhea trimethoprim (From Bactrim) Allergy Nausea/Vom/ Verified 02/21/25 08:15 Diarrhea gluten AdvReac Other Verified 02/21/25 08:16 Family History Mother Diabetes Supraventricular tachycardia Brother Leukemia Grandmother CVA (cerebral vascular accident) Parkinson disease Diabetes Father Bleeding disorder Surgical History History of esophagogastroduodenoscopy (EGD) History of wisdom tooth extraction H/O eye surgery History of Social History adopted: No household members: spouse and children number of children: 2 current occupational status: employed pets and animals: Yes (1) pets and animals: dog(s) sexually active: Yes Smoking Status: Former smoker quit date: 07/11/13 Tobacco: How many years used: 10 alcohol intake: current alcohol intake frequency: a few times a month substance use type: does not use diet: gluten free caffeine: Yes (4) Type: coffee what type of physical activity do you participate in: running and weight training frequency: 5-6 times per week seatbelt use: always do you feel safe at home: Yes additional social history: [place] Review of Systems (Anesthesia) ROS Narrative System reviewed and no additional complaints, except as documented.
[2025-03-07] MEDS: Midazolam 2 MG/2 ML Syringe IV (11:50)
[2025-03-07] MEDS: Lactated Ringers 1,000 ML 1000 ML IV (11:54)
[2025-03-07] MEDS: Lidocaine 1% (5 ml sdv) 5 ML Vial 10 ML IV (11:56)
[2025-03-07] MEDS: PROPOFOL 20.09 MG IV (12:14)
--- NOTE | 2025-03-07 12:34 | OP.PCM_ITS ---
Problems Associated Problem List Diagnoses (1) Sterilization: (2) Gall bladder polyp: Multi Select Codes Urinary/Genital Urinary/Genital CPT Codes: 54643 Laproscopic BS/O Operative Report (Standard) Operative Information Date of Procedure: 03/07/25 Pre-Operative Diagnosis: see problem list Post-Operative Diagnosis: same Surgery/Procedure Performed: laparoscopic bilateral salpingectomy head of business development: Yes Washing Machine Loader: Marisol Maher Tasks completed by first calender worker: Opening & closing, Altering tissue and Insert Trochanter Additional commercial loan assistant?: No Type of Anesthesia: General RN Documented Start/Stop Times: Operation Date: 03/07/25 11:00 Case Time Into Pre-Op 03/07/25 09:50 Out of Pre-Op 03/07/25 11:45 Anesthesia Start 03/07/25 11:48 Into Room 03/07/25 11:48 Procedure Start 03/07/25 12:14 Procedure End 03/07/25 12:44 Anesthesia End 03/07/25 12:57 Out of Room 03/07/25 12:57 Into Recovery 03/07/25 13:02 Out of Recovery 03/07/25 14:25 Into Phase II Recovery 03/07/25 14:26 Out of Phase II 03/07/25 16:19 Procedure Start Time: 11:48 Procedure Stop Time: 12:44 Select all DRAINS/GRAFTS/IMPLANTS that apply: None Estimated Blood Loss: minimal Specimen collected: Yes Description of specimen(s) removed: bilateral tubes Description of surgery: After the patient was placed under general anesthesia in the dorsolithotomy position uterine manipulator was placed inside the uterus after she sounded to 7-1/2 cm without complication. Bladder was drained of clear urine prior to the procedure. Trocars were placed by the general surgeon. Uterus was well visualized and upon inspection of the pelvis bilateral tube seen and WNL. bilateral tubes removed with ligasure device without complication. Excellent hemostasis was noted in the pelvis. The rest of the procedure will be performed by the general surgeon see his note for additional information. Surgical Findings: nl uterus tubes ovaries minimal scar tissue Complications Complications: No
[2025-03-07] MEDS: Ketorolac 30 MG/ML Syringe IV (12:36)
[2025-03-07] MEDS: Bupiv/Epi 0.25% 30 ML Vial (12:41)
--- NOTE | 2025-03-07 12:43 | OP.PCM_ITS ---
Operative Report (Standard) Operative Information Date of Procedure: 03/07/25 Pre-Operative Diagnosis: Biliary colic and sludge in the gallbladder Post-Operative Diagnosis: Same Surgery/Procedure Performed: Laparoscopic cholecystectomy industrial x ray operator: Yes Trailhead Maintenance Worker: Marisol Maher Tasks completed by waiter/waitress first class: Opening & closing and Retracting Type of Anesthesia: General/Regional RN Documented Start/Stop Times: Operation Date: 03/07/25 11:00 Case Time Into Pre-Op 03/07/25 09:50 Out of Pre-Op 03/07/25 11:45 Anesthesia Start 03/07/25 11:48 Into Room 03/07/25 11:48 Procedure Start 03/07/25 12:14 Procedure Start Time: 12:14 Procedure Stop Time: 12:55 Select all DRAINS/GRAFTS/IMPLANTS that apply: None Estimated Blood Loss: 5 Specimen collected: Yes Description of specimen(s) removed: Gallbladder Description of surgery: After obtaining informed consent patient was brought back to the operating room. General anesthesia was induced. The abdomen was prepped and draped in usual sterile fashion. A small midline incision was made superior to the umbilicus and deepened to the level of fascia. The fascia was elevated and incised. Next the peritoneum was elevated and incised in the same fashion. Finger sweep was performed and the Mancuso trocar was placed into the abdomen. The balloon was inflated. The abdomen was inflated to 15 mmHg. Next a camera was introduced into the abdomen and the abdomen was inspected. Next under direct visualization three 5-mm ports were placed one subxiphoid and [address] Ryan Wilcox proceeded to complete the bilateral salpingectomy. Please see her operative note for details. Next the gallbladder was elevated and retracted toward the right shoulder. The peritoneum was stripped from the gallbladder. The infundibulum was located and retracted laterally. Next the triangle of Calot was dissected and the cystic duct and cystic artery were identified. Cholangiograms were performed. The Lang clamp was used to clamp across the infundibulum and the catheter needle was inserted into the gallbladder. Under fluoroscopy contrast was instilled into the gallbladder and the common duct, cystic duct as well as proximal hepatic ducts were identified. There was good filling of the duodenum. There were no filling defects noted in the common bile duct. The clamp was removed as well as the needle and the infundibulum was grasped once more. Three hemolock clips were placed across the cystic duct. The cystic duct was then divided leaving 2 clips on the stump. The cystic artery was clipped and divided in the same fashion. The hook cautery was then used to take the gallbladder off of the gallbladder bed. Hemostasis was obtained. Gallbladder fossa was irrigated and no active bleeding or bile leakage was noted. Next the camera was introduced in the subxiphoid port. An Endopouch bag was placed through the umbilical port and the gallbladder was placed into it. The gallbladder was then removed through the umbilical incision. The camera was then reinserted through the umbilical port. The gallbladder fossa was inspected once more and noted to be hemostatic with no leaking bile. The abdomen was suctioned dry. The 5 mm ports were removed under direct visualization. The umbilical port was then removed and the air was removed from the abdomen. Next using an 0 Vicryl suture the umbilical fascia was closed in a [id number] fashion. The umbilical port site was irrigated local anesthetic was administered to all the incisions. All the incisions were closed with interrupted subcuticular 4-0 Monocryl sutures followed by Steri-Strips and dressings. The patient was awoken and taken to PACU in stable condition. Surgical Findings: None Complications Complications: No Admit VTE Documentation VTE Mechan Device Prophylaxis: SCD's
--- NOTE | 2025-03-07 12:45 | EX.PCM.DISCH ---
Discharge Instructions Procedure Gallbladder Diet Discharge Diet: Light diet - advance as tolerated Activity Discharge Activity: May Not Drive (for 2-3 days or while taking narcotic pain medications.) and - (Do not drive, work heavy equipment or sign legal documents for 24 hours.) May shower in (days): 1 Lifting Restrictions: 20 lbs for 2 weeks Additional Activity Instructions:: Pain medication may cause nausea. You should typically eat light foods as you take your pain medications. Pain medication may also cause constipation. If this is a problem for you, please discuss with your doctor. Alternate ibuprofen and Tylenol for pain, oxycodone for breakthrough pain Dressing / Incision Call your doctor if your incision/area has: Continuous Slow Oozing, Sudden Increased Bleeding, Increased Pain/ Swelling, Increased Redness and Foul Smelling Discharge Call your doctor if you observe: Fever of 101 or Higher Suture Line Care: Avoid Pulling/Pushing and Avoid Pinching/Bending Remove Dressing in: 2 days Additional Dressing/Incision Instructions:: Leave operative bandaids on for 2 days. When you remove dressing, leave Steri-Strips on until your follow-up appointment, or until the Steri-Strips fall off on their own. Follow Up Care Please Follow Up With: Brenden Weiner MD When: Please call to schedule 2 week follow up appointment. [phone] Test Results: Test results from this visit will be discussed in further detail at your follow-up appointment, if applicable. Discharge Plan Admission Attending Provider: Brenden Weiner Primary Care Provider: Shaneka Joyce Consulting Providers: Padmini Santo Instructions Print Language: Macedonian Discharge Orders/Prescriptions Prescriptions: New oxycodone 5 mg Tablet 5 - 10 mg PO Q4H PRN PRN (Reason: Pain Score 4-10) 5 Days Qty: 20 0RF No Action Hair,Skin and Nails Tablet 1 tab PO DAILY sertraline 100 mg tablet 100 mg PO QHS Qty: 30 12RF acyclovir 400 mg tablet 400 mg PO TID PRN (Reason: Outbreak) Qty: 30 3RF norgestimate-ethinyl estradiol [Sprintec (28)] 0.25-35 mg-mcg tablet 1 tab PO DAILY Qty: 84 5RF Rx Instructions: Take active pills only trazodone 50 mg tablet 50 mg PO QHS Qty: 30 12RF Probiotic Acidophilus 250 million cell capsule 500 mmu cells PO DAILY Mag Glycinate 100 mg tablet 500 mg PO DAILY Tums 300 mg (750 mg) tablet,chewable 300 mg PO DAILY PRN (Reason: dyspepsia) Patient Comments: takes almost everyday levothyroxine 75 mcg tablet 75 mcg PO DAILY Qty: 90 2RF Referrals / Follow Up: Shaneka Joyce MD [Primary Care Provider] - Disposition Disposition (needs filled in before D/C Order can be placed): Home, Self Care
--- NOTE | 2025-03-07 13:06 | PCM.POST.ANE ---
Anesthesia: Postop Eval I Current Vital Signs Temperature: 97.3 F Pulse Rate: 80 Blood Pressure: 107/65 Respiratory Rate: 18 Pulse Ox: 98 Oxygen Delivery Method: Room Air Assessment Airway patent: Yes Spontaneous unlabored respirations: Yes Mental status: Awake and Calm nausea: No Vomiting: No Anesthesia Complication: No Fluid Hydration Crystalloid volume administer (ml): 1,000 Total IV fluid infused: 1,000 Progress Note Anesthesia document: Postop Eval 1 completed: Yes
--- NOTE | 2025-03-07 15:04 | POSTOPAN2_ITS ---
Anesthesia Postop Eval I Sum Postop Eval Completion status Anesthesia document: Postop Eval 1 completed: Yes Anesthesia Postop Eval I Summary Anesthesia Postop Eval I Summary: Anesthesia Postop Eval I: Assessment Summary Airway patent Yes 03/07/25 13:07 DATA MODELING SPECIALIST.ACAR Spontaneous unlabored Yes 03/07/25 13:07 DATA MODELING SPECIALIST.ACAR respirations Mental status Awake,Calm 03/07/25 13:07 DATA MODELING SPECIALIST.ACAR nausea No 03/07/25 13:07 DATA MODELING SPECIALIST.ACAR Vomiting No 03/07/25 13:07 DATA MODELING SPECIALIST.ACAR Anesthesia Postop Eval I: Fluid Summary Crystalloid volume administer 1,000 03/07/25 13:07 DATA MODELING SPECIALIST.ACAR (ml) Colloids volume administered ( ml) Blood Product volume administered (ml) Total IV fluid infused 1,000 03/07/25 13:07 DATA MODELING SPECIALIST.ACAR Anesthesia Postop Eval I: Summary Notes Anesthesia Complication No 03/07/25 13:07 DATA MODELING SPECIALIST.ACAR Anesthesia Complication Comment: Post-operative progress note Anesthesia: Postop Eval II Evaluation Mental status: Awake and Calm Pain Level: 0 nausea: No Vomiting: No Complications Anesthesia Complication: No
--- NOTE | 2025-03-07 15:04 | PCM.POSTANE2 ---
Anesthesia Postop Eval I Sum Postop Eval Completion status Anesthesia document: Postop Eval 1 completed: Yes Anesthesia Postop Eval I Summary Anesthesia Postop Eval I Summary: Anesthesia Postop Eval I: Assessment Summary Airway patent Yes 03/07/25 13:07 SULFONATION EQUIPMENT OPERATOR.ACAR Spontaneous unlabored Yes 03/07/25 13:07 SULFONATION EQUIPMENT OPERATOR.ACAR respirations Mental status Awake,Calm 03/07/25 13:07 SULFONATION EQUIPMENT OPERATOR.ACAR nausea No 03/07/25 13:07 SULFONATION EQUIPMENT OPERATOR.ACAR Vomiting No 03/07/25 13:07 SULFONATION EQUIPMENT OPERATOR.ACAR Anesthesia Postop Eval I: Fluid Summary Crystalloid volume administer 1,000 03/07/25 13:07 SULFONATION EQUIPMENT OPERATOR.ACAR (ml) Colloids volume administered ( ml) Blood Product volume administered (ml) Total IV fluid infused 1,000 03/07/25 13:07 SULFONATION EQUIPMENT OPERATOR.ACAR Anesthesia Postop Eval I: Summary Notes Anesthesia Complication No 03/07/25 13:07 SULFONATION EQUIPMENT OPERATOR.ACAR Anesthesia Complication Comment: Post-operative progress note Anesthesia: Postop Eval II Evaluation Mental status: Awake and Calm Pain Level: 0 nausea: No Vomiting: No Complications Anesthesia Complication: No
== END 2025-03-07 16:19 | disposition home or self-care (01) ==
LOC: SDC 09:30 → AC 09:32
PROVIDERS: Anesthesiology; Obstetrics & Gynecology; PCP Internal Medicine; Referring Provider Surgery; Visit Provider Surgery
PROC: (CPT 47610; principal; 2025-03-07 10:40)
PROC: (CPT 58661; 2025-03-07 10:40)
DX: K80.70 Calculus of gallbladder and bile duct without cholecystitis without obstruction (principal); Z87.891 Personal history of nicotine dependence; Z30.2 Encounter for sterilization; Z79.890 Hormone replacement therapy; K21.9 Gastro-esophageal reflux disease without esophagitis; E06.3 Autoimmune thyroiditis; E03.9 Hypothyroidism, unspecified
CPT/HCPCS: 58661; 47562; 00840; 36415; 81025; 84443; 86850; 86900; 86901; 88302; 88304; 93005; J2405

== ENCOUNTER → 2025-04-19 | Outpatient (CLI) | payer OTHER, SELFPAY ==
--- NOTE | 2025-04-19 06:18 | CT_ITS ---
PROCEDURE: ABDOMEN/PELVIS WITH CONTRAST 04/19/2025 REASON FOR EXAM: RUQ PAIN TECHNIQUE: Procedure Code: [id number] Modality: CT Procedure: ABDOMEN/PELVIS WITH CONTRAST Coronal and Sagittal reconstruction series were provided. One or more dose reduction techniques were used (e.g., Automated exposure control, adjustment of the mA and/or kV according to patient size, use of iterative reconstruction technique. FINDINGS: Lung bases are clear. The peripheral soft tissues unremarkable. Normal caliber abdominal aorta. No suspicious lymphadenopathy. Mild degenerative changes of the lower lumbar spine. The liver is unremarkable. The gallbladder is not visualized and may be surgically absent or contracted. The pancreas, spleen, adrenals are unremarkable. Symmetric enhancement of the bilateral kidneys. The uterus is anteverted. Normal caliber large and small bowel. Dense colonic stool suspicious for constipation. Normal caliber appendix. CT/Abdomen/Pelvis WITH Contrast IMPRESSION: No acute abnormality of the abdomen or pelvis. Constipation. Reading Location: [id number]
== END | disposition home or self-care (01) ==
PROVIDERS: PCP Internal Medicine; Referring Provider Surgery; Visit Provider Surgery
DX: R10.11 Right upper quadrant pain (principal); Z90.49 Acquired absence of other specified parts of digestive tract
CPT/HCPCS: 74177; Q9967

== ENCOUNTER → 2025-06-12 | Outpatient (CLI) | payer OTHER, SELFPAY ==
[2025-06-12 13:19] LABS: CPK Total, Creatine Kinase 79 U/L (24-195)
== END | disposition home or self-care (01) ==
LOC: BWCLAB 08:18
PROVIDERS: PCP Internal Medicine; Visit Provider Nurse Practitioner Family
DX: R53.83 Other fatigue (principal)
CPT/HCPCS: 36415; 82550